=== PATIENT | female | born 1965 | race American Indian/Alaskan Native ===

== ENCOUNTER 2017-04-15 02:05 | Emergency (ER) | payer MEDICAID ==
[2017-04-15 02:20] VITALS: BMI 24.3
--- NOTE | 2017-04-15 02:48 | ED PDOC ---
Arrival/HPI - General Chief Complaint: Abdominal Pain Time Seen by Provider: 04/15/17 02:21 Historian: Patient - History of Present Illness Narrative History of Present Illness (Text): 04/15/17 02:48 Marleni Marroquin is a 52 year old female, whose past medical history includes emphysema, diabetes, chronic lower back pain, substance abuse, bipolar disorder , depression, and schizophrenia, who presents to the Emergency department complaining of diarrhea. Patient states she mixed her Seroquel medication with alcohol and cough syrup tonight and is now experiencing diarrhea. Patient denies any fever, chest pain, shortness of breath, vomiting, urinary symptoms, back pain, neck pain, headache, dizziness, or any other complaints. Time/Duration: Other (tonight) Symptom Onset: Gradual Symptom Course: Unchanged Activities at Onset: Rest, Light Past Medical History - Provider Review Nursing Documentation Reviewed: Yes - Infectious Disease Hx of Infectious Diseases: None - Tetanus Immunization Tetanus Immunization: Unknown - Reproductive Menopause: Yes - Cardiac Hx Cardiac Disorders: No (denies) Hx Hypertension: No - Pulmonary Hx Tuberculosis: No - Neurological HX Cerebrovascular Accident: No Hx Seizures: No - HEENT Hx HEENT Disorder: No (denies) - Renal Hx Renal Disorder: No (denies) - Endocrine/Metabolic Hx Endocrine Disorders: No (denies) Hx Diabetes Mellitus Type 2: Yes (on oral hypoglycemic) - Hematological/Oncological Hx Cancer: No - Integumentary Hx Dermatological Disorder: Yes Other/Comment: fungus to bilat feet - Musculoskeletal/Rheumatological Hx Musculoskeletal Disorders: No (denies) - Gastrointestinal Hx Gastrointestinal Disorders: No (denies) - Genitourinary/Gynecological Hx Sexually Transmitted Diseases: No - Psychiatric Hx Anxiety: Yes Hx Substance Use: Yes (crack) - Past Surgical History Past Surgical History: No Previous - Anesthesia Hx Anesthesia: No Hx Anesthesia Reactions: No Hx Malignant Hyperthermia: No - Suicidal Assessment Feels Threatened In Home Enviroment: No Family/Social History - Physician Review Nursing Documentation Reviewed: Yes Family/Social History: No Known Family HX Smoking Status: Current Some Days Smoker Hx Alcohol Use: Yes (2-3 cans a day) Hx Substance Use: Yes (crack) Hx Substance Use Treatment: Yes Allergies/Home Meds Allergies/Adverse Reactions: Allergies No Known Allergies Allergy (Verified 07/24/15 02:36) Review of Systems - Physician Review All systems were reviewed & negative as marked: Yes - Review of Systems Constitutional: Normal. absent: Fevers Eyes: Normal ENT: Normal Respiratory: Normal. absent: SOB, Cough Cardiovascular: Normal. absent: Chest Pain Gastrointestinal: Diarrhea. absent: Vomiting Genitourinary Female: Normal. absent: Dysuria, Frequency, Hematuria, Urine Output Changes Musculoskeletal: Normal. absent: Back Pain, Neck Pain Skin: Normal. absent: Rash Neurological: Normal. absent: Headache, Dizziness Endocrine: Normal Hemo/Lymphatic: Normal Psychiatric: Normal Physical Exam Vital Signs Reviewed: Yes Vital Signs Temp Pulse Resp BP Pulse Ox 04/15/17 04:22 97.9 F 52 L 16 151/81 H 98 Temperature: Afebrile Blood Pressure: Normal Pulse: Regular Respiratory Rate: Normal Appearance: Positive for: Well-Appearing, Non-Toxic, Comfortable Pain Distress: None Mental Status: Positive for: Alert and Oriented X 3 - Systems Exam Head: Present: Atraumatic, Normocephalic Pupils: Present: PERRL Extroacular Muscles: Present: EOMI Conjunctiva: Present: Normal Mouth: Present: Moist Mucous Membranes Neck: Present: Normal Range of Motion Respiratory/Chest: Present: Clear to Auscultation, Good Air Exchange. No: Respiratory Distress, Accessory Muscle Use Cardiovascular: Present: Regular Rate and Rhythm, Normal S1, S2. No: Murmurs Abdomen: Present: Normal Bowel Sounds. No: Tenderness, Distention, Peritoneal Signs Back: Present: Normal Inspection Upper Extremity: Present: Normal Inspection. No: Cyanosis, Edema Lower Extremity: Present: Normal Inspection. No: Edema Neurological: Present: GCS=15, CN II-XII Intact, Speech Normal Skin: Present: Warm, Dry, Normal Color. No: Rashes Psychiatric: Present: Alert, Oriented x 3, Normal Insight, Normal Concentration Medical Decision Making ED Course and Treatment: 04/15/17 02:48 Impression: 52 year old female complaining of diarrhea. Plan: -- EKG -- Chest X-ray -- Labs, alcohol level, lipase -- Urine drug screen -- Reassess and disposition Progress Notes: 04/15/17 04:36 reviewed EKG, sinus bradycardia at 53 bpm[address] Non-specific ST changes. 04/15/17 05:41 Reviewed radiology, Chest X-ray shows no acute processes. - Lab Interpretations Lab Results: 04/15/17 05:10 04/15/17 05:10 Lab Results 04/15/17 05:10: WBC 4.9 D, RBC 4.54, Hgb 12.9, Hct 38.4, MCV 84.6, MCH 28.4, MCHC 33.6, RDW 15.3 H, Plt Count 167, MPV 10.7 04/15/17 05:10: Alcohol, Quantitative < 10 04/15/17 05:10: Sodium 143, Potassium 3.8, Chloride 104, Carbon Dioxide 31, Anion Gap 12, BUN 15, Creatinine 0.7, Est GFR ( Amer) > 60, Est GFR (Non- Af Amer) > 60, Random Glucose 71, Calcium 9.2, Total Bilirubin 0.7, AST 31, ALT 38, Alkaline Phosphatase 56, Total Protein 7.0, Albumin 3.8, Globulin 3.2, Albumin/Globulin Ratio 1.2, Lipase 53 04/15/17 05:10: PT 11.4, INR 1.06, APTT 23.1 L I have reviewed the lab results: Yes - RAD Interpretation Radiology Orders: 04/15/17 02:50 CHEST PORTABLE [RAD] Stat - Transfer of Care Patient signed out to Dr:: Emelia Pending Labs:: PES evaluation/reassess/final disposition - Scribe Statement The provider has reviewed the documentation as recorded by the Scribe Annel Munoz All medical record entries made by the Scribe were at my direction and personally dictated by me. I have reviewed the chart and agree that the record accurately reflects my personal performance of the history, physical exam, medical decision making, and the department course for this patient. I have also personally directed, reviewed, and agree with the discharge instructions and disposition. Disposition/Present on Arrival - Present on Arrival Any Indicators Present on Arrival: No History of DVT/PE: No History of Uncontrolled Diabetes: No Urinary Catheter: No History of Decub. Ulcer: No History Surgical Site Infection Following: None - Disposition Have Diagnosis and Disposition been Completed?: No Diagnosis: Schizoaffective disorder, Diarrhea Disposition Time: 07:00 Condition: STABLE
[2017-04-15 04:23] VITALS: RESP 16; TEMP 97.9
[2017-04-15 05:42] LABS: HEMATOCRIT 38.4 % (36.0-48.0); MEAN CELL VOLUME 84.6 fL (80.0-105.0); MEAN CORPUSCULAR HEMOGLOBIN 28.4 pg (25.0-35.0); MEAN CORPUSCULAR HGB CONC 33.6 g/dl (31.0-37.0); MEAN PLATELET VOLUME 10.7 fl (7.0-11.0); RED CELL DISTRIBUTION WIDTH 15.3 % (11.5-14.5); WHITE BLOOD COUNT 4.9 10^3/ul (4.5-11.0)
[2017-04-15 05:46] LABS: ALB/GLOB RATIO 1.2 (1.1-1.8); ALKALINE PHOSPHATASE 56 U/L (38-133); ALT/SGPT 38 U/L (7-56); AST/SGOT 31 U/L (15-39); BILIRUBIN,TOTAL 0.7 mg/dL (0.2-1.3); BLOOD UREA NITROGEN 15 mg/dL (7-21); CALCIUM 9.2 mg/dL (8.4-10.5); CARBON DIOXIDE 31 mmol/L (21-33); CHLORIDE 104 mmol/L (98-107); GFR AFRICAN-AMERICAN > 60; GLUCOSE,RANDOM 71 mg/dL (70-110); LIPASE 53 U/L (23-300); POTASSIUM 3.8 mmol/L (3.6-5.0); SODIUM 143 mmol/L (132-148)
[2017-04-15 05:47] LABS: INR 1.06 (0.93-1.08); PARTIAL THROMBOPLASTIN TIME 23.1 Seconds (23.7-30.8)
[2017-04-15 07:03] VITALS: O2SAT 96
--- NOTE | 2017-04-15 07:05 | ED PDOC ---
Physical Exam Vital Signs Reviewed: Yes Vital Signs Temp Pulse Resp BP Pulse Ox 04/15/17 09:27 66 16 136/76 96 04/15/17 07:02 63 16 96 04/15/17 04:22 97.9 F 52 L 16 151/81 H 98 Temperature: Afebrile Blood Pressure: Normal Pulse: Regular Respiratory Rate: Normal Appearance: Positive for: Well-Appearing, Non-Toxic, Comfortable Pain Distress: None Mental Status: Positive for: Alert and Oriented X 3 Medical Decision Making ED Course and Treatment: 04/15/17 07:00 Case endorsed to me by , pending PES evaluation. Patient is a 52 year old female who presents to the ed complaining of diarrhea after taking Seroquel and cough syrup after drinking alcohol. On evaluation, patient is alert and oriented X3 and resting comfortably in bed. 04/15/17 07:55 Patient was evaluated by PES worker and was psychiatrically cleared. Patient now complains of swelling and pain to lower extremities. States she has a history of DVTs in the past. Will order LE US to rule out DVT. 04/15/17 09:22 Per preliminary US mobile sales technician report, negative bilateral DVT study. 04/15/17 09:28 seen and cleared by PES pt denies SI/HI states she feels comfortable being dc'd home with outpatient f/u Incidental nodule on CXR as per radiologist, Dr. Miranda. Pt informed and instructed to f/u with outpatient clinic or PMD for further w/u. Verbalized understanding and agreement. Pt has been closely monitored throughout the stay in the ED. Currently pt is ANOx3 to person, place, and time. Has good insight and judgment. Denies suicidal or homicidal ideations. Pt has steady gait, ambulates without difficulty, not slurring speech. Pt able to tolerate PO without any difficulty. Patient denies any complaints at this time. Patient is not tremulous, not tachycardic, no signs or symptoms of alcohol withdrawal. Pt states she understands to return to the ER right away for new or worsening symptoms or for inability to f/u with PMD or specialist as instructed. Patient states that she fully agrees with and understands discharge instructions. States that she agrees with the plan and disposition. Verbalized and repeated discharge instructions and plan. I have given the patient opportunity to ask any additional questions. - Lab Interpretations Lab Results: 04/15/17 05:10 04/15/17 05:10 Lab Results 04/15/17 07:57: Urine Opiates Screen Negative, Urine Methadone Screen Negative, Ur Barbiturates Screen Negative, Ur Phencyclidine Scrn Negative, Ur Amphetamines Screen Negative, U Benzodiazepines Scrn Negative, U Oth Cocaine Metabols Positive H, U Cannabinoids Screen Negative 04/15/17 05:10: WBC 4.9 D, RBC 4.54, Hgb 12.9, Hct 38.4, MCV 84.6, MCH 28.4, MCHC 33.6, RDW 15.3 H, Plt Count 167, MPV 10.7 04/15/17 05:10: Alcohol, Quantitative < 10 04/15/17 05:10: Sodium 143, Potassium 3.8, Chloride 104, Carbon Dioxide 31, Anion Gap 12, BUN 15, Creatinine 0.7, Est GFR ( Amer) > 60, Est GFR (Non- Af Amer) > 60, Random Glucose 71, Calcium 9.2, Total Bilirubin 0.7, AST 31, ALT 38, Alkaline Phosphatase 56, Total Protein 7.0, Albumin 3.8, Globulin 3.2, Albumin/Globulin Ratio 1.2, Lipase 53 04/15/17 05:10: PT 11.4, INR 1.06, APTT 23.1 L - RAD Interpretation Radiology Orders: 04/15/17 02:50 CHEST PORTABLE [RAD] Stat 04/15/17 07:47 DUPLEX LOWER EXTRM VEIN BILAT [US] Stat - Scribe Statement The provider has reviewed the documentation as recorded by the Donya Angeles Provider Attestation: All medical record entries made by the Donya were at my direction and personally dictated by me. I have reviewed the chart and agree that the record accurately reflects my personal performance of the history, physical exam, medical decision making, and the department course for this patient. I have also personally directed, reviewed, and agree with the discharge instructions and disposition. Disposition/Present on Arrival - Present on Arrival Any Indicators Present on Arrival: No History of DVT/PE: No History of Uncontrolled Diabetes: No Urinary Catheter: No History of Decub. Ulcer: No History Surgical Site Infection Following: None - Disposition Have Diagnosis and Disposition been Completed?: Yes Diagnosis: Schizoaffective disorder, Substance abuse Disposition: HOME/ ROUTINE Disposition Time: 09:30 Patient Plan: Discharge Patient Problems: Current Active Problems Problem Status Onset Schizoaffective disorder Acute Substance abuse Acute Condition: GOOD Discharge Instructions (ExitCare): Polysubstance Abuse (ED) Additional Instructions: PLEASE RETURN TO THE EMERGENCY DEPARTMENT FOR NEW OR WORSENING SYMPTOMS. RETURN RIGHT AWAY IF YOU CANNOT FOLLOW UP WITH YOUR PRIMARY CARE DOCTOR, CLINIC, OR SPECIALIST IN 1-2 DAYS. Referrals: Allan Albarran MD [Staff Provider] - Follow up with primary Isabel Jacobs MD [Staff Provider] - Follow up with primary
--- NOTE | 2017-04-15 09:22 | RAD ---
HISTORY: medical clearance COMPARISON: Chest x-ray performed 07/08/16 TECHNIQUE: Chest, one view. FINDINGS: LUNGS: Azygos lobe, anatomic variant. Hyperinflation may be seen in setting of COPD. No focal consolidation. 13 mm left upper lobe rounded density appears related to the 1st rib costochondral cartilage. Please note that chest x-ray has limited sensitivity for the detection of pulmonary masses. PLEURA: No significant pleural effusion identified. No definite pneumothorax . CARDIOVASCULAR: Heart size appears top normal. OSSEOUS STRUCTURES: Degenerative changes. VISUALIZED UPPER ABDOMEN: Unremarkable. OTHER FINDINGS: None. IMPRESSION: Hyperinflation may be seen in setting of COPD. Left upper lobe rounded density likely related to the 1st rib costochondral cartilage. Please note that chest x-ray has limited sensitivity for the detection of pulmonary masses. If appropriate, outpatient screening CT of the chest may be considered. Findings discussed with Dr. Kapoor on 04/15/17 at 9:19 a.m..
[2017-04-15 09:27] VITALS: BP 136/76; PULSE 66
--- NOTE | 2017-04-15 21:56 | CARD ---
APPROVED REPORT EKG Measurement Heart [id number] <Conclusion> Sinus bradycardia with sinus arrhythmia Otherwise normal ECG
--- NOTE | 2017-04-16 20:05 | US ---
HISTORY: Leg pain and swelling. Evaluate for DVT PHYSICIAN(S): Aron Valdivia MD. TECHNIQUE: Duplex sonography and color-flow Doppler with graded compression were used to evaluate the deep venous systems of both lower extremities. The exam is somewhat limited by edema. FINDINGS: The visualized deep venous systems of both lower extremities are sonographically normal and compressible. Normal wave forms and augmentation are seen. There is no sonographic evidence for deep venous thrombosis in the visualized segments of both lower extremities. IMPRESSION: No sonographic evidence for deep venous thrombosis in the visualized segments of both lower extremities.
== END 2017-04-15 10:04 | disposition home or self-care (01) ==
LOC: ED 02:05
DX: F25.9 Schizoaffective disorder, unspecified (principal); R19.7 Diarrhea, unspecified

== ENCOUNTER 2017-06-13 17:58 | Emergency (ER) | payer MEDICAID ==
[2017-06-13 17:59] VITALS: BMI 24.3
--- NOTE | 2017-06-13 18:31 | ED PDOC ---
Arrival/HPI - General Chief Complaint: Psychiatric Evaluation Time Seen by Provider: 06/13/17 18:25 Historian: Patient - History of Present Illness Narrative History of Present Illness (Text): 06/13/17 18:26 This 52 yo female with pmh schizophrenia, bipolar disorder, presents to this ED c/o feeling paranoia, and auditory hallucination x 1 week. Patient admits being homeless for at least 8 months. She has not taken her psychs medication for over 6 months. Patient admits drinking alcohol very often. She also stated taking cocaine x 2 weeks ago. Denies SI, HI, sob, cp, abdominal pain, urinary symptoms, or abnormal gait. Time/Duration: 1 week Symptom Course: Worsening Context: Home Past Medical History - Provider Review Nursing Documentation Reviewed: Yes - Infectious Disease Hx of Infectious Diseases: None - Tetanus Immunization Tetanus Immunization: Unknown - Cardiac Hx Cardiac Disorders: No (denies) Hx Hypertension: No - Pulmonary Hx Respiratory Disorders: No Hx Tuberculosis: No - Neurological HX Cerebrovascular Accident: No Hx Seizures: No - HEENT Hx HEENT Disorder: No (denies) - Renal Hx Renal Disorder: No (denies) - Endocrine/Metabolic Hx Endocrine Disorders: Yes Hx Diabetes Mellitus Type 2: Yes - Hematological/Oncological Hx Blood Disorders: No Hx Cancer: No - Integumentary Hx Dermatological Disorder: Yes Other/Comment: fungus to bilat feet per pt - Musculoskeletal/Rheumatological Hx Musculoskeletal Disorders: No (denies) - Gastrointestinal Hx Gastrointestinal Disorders: No (denies) - Genitourinary/Gynecological Hx Genitourinary Disorders: No Hx Sexually Transmitted Diseases: No - Psychiatric Hx Psychophysiologic Disorder: Yes Hx Substance Use: Yes (crack cocaine) - Past Surgical History Past Surgical History: No Previous - Anesthesia Hx Anesthesia: No Hx Anesthesia Reactions: No Hx Malignant Hyperthermia: No - Suicidal Assessment Feels Threatened In Home Enviroment: No Family/Social History - Physician Review Nursing Documentation Reviewed: Yes Family/Social History: No Known Family HX Smoking Status: Heavy Smoker > 10 Cigarettes Daily Hx Alcohol Use: Yes Frequency of alcohol use: Few days per week Hx Substance Use: Yes (crack cocaine) Hx Substance Use Treatment: Yes Allergies/Home Meds Allergies/Adverse Reactions: Allergies No Known Allergies Allergy (Verified 06/13/17 18:10) Home Medications: Home Meds Medication Instructions Recorded Confirmed No Known Home Med 06/13/17 06/13/17 Review of Systems - Review of Systems Constitutional: Normal. absent: Fatigue, Weight Change, Fevers, Night Sweats Eyes: Normal ENT: Normal Respiratory: Normal. absent: SOB, Cough Cardiovascular: Normal. absent: Chest Pain, Palpitations Gastrointestinal: Normal. absent: Abdominal Pain, Diarrhea, Nausea, Vomiting Genitourinary Female: Normal, Other (LMP: now). absent: Dysuria, Frequency, Hematuria, Vaginal Bleeding, Vaginal Discharge Musculoskeletal: Normal Skin: Normal Neurological: Normal. absent: Headache, Dizziness, Focal Weakness Endocrine: Normal Hemo/Lymphatic: Normal Psychiatric: Depression, Other (see HPI) Physical Exam Vital Signs Temp Pulse Resp BP Pulse Ox 06/13/17 19:10 99 F 76 18 128/75 95 06/13/17 18:11 98 F 80 15 136/77 97 Temperature: Afebrile Blood Pressure: Normal Pulse: Regular Respiratory Rate: Normal Appearance: Positive for: Well-Appearing, Non-Toxic, Comfortable Pain Distress: None Mental Status: Positive for: Alert and Oriented X 3 - Systems Exam Head: Present: Atraumatic, Normocephalic Pupils: Present: PERRL Extroacular Muscles: Present: EOMI Conjunctiva: Present: Normal Mouth: Present: Moist Mucous Membranes Neck: Present: Normal Range of Motion Respiratory/Chest: Present: Clear to Auscultation, Good Air Exchange. No: Respiratory Distress, Accessory Muscle Use, Wheezes, Retracting, Rhonchi Cardiovascular: Present: Regular Rate and Rhythm, Normal S1, S2. No: Murmurs Abdomen: Present: Normal Bowel Sounds. No: Tenderness, Distention, Peritoneal Signs Back: Present: Normal Inspection Upper Extremity: Present: Normal Inspection, Normal ROM, NORMAL PULSES, Neurovascularly Intact, Capillary Refill < 2s. No: Cyanosis, Edema Lower Extremity: Present: Normal Inspection, NORMAL PULSES, Normal ROM, Neurovascularly Intact, Capillary Refill < 2 s. No: Edema Neurological: Present: GCS=15, CN II-XII Intact, Speech Normal, Motor Func Grossly Intact, Normal Sensory Function, Normal Cerebellar Funct, Gait Normal Skin: Present: Warm, Dry, Normal Color. No: Rashes Psychiatric: Present: Alert, Oriented x 3, Normal Insight, Normal Concentration Medical Decision Making ED Course and Treatment: 06/13/17 21:47 PES screener has seen patient. PES screener stated that after speaking with psychiatrist, the plan is to d/c patient home, with Dx. Bipolar disorder. Patient denies SI, or HI. PES screener patient refused to sign PES forms. Re-evaluation Time: 21:49 Reassessment Condition: Re-examined, Improved - Lab Interpretations Lab Results: 06/13/17 19:00 06/13/17 19:00 Lab Results 06/13/17 19:00: Alcohol, Quantitative 30 H 06/13/17 19:00: Salicylates < 1 L, Acetaminophen < 10.0 L 06/13/17 19:00: Sodium 143, Potassium 3.9, Chloride 105, Carbon Dioxide 28, Anion Gap 14, BUN 16, Creatinine 0.7, Est GFR ( Amer) > 60, Est GFR (Non- Af Amer) > 60, Random Glucose 63 L, Calcium 9.3, Total Bilirubin 0.4, AST 27, ALT 27, Alkaline Phosphatase 54, Total Protein 6.6, Albumin 4.0, Globulin 2.6, Albumin/Globulin Ratio 1.5 06/13/17 19:00: WBC 4.5, RBC 4.36, Hgb 12.3, Hct 37.2, MCV 85.3, MCH 28.2, MCHC 33.1, RDW 14.9 H, Plt Count 144, MPV 11.7 H, Gran % 43.2 L, Lymph % (Auto) 44.7 H, [place] % (Auto) 7.7 H, Eos % (Auto) 4.0, Baso % (Auto) 0.4, Gran # 1.96, Lymph # 2.0, [place] # 0.4, Eos # 0.2, Baso # 0.02 06/13/17 18:45: Urine Opiates Screen Negative, Urine Methadone Screen Negative, Ur Barbiturates Screen Negative, Ur Phencyclidine Scrn Negative, Ur Amphetamines Screen Negative, U Benzodiazepines Scrn Negative, U Oth Cocaine Metabols Negative, U Cannabinoids Screen Negative 06/13/17 18:45: Urine Color Yellow, Urine Appearance Clear, Urine pH 6.0, Ur Specific [place] 1.010, Urine Protein Negative, Urine Glucose (UA) Negative, Urine Ketones Negative, Urine Blood Negative, Urine Nitrate Negative, Urine Bilirubin Negative, Urine Urobilinogen 0.2, Ur Leukocyte Esterase Negative, Urine HCG, Qual Negative - RAD Interpretation Radiology Orders: 06/13/17 18:25 CHEST PORTABLE [RAD] Stat Disposition/Present on Arrival - Present on Arrival Any Indicators Present on Arrival: No History of DVT/PE: No History of Uncontrolled Diabetes: No Urinary Catheter: No History of Decub. Ulcer: No History Surgical Site Infection Following: None - Disposition Have Diagnosis and Disposition been Completed?: Yes Diagnosis: Bipolar disorder Disposition: HOME/ ROUTINE Disposition Time: 21:50 Patient Plan: Discharge Patient Problems: Current Active Problems Problem Status Onset Bipolar disorder Acute Condition: GOOD Discharge Instructions (ExitCare): Bipolar Disorder (ED) Additional Instructions: Call private doctor for follow up visit or the clinic in 1-2 days. Return to emergency if symptoms worsen. Referrals: Keyur Valladares MD [Primary Care Provider] - Follow up with primary [facility] [Outside] - Follow up with primary [facility] [[facility]] - Follow up with primary Forms: [employer] (Al[place]ian)
[2017-06-13 19:11] VITALS: TEMP 99; O2SAT 95
[2017-06-13 19:19] LABS: BARBITURATES, UR NEGATIVE (NEGATIVE); BENZODIAZEPINES, UR NEGATIVE (NEGATIVE); OPIATES, UR NEGATIVE (NEGATIVE); PHENCYCLIDINE, UR NEGATIVE (NEGATIVE)
[2017-06-13 19:39] LABS: BASO # 0.02 K/mm3 (0.0-2.0); BASO % 0.4 % (0.0-3.0); EOS # 0.2 (0.0-0.7); GRAN # 1.96 (1.4-6.5); GRAN % 43.2 % (50.0-68.0); HEMOGLOBIN 12.3 g/dL (12.0-16.0); LYMPH % 44.7 % (22.0-35.0); MEAN CELL VOLUME 85.3 fl (80.0-105.0); MEAN CORPUSCULAR HEMOGLOBIN 28.2 pg (25.0-35.0); MEAN CORPUSCULAR HGB CONC 33.1 g/dl (31.0-37.0); MEAN PLATELET VOLUME 11.7 fl (7.0-11.0); MONO # 0.4 (0.1-0.6); MONO % 7.7 % (1.0-6.0); PLATELET COUNT 144 10^3/uL (120.0-450.0); RBC 4.36 10^6/uL (3.5-6.1); RED CELL DISTRIBUTION WIDTH 14.9 % (11.5-14.5); WHITE BLOOD COUNT 4.5 10^3/ul (4.5-11.0)
[2017-06-13 19:39] LABS: URINE BILIRUBIN NEGATIVE (NEGATIVE); URINE BLOOD NEGATIVE (NEGATIVE); URINE GLUCOSE (UA) NEGATIVE (NEGATIVE); URINE LEUKOCYTE ESTERASE NEGATIVE Leu/uL (NEGATIVE); URINE NITRATE NEGATIVE (NEGATIVE); URINE PROTEIN NEGATIVE mg/dL (<30 mg/dL); URINE UROBILINOGEN 0.2 E.U./dL (<1 E.U./dL)
[2017-06-13 19:41] LABS: URINE APPEARANCE CLEAR (CLEAR); URINE COLOR YELLOW (YELLOW)
[2017-06-13 19:42] LABS: HCG,QUALITATIVE URINE NEGATIVE (NEGATIVE)
[2017-06-13 19:44] LABS: SALICYLATE < 1 mg/dL (2.0-20.0)
[2017-06-13 19:45] LABS: ACETAMINOPHEN < 10.0 ug/ml (10.0-20.0)
[2017-06-13 19:46] LABS: ALB/GLOB RATIO 1.5 (1.1-1.8); ALT/SGPT 27 U/L (7-56); AST/SGOT 27 U/L (15-39); BLOOD UREA NITROGEN 16 mg/dL (7-21); CALCIUM 9.3 mg/dL (8.4-10.5); GFR AFRICAN-AMERICAN > 60; GFR NON-AFRICAN AMERICAN > 60
[2017-06-13 22:12] VITALS: BP 109/91; PULSE 63; RESP 16
--- NOTE | 2017-06-14 07:41 | RAD ---
HISTORY: PES eval COMPARISON: 04/15/2017 FINDINGS: LUNGS: No acute infiltrate. Incidentally noted azygos fissure, normal developmental variant. PLEURA: No significant pleural effusion identified, no pneumothorax apparent. CARDIOVASCULAR: Normal. OSSEOUS STRUCTURES: No significant abnormalities. VISUALIZED UPPER ABDOMEN: Normal. OTHER FINDINGS: None. IMPRESSION: No acute infiltrate.
--- NOTE | 2017-06-14 11:54 | CARD ---
APPROVED REPORT EKG Measurement Heart [id number] <Conclusion> Normal sinus rhythm Possible Left atrial enlargement
== END 2017-06-13 22:14 | disposition home or self-care (01) ==
LOC: ED 17:58
DX: F31.9 Bipolar disorder, unspecified (principal); Z59.0 Homelessness

== ENCOUNTER 2017-09-26 21:53 | Emergency (ER) | payer MEDICAID ==
[2017-09-26 21:53] VITALS: BMI 26.4
--- NOTE | 2017-09-26 22:27 | ED PDOC ---
Arrival/HPI <RobertoJon nix - Last Filed: 09/27/17 06:54> - General Historian: Patient - History of Present Illness Time/Duration: < week Symptom Onset: Gradual Symptom Course: Unchanged Activities at Onset: Rest, Light Context: Home <Thad Medina - Last Filed: 09/27/17 07:06> - General Chief Complaint: Psychiatric Evaluation - History of Present Illness Narrative History of Present Illness (Text): 09/26/17 22:27 Marleni Marroquin is a 52 year old AAF who has a past medical history significant for emphysema, diabetes, chronic lower back pain, substance abuse, bipolar disorder, depression, and schizophrenia who presents to the [facility] ED with a chief complaint of depression with associated suicidal and homicidal ideations. Patient reports that she had been depressed for months but that her depression has gotten worse recently with no inciting event. She states that she is depressed over situations in her family. She denies any visual or auditory hallucinations, fever, chills, headache, neck pain/stiffness, chest pain, palpitations, SOB, cough, abdominal pain, N/V/D/C, burning/pain with urination, rashes or any numbness/tingling/weakness of any extremity. (Thad Medina) Past Medical History - Provider Review Nursing Documentation Reviewed: Yes - Travel History Have you recently traveled outside [place] w/in the past 3 mons?: No - Past History Past History: No Previous - Infectious Disease Hx of Infectious Diseases: None - Tetanus Immunization Tetanus Immunization: Unknown - Reproductive Menopause: No - Cardiac Hx Hypertension: No - Pulmonary Hx Asthma: Yes - Neurological Hx Seizures: No - HEENT Hx HEENT Disorder: No - Renal Hx Renal Disorder: No - Endocrine/Metabolic Hx Endocrine Disorders: Yes Hx Diabetes Mellitus Type 2: Yes - Hematological/Oncological Hx Anemia: Yes - Integumentary Hx Dermatological Disorder: Yes Other/Comment: fungus to bilat feet per pt - Musculoskeletal/Rheumatological Hx Falls: No - Gastrointestinal Hx Gastrointestinal Disorders: No - Genitourinary/Gynecological Hx Sexually Transmitted Diseases: Yes - Psychiatric Hx Anxiety: Yes Hx Bipolar Disorder: Yes Hx Depression: Yes Hx Schizophrenia: Yes Hx Substance Use: Yes - Past Surgical History Past Surgical History: No Previous - Anesthesia Hx Anesthesia: No Hx Anesthesia Reactions: No Hx Malignant Hyperthermia: No - Suicidal Assessment Feels Threatened In Home Enviroment: No <Thad Medina - Last Filed: 09/27/17 07:06> Family/Social History - Physician Review Nursing Documentation Reviewed: Yes Family/Social History: Unknown Family HX Smoking Status: Heavy Smoker > 10 Cigarettes Daily Hx Alcohol Use: Yes Hx Substance Use: Yes Substance used: crack Hx Substance Use Treatment: Yes <Thad Medina - Last Filed: 09/27/17 07:06> Allergies/Home Meds <Jon Mejia - Last Filed: 09/27/17 06:54> <Thad Medina - Last Filed: 09/27/17 07:06> Allergies/Adverse Reactions: Allergies No Known Allergies Allergy (Verified 09/27/17 00:43) Home Medications: Home Meds Medication Instructions Recorded Confirmed Unobtainable 09/27/17 09/27/17 Review of Systems - Physician Review All systems were reviewed & negative as marked: Yes - Review of Systems Constitutional: Normal. absent: Fevers, Night Sweats Eyes: Normal. absent: Vision Changes ENT: Normal Respiratory: Normal. absent: SOB, Cough Cardiovascular: Normal. absent: Chest Pain, Palpitations Gastrointestinal: Normal. absent: Abdominal Pain, Constipation, Diarrhea, Nausea, Vomiting Genitourinary Female: Normal. absent: Dysuria Musculoskeletal: Normal. absent: Neck Pain Skin: Normal. absent: Rash Neurological: Normal. absent: Headache, Dizziness Endocrine: Normal Hemo/Lymphatic: Normal Psychiatric: Depression, Suicidal Ideation, Other (Homicidal ideation). absent : Normal, Anxiety <Thad Medina - Last Filed: 09/27/17 07:06> Physical Exam Vital Signs Reviewed: Yes Temperature: Afebrile Blood Pressure: Normal Pulse: Regular Respiratory Rate: Normal Appearance: Positive for: Well-Appearing, Non-Toxic, Comfortable Pain Distress: None Mental Status: Positive for: Alert and Oriented X 3 - Systems Exam Head: Present: Atraumatic, Normocephalic Pupils: Present: PERRL Extroacular Muscles: Present: EOMI Conjunctiva: Present: Normal Mouth: Present: Moist Mucous Membranes Neck: Present: Normal Range of Motion Respiratory/Chest: Present: Clear to Auscultation, Good Air Exchange. No: Respiratory Distress, Accessory Muscle Use Cardiovascular: Present: Regular Rate and Rhythm, Normal S1, S2. No: Murmurs Abdomen: Present: Normal Bowel Sounds. No: Tenderness, Distention, Peritoneal Signs Back: Present: Normal Inspection Upper Extremity: Present: Normal Inspection. No: Cyanosis, Edema Lower Extremity: Present: Normal Inspection. No: Edema Neurological: Present: GCS=15, CN II-XII Intact, Speech Normal Skin: Present: Warm, Dry, Normal Color. No: Rashes Lymphatic: No: Cervical Adenopathy Psychiatric: Present: Alert, Oriented x 3, Suicidal Ideation, Homicidal Ideation. No: Normal Insight, Normal Concentration, Anxious, Agitated, Depressed Mood, Delusional, Hallucinations <Thad Medina - Last Filed: 09/27/17 07:06> Vital Signs Temp Pulse Resp BP Pulse Ox 09/27/17 06:45 66 18 120/67 99 09/27/17 03:02 66 18 128/69 99 09/27/17 01:00 69 18 129/71 99 09/26/17 22:15 99.0 F 84 20 137/72 98 Medical Decision Making - Transfer of Care Patient signed out to Dr:: Topher Other: PES evaluation/reassess/final disposition <Jon Mejia - Last Filed: 09/27/17 06:54> - Lab Interpretations I have reviewed the lab results: Yes - RAD Interpretation Trade Recruiter: ED Physician, Radiologist - EKG Interpretation Interpreted by ED Physician: Yes Type: 12 lead EKG <Thad Medina - Last Filed: 09/27/17 07:06> ED Course and Treatment: Impression: Pt seen and evaluated with medical assistant float. Pt, whose past medical history includes emphysema, diabetes, chronic back pain, substance abuse, bipolar disorder, depression, and schizophrenia, presented for depression, suicidal ideation, and homicidal ideation. Aware and agree with HPI, clinical findings, plan, and management. Plan: -- EKG -- Chest X-ray -- Labs, alcohol level -- Urinalysis, urine drug screen -- Reassess and disposition (Jon Mejia) 09/26/17 22:43 Impression: 52 year old AAF who has a past medical history significant for emphysema, diabetes, chronic lower back pain, substance abuse, bipolar disorder , depression, and schizophrenia who presents to the [facility] ED with a chief complaint of depression with associated suicidal and homicidal ideations Plan: -CBC, CMP, UA, UDS and serum alcohol level -EKG -Chest X-Ray -PES Evaluation -Reassess and disposition Prior Visits: Patient was seen and evaluated for substance abuse and depression on multiple occasions in the past year 09/27/17 06:55 Patient noticed to still have defiant behavior by PES research analyst who recommended patient be evaluated by psychiatrist this AM (Thad Medina) - Lab Interpretations Lab Results: 09/26/17 22:30 09/26/17 22:30 Lab Results 09/26/17 22:30: Alcohol, Quantitative 15 H 09/26/17 22:30: Sodium 142, Potassium 4.3, Chloride 105, Carbon Dioxide 28, Anion Gap 13, BUN 21, Creatinine 0.8, Est GFR ( Amer) > 60, Est GFR (Non- Af Amer) > 60, Random Glucose 95, Calcium 9.3, Total Bilirubin 0.5, AST 35, ALT 32, Alkaline Phosphatase 50, Total Protein 7.0, Albumin 4.1, Globulin 2.9, Albumin/Globulin Ratio 1.4 09/26/17 22:30: WBC 6.1 D, RBC 4.18, Hgb 12.5, Hct 37.0, MCV 88.5 D, MCH 29.9 , MCHC 33.8, RDW 15.6 H, Plt Count 173, MPV 10.4, Gran % 54.9, Lymph % (Auto) 34.0, Pettis % (Auto) 6.9 H, Eos % (Auto) 3.9, Baso % (Auto) 0.3, Gran # 3.34, Lymph # 2.1, Pettis # 0.4, Eos # 0.2, Baso # 0.02 - Medication Orders Current Medication Orders: Discontinued Medications Haloperidol Lactate (Haldol) 5 mg IM STAT STA PRN Reason: Protocol Stop: 09/26/17 23:06 Last Admin: 09/26/17 23:22 Dose: 5 mg IM Administration Charges Document 09/26/17 23:22 SS (Rec: 09/26/17 23:22 SS [id number]) Injection Site MAR Injection Site Right Deltoid Charges for Administration # of IM Administrations 1 Lorazepam (Ativan) 2 mg IM ONCE ONE Stop: 09/26/17 23:06 Last Admin: 09/26/17 23:22 Dose: 2 mg IM Administration Charges Document 09/26/17 23:22 SS (Rec: 09/26/17 23:22 SS [id number]) Injection Site MAR Injection Site Left Deltoid Charges for Administration # of IM Administrations 1 - PA / MUCK OPERATOR / Resident Statement / has reviewed & agrees with the documentation as recorded. / has examined the patient and agrees with the treatment plan. <Jon Mejia - Last Filed: 09/27/17 06:54> Disposition/Present on Arrival - Present on Arrival Any Indicators Present on Arrival: No - Disposition Have Diagnosis and Disposition been Completed?: No Disposition Time: 07:00 <Jon Mejia - Last Filed: 09/27/17 06:54> - Present on Arrival History of DVT/PE: Yes History of Uncontrolled Diabetes: No Urinary Catheter: No History of Decub. Ulcer: No History Surgical Site Infection Following: None <Thad Medina - Last Filed: 09/27/17 07:06> - Disposition Diagnosis: Manic bipolar I disorder, Suicidal ideation Patient Problems: Current Active Problems Problem Status Onset Manic bipolar I disorder Acute Suicidal ideation Acute Condition: STABLE Referrals: PCP,NO [Primary Care Provider] - Follow up with primary Forms: [employer] (Luxembourgish)
[2017-09-26 22:43] LABS: BASO # 0.02 K/mm3 (0.0-2.0); BASO % 0.3 % (0.0-3.0); EOS # 0.2 (0.0-0.7); EOS % 3.9 % (1.5-5.0); GRAN # 3.34 (1.4-6.5); GRAN % 54.9 % (50.0-68.0); LYMPH # 2.1 (1.2-3.4); MEAN CELL VOLUME 88.5 fl (80.0-105.0); MEAN CORPUSCULAR HEMOGLOBIN 29.9 pg (25.0-35.0); MEAN CORPUSCULAR HGB CONC 33.8 g/dl (31.0-37.0); MEAN PLATELET VOLUME 10.4 fl (7.0-11.0); MONO # 0.4 (0.1-0.6); MONO % 6.9 % (1.0-6.0); RED CELL DISTRIBUTION WIDTH 15.6 % (11.5-14.5); WHITE BLOOD COUNT 6.1 10^3/ul (4.5-11.0)
[2017-09-26 22:54] LABS: SODIUM 142 mmol/L (132-148)
[2017-09-26 23:10] LABS: ALB/GLOB RATIO 1.4 (1.1-1.8); ALKALINE PHOSPHATASE 50 U/L (38-126); ALT/SGPT 32 U/L (7-56); AST/SGOT 35 U/L (14-36); BILIRUBIN,TOTAL 0.5 mg/dL (0.2-1.3); BLOOD UREA NITROGEN 21 mg/dL (7-21); CALCIUM 9.3 mg/dL (8.4-10.5); CARBON DIOXIDE 28 mmol/L (21-33); CHLORIDE 105 mmol/L (98-107); GFR AFRICAN-AMERICAN > 60; GLUCOSE,RANDOM 95 mg/dL (70-110); POTASSIUM 4.3 mmol/L (3.6-5.0)
[2017-09-27 07:04] VITALS: O2SAT 99
[2017-09-27 07:57] LABS: URINE APPEARANCE CLEAR (CLEAR); URINE BILIRUBIN NEGATIVE (NEGATIVE); URINE BLOOD TRACE-INTACT (NEGATIVE); URINE COLOR YELLOW (YELLOW); URINE GLUCOSE (UA) NEGATIVE (NEGATIVE); URINE KETONE NEGATIVE (NEGATIVE); URINE LEUKOCYTE ESTERASE NEGATIVE Leu/uL (NEGATIVE); URINE PROTEIN NEGATIVE mg/dL (<30 mg/dL); URINE UROBILINOGEN 0.2 E.U./dL (<1 E.U./dL)
[2017-09-27 08:03] LABS: URINE BACTERIA FEW (NEG); URINE EPITHELIAL CELLS 0 - 2 /hpf (0-5); URINE WBC NEGATIVE /hpf (0-6)
--- NOTE | 2017-09-27 08:29 | ED PDOC ---
Physical Exam Vital Signs Temp Pulse Resp BP Pulse Ox 09/27/17 06:45 66 18 120/67 99 09/27/17 03:02 66 18 128/69 99 09/27/17 01:00 69 18 129/71 99 09/26/17 22:15 99.0 F 84 20 137/72 98 Medical Decision Making ED Course and Treatment: 09/27/17 7:[address] Mejia to f/u Psych evaluation. 09/27/17 08:29 NSR at [address] elevations, nl intervals, TWI V1,V2 09/27/17 10:[address] Isabel Jacobs. She offered patient admission to the psychiatric unit but patient refused. Patient wants to go home. She is AAOx3 and capable of making decisions so Dr. Isabel Jacobs and I agreed to discharge her home AMA. Patient signed AMA with RN Witness signature. 09/27/17 11:05 Leaving Against Medical Advice (AMA): The patient is choosing to leave against medical advice. I have personally explained to the patient that choosing to do so may result in permanent bodily harm or . I have discussed at great length that without further evaluation and monitoring there may be unforeseen circumstances and/or deterioration causing permanent bodily harm or as a result of their choice. The patient is alert, oriented, and shows the mental capacity to make clear decisions regarding the patients health care at this time. The patient continues to wish to leave against medical advice. In light of the patients decision to leave against medical advice, follow-up has been arranged and the patient is aware of the importance to following up as instructed. The patient has been advised that they should return to the emergency room immediately if they change their mind at any time, or if their condition begins to change or worsen in any way. - Lab Interpretations Lab Results: 09/26/17 22:30 09/26/17 22:30 Lab Results 09/27/17 07:50: Urine Color Yellow, Urine Appearance Clear, Urine pH 7.0, Ur Specific Cameron 1.015, Urine Protein Negative, Urine Glucose (UA) Negative, Urine Ketones Negative, Urine Blood Trace-intact H, Urine Nitrate Negative, Urine Bilirubin Negative, Urine Urobilinogen 0.2, Ur Leukocyte Esterase Negative , Urine RBC 1 - 3, Urine WBC Negative, Ur Epithelial Cells 0 - 2, Urine Bacteria Few 09/27/17 07:47: Urine Opiates Screen Negative, Urine Methadone Screen Negative, Ur Barbiturates Screen Negative, Ur Phencyclidine Scrn Negative, Ur Amphetamines Screen Negative, U Benzodiazepines Scrn Negative, U Oth Cocaine Metabols Negative, U Cannabinoids Screen Negative 09/26/17 22:30: Alcohol, Quantitative 15 H 09/26/17 22:30: Sodium 142, Potassium 4.3, Chloride 105, Carbon Dioxide 28, Anion Gap 13, BUN 21, Creatinine 0.8, Est GFR ( Amer) > 60, Est GFR (Non- Af Amer) > 60, Random Glucose 95, Calcium 9.3, Total Bilirubin 0.5, AST 35, ALT 32, Alkaline Phosphatase 50, Total Protein 7.0, Albumin 4.1, Globulin 2.9, Albumin/Globulin Ratio 1.4 09/26/17 22:30: WBC 6.1 D, RBC 4.18, Hgb 12.5, Hct 37.0, MCV 88.5 D, MCH 29.9 , MCHC 33.8, RDW 15.6 H, Plt Count 173, MPV 10.4, Gran % 54.9, Lymph % (Auto) 34.0, Angelina % (Auto) 6.9 H, Eos % (Auto) 3.9, Baso % (Auto) 0.3, Gran # 3.34, Lymph # 2.1, Angelina # 0.4, Eos # 0.2, Baso # 0.02 - Medication Orders Current Medication Orders: Discontinued Medications Haloperidol Lactate (Haldol) 5 mg IM STAT STA PRN Reason: Protocol Stop: 09/26/17 23:06 Last Admin: 09/26/17 23:22 Dose: 5 mg IM Administration Charges Document 09/26/17 23:22 SS (Rec: 09/26/17 23:22 [place] [id number] Injection Site MAR Injection Site Right Deltoid Charges for Administration # of IM Administrations 1 Lorazepam (Ativan) 2 mg IM ONCE ONE Stop: 09/26/17 23:06 Last Admin: 09/26/17 23:22 Dose: 2 mg IM Administration Charges Document 09/26/17 23:22 SS (Rec: 09/26/17 23:22 SS [id number]) Injection Site MAR Injection Site Left Deltoid Charges for Administration # of IM Administrations 1 - Scribe Statement The provider has reviewed the documentation as recorded by the Donya Brooks Provider Scribe Attestation: All medical record entries made by the Scribe were at my direction and personally dictated by me. I have reviewed the chart and agree that the record accurately reflects my personal performance of the history, physical exam, medical decision making, and the department course for this patient. I have also personally directed, reviewed, and agree with the discharge instructions and disposition. Disposition/Present on Arrival - Present on Arrival Any Indicators Present on Arrival: No History of DVT/PE: Yes History of Uncontrolled Diabetes: No Urinary Catheter: No History of Decub. Ulcer: No History Surgical Site Infection Following: None - Disposition Have Diagnosis and Disposition been Completed?: Yes Diagnosis: Manic bipolar I disorder, Suicidal ideation Disposition: AGAINST MEDICAL ADVICE Disposition Time: 11:36 Patient Plan: Discharge Condition: STABLE Discharge Instructions (ExitCare): Depression (ED) Additional Instructions: Ms Marroquin, thank you for letting us take care of you today. Your provider was Dr. Obando. You were treated for Suicidal Ideation, Depression. The emergency medical care you received today was directed at your acute symptoms. If you were prescribed any medication, please fill it and take as directed. It may take several days for your symptoms to resolve. Return to the Emergency Department if your symptoms worsen, do not improve, or if you have any other problems. Please contact your doctor or call one of the physicians/clinics you have been referred to that are listed on the Patient Visit Information form that is included in your discharge packet. Bring any paperwork you were given at discharge with you along with any medications you are taking to your follow up visit. Our treatment cannot replace ongoing medical care by a primary care provider (PCP) outside of the emergency department. Thank you for allowing the [facility] team to be part of your care today. If you had an X-Ray or CT scan: A Radiologist will review the ED reading if any change in treatment is needed we will contact you. If you had a blood, urine, or wound culture: It will take several days for the results, if any change in treatment is needed we will contact you. If you had an STI test: It will take 48 hours for the results. Please call after 1 week if you have not heard back. Referrals: PCP,NO [Primary Care Provider] - Follow up with primary [facility] [Outside] - Follow up with primary Forms: [employer] (Belarusian)
--- NOTE | 2017-09-27 10:44 | CARD ---
APPROVED REPORT EKG Measurement Heart [id number] <Conclusion> Normal sinus rhythm Possible Left atrial enlargement Left ventricular hypertrophy Abnormal ECG
[2017-09-27 11:47] VITALS: BP 118/78; PULSE 68; RESP 16; TEMP 97.8
--- NOTE | 2017-09-27 20:19 | CON ---
DATE: HISTORY OF PRESENT ILLNESS: The patient is a 52-year-old female with longer and debilitating history of schizoaffective disorder. Patient also has history of polysubstance abuse and dependence. Patient brought herself to the hospital looking for evaluation. Initially, patient was agitated. She was verbalizing thoughts of killing herself and others. Was medicated in the emergency room with the Haldol, Ativan. This procedure writer is seeing the patient in order to make disposition plan. This procedure writer is very familiar with the patient from the previous hospitalization into this facility's psychiatric inpatient unit in 2014. Patient is a poor and unreliable historian. Thought process is disorganized, but patient adamantly denied thoughts of harming himself or others. This procedure writer offered patient admission to the psychiatric inpatient unit, but patient declined that offer. Patient said that she has information about [facility] outpatient program as well as [facility]. Patient reported hearing no voices, but obviously patient is disorganized. VITAL SIGNS: Checked, temperature is 97, pulse is 68, blood pressure 118/78, respirations 16, oxygen saturation is 99. MEDICATIONS: Reviewed. The patient had Haldol and Ativan. LABORATORY DATA: Labs also reviewed. Toxicology|: Alcohol was 15. MENTAL STATUS EXAMINATION: Patient presented to be alert, knows that she is in the hospital. Has ecchymosis under her left eye. Patient has intermittent eye contact. Speech was loud, overproductive, but not pressured. Mood described, "I feel better, I want to go home." Affect was labile. Thought process circumstantial. Thought content, patient denied psychotic symptoms, but obviously disorganized and paranoid. Patient denied thoughts of harming herself or others, denied intent or plan. Insight and judgment are limited. Impulses are better controlled now. IMPRESSION: As per history, patient has schizoaffective disorder, history of polysubstance abuse and dependence. PLAN: Patient was offered admission, but patient declined that offer. Patient has information about [facility] outpatient program as well as [facility] outpatient program. Patient also was provided with information about shelters. Patient was educated that she needs to take medication as it was prescribed. Patient might benefit from staying in the hospital into the psychiatric inpatient unit, but patient declined that offer. Patient does not meet the criteria for [facility] screening. At the present moment, this procedure writer has no other choice than discharge patient against medical advice from the emergency room. Discussed with Dr. Obando as well as nurse practitioner as well as nursing staff. Should you have any questions, give me a call back. Thank you very much for letting me participate in the care of your patient. Isabel Jacobs MD
== END 2017-09-27 11:49 | disposition left against medical advice (07) ==
LOC: ED 21:53
DX: R45.851 Suicidal ideations (principal); F31.10 Bipolar disorder, current episode manic without psychotic features, unspecified; E11.9 Type 2 diabetes mellitus without complications; F17.210 Nicotine dependence, cigarettes, uncomplicated
CPT/HCPCS: 80053; 80320; 80324; 80345; 80346; 80349; 80353; 80358; 80361; 81001; 83992; 85025; 90791; 93005; 96372; 99285; J1630; J2060

== ENCOUNTER 2018-07-07 14:02 | Inpatient (IN) | payer MEDICAID ==
--- NOTE | 2018-07-07 14:25 | ED PDOC ---
Arrival/HPI - General Chief Complaint: Female Genitourinary Time Seen by Provider: 07/07/18 14:04 - History of Present Illness Narrative History of Present Illness (Text): 53 y/o F w/ h/o schizophrenia and bipolar disorder presenting to the ED for UTI. Patient was admitted to the psychiatric floor when labs on 07/04/18 were noted to be positive for nitrites, esterase & bacteria consistent with UTI. However upon chart review, patient was noted to have a history of ESBL requiring IV antibiotics. She is noted to be belligerent towards staff and unwilling to allow health personnel to examine her. A more complete HPI is unable to be obtained due to the patient's condition Time/Duration: Prior to Arrival Symptom Onset: Sudden Severity Level: Mild Activities at Onset: Emotional Upset Past Medical History - Provider Review Nursing Documentation Reviewed: Yes - Travel History Have you recently traveled outside [place] w/in the past 3 mons?: No - Past History Past History: No Previous - Infectious Disease Hx of Infectious Diseases: None - Tetanus Immunization Tetanus Immunization: Unknown - Cardiac Hx Cardiac Disorders: No - Pulmonary Hx Respiratory Disorders: Yes Hx Asthma: Yes Hx Bronchitis: Yes Hx Emphysema: Yes Hx Pneumonia: Yes - Neurological Hx Neurological Disorder: No - HEENT Hx HEENT Disorder: No - Renal Hx Renal Disorder: No - Endocrine/Metabolic Hx Endocrine Disorders: Yes Hx Diabetes Mellitus Type 2: Yes - Hematological/Oncological Hx Blood Disorders: Yes Hx Anemia: Yes Hx Sickle Cell Disease: Yes - Integumentary Hx Dermatological Disorder: Yes Other/Comment: fungus to bilat feet per pt - Musculoskeletal/Rheumatological Hx Musculoskeletal Disorders: No - Gastrointestinal Hx Gastrointestinal Disorders: No - Genitourinary/Gynecological Hx Genitourinary Disorders: Yes Hx Sexually Transmitted Diseases: Yes - Psychiatric Hx Psychophysiologic Disorder: Yes Hx Bipolar Disorder: Yes Hx Schizophrenia: Yes Hx Substance Use: Yes - Past Surgical History Past Surgical History: No Previous - Anesthesia Hx Anesthesia: No Hx Anesthesia Reactions: No Hx Malignant Hyperthermia: No - Suicidal Assessment Feels Threatened In Home Enviroment: No Family/Social History - Physician Review Nursing Documentation Reviewed: Yes Family/Social History: Unknown Family HX Smoking Status: Heavy Smoker > 10 Cigarettes Daily Hx Alcohol Use: Yes Hx Substance Use: Yes Substance used: crack Hx Substance Use Treatment: Yes Allergies/Home Meds Allergies/Adverse Reactions: Allergies turkey Allergy (Verified 07/07/18 14:12) RASH Review of Systems - Review of Systems Systems not reviewed;Unavailable: Uncooperative Physical Exam - Physical Exam Physical Exam Limitations: Uncooperative Vital Signs Reviewed: Yes Vital Signs Temp Pulse Resp BP Pulse Ox 07/07/18 16:23 98 F 75 19 119/53 L 98 07/07/18 14:04 98.2 F 83 18 108/75 99 07/07/18 14:02 98 F 74 19 116/53 L 99 Temperature: Afebrile Blood Pressure: Normal Pulse: Regular Respiratory Rate: Normal Appearance: Positive for: Non-Toxic Mental Status: Positive for: Agitated - Systems Exam Head: Present: Atraumatic, Normocephalic Pupils: Present: PERRL Neurological: Present: GCS=15, CN II-XII Intact Skin: Present: Warm, Dry, Normal Color Psychiatric: Present: Alert, Oriented x 3, Anxious, Agitated Medical Decision Making ED Course and Treatment: Impression 53 y/o F w/ h/o UTI sent down from psychiatric unit for positive UA Differential Diagnoses Include But are Not Limited To: UTI Pyelonephritis Plan --Labs --UA --Urine Culture --IV Cipro Progress Notes 07/07/18 15:47 Patient pulled IV line twice. Requests Xanax for anxiolytic. Xanax ordered. Will attempt to place another IV. 07/07/18 16:09 Patient refusing IV placement. Will administer Bactrim PO. 07/07/18 16:38 Dr. Solis(hospitalist) states patient must have IV antibiotics(meropenem) prior to admission to inpatient floor. If she remains non-compliant with IV placement , he requests psychiatry to reevaluate patient to determine mental capacity to refuse treatment. 07/07/18 17:21 Patient reevaluated for IV placement. IV intact with Merrem running. She is stable for transfer to the floor. - Lab Interpretations Lab Results: Lab Results 07/07/18 16:08: Urine Color Light yellow, Urine Appearance Sl cloudy, Urine pH 6.5, Ur Specific [place] 1.015, Urine Protein 100 H, Urine Glucose (UA) Negative , Urine Ketones Negative, Urine Blood Small H, Urine Nitrate Positive H, Urine Bilirubin Negative, Urine Urobilinogen 0.2, Ur Leukocyte Esterase Large H, Urine RBC Pending, Urine WBC Pending - Medication Orders Current Medication Orders: Meropenem 500 mg/ Sodium (Chloride) 50 mls @ 100 mls/hr IVPB Q24H TOVA PRN Reason: Protocol Stop: 07/07/18 17:29 Last Admin: 07/07/18 16:56 Dose: 100 mls/hr eMAR Start Stop Document 07/07/18 16:56 GMI (Rec: 07/07/18 16:57 GMI [id number]) Intravenous Solution Start Date 07/07/18 Start Time 16:57 End Date 07/07/18 End time 17:30 Total Infusion Time 33 Discontinued Medications Alprazolam (Xanax) 0.5 mg PO STAT STA PRN Reason: Protocol Stop: 07/07/18 15:41 Last Admin: 07/07/18 15:48 Dose: 0.5 mg Ciprofloxacin (Cipro 400mg/200ml Dsw) 400 mg in 200 mls @ 133.3 mls/hr IVPB STAT STA PRN Reason: Protocol Stop: 07/07/18 16:30 Last Admin: 07/07/18 15:17 Dose: 133.3 mls/hr eMAR Start Stop Document 07/07/18 15:17 GMI (Rec: 07/07/18 15:17 GMI [id number]) Intravenous Solution Start Date 07/07/18 Start Time 15:17 Trimethoprim/Sulfamethoxazole (Bactrim Ds Tab) 1 tab PO STAT STA PRN Reason: Protocol Stop: 07/07/18 16:09 Last Admin: 07/07/18 16:17 Dose: 1 tab Disposition/Present on Arrival - Present on Arrival Any Indicators Present on Arrival: No History of DVT/PE: Yes History of Uncontrolled Diabetes: No Urinary Catheter: No History of Decub. Ulcer: No History Surgical Site Infection Following: None - Disposition Have Diagnosis and Disposition been Completed?: Yes Diagnosis: UTI (urinary tract infection) Disposition: HOSPITALIZED Disposition Time: 16:37 Isolation: Contact Patient Plan: Observation Patient Problems: Current Active Problems Problem Status Onset UTI (urinary tract infection) Acute Condition: [facility]
[2018-07-07] MEDS ORDERED: Ciprofloxacin 400mg/200ml D5W 400 MG/200 ML BAG IVPB STA (15:00)
[2018-07-07] MEDS ORDERED: Tmp-Smz 800 mg-160 mg DS Tab PO STA (16:08)
[2018-07-07 16:29] LABS: PH,URINE 6.5 (4.7-8.0); URINE BILIRUBIN NEGATIVE (NEGATIVE); URINE BLOOD SMALL (NEGATIVE); URINE GLUCOSE (UA) NEGATIVE (NEGATIVE); URINE LEUKOCYTE ESTERASE LARGE Leu/uL (NEGATIVE); URINE PROTEIN 100 mg/dL (<30 mg/dL); URINE UROBILINOGEN 0.2 E.U./dL (<1 E.U./dL)
[2018-07-07 16:37] LABS: URINE APPEARANCE SL CLOUDY (CLEAR); URINE COLOR LIGHT YELLOW (YELLOW)
[2018-07-07] MEDS ORDERED: Meropenem 500 MG in Sodium Chloride 0.9% 50 ML IVPB SCH (17:00)
[2018-07-07 17:05] LABS: BASO # 0.01 K/mm3 (0.0-2.0); BASO % 0.2 % (0.0-3.0); EOS # 0.1 (0.0-0.7); EOS % 3.3 % (1.5-5.0); GRAN # 1.91 (1.4-6.5); GRAN % 45.5 % (50.0-68.0); HEMOGLOBIN 12.3 g/dL (12.0-16.0); LYMPH # 1.7 (1.2-3.4); LYMPH % 41.3 % (22.0-35.0); MEAN CELL VOLUME 85.4 fl (80.0-105.0); MEAN CORPUSCULAR HEMOGLOBIN 28.5 pg (25.0-35.0); MEAN CORPUSCULAR HGB CONC 33.3 g/dl (31.0-37.0); MONO # 0.4 (0.1-0.6); MONO % 9.7 % (1.0-6.0); RBC 4.32 10^6/uL (3.5-6.1); RED CELL DISTRIBUTION WIDTH 16.4 % (11.5-14.5); WHITE BLOOD COUNT 4.2 10^3/ul (4.5-11.0)
[2018-07-07 17:12] LABS: INR 1.09; PROTHROMBIN TIME 12.4 SECONDS (9.4-12.5)
[2018-07-07 17:28] LABS: ALB/GLOB RATIO 1.2 (1.1-1.8); ALBUMIN 4.1 g/dL (3.0-4.8); ALT/SGPT 21 U/L (7-56); AST/SGOT 35 U/L (14-36); BLOOD UREA NITROGEN 19 mg/dL (7-21); CALCIUM 9.7 mg/dL (8.4-10.5); GFR NON-AFRICAN AMERICAN > 60
[2018-07-07 17:39] LABS: URINE BACTERIA MOD (NEG); URINE WBC TNTC /hpf (0-6)
[2018-07-07 18:22] VITALS: BMI 26.6
--- NOTE | 2018-07-07 19:01 | CP.PCM.HP ---
<Real Minor - Last Filed: 07/07/18 21:05> History of Present Illness - History of Present Illness History of Present Illness: Mitchell Minor D.O. PGY 2 - H&P for Hospitalist Service CC: Dysuria HPI: 53 year old female with past medical history of schizophrenia paranoid type , Depression, right lower extremity DVT with history of anticoagulation, Sickle Cell trait, DM2, polysubstance abuse and chronic medication non compliance who originally was admitted to psychiatry inpatient care at [facility] on 07/05/18 for treatment for polysubstance abuse and shizoaffective disorder. At time of admission patient had been complaining of urinary symptoms including pain with urination, foul smelling urine and frequent urination. Patient was evaluated with urinarlyis and found ot have urinary tract infection. Patient urine culture were collected and grew ESBL. Patient was discharged from psych and will be admitted to general medical floor. At time of interview patient complains of pain and burning with urination. Denies fever, chills, abdominal pain, vomiting, weakness. PMH: DM, Sickle cell trait, depression, anxiety, schizophrenia/ paranoid PSH: IVC filter placement FH: Mother at 89, father from pancreatic cancer SH: Tobacco history - heavy use, 2 beers/ day, smokes crack cocaine Allergies: NKDA Present on Admission - Present on Admission Any Indicators Present on Admission: Yes History of DVT/PE: Yes Review of Systems - Review of Systems All systems: reviewed and no additional remarkable complaints except (as mentioned in HPI) Past Patient History - Infectious Disease Hx of Infectious Diseases: None - Tetanus Immunizations Tetanus Immunization: Unknown - Past Medical History & Family History Past Medical History?: Yes - Past Social History Smoking Status: Current Some Days Smoker Alcohol: Occasional Drugs: Cocaine, Opiates - CARDIAC Hx Cardiac Disorders: No - PULMONARY Hx Respiratory Disorders: Yes Hx Asthma: Yes Hx Bronchitis: Yes Hx Emphysema: Yes Hx Pneumonia: Yes - NEUROLOGICAL Hx Neurological Disorder: No - HEENT Hx HEENT Problems: No - RENAL Hx Chronic Kidney Disease: No - ENDOCRINE/METABOLIC Hx Endocrine Disorders: Yes Hx Diabetes Mellitus Type 2: Yes - HEMATOLOGICAL/ONCOLOGICAL Hx Blood Disorders: Yes Hx Anemia: Yes Hx Sickle Cell Disease: Yes - INTEGUMENTARY Hx Dermatological Problems: Yes Other/Comment: fungus to bilat feet per pt - MUSCULOSKELETAL/RHEUMATOLOGICAL Hx Falls: No - GASTROINTESTINAL Hx Gastrointestinal Disorders: No - GENITOURINARY/GYNECOLOGICAL Hx Genitourinary Disorders: Yes Hx Sexually Transmitted Disorders: Yes - PSYCHIATRIC Hx Psychophysiologic Disorder: Yes Hx Bipolar Disorder: Yes Hx Schizophrenia: Yes - SURGICAL HISTORY Hx Surgeries: No - ANESTHESIA Hx Anesthesia: No Hx Anesthesia Reactions: No Hx Malignant Hyperthermia: No Meds Allergies/Adverse Reactions: Allergies Allergy/AdvReac Type Severity Reaction Status Date / Time turkey Allergy RASH Verified 07/07/18 14:12 Physical Exam - Constitutional Appears: Non-toxic - Head Exam Head Exam: ATRAUMATIC, NORMAL INSPECTION, NORMOCEPHALIC - Eye Exam Eye Exam: EOMI, PERRL - ENT Exam ENT Exam: Mucous Membranes Moist - Respiratory Exam Respiratory Exam: Clear to Auscultation Bilateral, NORMAL BREATHING PATTERN - Cardiovascular Exam Cardiovascular Exam: REGULAR RHYTHM, +S1, +S2 - GI/Abdominal Exam GI & Abdominal Exam: Normal Bowel Sounds, Soft. absent: Tenderness - Extremities Exam Extremities exam: Negative for: calf tenderness Additional comments: bilateral feet showing possible fungus of toes - Neurological Exam Neurological exam: Alert, Normal Gait, Oriented x3 Additional comments: motor and sensory grossly intact - Psychiatric Exam Psychiatric exam: Normal Affect, Normal Mood - Skin Skin Exam: Dry, Warm Results - Vital Signs Recent Vital Signs: Last Vital Signs Temp 98 F 07/07/18 18:16 Pulse 82 07/07/18 18:16 Resp 18 07/07/18 18:16 BP 123/53 L 07/07/18 18:16 Pulse Ox 99 07/07/18 17:53 - Labs Result Diagrams: 07/07/18 16:56 07/07/18 16:56 Labs: Laboratory Results - last 24 hr 07/07/18 07/07/18 07/07/18 16:56 16:56 16:56 WBC 4.2 L RBC 4.32 Hgb 12.3 Hct 36.9 MCV 85.4 MCH 28.5 MCHC 33.3 RDW 16.4 H Plt Count 234 MPV 10.0 Gran % 45.5 L Lymph % (Auto) 41.3 H [place] % (Auto) 9.7 H Eos % (Auto) 3.3 Baso % (Auto) 0.2 Gran # 1.91 Lymph # (Auto) 1.7 [place] # (Auto) 0.4 Eos # (Auto) 0.1 Baso # (Auto) 0.01 PT 12.4 INR 1.09 Sodium 142 Potassium 4.3 Chloride 102 Carbon Dioxide 32 Anion Gap 13 BUN 19 Creatinine 0.9 Est GFR ( Amer) > 60 Est GFR (Non-Af Amer) > 60 Random Glucose 104 Calcium 9.7 Total Bilirubin 0.3 AST 35 ALT 21 Alkaline Phosphatase 53 Total Protein 7.6 Albumin 4.1 Globulin 3.5 Albumin/Globulin Ratio 1.2 Assessment & Plan - Assessment and Plan (Free Text) Assessment: 53 year old female with past medical history of schizophrenia paranoid type, Depression, right lower extremity DVT with history of anticoagulation, Sickle Cell trait, DM2, polysubstance abuse and chronic medication non compliance who is being admitted to the general medical floor for IV antibiotics for a urinalysis showing UTI and urinary culture showing ESBL. ID and psychiatry have been consulted and following. Plan: ESBL - UA showing positive leuk est, nitrate - Urinary culture with ESBL sensitive to meropenem - IV meropenem 1grm Q8H - ID consulted and following, appreciate recs DM2 - ACHS - Insulin Sliding Scale - low - Continue to monitor Hx of COPD - Duobeb Q6H PRN Hx of Psychiatric disorders - Schizophrenia, Depression - Psych consulted and following - Continue medications from previous inpatient admission GI/DVT ppx - Patient tolerating PO intake - Heparin 5000 unit SC Patient seen, case and plan discussed with attending, Dr. Will Minor PGY2 - Date & Time Date: 07/07/18 Time: 15:30 <Alana Solis - Last Filed: 07/15/18 16:41> Results - Vital Signs Recent Vital Signs: Last Vital Signs Temp 98.9 F 07/15/18 14:31 Pulse 111 H 07/15/18 14:31 Resp 20 07/15/18 14:31 BP 116/85 07/15/18 14:31 Pulse Ox 99 07/15/18 14:31 - Labs Result Diagrams: 07/07/18 16:56 07/07/18 16:56 Labs: Laboratory Results - last 24 hr 07/15/18 10:20 Urine Color Yellow Urine Appearance Clear Urine pH 6.5 Ur Specific [place] 1.010 Urine Protein Negative Urine Glucose (UA) Negative Urine Ketones Negative Urine Blood Negative Urine Nitrate Negative Urine Bilirubin Negative Urine Urobilinogen 0.2 Ur Leukocyte Esterase Negative Attending/Attestation - Attestation I have personally seen and examined this patient.: Yes I have fully participated in the care of the patient.: Yes I have reviewed all pertinent clinical information: Yes Notes (Text): 07/15/18 16:37 Medical record note made by the resident after discussion with my direction and input after the patient was personally seen and examined by me. I have reviewed the chart and agree that the record accurately reflects by personal performance of the history, physical exam, data review, and medical decision-making, in the course for the patient. I have also personally directed the plan of care. 53 yrs old female with a PMH of RLE DVT, SP IVC Filter, off anticoagulation , Sickle Cell Trait, DM, Depression, was admitted to Psychiatry for Schizophrenia , was found to have UTI.Urine cultures grew with ESBL. Agreed with IV Meropenem,We will get ID and Psychiatry consult.
[2018-07-07] MEDS ORDERED: Albuterol-Ipratrop 3 mg / 0.5 (3 ml) UD IH PRN (21:12)
[2018-07-07] MEDS: Meropenem IV 1 gm in NS 50 ML IVPB SCH (23:16)
[2018-07-08] MEDS: Meropenem IV 1 gm in NS 50 ML IVPB SCH (06:04)
--- NOTE | 2018-07-08 07:47 | CP.PCM.CON ---
<Jaylyn Damian - Last Filed: 07/08/18 12:38> History of Present Illness - History of Present Illness History of Present Illness: Pgy3 ID Consult note for Dr. Lim Please note history as per chart as although patient ao x 3 she was a poor historian 53yo female PMHx schizophrenia, depression, RLE DVT, sickle cell trait, DM2, polysubstance abuse, and medication noncompliance was originally admitted to psych inpatient at [facility] [place] 07/05/18 for polysubstance abuse and schizoaffective disorder. Patient was having urinary complaints and was found to have ESBL+ on urine culture 07/05. ID consulted for management. This AM patient was ao x 3 however she had tangential speech and was incoherent at times. She was fixated on her meals and demanding more food. Patient did complain of dysuria and lower abdominal pain and burning on urination. She was aware of her UTI. Patient also compained of right arm pain as her IV line had infiltrated. She denied other acute complaints of fever, chills, chest pain, SOB, and b/l LE pain. Complete ROS unobtainable as patient was becoming agitated. PMHx: chizophrenia, depression, RLE DVT, sickle cell trait, DM2, polysubstance abuse, and medication noncompliance PSurgHx: IVC filter placement FamHx: Mother at 89, father from pancreatic cancer SocHx: Tobacco history - heavy use, 2 beers/ day, smokes crack cocaine Meds: pls see chart ALL: NKDA Review of Systems - Review of Systems All systems: reviewed and no additional remarkable complaints except Review of Systems: as per HPI Past Patient History - Infectious Disease Hx of Infectious Diseases: None - Tetanus Immunizations Tetanus Immunization: Unknown - Past Medical History & Family History Past Medical History?: Yes - Past Social History Smoking Status: Current Some Days Smoker Alcohol: Occasional Drugs: Cocaine, Opiates - CARDIAC Hx Cardiac Disorders: No - PULMONARY Hx Respiratory Disorders: Yes Hx Asthma: Yes Hx Bronchitis: Yes Hx Emphysema: Yes Hx Pneumonia: Yes - NEUROLOGICAL Hx Neurological Disorder: No - HEENT Hx HEENT Problems: No - RENAL Hx Chronic Kidney Disease: No - ENDOCRINE/METABOLIC Hx Endocrine Disorders: Yes Hx Diabetes Mellitus Type 2: Yes - HEMATOLOGICAL/ONCOLOGICAL Hx Blood Disorders: Yes Hx Anemia: Yes Hx Sickle Cell Disease: Yes - INTEGUMENTARY Hx Dermatological Problems: Yes Other/Comment: fungus to bilat feet per pt - MUSCULOSKELETAL/RHEUMATOLOGICAL Hx Falls: No - GASTROINTESTINAL Hx Gastrointestinal Disorders: No - GENITOURINARY/GYNECOLOGICAL Hx Genitourinary Disorders: Yes Hx Sexually Transmitted Disorders: Yes - PSYCHIATRIC Hx Psychophysiologic Disorder: Yes Hx Bipolar Disorder: Yes Hx Schizophrenia: Yes - SURGICAL HISTORY Hx Surgeries: No - ANESTHESIA Hx Anesthesia: No Hx Anesthesia Reactions: No Hx Malignant Hyperthermia: No Meds Allergies/Adverse Reactions: Allergies Allergy/AdvReac Type Severity Reaction Status Date / Time turkey Allergy RASH Verified 07/07/18 14:12 - Medications Medications: Current Medications Albuterol/Ipratropium (Duoneb 3 Mg/0.5 Mg (3 Ml) Ud) 3 ml IH [id number] PRN PRN Reason: Shortness of Breath Benztropine Mesylate (Cogentin) 1 mg PO HS TOVA Last Admin: 07/07/18 21:18 Dose: 1 mg Diphenhydramine HCl (Benadryl) 50 mg PO Q8 PRN PRN Reason: Agitation Last Admin: 07/07/18 21:18 Dose: 50 mg Gabapentin (Neurontin) 300 mg PO TID TOVA PRN Reason: Protocol Haloperidol Lactate (Haldol) 5 mg IM Q6H PRN; Protocol PRN Reason: Agitation Lorazepam (Ativan) 2 mg IVP Q6H PRN; Protocol PRN Reason: Agitation Last Admin: 07/08/18 07:16 Dose: 2 mg Multivitamins (Thera Tab) 1 tab PO 0800 TOVA Quetiapine Fumarate (Seroquel) 150 mg PO HS TOVA PRN Reason: Protocol Last Admin: 07/07/18 21:18 Dose: 150 mg Quetiapine Fumarate (Seroquel) 25 mg PO BID TOVA PRN Reason: Protocol Thiamine HCl (Vitamin B1 Tab) 100 mg PO DAILY TOVA Physical Exam - Constitutional Appears: No Acute Distress, Unkempt - Head Exam Head Exam: ATRAUMATIC, NORMAL INSPECTION, NORMOCEPHALIC - Eye Exam Eye Exam: EOMI, Normal appearance, PERRL. absent: Conjunctival injection, Scleral icterus Pupil Exam: NORMAL ACCOMODATION - ENT Exam ENT Exam: Mucous Membranes Moist - Neck Exam Neck exam: Positive for: Full Rom, Normal Inspection - Respiratory Exam Respiratory Exam: Clear to Auscultation Bilateral, NORMAL BREATHING PATTERN. absent: Accessory Muscle Use, Decreased Breath Sounds, Rales, Rhonchi, Wheezes, Respiratory Distress - Cardiovascular Exam Cardiovascular Exam: REGULAR RHYTHM, +S1, +S2 - GI/Abdominal Exam GI & Abdominal Exam: Normal Bowel Sounds, Soft. absent: Firm, Guarding, Tenderness - Rectal Exam Rectal Exam: Deferred - Extremities Exam Extremities exam: Negative for: pedal edema Additional comments: bilateral toes possible fungus - Neurological Exam Neurological exam: Alert, Oriented x3 - Psychiatric Exam Psychiatric exam: Agitated, Anxious - Skin Skin Exam: Dry, Warm Results - Vital Signs Recent Vital Signs: Last Vital Signs Temp 97.9 F 07/07/18 21:50 Pulse 99 H 07/07/18 21:50 Resp 16 07/07/18 21:50 BP 123/97 H 07/07/18 21:50 Pulse Ox 100 07/07/18 21:50 - Labs Result Diagrams: 07/07/18 16:56 07/07/18 16:56 Labs: Laboratory Results - last 24 hr 07/07/18 07/07/18 07/07/18 16:56 16:56 16:56 WBC 4.2 L RBC 4.32 Hgb 12.3 Hct 36.9 MCV 85.4 MCH 28.5 MCHC 33.3 RDW 16.4 H Plt Count 234 MPV 10.0 Gran % 45.5 L Lymph % (Auto) 41.3 H [place] % (Auto) 9.7 H Eos % (Auto) 3.3 Baso % (Auto) 0.2 Gran # 1.91 Lymph # (Auto) 1.7 [place] # (Auto) 0.4 Eos # (Auto) 0.1 Baso # (Auto) 0.01 PT 12.4 INR 1.09 Sodium 142 Potassium 4.3 Chloride 102 Carbon Dioxide 32 Anion Gap 13 BUN 19 Creatinine 0.9 Est GFR ( Amer) > 60 Est GFR (Non-Af Amer) > 60 POC Glucose (mg/dL) Random Glucose 104 Calcium 9.7 Phosphorus Magnesium Total Bilirubin 0.3 AST 35 ALT 21 Alkaline Phosphatase 53 Total Protein 7.6 Albumin 4.1 Globulin 3.5 Albumin/Globulin Ratio 1.2 07/07/18 07/07/18 07/08/18 16:56 21:30 06:52 WBC RBC Hgb Hct MCV MCH MCHC RDW Plt Count MPV Gran % Lymph % (Auto) [place] % (Auto) Eos % (Auto) Baso % (Auto) Gran # Lymph # (Auto) [place] # (Auto) Eos # (Auto) Baso # (Auto) PT INR Sodium Potassium Chloride Carbon Dioxide Anion Gap BUN Creatinine Est GFR ( Amer) Est GFR (Non-Af Amer) POC Glucose (mg/dL) 212 H 125 H Random Glucose Calcium Phosphorus 5.2 H Magnesium 2.4 H Total Bilirubin AST ALT Alkaline Phosphatase Total Protein Albumin Globulin Albumin/Globulin Ratio Assessment & Plan - Assessment and Plan (Free Text) Assessment: 53yo female PMHx schizophrenia, depression, RLE DVT, sickle cell trait, DM2, polysubstance abuse, and medication noncompliance was originally admitted to psych inpatient at [facility] [place] 07/05/18 for polysubstance abuse and schizoaffective disorder. Patient was having urinary complaints and was found to have ESBL+ on urine culture 07/05. ID consulted for management. Plan: -urine cx 07/05 ESBL+ -f/u urine cx 07/07 -continue Merrem 500mg q8 -continue management as per primary ID will continue to follow Discussed with Dr. Carina Damian PGY3 <Sunny Lim - Last Filed: 07/08/18 18:52> Meds - Medications Medications: Current Medications Albuterol/Ipratropium (Duoneb 3 Mg/0.5 Mg (3 Ml) Ud) 3 ml IH [id number] PRN PRN Reason: Shortness of Breath Benztropine Mesylate (Cogentin) 1 mg PO HS [facility] Last Admin: 07/07/18 21:18 Dose: 1 mg Diphenhydramine HCl (Benadryl) 50 mg PO Q8 PRN PRN Reason: Agitation Last Admin: 07/07/18 21:18 Dose: 50 mg Divalproex Sodium (Depmoncho Dr(*Bid*)) 500 mg PO TID [facility] Last Admin: 07/08/18 17:31 Dose: 500 mg Gabapentin (Neurontin) 300 mg PO TID TOVA PRN Reason: Protocol Last Admin: 07/08/18 17:31 Dose: 300 mg Haloperidol Lactate (Haldol) 5 mg IM Q6H PRN; Protocol PRN Reason: Agitation Meropenem 500 mg/ Sodium (Chloride) 50 mls @ 100 mls/hr IVPB Q8 TOVA PRN Reason: Protocol Stop: 07/15/18 08:46 Last Admin: 07/08/18 14:14 Dose: 100 mls/hr Lorazepam (Ativan) 2 mg IVP Q6H PRN; Protocol PRN Reason: Agitation Last Admin: 07/08/18 14:18 Dose: 2 mg Multivitamins (Thera Tab) 1 tab PO 0800 TOVA Last Admin: 07/08/18 09:13 Dose: 1 tab Quetiapine Fumarate (Seroquel) 200 mg PO DAILY TOVA PRN Reason: Protocol Quetiapine Fumarate (Seroquel) 200 mg PO HS TOVA PRN Reason: Protocol Thiamine HCl (Vitamin B1 Tab) 100 mg PO DAILY TOVA Last Admin: 07/08/18 10:45 Dose: 100 mg Results - Vital Signs Recent Vital Signs: Last Vital Signs Temp 97.5 F L 07/08/18 06:00 Pulse 58 L 07/08/18 06:00 Resp 20 07/08/18 06:00 BP 111/77 07/08/18 06:00 Pulse Ox 93 L 07/08/18 06:00 - Labs Result Diagrams: 07/07/18 16:56 07/07/18 16:56 Labs: Laboratory Results - last 24 hr 07/08/18 15:09 POC Glucose (mg/dL) 136 H Assessment & Plan - Assessment and Plan (Free Text) Plan: Infectious Diseases Attending Physician Addendum Patient seen and examined, discussed with medical language specialist. I have reviewed the pertinent clinical information for the patient, including history of present illness, medical, personal and social histories, lab results and imaging findings. I agree with the above findings, assessment and plan. In addition, we have started Merrem for this patient with UTI with ESBL E. coli and will monitor clinically.
[2018-07-08] MEDS: Multivitamin Therapeutic Tab PO SCH (09:13)
[2018-07-08] MEDS: Meropenem 500 MG in Sodium Chloride 0.9% 50 ML IVPB SCH ×3 (11:04→21:33)
--- NOTE | 2018-07-08 12:34 | CP.PCM.PN ---
<Mehdi Fitzgerald - Last Filed: 07/08/18 15:56> Subjective - Date & Time of Evaluation Date of Evaluation: 07/08/18 Time of Evaluation: 07:02 - Subjective Subjective: Mehdi Fitzgerald DO PGY-1, Internal Medicine Resident. Hospitalist Progress Note Patient seen and examined at bedside. Patient is anxious and guarded answering few questions. She reported bilateral foot pain and chronic toenail infection. She still have urinary symptoms of dysuria, urgency, frequency and suprapubic tenderness. She is tolerating diet and ambulate at her room. Patient denied chest pain, SOB, palpitations, headache, dizziness, bowel movement changes. Objective - Vital Signs/Intake and Output Vital Signs (last 24 hours): Temp Pulse Resp BP Pulse Ox 97.5 F L 58 L 20 111/77 93 L 07/08/18 06:00 07/08/18 06:00 07/08/18 06:00 07/08/18 06:00 07/08/18 06:00 - Medications Medications: Current Medications Albuterol/Ipratropium (Duoneb 3 Mg/0.5 Mg (3 Ml) Ud) 3 ml IH [id number] PRN PRN Reason: Shortness of Breath Benztropine Mesylate (Cogentin) 1 mg PO HS [facility]OVA Last Admin: 07/07/18 21:18 Dose: 1 mg Diphenhydramine HCl (Benadryl) 50 mg PO Q8 PRN PRN Reason: Agitation Last Admin: 07/07/18 21:18 Dose: 50 mg Divalproex Sodium (Depakote Dr(*Bid*)) 500 mg PO TID [facility] Gabapentin (Neurontin) 300 mg PO TID [facility] PRN Reason: Protocol Last Admin: 07/08/18 10:45 Dose: 300 mg Haloperidol Lactate (Haldol) 5 mg IM Q6H PRN; Protocol PRN Reason: Agitation Meropenem 500 mg/ Sodium (Chloride) 50 mls @ 100 mls/hr IVPB Q8 TOVA PRN Reason: Protocol Stop: 07/15/18 08:46 Last Admin: 07/08/18 11:04 Dose: Not Given Lorazepam (Ativan) 2 mg IVP Q6H PRN; Protocol PRN Reason: Agitation Last Admin: 07/08/18 07:16 Dose: 2 mg Multivitamins (Thera Tab) 1 tab PO 0800 [facility] Last Admin: 07/08/18 09:13 Dose: 1 tab Quetiapine Fumarate (Seroquel) 150 mg PO HS TOVA PRN Reason: Protocol Last Admin: 07/07/18 21:18 Dose: 150 mg Quetiapine Fumarate (Seroquel) 50 mg PO BID [facility] PRN Reason: Protocol Thiamine HCl (Vitamin B1 Tab) 100 mg PO DAILY [facility] Last Admin: 07/08/18 10:45 Dose: 100 mg - Labs Labs: PT 12.4 SECONDS (9.4-12.5) 07/07/18 16:56 INR 1.09 07/07/18 16:56 - Constitutional Appears: Agitated, Other (anxious) - Head Exam Head Exam: ATRAUMATIC, NORMOCEPHALIC - Eye Exam Eye Exam: EOMI, Normal appearance, PERRL - ENT Exam ENT Exam: Mucous Membranes Moist - Neck Exam Neck Exam: Normal Inspection. absent: Lymphadenopathy - Respiratory Exam Respiratory Exam: Clear to Ausculation Bilateral. absent: Wheezes - Cardiovascular Exam Cardiovascular Exam: +S1, +S2 - GI/Abdominal Exam GI & Abdominal Exam: Soft, Normal Bowel Sounds Additional comments: suprapubic tenderness to palpate - Extremities Exam Extremities Exam: Normal Capillary Refill. absent: Joint Swelling, Tenderness - Back Exam Back Exam: absent: rash noted, vertebral tenderness - Psychiatric Exam Psychiatric exam: Agitated, Anxious, Flat Affect Additional comments: on 1:1 - Skin Skin Exam: Dry, Intact, Normal Color Additional comments: bilateral toenail color discoloration Assessment and Plan - Assessment and Plan (Free Text) Assessment: 53 y/o female with PMH of schizophrenia paranoid type, Depression, right lower extremity DVT with history of anticoagulation, Sickle Cell trait, DM2, medication non compliance, polysubstance abuse admitted to medical floor for UTI treatment. Urinary culture shows ESBL that requires IV antibiotics Plan: Urinary tract infection- ESBL - Patient still symptomatic - UA positive for leuk est, nitrate - Urinary culture with ESBL sensitive to meropenem - continue IV meropenem 1grm Q8H - ID on board Chronic bilateral toenail infection -ID consulted DM2 - Accucheck - Insulin Sliding Scale - low - Euglycemic control Hx of COPD -Patient asymptomatic - Duobeb Q6H PRN Hx of Psychiatric disorders - Schizophrenia, Depression - Psych on board - Continue seroquel, haloperidol, depakote, cogentin, ativan Prophylaxis - Protonix - Heparin 5000 unit SC. h/o DVT -Regular diet -continue 1:1 Case reviewed and discussed with attending, Dr. Fernández <Gail Fernández - Last Filed: 07/08/18 17:27> Objective - Vital Signs/Intake and Output Vital Signs (last 24 hours): Temp Pulse Resp BP Pulse Ox 97.5 F L 58 L 20 111/77 93 L 07/08/18 06:00 07/08/18 06:00 07/08/18 06:00 07/08/18 06:00 07/08/18 06:00 - Medications Medications: Current Medications Albuterol/Ipratropium (Duoneb 3 Mg/0.5 Mg (3 Ml) Ud) 3 ml IH [id number] PRN PRN Reason: Shortness of Breath Benztropine Mesylate (Cogentin) 1 mg PO HS [facility] Last Admin: 07/07/18 21:18 Dose: 1 mg Diphenhydramine HCl (Benadryl) 50 mg PO Q8 PRN PRN Reason: Agitation Last Admin: 07/07/18 21:18 Dose: 50 mg Divalproex Sodium (Depakote Dr(*Bid*)) 500 mg PO TID [facility] Last Admin: 07/08/18 13:44 Dose: 500 mg Gabapentin (Neurontin) 300 mg PO TID [facility] PRN Reason: Protocol Last Admin: 07/08/18 13:44 Dose: 300 mg Haloperidol Lactate (Haldol) 5 mg IM Q6H PRN; Protocol PRN Reason: Agitation Meropenem 500 mg/ Sodium (Chloride) 50 mls @ 100 mls/hr IVPB Q8 [facility] PRN Reason: Protocol Stop: 07/15/18 08:46 Last Admin: 07/08/18 14:14 Dose: 100 mls/hr Lorazepam (Ativan) 2 mg IVP Q6H PRN; Protocol PRN Reason: Agitation Last Admin: 07/08/18 14:18 Dose: 2 mg Multivitamins (Thera Tab) 1 tab PO 0800 [facility] Last Admin: 07/08/18 09:13 Dose: 1 tab Quetiapine Fumarate (Seroquel) 150 mg PO HS [facility] PRN Reason: Protocol Last Admin: 07/07/18 21:18 Dose: 150 mg Quetiapine Fumarate (Seroquel) 50 mg PO BID [facility] PRN Reason: Protocol Thiamine HCl (Vitamin B1 Tab) 100 mg PO DAILY [facility] Last Admin: 07/08/18 10:45 Dose: 100 mg - Labs Labs: PT 12.4 SECONDS (9.4-12.5) 07/07/18 16:56 INR 1.09 07/07/18 16:56 Attending/Attestation - Attestation I have personally seen and examined this patient.: Yes I have fully participated in the care of the patient.: Yes I have reviewed all pertinent clinical information, including history, physical exam and plan: Yes Notes (Text): 07/08/18 17:24 53 year old female with past medical history of schizophrenia, depression and polysubstance abuse who presented who was transferred from psychiatric floor to medical floor for treatment of ESBL UTI. Continue with meropenem. Continue with isolation precautions. ID is following the patient. Psychiatry follow up as requested as well. Patient was counselled on risks of continued substance abuse. Gail Fernándze MD Hospitalist.
[2018-07-08] MEDS: Divalproex 500 mg DR(BID formulation) PO SCH ×2 (13:44→17:31)
--- NOTE | 2018-07-09 00:05 | PN ---
DATE: 07/08/2018 SUBJECTIVE: Initially, the patient was admitted to the Psychiatric Inpatient Unit on 07/05 for evaluation of disorganized thoughts and behavior and possible suicidal and homicidal ideation over the weekend. The patient was diagnosed with urinary tract infection and also with ESBL. Also, the patient was diagnosed with E. coli urinary tract infection, requires IV antibiotics and contact isolation. This freelance copywriter followed up on this patient today. The patient presented to be irritable and angry. The patient is obviously psychotic, disorganized and paranoid over the morning time. Vanessa roxane was called for her because the patient was slamming the door and throwing things towards staff. The patient was started on one-to-one observation. The patient presented to be completely disorganized. There is no option to have meaningful conversation. The patient is abusive and aggressive towards staff. PHYSICAL EXAMINATION: VITAL SIGNS: Reviewed. Temperature 97.5, pulse is 58, blood pressure 111/77, respiration 20, oxygen saturation is 93. MEDICATIONS: The patient is on the following medications; DuoNeb, Cogentin, Benadryl, Depakote 500 mg three times a day, Neurontin 300 mg three times a day, Haldol 5 mg IM every 6 hours p.r.n. for agitation, Ativan 2 mg IV push every 6 hours p.r.n., last dose was today at 2:18. The patient is on meropenem, multivitamins, Seroquel 150 mg at the nighttime. We will increase the dose of Seroquel to 200 mg at the nighttime and 200 mg at the morning time. The patient is on thiamine. LABORATORY DATA: Labs reviewed. Coagulation reviewed. Chemistry reviewed. Urinalysis, leukocyte esterase positive and large. MENTAL STATUS EXAMINATION: As this freelance copywriter described above, the patient presented to be disorganized, mumbling something, intense eye contact. Mood described as "I do not feel good." Affect was irritable and annoyed. Thought process circumstantial, tangential. Thought content, the patient presented to be grandiose, disorganized, paranoid, responding to internal stimuli. Insight and judgment seems to be impaired. Impulses are not predictable. IMPRESSION: As per history, schizophrenia versus schizoaffective, bipolar type. The patient has history of multi-substance abuse. The patient currently on medical site for urinary tract infection extended-spectrum beta-lactamases. PLAN: Medications are reviewed. Seroquel increased. This freelance copywriter will follow up and advise accordingly. Most likely, the patient needs to have further evaluation and stabilization to the Psychiatric Inpatient Unit or a screening process. We will follow up and advise accordingly. Should you have any questions, give me a call back. The patient requires further one-to-one observation as of now. Isabel Jacobs MD MTDFelicita
[2018-07-09] MEDS: Meropenem 500 MG in Sodium Chloride 0.9% 50 ML IVPB SCH ×3 (05:00→22:16)
[2018-07-09] MEDS: Multivitamin Therapeutic Tab PO SCH (08:19)
[2018-07-09] MEDS: Divalproex 500 mg DR(BID formulation) PO SCH ×3 (10:27→17:40)
--- NOTE | 2018-07-09 19:56 | CP.PCM.PN ---
<Mehdi Fitzgerald - Last Filed: 07/09/18 19:53> Subjective - Date & Time of Evaluation Date of Evaluation: 07/09/18 Time of Evaluation: 09:00 - Subjective Subjective: Patient seen and examined at bedside. Patient is anxious and guarded answering few questions. Her urinary symptoms of dysuria, urgency, frequency and suprapubic tenderness are improving. She is tolerating diet and ambulate at her room. Patient got agitated and given ativan at night. Patient denied chest pain , SOB, palpitations, headache, dizziness, bowel movement changes. Objective - Vital Signs/Intake and Output Vital Signs (last 24 hours): Temp Pulse Resp BP Pulse Ox 98.8 F 116 H 20 129/71 95 07/09/18 14:00 07/09/18 14:00 07/09/18 14:00 07/09/18 14:00 07/09/18 14:00 Intake and Output: 07/09/18 07/10/18 18:59 06:59 Intake Total 880 600 Balance 880 600 - Medications Medications: Current Medications Albuterol/Ipratropium (Duoneb 3 Mg/0.5 Mg (3 Ml) Ud) 3 ml IH [id number] PRN PRN Reason: Shortness of Breath Benztropine Mesylate (Cogentin) 1 mg PO HS [facility] Last Admin: 07/08/18 21:33 Dose: 1 mg Diphenhydramine HCl (Benadryl) 50 mg PO Q8 PRN PRN Reason: Agitation Last Admin: 07/07/18 21:18 Dose: 50 mg Divalproex Sodium (Depakote Dr(*Bid*)) 500 mg PO TID [facility] Last Admin: 07/09/18 17:40 Dose: 500 mg Gabapentin (Neurontin) 300 mg PO TID [facility] PRN Reason: Protocol Last Admin: 07/09/18 17:40 Dose: 300 mg Haloperidol Lactate (Haldol) 5 mg IM Q6H PRN; Protocol PRN Reason: Agitation Meropenem 500 mg/ Sodium (Chloride) 50 mls @ 100 mls/hr IVPB Q8 [facility] PRN Reason: Protocol Stop: 07/15/18 08:46 Last Admin: 07/09/18 15:16 Dose: 100 mls/hr Lorazepam (Ativan) 2 mg IVP Q6H PRN; Protocol PRN Reason: Agitation Last Admin: 07/09/18 05:01 Dose: 2 mg Multivitamins (Thera Tab) 1 tab PO 0800 [facility] Last Admin: 07/09/18 08:19 Dose: 1 tab Quetiapine Fumarate (Seroquel) 200 mg PO DAILY [facility] PRN Reason: Protocol Last Admin: 07/09/18 10:27 Dose: 200 mg Quetiapine Fumarate (Seroquel) 200 mg PO HS [facility] PRN Reason: Protocol Last Admin: 07/08/18 21:32 Dose: 200 mg Thiamine HCl (Vitamin B1 Tab) 100 mg PO DAILY [facility] Last Admin: 07/09/18 10:27 Dose: 100 mg - Labs Labs: PT 12.4 SECONDS (9.4-12.5) 07/07/18 16:56 INR 1.09 07/07/18 16:56 - Additional Findings Additional findings: - Constitutional Appears: Agitated, Other (anxious) - Head Exam Head Exam: ATRAUMATIC, NORMOCEPHALIC - Eye Exam Eye Exam: EOMI, Normal appearance, PERRL - ENT Exam ENT Exam: Mucous Membranes Moist - Neck Exam Neck Exam: Normal Inspection. absent: Lymphadenopathy - Respiratory Exam Respiratory Exam: Clear to Ausculation Bilateral. absent: Wheezes - Cardiovascular Exam Cardiovascular Exam: +S1, +S2 - GI/Abdominal Exam GI & Abdominal Exam: Soft, Normal Bowel Sounds Additional comments: suprapubic tenderness to palpate - Extremities Exam Extremities Exam: Normal Capillary Refill. absent: Joint Swelling, Tenderness - Back Exam Back Exam: absent: rash noted, vertebral tenderness - Psychiatric Exam Psychiatric exam: Agitated, Anxious, Flat Affect Additional comments: on 1:1 - Skin Skin Exam: Dry, Intact, Normal Color Additional comments: bilateral toenail color discoloration Assessment and Plan - Assessment and Plan (Free Text) Assessment: 53 y/o female with PMH of schizophrenia paranoid type, Depression, right lower extremity DVT with history of anticoagulation, Sickle Cell trait, DM2, medication non compliance, polysubstance abuse admitted to medical floor for UTI treatment. Urinary culture shows ESBL. Still on IV antibiotic therapy Plan: Urinary tract infection- ESBL - symptoms improving - UA positive for LE, Nitrate - Urinary culture with ESBL sensitive to meropenem - continue IV meropenem 1grm Q8H Chronic bilateral toenail infection -Podiatry consulted. recs appreciated DM2 - Accucheck - Insulin Sliding Scale - low - Euglycemic control Hx of COPD -Patient asymptomatic - Duobeb Q6H PRN Hx of Psychiatric disorders - Schizophrenia, Depression - Psych on board - Continue ativan 2mg q6h prn - Continue seroquel, haloperidol, depakote, cogentin, neurontin - Continue 1:1 Prophylaxis - Protonix - Heparin 5000 unit SC. h/o DVT -Regular diet Case reviewed and discussed with attending, Dr. Fernández <Gail Fernández - Last Filed: 07/10/18 07:48> Objective - Vital Signs/Intake and Output Vital Signs (last 24 hours): Temp Pulse Resp BP Pulse Ox 98.8 F 116 H 20 129/71 95 07/09/18 14:00 07/09/18 14:00 07/09/18 14:00 07/09/18 14:00 07/09/18 14:00 Intake and Output: 07/10/18 07/10/18 06:59 18:59 Intake Total 1260 Balance 1260 - Medications Medications: Current Medications Albuterol/Ipratropium (Duoneb 3 Mg/0.5 Mg (3 Ml) Ud) 3 ml IH [id number] PRN PRN Reason: Shortness of Breath Benztropine Mesylate (Cogentin) 1 mg PO HS [facility] Last Admin: 07/09/18 22:09 Dose: 1 mg Diphenhydramine HCl (Benadryl) 50 mg PO Q8 PRN PRN Reason: Agitation Last Admin: 07/07/18 21:18 Dose: 50 mg Divalproex Sodium (Depakote Dr(*Bid*)) 500 mg PO TID [facility] Last Admin: 07/09/18 17:40 Dose: 500 mg Gabapentin (Neurontin) 300 mg PO TID [facility] PRN Reason: Protocol Last Admin: 07/09/18 17:40 Dose: 300 mg Haloperidol Lactate (Haldol) 5 mg IM Q6H PRN; Protocol PRN Reason: Agitation Meropenem 500 mg/ Sodium (Chloride) 50 mls @ 100 mls/hr IVPB Q8 [facility] PRN Reason: Protocol Stop: 07/15/18 08:46 Last Admin: 07/10/18 06:47 Dose: Not Given Lorazepam (Ativan) 2 mg IVP Q6H PRN; Protocol PRN Reason: Agitation Last Admin: 07/09/18 05:01 Dose: 2 mg Multivitamins (Thera Tab) 1 tab PO 0800 [facility] Last Admin: 07/09/18 08:19 Dose: 1 tab Quetiapine Fumarate (Seroquel) 200 mg PO DAILY [facility] PRN Reason: Protocol Last Admin: 07/09/18 10:27 Dose: 200 mg Quetiapine Fumarate (Seroquel) 200 mg PO HS [facility] PRN Reason: Protocol Last Admin: 07/09/18 22:09 Dose: 200 mg Thiamine HCl (Vitamin B1 Tab) 100 mg PO DAILY [facility] Last Admin: 07/09/18 10:27 Dose: 100 mg - Labs Labs: PT 12.4 SECONDS (9.4-12.5) 07/07/18 16:56 INR 1.09 07/07/18 16:56 Attending/Attestation - Attestation I have personally seen and examined this patient.: Yes I have fully participated in the care of the patient.: Yes I have reviewed all pertinent clinical information, including history, physical exam and plan: Yes Notes (Text): 07/09/18 53 year old female with past medical history of schizophrenia, depression and polysubstance abuse who presented who was transferred from psychiatric floor to medical floor for treatment of ESBL UTI. Continue with meropenem, day #2. Repeat UCx also growing ESBL. Continue with isolation precautions. ID is following the patient; will follow up with recommendations. Psychiatry follow up was appreciated. Patient is still agitated/disruptive at times and may benefit for re-admission to inpatient psychiatric unit after completion of antibiotics. Patient was counselled on risks of continued substance abuse. Gail Fernández MD Hospitalist.
--- NOTE | 2018-07-09 22:06 | PN ---
DATE: 07/09/2018 SUBJECTIVE: Patient is in bed in no acute distress, nontoxic. PHYSICAL EXAMINATION: VITAL SIGNS: Temperature is 98, blood pressure is 120/70, respiratory rate of 20. HEENT: Unremarkable. NECK: Supple. LUNGS: Have decreased breath sounds. HEART: Normal S1, S2. ABDOMEN: Soft, nontender. LABORATORY EXAMINATION: Reveals a white count of 4.2 and chemistries are noted. Urinalysis is noted and microbiology reveals E. coli in the urine from 07/07/2018. It is ESBL and E. coli and sensitive to meropenem and review of orders reveals the patient to be on meropenem day #2. ASSESSMENT AND PLAN: A 53-year-old female seen earlier in 569, bed 2 with extended-spectrum beta-lactamase urinary tract infection, on meropenem day #2. The patient with schizophrenia, depression, deep venous thrombosis, sickle cell, diabetes, polysubstance abuse. Justin Bowers MD
--- NOTE | 2018-07-09 22:08 | PN ---
DATE: 07/09/2018 SUBJECTIVE: The patient still presented to be disorganized, psychotic. As per staff, the patient was agitated, the patient got mad at housekeeping for not saying good morning to her. The patient is still on one-to-one observation. This principal technical writer attempted to speak to the patient. The patient presented to be disorganized, very confused, the patient mumbling something incoherently, but at the same time, the patient appeared to be in manic stage, dancing movement, pulsating. The patient seems to be enjoying [place] music. The patient was more interested in dancing and music than to talk to this principal technical writer. PHYSICAL EXAMINATION: VITAL SIGNS: Seems to be stable. Temperature 97.5, pulse is 58, blood pressure 111/77, respirations 20, and oxygen saturation is 93%. MEDICATIONS: Reviewed. The patient is on Seroquel 200 mg twice a day, multivitamins, Ativan as needed, Haldol as needed, Neurontin 300 mg three times day, Depakote 500 mg three times a day. LABORATORY DATA: Reviewed. The patient is on meropenem for urinary tract infection. MENTAL STATUS EXAMINATION: The patient is appears to be disorganized, happy, dancing in the front of this principal technical writer. Intermittent eye contact. Speech was incoherent. The patient mumbling something incoherently. Mood described as "I feel fine." Affect was labile. Thought process seems to be circumstantial, tangential and disorganized. Thought content, the patient denied visual, auditory, tactile hallucinations, but obviously disorganized. Insight and judgment seems to be very limited to impaired. Impulses are not predictable. IMPRESSION: As per history, schizophrenia, history of polysubstance abuse and dependence versus schizoaffective. PLAN: The patient needs to continue on current psychotropic medications. The patient was off one-to-one. Right now, Q15 check. Whenever the patient is done with antibiotics, we will consider to transfer the patient back if the patient meets the criteria. Thank you very much for letting me participate in care of your patient. Isabel Jacobs MD
[2018-07-10] MEDS: Meropenem 500 MG in Sodium Chloride 0.9% 50 ML IVPB SCH ×3 (06:47→21:12)
--- NOTE | 2018-07-10 07:55 | CP.PCM.PN ---
<Mehdi Fitzgerald - Last Filed: 07/10/18 19:31> Subjective - Date & Time of Evaluation Date of Evaluation: 07/10/18 Time of Evaluation: 07:45 - Subjective Subjective: Mehdi Fitzgerald DO PGY-1, Internal Medicine Resident. Hospitalist Progress Note Patient seen and examined at bedside. Patient is anxious and guarded answering few questions. Her urinary symptoms of dysuria, urgency, frequency and suprapubic tenderness are improving. She is tolerating diet and ambulate at her room. Patient got agitated and given ativan at night. Patient occasionally walk in the hallway mumbling and looks detached. Patient denied chest pain, SOB, palpitations, headache, dizziness, bowel movement changes. Objective - Vital Signs/Intake and Output Vital Signs (last 24 hours): Temp Pulse Resp BP Pulse Ox 98.8 F 116 H 20 129/71 95 07/09/18 14:00 07/09/18 14:00 07/09/18 14:00 07/09/18 14:00 07/09/18 14:00 Intake and Output: 07/10/18 07/10/18 06:59 18:59 Intake Total 1260 Balance 1260 - Medications Medications: Current Medications Albuterol/Ipratropium (Duoneb 3 Mg/0.5 Mg (3 Ml) Ud) 3 ml IH [id number] PRN PRN Reason: Shortness of Breath Benztropine Mesylate (Cogentin) 1 mg PO HS [facility] Last Admin: 07/09/18 22:09 Dose: 1 mg Diphenhydramine HCl (Benadryl) 50 mg PO Q8 PRN PRN Reason: Agitation Last Admin: 07/07/18 21:18 Dose: 50 mg Divalproex Sodium (Depakote Dr(*Bid*)) 500 mg PO TID TOVA Last Admin: 07/09/18 17:40 Dose: 500 mg Gabapentin (Neurontin) 300 mg PO TID TOVA PRN Reason: Protocol Last Admin: 07/09/18 17:40 Dose: 300 mg Haloperidol Lactate (Haldol) 5 mg IM Q6H PRN; Protocol PRN Reason: Agitation Meropenem 500 mg/ Sodium (Chloride) 50 mls @ 100 mls/hr IVPB Q8 TOVA PRN Reason: Protocol Stop: 07/15/18 08:46 Last Admin: 07/10/18 06:47 Dose: Not Given Lorazepam (Ativan) 2 mg IVP Q6H PRN; Protocol PRN Reason: Agitation Last Admin: 07/09/18 05:01 Dose: 2 mg Multivitamins (Thera Tab) 1 tab PO 0800 [facility] Last Admin: 07/09/18 08:19 Dose: 1 tab Quetiapine Fumarate (Seroquel) 200 mg PO DAILY [facility] PRN Reason: Protocol Last Admin: 07/09/18 10:27 Dose: 200 mg Quetiapine Fumarate (Seroquel) 200 mg PO HS [facility] PRN Reason: Protocol Last Admin: 07/09/18 22:09 Dose: 200 mg Thiamine HCl (Vitamin B1 Tab) 100 mg PO DAILY [facility] Last Admin: 07/09/18 10:27 Dose: 100 mg - Labs Labs: PT 12.4 SECONDS (9.4-12.5) 07/07/18 16:56 INR 1.09 07/07/18 16:56 - Additional Findings Additional findings: - Constitutional Appears: Agitated, Other (anxious) - Head Exam Head Exam: ATRAUMATIC, NORMOCEPHALIC - Eye Exam Eye Exam: EOMI, Normal appearance, PERRL - ENT Exam ENT Exam: Mucous Membranes Moist - Neck Exam Neck Exam: Normal Inspection. absent: Lymphadenopathy - Respiratory Exam Respiratory Exam: Clear to Ausculation Bilateral. absent: Wheezes - Cardiovascular Exam Cardiovascular Exam: +S1, +S2 - GI/Abdominal Exam GI & Abdominal Exam: Soft, Normal Bowel Sounds Additional comments: suprapubic tenderness to palpate - Extremities Exam Extremities Exam: Normal Capillary Refill. absent: Joint Swelling, Tenderness - Back Exam Back Exam: absent: rash noted, vertebral tenderness - Psychiatric Exam Psychiatric exam: Agitated, Anxious, Flat Affect Additional comments: on 1:1 - Skin Skin Exam: Dry, Intact, Normal Color Additional comments: bilateral toenail color discoloration Assessment and Plan - Assessment and Plan (Free Text) Assessment: 53 y/o female with PMH of schizophrenia paranoid type, Depression, right lower extremity DVT with history of anticoagulation, Sickle Cell trait, DM2, medication non compliance, polysubstance abuse admitted to medical floor for UTI treatment. Urinary culture shows ESBL. Still on IV antibiotic therapy Plan: Urinary tract infection- ESBL - patient afebrile - urinary symptoms improving - UA positive for LE, Nitrate - Urinary culture with ESBL sensitive to meropenem - continue Merrem day 3 to complete 5-7 days as per ID Chronic bilateral toenail infection -Podiatry consulted. recs appreciated DM2 - Accucheck - Insulin Sliding Scale - low - Euglycemic control Hx of COPD -Patient asymptomatic - Duobeb Q6H PRN Hx of Psychiatric disorders - Schizophrenia, Depression - Psych on board - Continue ativan 2mg q6h prn - Continue seroquel, haloperidol, depakote, cogentin, neurontin - Continue 1:1 Prophylaxis - Protonix - Heparin 5000 unit SC. h/o DVT -Regular diet Case reviewed and discussed with attending, Dr. Fernández <Gail Fernández - Last Filed: 07/11/18 08:02> Objective - Vital Signs/Intake and Output Vital Signs (last 24 hours): Temp Pulse Resp BP Pulse Ox 98.2 F 94 H 20 108/67 98 07/10/18 06:00 07/10/18 06:00 07/10/18 06:00 07/10/18 06:00 07/10/18 06:00 Intake and Output: 07/11/18 07/11/18 06:59 18:59 Intake Total 1140 Balance 1140 - Medications Medications: Current Medications Albuterol/Ipratropium (Duoneb 3 Mg/0.5 Mg (3 Ml) Ud) 3 ml IH [id number] PRN PRN Reason: Shortness of Breath Benztropine Mesylate (Cogentin) 1 mg PO HS [facility] Last Admin: 07/10/18 21:11 Dose: 1 mg Diphenhydramine HCl (Benadryl) 50 mg PO Q8 PRN PRN Reason: Agitation Last Admin: 07/07/18 21:18 Dose: 50 mg Divalproex Sodium (Depakote Dr(*Bid*)) 500 mg PO TID [facility] Last Admin: 07/10/18 17:15 Dose: 500 mg Gabapentin (Neurontin) 300 mg PO TID [facility]OVA PRN Reason: Protocol Last Admin: 07/10/18 17:14 Dose: 300 mg Haloperidol Lactate (Haldol) 5 mg IM Q6H PRN; Protocol PRN Reason: Agitation Meropenem 500 mg/ Sodium (Chloride) 50 mls @ 100 mls/hr IVPB Q8 [facility] PRN Reason: Protocol Stop: 07/15/18 08:46 Last Admin: 07/11/18 06:48 Dose: 100 mls/hr Lorazepam (Ativan) 2 mg IVP Q6H PRN; Protocol PRN Reason: Agitation Last Admin: 07/10/18 17:15 Dose: 2 mg Multivitamins (Thera Tab) 1 tab PO 0800 [facility] Last Admin: 07/10/18 09:21 Dose: 1 tab Nicotine (Nicoderm Cq) 1 patch TD DAILY [facility] Last Admin: 07/10/18 20:54 Dose: 1 patch Quetiapine Fumarate (Seroquel) 200 mg PO DAILY [facility] PRN Reason: Protocol Last Admin: 07/10/18 09:21 Dose: 200 mg Quetiapine Fumarate (Seroquel) 300 mg PO HS [facility] PRN Reason: Protocol Last Admin: 07/10/18 21:11 Dose: 300 mg Thiamine HCl (Vitamin B1 Tab) 100 mg PO DAILY [facility] Last Admin: 07/10/18 09:27 Dose: 100 mg - Labs Labs: PT 12.4 SECONDS (9.4-12.5) 07/07/18 16:56 INR 1.09 07/07/18 16:56 Attending/Attestation - Attestation I have personally seen and examined this patient.: Yes I have fully participated in the care of the patient.: Yes I have reviewed all pertinent clinical information, including history, physical exam and plan: Yes Notes (Text): 07/10/18 53 year old female with past medical history of schizophrenia, depression and polysubstance abuse who presented who was transferred from psychiatric floor to medical floor for treatment of ESBL UTI. Continue with meropenem, day #3. To complete 5-7 days as per ID. Continue with isolation precautions. Patient is still agitated/disruptive at times and may benefit for re-admission to inpatient psychiatric unit after completion of antibiotics. Patient was counselled on risks of continued substance abuse. Gail Fernández MD Hospitalist.
[2018-07-10] MEDS: Multivitamin Therapeutic Tab PO SCH (09:21)
[2018-07-10] MEDS: Divalproex 500 mg DR(BID formulation) PO SCH ×3 (09:21→17:15)
--- NOTE | 2018-07-10 19:26 | CP.PCM.PN ---
Subjective - Date & Time of Evaluation Date of Evaluation: 07/10/18 Time of Evaluation: 12:15 - Subjective Subjective: No fevers, not in distress, no more dysuria. Objective - Vital Signs/Intake and Output Vital Signs (last 24 hours): Temp Pulse Resp BP Pulse Ox 98.2 F 94 H 20 108/67 98 07/10/18 06:00 07/10/18 06:00 07/10/18 06:00 07/10/18 06:00 07/10/18 06:00 - Medications Medications: Current Medications Albuterol/Ipratropium (Duoneb 3 Mg/0.5 Mg (3 Ml) Ud) 3 ml IH [id number] PRN PRN Reason: Shortness of Breath Benztropine Mesylate (Cogentin) 1 mg PO HS [facility] Last Admin: 07/09/18 22:09 Dose: 1 mg Diphenhydramine HCl (Benadryl) 50 mg PO Q8 PRN PRN Reason: Agitation Last Admin: 07/07/18 21:18 Dose: 50 mg Divalproex Sodium (Depakote Dr(*Bid*)) 500 mg PO TID [facility] Last Admin: 07/10/18 17:15 Dose: 500 mg Gabapentin (Neurontin) 300 mg PO TID [facility] PRN Reason: Protocol Last Admin: 07/10/18 17:14 Dose: 300 mg Haloperidol Lactate (Haldol) 5 mg IM Q6H PRN; Protocol PRN Reason: Agitation Meropenem 500 mg/ Sodium (Chloride) 50 mls @ 100 mls/hr IVPB Q8 [facility] PRN Reason: Protocol Stop: 07/15/18 08:46 Last Admin: 07/10/18 13:09 Dose: 100 mls/hr Lorazepam (Ativan) 2 mg IVP Q6H PRN; Protocol PRN Reason: Agitation Last Admin: 07/10/18 17:15 Dose: 2 mg Multivitamins (Thera Tab) 1 tab PO 0800 [facility] Last Admin: 07/10/18 09:21 Dose: 1 tab Nicotine (Nicoderm Cq) 1 patch TD DAILY [facility] Quetiapine Fumarate (Seroquel) 200 mg PO DAILY [facility] PRN Reason: Protocol Last Admin: 07/10/18 09:21 Dose: 200 mg Quetiapine Fumarate (Seroquel) 300 mg PO HS [facility] PRN Reason: Protocol Thiamine HCl (Vitamin B1 Tab) 100 mg PO DAILY [facility] Last Admin: 07/10/18 09:27 Dose: 100 mg - Labs Labs: PT 12.4 SECONDS (9.4-12.5) 07/07/18 16:56 INR 1.09 07/07/18 16:56 - Constitutional Appears: No Acute Distress, Chronically Ill - Head Exam Head Exam: NORMAL INSPECTION - Neck Exam Neck Exam: absent: Meningismus - Respiratory Exam Respiratory Exam: Decreased Breath Sounds - Cardiovascular Exam Cardiovascular Exam: +S1, +S2 - GI/Abdominal Exam GI & Abdominal Exam: Soft. absent: Tenderness Assessment and Plan - Assessment and Plan (Free Text) Plan: Assessment UTI with ESBL E. coli schizophrenia right lower extermity DVT sickle cell trait DM polysubstance abuse Plan continue Merrem day 3 to complete 5-7 days continue to monitor clinically
--- NOTE | 2018-07-10 21:10 | PN ---
DATE: 07/10/2018 SUBJECTIVE: The patient is a 53-year-old -[place] female with reported history of schizophrenia versus schizoaffective disorder, polysubstance abuse and dependence. The patient came to the hospital and was admitted to the psychiatric inpatient unit for evaluation of disorganized thoughts and behavior, suicidal ideation, and homicidal ideation. The patient was found to have like urinary tract infection, required to be transferred to the medical floor for intravenous antibiotics. This marketing copywriter is following up on this patient for as a field technical support consultant. The patient still has disorganized thoughts and behavior abruptive in the unit, sometimes the patient is agitated, but overall patient is improving. The patient was seen today. The patient presented to be depressed, irritable and annoyed. The patient said that now she does not want to stay in the hospital. She wants to complete course of antibiotics and deemed discharge. The patient is very hard to understand, disorganized thoughts and behavior as well as speech. OBJECTIVE: VITAL SIGNS: Stable. Temperature 98.2, pulse is 94, blood pressure 108/67, respirations 26, and saturation is 98. MEDICATIONS: Reviewed. The patient is on DuoNeb, Cogentin, Benadryl, Depakote, Neurontin, Haldol, Ativan, meropenem, Seroquel 200 mg and 300 mg at the nighttime, and thiamine. MENTAL STATUS EXAMINATION: This marketing copywriter described above. The patient is disorganized, abruptive and loud. Intense eye contact. Speech was disorganized. Mood described and fine. Affect was irritable and annoyed. Thought process disorganized. Thought content, the patient obviously is psychotic. Insight and judgment seems to be limited. Impulses are unpredictable. Labs reviewed. Medications reviewed. IMPRESSION: Schizophrenia, polysubstance abuse and dependence. PLAN: Continue current management. Continue current medications. Seroquel will be increased to 300 mg at the nighttime, p.r.n. medications are in place. The patient most likely would be required to be transferred to the psychiatric inpatient unit after medical stabilization. Dr. Forbes will follow up on this patient tomorrow. Should you have any questions, give me a call back. Isabel Jacobs MD [facility] # [id number] RENÉ
[2018-07-11] MEDS: Meropenem 500 MG in Sodium Chloride 0.9% 50 ML IVPB SCH ×3 (06:48→21:19)
--- NOTE | 2018-07-11 08:12 | CP.PCM.PN ---
<Mehdi Fitzgerald - Last Filed: 07/11/18 21:35> Subjective - Date & Time of Evaluation Date of Evaluation: 07/11/18 Time of Evaluation: 06:52 - Subjective Subjective: Mehdi Fitzgerald DO PGY-1, Internal Medicine Resident. Hospitalist Progress Note Patient seen and examined at bedside. Patient is anxious and guarded answering few questions. Her urinary symptoms of dysuria, urgency, frequency and suprapubic tenderness are improving. She is tolerating diet and ambulate at her room. Patient got agitated and given ativan at night. Patient occasionally walk in the hallway mumbling and looks detached. Patient denied chest pain, SOB, palpitations, headache, dizziness, bowel movement changes. Objective - Vital Signs/Intake and Output Vital Signs (last 24 hours): Temp Pulse Resp BP Pulse Ox 98.2 F 94 H 20 108/67 98 07/10/18 06:00 07/10/18 06:00 07/10/18 06:00 07/10/18 06:00 07/10/18 06:00 Intake and Output: 07/11/18 07/11/18 06:59 18:59 Intake Total 1140 Balance 1140 - Medications Medications: Current Medications Albuterol/Ipratropium (Duoneb 3 Mg/0.5 Mg (3 Ml) Ud) 3 ml IH [id number] PRN PRN Reason: Shortness of Breath Benztropine Mesylate (Cogentin) 1 mg PO HS [facility] Last Admin: 07/10/18 21:11 Dose: 1 mg Diphenhydramine HCl (Benadryl) 50 mg PO Q8 PRN PRN Reason: Agitation Last Admin: 07/07/18 21:18 Dose: 50 mg Divalproex Sodium (Depakote Dr(*Bid*)) 500 mg PO TID [facility] Last Admin: 07/10/18 17:15 Dose: 500 mg Gabapentin (Neurontin) 300 mg PO TID [facility] PRN Reason: Protocol Last Admin: 07/10/18 17:14 Dose: 300 mg Haloperidol Lactate (Haldol) 5 mg IM Q6H PRN; Protocol PRN Reason: Agitation Meropenem 500 mg/ Sodium (Chloride) 50 mls @ 100 mls/hr IVPB Q8 [facility] PRN Reason: Protocol Stop: 07/15/18 08:46 Last Admin: 07/11/18 06:48 Dose: 100 mls/hr Lorazepam (Ativan) 2 mg IVP Q6H PRN; Protocol PRN Reason: Agitation Last Admin: 07/10/18 17:15 Dose: 2 mg Multivitamins (Thera Tab) 1 tab PO 0800 [facility] Last Admin: 07/10/18 09:21 Dose: 1 tab Nicotine (Nicoderm Cq) 1 patch TD DAILY [facility] Last Admin: 07/10/18 20:54 Dose: 1 patch Quetiapine Fumarate (Seroquel) 200 mg PO DAILY [facility] PRN Reason: Protocol Last Admin: 07/10/18 09:21 Dose: 200 mg Quetiapine Fumarate (Seroquel) 300 mg PO HS [facility] PRN Reason: Protocol Last Admin: 07/10/18 21:11 Dose: 300 mg Thiamine HCl (Vitamin B1 Tab) 100 mg PO DAILY [facility] Last Admin: 07/10/18 09:27 Dose: 100 mg - Labs Labs: PT 12.4 SECONDS (9.4-12.5) 07/07/18 16:56 INR 1.09 07/07/18 16:56 - Additional Findings Additional findings: - Constitutional Appears: Agitated, Other (anxious) - Head Exam Head Exam: ATRAUMATIC, NORMOCEPHALIC - Eye Exam Eye Exam: EOMI, Normal appearance, PERRL - ENT Exam ENT Exam: Mucous Membranes Moist - Neck Exam Neck Exam: Normal Inspection. absent: Lymphadenopathy - Respiratory Exam Respiratory Exam: Clear to Ausculation Bilateral. absent: Wheezes - Cardiovascular Exam Cardiovascular Exam: +S1, +S2 - GI/Abdominal Exam GI & Abdominal Exam: Soft, Normal Bowel Sounds Additional comments: suprapubic tenderness to palpate - Extremities Exam Extremities Exam: Normal Capillary Refill. absent: Joint Swelling, Tenderness - Back Exam Back Exam: absent: rash noted, vertebral tenderness - Psychiatric Exam Psychiatric exam: Agitated, Anxious, Flat Affect Additional comments: on 1:1 - Skin Skin Exam: Dry, Intact, Normal Color Additional comments: bilateral toenail color discoloration Assessment and Plan - Assessment and Plan (Free Text) Assessment: 53 y/o female with PMH of schizophrenia paranoid type, Depression, right lower extremity DVT with history of anticoagulation, Sickle Cell trait, DM2, medication non compliance, polysubstance abuse admitted to medical floor for UTI treatment. Urinary culture shows ESBL. Still on IV antibiotic therapy Plan: Urinary tract infection- ESBL - patient afebrile - urinary symptoms improved - Urinary culture with ESBL sensitive to meropenem - continue Merrem day#4 to complete 5-7 days as per ID Chronic bilateral toenail infection -Podiatry consulted. recs appreciated DM2 - Accucheck - ISS- low - Euglycemic control Hx of COPD -Patient asymptomatic - Duobeb Q6H PRN Hx of Psychiatric disorders - Schizophrenia, Depression - Psych on board - Continue ativan 2mg q6h prn - Continue seroquel, haloperidol, depakote, cogentin, neurontin - Continue 1:1 - Patient got agitated this afternoon, wanted to leave AMA. explained that she needs psychiatry clearance. Code pelaez activated. Haldol 5 IM given. Prophylaxis - Protonix - Heparin 5000 unit SC. h/o DVT -Regular diet Case reviewed and discussed with attending, Dr. Fernández <Gail Fernández - Last Filed: 07/12/18 08:12> Objective - Vital Signs/Intake and Output Vital Signs (last 24 hours): Temp Pulse Resp BP Pulse Ox 99.2 F 109 H 19 139/89 96 07/11/18 22:38 07/11/18 22:38 07/11/18 22:38 07/11/18 22:38 07/11/18 22:38 Intake and Output: 07/12/18 07/12/18 06:59 18:59 Intake Total 1360 Balance 1360 - Medications Medications: Current Medications Albuterol/Ipratropium (Duoneb 3 Mg/0.5 Mg (3 Ml) Ud) 3 ml IH [id number] PRN PRN Reason: Shortness of Breath Benztropine Mesylate (Cogentin) 1 mg PO HS [facility] Last Admin: 07/11/18 21:19 Dose: 1 mg Diphenhydramine HCl (Benadryl) 50 mg PO Q8 PRN PRN Reason: Agitation Last Admin: 07/07/18 21:18 Dose: 50 mg Divalproex Sodium (Depakote Dr(*Bid*)) 500 mg PO TID [facility] Last Admin: 07/11/18 18:03 Dose: 500 mg Gabapentin (Neurontin) 300 mg PO TID [facility] PRN Reason: Protocol Last Admin: 07/11/18 18:03 Dose: 300 mg Haloperidol Lactate (Haldol) 5 mg IM Q6H PRN; Protocol PRN Reason: Agitation Last Admin: 07/11/18 17:11 Dose: 5 mg Meropenem 500 mg/ Sodium (Chloride) 50 mls @ 100 mls/hr IVPB Q8 [facility] PRN Reason: Protocol Stop: 07/15/18 08:46 Last Admin: 07/12/18 05:24 Dose: 100 mls/hr Lorazepam (Ativan) 2 mg IVP Q6H PRN; Protocol PRN Reason: Agitation Last Admin: 07/11/18 21:23 Dose: 2 mg Multivitamins (Thera Tab) 1 tab PO 0800 [facility] Last Admin: 07/11/18 09:39 Dose: Not Given Nicotine (Nicoderm Cq) 1 patch TD DAILY [facility] Last Admin: 07/11/18 09:39 Dose: 1 patch Quetiapine Fumarate (Seroquel) 200 mg PO DAILY [facility] PRN Reason: Protocol Last Admin: 07/11/18 09:38 Dose: 200 mg Quetiapine Fumarate (Seroquel) 300 mg PO HS [facility] PRN Reason: Protocol Last Admin: 07/11/18 21:19 Dose: 300 mg Thiamine HCl (Vitamin B1 Tab) 100 mg PO DAILY [facility] Last Admin: 07/11/18 09:39 Dose: 100 mg - Labs Labs: PT 12.4 SECONDS (9.4-12.5) 07/07/18 16:56 INR 1.09 07/07/18 16:56 Attending/Attestation - Attestation I have personally seen and examined this patient.: Yes I have fully participated in the care of the patient.: Yes I have reviewed all pertinent clinical information, including history, physical exam and plan: Yes Notes (Text): 07/11/18 53 year old female with past medical history of schizophrenia, depression and polysubstance abuse who presented who was transferred from psychiatric floor to medical floor for treatment of ESBL UTI. Continue with meropenem, day #4. To complete 5-7 days as per ID. Patient is still agitated/disruptive at times and may benefit for re-admission to inpatient psychiatric unit after completion of antibiotics. Case was discussed with psychiatrist this afternoon. Patient was counselled on risks of continued substance abuse. Gail Fernández MD Hospitalist.
[2018-07-11] MEDS: Divalproex 500 mg DR(BID formulation) PO SCH ×3 (09:38→18:03)
[2018-07-11] MEDS: Multivitamin Therapeutic Tab PO SCH (09:39)
--- NOTE | 2018-07-11 22:59 | PN ---
DATE: 07/11/2018 SUBJECTIVE: The patient is in bed, seen early this morning in room 569, bed 2. No fevers. No chills. No nausea. No vomiting. PHYSICAL EXAMINATION: VITAL SIGNS: Temperature is 98. HEENT: Examination of HEENT is unremarkable. NECK: Supple. LUNGS: Have decreased breath sounds. HEART: Normal S1 and S2. ABDOMEN: Soft. LABORATORY DATA: Laboratory examination reveals a white count of 4.2. Hemoglobin is noted. Chemistries are noted. Microbiology is reviewed. The E. coli in the urine culture and E. coli's sensitivity is noted. ESBL positive. Review of orders reveals the meropenem requires renewal, which we will do so. ASSESSMENT AND PLAN: A 53-year-old female, seen early this morning in 59, bed 2 with extended-spectrum beta-lactamase Escherichia coli urinary tract infection and trace of a schizophrenia and history of right lower extremity deep venous thrombosis, sickle cell trait, diabetes and currently on day #4 of meropenem. Would complete 5-7 days. Justin Bowers MD
[2018-07-12] MEDS: Meropenem 500 MG in Sodium Chloride 0.9% 50 ML IVPB SCH ×3 (05:24→22:02)
[2018-07-12] MEDS: Divalproex 500 mg DR(BID formulation) PO SCH ×3 (09:35→18:02)
[2018-07-12] MEDS: Multivitamin Therapeutic Tab PO SCH (09:45)
--- NOTE | 2018-07-12 12:52 | PN ---
DATE: 07/12/2018 SUBJECTIVE: In short, the patient is 53-year-old female with reported history of schizophrenia versus schizoaffective disorder, bipolar type. The patient has significant history of polysubstance abuse and dependence. The patient has multiple hospitalizations into the Psychiatric Inpatient Unit. This time. Initially, the patient was admitted to the Psychiatric Inpatient Unit on 07/05/2018. The patient was found to have urinary tract infection, ESBL E-coli. The patient required to be transferred to the medical site for IV course of antibiotics and further management. This film writer is following the patient on medical floor as a oracle distribution consultant. Yesterday, the patient was agitated, wants to leave against medical advice. The patient still has disorganized thoughts and behavior disruptive in the unit. The patient sometimes wanders, still labile and impulses are unpredictable. Moreover, the patient did not complete course of antibiotics. The patient was not able to process the information what is the outcome of not treated urinary tract infection. The patient after discussion with medical team over the phone because this film writer was off, Dr. Fernández was advised that the patient lacks capacity to sign against medical advice because the patient did not know the main diagnosis and risk of leaving against medical advice, still has episodes of confusion and the patient might be in delirium stage plus acute exacerbation of chronic psychosis. The patient was followed up today at the morning time. The patient presented to be sleepy, easily arousable. The patient presented to be labile. Her mood has expanded from episodes of tearful and feeling hopeless and depressed to agitated and cursing this film writer out. In the middle of the conversation, the patient all of a sudden jump off the bed and make a threatening pose which gives this film writer impression that the patient is still labile and not ready to leave as of yet. The patient also was saying that she gave her debit card to her drug dealer. Right now, she is facing a lot of financial problems. At the same time, the patient reported that she is hearing voices and also she has some "raw meat inside of me and something is eating me from inside". The patient's thought process is completely disorganized, pressured speech reflecting disorganized and racing thought process. Vital signs seems to be more stable. Temperature 98.4, pulse is 83, blood pressure 100/50, respiration 26 and oxygen saturation is 97. Medications reviewed. DuoNeb, Cogentin, Benadryl, Depakote 500 mg 3 times a day, Neurontin, haloperidol, last dose was yesterday at 05:11. Ativan 2 mg IV push every 6 hours as needed for agitation, last dose was yesterday at the nighttime. The patient is on meropenem. The patient requires 5-7 days of antibiotics, today is day 4. The patient is on multivitamins, Nicoderm, Seroquel is 300 mg at the nighttime schedule and 200 mg daily, we will go up on Seroquel dose at the morning time to maximize the dose of Seroquel which is 800 mg a day. MENTAL STATUS EXAMINATION: As this film writer described above, the patient was seen today at the morning time. The patient has episodes of confusion. Intense eye contact. Mood was described as bad as depressed. Affect was absolutely labile. The patient was going from episodes of tearful and depressed mood to be angry and threatening and cursing this film writer. Speech was overproductive, pressured. Thought process circumstantial, tangential. Obviously, the patient has racing thoughts. Thought content, the patient reported to feel depressed and hopeless. Denied thoughts of killing herself, disorganized, psychotic and the patient had delusions that something is eating her from inside. Insight and judgment seems to be very limited. Impulses are unpredictable. IMPRESSION: Combination of the factors, history of schizophrenia versus schizoaffective disorder bipolar type. The patient has polysubstance abuse and dependence. This film writer also cannot exclude that the patient is in delirium stage due to urinary tract infection, extended-spectrum beta-lactamase Escherichia coli, but most likely, combination of the factors gave the patient this presentation. PLAN: This film writer increased the dose of Seroquel. The patient is on Depakote. We will check Depakote level tomorrow at the morning time. P.r.n. medications are in the computer. Dr. Albarran will see the patient over the weekend. In regards of capacity to leave against medical advise, the patient was not requesting to be discharged today. The patient still has labile mood. The patient is sexually preoccupied, provocative and unpredictable. We will observe closely. Thank you very much for letting me participate in the care of your patient. Should you have any questions, give me a call back. Isabel Jacobs MD [facility] # [phone]
--- NOTE | 2018-07-12 13:03 | PN ---
DATE: 07/12/2018 SUBJECTIVE: The patient was evaluated on 07/11/2018, but due to technical difficulties could not be dictated until 07/12/2018. The patient's case was reviewed with the patient's psychiatric medical staff who had previously interacted with this patient. The patient was off the floor at that time. The patient had been seen by Psychiatry on 07/10/2018. She is a 53-year-old -Welsh female with a thought disorder along with a history of substance abuse who was initially admitted to the psychiatric unit in a disorganized state with suicidal and homicidal ideation. She then was transferred to the medical floor because of the UTI. The patient remains disorganized and intermittently agitated reported improvement. Her insight and judgment remains limited. She is being maintained psychotropically on Ativan p.r.n., Benadryl p.r.n., Cogentin 1 mg at bedtime, Depakote 500 mg t.i.d., Haldol p.r.n., Neurontin 300 mg t.i.d., Seroquel 300 mg in the morning and at bedtime. The patient will be continually monitored. Devonte Forbes MD/ PhD
--- NOTE | 2018-07-12 13:58 | CP.PCM.PN ---
<Mehdi Fitzgerald - Last Filed: 07/12/18 20:05> Subjective - Date & Time of Evaluation Date of Evaluation: 07/12/18 Time of Evaluation: 08:50 - Subjective Subjective: Mehdi Fitzgerald DO PGY-1, Internal Medicine Resident. Hospitalist Progress Note Patient seen and examined at bedside. Patient is anxious and guarded answering few questions. Her urinary symptoms improved. She is tolerating diet and ambulate at her room. Patient got agitated and wanted toleave AMA last night, code betts activated and and given Haldol 5 IM. Patient still paranoid and looks detached. Denied active thought of homicide and suicide. Patient denied chest pain, SOB, palpitations, headache, dizziness, bowel movement changes. Objective - Vital Signs/Intake and Output Vital Signs (last 24 hours): Temp Pulse Resp BP Pulse Ox 98.4 F 83 20 100/50 L 97 07/12/18 06:00 07/12/18 06:00 07/12/18 06:00 07/12/18 06:00 07/12/18 06:00 Intake and Output: 07/12/18 07/12/18 06:59 18:59 Intake Total 1360 Balance 1360 - Medications Medications: Current Medications Albuterol/Ipratropium (Duoneb 3 Mg/0.5 Mg (3 Ml) Ud) 3 ml IH [id number] PRN PRN Reason: Shortness of Breath Benztropine Mesylate (Cogentin) 1 mg PO HS [facility] Last Admin: 07/11/18 21:19 Dose: 1 mg Diphenhydramine HCl (Benadryl) 50 mg PO Q8 PRN PRN Reason: Agitation Last Admin: 07/07/18 21:18 Dose: 50 mg Divalproex Sodium (Depakote Dr(*Bid*)) 500 mg PO TID [facility] Last Admin: 07/12/18 09:35 Dose: 500 mg Gabapentin (Neurontin) 300 mg PO TID [facility] PRN Reason: Protocol Last Admin: 07/12/18 09:34 Dose: 300 mg Haloperidol Lactate (Haldol) 5 mg IM Q6H PRN; Protocol PRN Reason: Agitation Last Admin: 07/11/18 17:11 Dose: 5 mg Meropenem 500 mg/ Sodium (Chloride) 50 mls @ 100 mls/hr IVPB Q8 [facility] PRN Reason: Protocol Stop: 07/15/18 08:46 Last Admin: 07/12/18 05:24 Dose: 100 mls/hr Lorazepam (Ativan) 2 mg IVP Q6H PRN; Protocol PRN Reason: Agitation Last Admin: 07/11/18 21:23 Dose: 2 mg Multivitamins (Thera Tab) 1 tab PO 0800 [facility] Last Admin: 07/12/18 09:45 Dose: Not Given Nicotine (Nicoderm Cq) 1 patch TD DAILY [facility] Last Admin: 07/12/18 09:37 Dose: 1 patch Quetiapine Fumarate (Seroquel) 300 mg PO HS [facility] PRN Reason: Protocol Last Admin: 07/11/18 21:19 Dose: 300 mg Quetiapine Fumarate (Seroquel) 300 mg PO DAILY [facility] PRN Reason: Protocol Thiamine HCl (Vitamin B1 Tab) 100 mg PO DAILY [facility] Last Admin: 07/12/18 09:34 Dose: 100 mg - Labs Labs: PT 12.4 SECONDS (9.4-12.5) 07/07/18 16:56 INR 1.09 07/07/18 16:56 - Additional Findings Additional findings: - Constitutional Appears: Agitated, Other (anxious) - Head Exam Head Exam: ATRAUMATIC, NORMOCEPHALIC - Eye Exam Eye Exam: EOMI, Normal appearance, PERRL - ENT Exam ENT Exam: Mucous Membranes Moist - Neck Exam Neck Exam: Normal Inspection. absent: Lymphadenopathy - Respiratory Exam Respiratory Exam: Clear to Ausculation Bilateral. absent: Wheezes - Cardiovascular Exam Cardiovascular Exam: +S1, +S2 - GI/Abdominal Exam GI & Abdominal Exam: Soft, Normal Bowel Sounds Additional comments: suprapubic tenderness to palpate - Extremities Exam Extremities Exam: Normal Capillary Refill. absent: Joint Swelling, Tenderness - Back Exam Back Exam: absent: rash noted, vertebral tenderness - Psychiatric Exam Psychiatric exam: Agitated, Anxious, Flat Affect Additional comments: on 1:1 - Skin Skin Exam: Dry, Intact, Normal Color Additional comments: bilateral toenail color discoloration Assessment and Plan - Assessment and Plan (Free Text) Assessment: 53 y/o female with PMH of schizophrenia paranoid type, Depression, right lower extremity DVT with history of anticoagulation, Sickle Cell trait, DM2, medication non compliance, polysubstance abuse admitted to medical floor for UTI treatment. Urinary culture shows ESBL. Still on IV antibiotic therapy, treatment day #5 Plan: Urinary tract infection- ESBL - patient afebrile - urinary symptoms improved - Urinary culture with ESBL sensitive to meropenem - continue Merrem day#5 to complete 5-7 days as per ID Chronic bilateral toenail infection -Podiatry consulted DM2 - Accucheck - ISS- low - Euglycemic control Hx of COPD -Patient asymptomatic - Duobeb Q6H PRN Hx of Psychiatric disorders - Schizophrenia, Depression - Psych on board - Continue ativan 2mg q6h prn - Continue seroquel, haloperidol, depakote, cogentin, neurontin - Continue 1:1 - Patient got agitated wanted to leave AMA on 07/11, explained that she needs psychiatry clearance. Code pelaez activated. Haldol 5 IM given. -As per psych noted today; patient still has labile mood, upredictable and needs more observation. She will be seen by Dr Albarran over the weekend. Prophylaxis - Protonix - Heparin 5000 unit SC. h/o DVT -Regular diet Case reviewed and discussed with attending, Dr. Fernández <Gail Fernández - Last Filed: 07/13/18 07:26> Objective - Vital Signs/Intake and Output Vital Signs (last 24 hours): Temp Pulse Resp BP Pulse Ox 98.4 F 83 20 100/50 L 97 07/12/18 06:00 07/12/18 06:00 07/12/18 06:00 07/12/18 06:00 07/12/18 06:00 Intake and Output: 07/13/18 07/13/18 06:59 18:59 Intake Total 540 Balance 540 - Medications Medications: Current Medications Albuterol/Ipratropium (Duoneb 3 Mg/0.5 Mg (3 Ml) Ud) 3 ml IH [id number] PRN PRN Reason: Shortness of Breath Benztropine Mesylate (Cogentin) 1 mg PO HS [facility] Last Admin: 07/12/18 22:04 Dose: 1 mg Diphenhydramine HCl (Benadryl) 50 mg PO Q8 PRN PRN Reason: Agitation Last Admin: 07/07/18 21:18 Dose: 50 mg Divalproex Sodium (Jon Bruce(*Bid*)) 500 mg PO TID [facility] Last Admin: 07/12/18 18:02 Dose: 500 mg Gabapentin (Neurontin) 300 mg PO TID [facility] PRN Reason: Protocol Last Admin: 07/12/18 18:02 Dose: 300 mg Haloperidol Lactate (Haldol) 5 mg IM Q6H PRN; Protocol PRN Reason: Agitation Last Admin: 07/11/18 17:11 Dose: 5 mg Meropenem 500 mg/ Sodium (Chloride) 50 mls @ 100 mls/hr IVPB Q8 [facility] PRN Reason: Protocol Stop: 07/15/18 08:46 Last Admin: 07/12/18 22:02 Dose: 100 mls/hr Lorazepam (Ativan) 2 mg IVP Q6H PRN; Protocol PRN Reason: Agitation Last Admin: 07/12/18 16:42 Dose: 2 mg Multivitamins (Thera Tab) 1 tab PO 0800 [facility] Last Admin: 07/12/18 09:45 Dose: Not Given Nicotine (Nicoderm Cq) 1 patch TD DAILY [facility] Last Admin: 07/12/18 09:37 Dose: 1 patch Quetiapine Fumarate (Seroquel) 300 mg PO HS [facility] PRN Reason: Protocol Last Admin: 07/12/18 22:03 Dose: 300 mg Quetiapine Fumarate (Seroquel) 300 mg PO DAILY [facility] PRN Reason: Protocol Thiamine HCl (Vitamin B1 Tab) 100 mg PO DAILY [facility] Last Admin: 07/12/18 09:34 Dose: 100 mg - Labs Labs: PT 12.4 SECONDS (9.4-12.5) 07/07/18 16:56 INR 1.09 07/07/18 16:56 Attending/Attestation - Attestation I have personally seen and examined this patient.: Yes I have fully participated in the care of the patient.: Yes I have reviewed all pertinent clinical information, including history, physical exam and plan: Yes Notes (Text): 07/12/18 53 year old female with past medical history of schizophrenia, depression and polysubstance abuse who presented who was transferred from psychiatric floor to medical floor for treatment of ESBL UTI. Continue with meropenem, day #5. To complete 5-7 days as per ID. Patient is still agitated/disruptive at times. Psychiatry is following. Patient was counselled on risks of continued substance abuse. Gail Fernández MD Hospitalist.
--- NOTE | 2018-07-12 17:01 | CP.PCM.PN ---
Subjective - Date & Time of Evaluation Date of Evaluation: 07/12/18 Time of Evaluation: 14:10 - Subjective Subjective: Resting comfortably in bed, no fevers. Objective - Vital Signs/Intake and Output Vital Signs (last 24 hours): Temp Pulse Resp BP Pulse Ox 98.4 F 83 20 100/50 L 97 07/12/18 06:00 07/12/18 06:00 07/12/18 06:00 07/12/18 06:00 07/12/18 06:00 Intake and Output: 07/12/18 07/12/18 06:59 18:59 Intake Total 1360 Balance 1360 - Medications Medications: Current Medications Albuterol/Ipratropium (Duoneb 3 Mg/0.5 Mg (3 Ml) Ud) 3 ml IH [id number] PRN PRN Reason: Shortness of Breath Benztropine Mesylate (Cogentin) 1 mg PO HS [facility] Last Admin: 07/11/18 21:19 Dose: 1 mg Diphenhydramine HCl (Benadryl) 50 mg PO Q8 PRN PRN Reason: Agitation Last Admin: 07/07/18 21:18 Dose: 50 mg Divalproex Sodium (Depakote Dr(*Bid*)) 500 mg PO TID [facility] Last Admin: 07/12/18 09:35 Dose: 500 mg Gabapentin (Neurontin) 300 mg PO TID [facility] PRN Reason: Protocol Last Admin: 07/12/18 09:34 Dose: 300 mg Haloperidol Lactate (Haldol) 5 mg IM Q6H PRN; Protocol PRN Reason: Agitation Last Admin: 07/11/18 17:11 Dose: 5 mg Meropenem 500 mg/ Sodium (Chloride) 50 mls @ 100 mls/hr IVPB Q8 [facility] PRN Reason: Protocol Stop: 07/15/18 08:46 Last Admin: 07/12/18 05:24 Dose: 100 mls/hr Lorazepam (Ativan) 2 mg IVP Q6H PRN; Protocol PRN Reason: Agitation Last Admin: 07/11/18 21:23 Dose: 2 mg Multivitamins (Thera Tab) 1 tab PO 0800 [facility] Last Admin: 07/12/18 09:45 Dose: Not Given Nicotine (Nicoderm Cq) 1 patch TD DAILY [facility] Last Admin: 07/12/18 09:37 Dose: 1 patch Quetiapine Fumarate (Seroquel) 300 mg PO HS [facility] PRN Reason: Protocol Last Admin: 07/11/18 21:19 Dose: 300 mg Quetiapine Fumarate (Seroquel) 300 mg PO DAILY [facility] PRN Reason: Protocol Thiamine HCl (Vitamin B1 Tab) 100 mg PO DAILY [facility] Last Admin: 07/12/18 09:34 Dose: 100 mg - Labs Labs: PT 12.4 SECONDS (9.4-12.5) 07/07/18 16:56 INR 1.09 07/07/18 16:56 - Constitutional Appears: Chronically Ill - Head Exam Head Exam: NORMAL INSPECTION - Respiratory Exam Respiratory Exam: Decreased Breath Sounds - Cardiovascular Exam Cardiovascular Exam: +S1, +S2 - GI/Abdominal Exam GI & Abdominal Exam: Soft. absent: Tenderness Assessment and Plan - Assessment and Plan (Free Text) Plan: Assessment UTI with ESBL E. coli schizophrenia right lower extermity DVT sickle cell trait DM polysubstance abuse Plan continue Merrem day 5 to complete 5-7 days continue to monitor clinically
[2018-07-13] MEDS: Meropenem 500 MG in Sodium Chloride 0.9% 50 ML IVPB SCH (09:24)
[2018-07-13] MEDS: Divalproex 500 mg DR(BID formulation) PO SCH ×3 (09:51→18:31)
[2018-07-13] MEDS: Multivitamin Therapeutic Tab PO SCH (09:51)
--- NOTE | 2018-07-13 17:42 | PN ---
DATE: 07/13/2018 SUBJECTIVE: The patient is in bed, in no acute distress, nontoxic. PHYSICAL EXAMINATION: VITAL SIGNS: Temperature is 98, blood pressure is 100/60, respiratory rate 20, heart rate of 83. HEENT: Unremarkable. NECK: Supple. LUNGS: Have decreased breath sounds. HEART: Normal S1, S2. ABDOMEN: Soft. LABORATORY EXAMINATION: Reveals a white count of 4, hemoglobin of 12, and platelets of 234. Chemistries are noted and urinalysis is noted. Microbiology reveals the patient has E. coli in the urine, ESBL. ASSESSMENT AND PLAN: A 53-year-old female with Escherichia coli, Extended-spectrum beta-lactamases urinary tract infection and currently on day #6 of meropenem to complete 7 days. Justin Bowers MD
--- NOTE | 2018-07-13 18:10 | CP.PCM.PN ---
<Mehdi Fitzgerald - Last Filed: 07/13/18 20:31> Subjective - Date & Time of Evaluation Date of Evaluation: 07/13/18 Time of Evaluation: 06:20 - Subjective Subjective: Mehdi Fitzgerald DO PGY-1, Internal Medicine Resident. Hospitalist Progress Note Patient seen and examined at bedside. Patient is anxious and agitated. Her urinary symptoms improved. She is tolerating diet and ambulate at her room. Patient still paranoid and looks detached. Denied active thought of homicide and suicide. Patient denied chest pain, SOB, palpitations, headache, dizziness, bowel movement changes. Objective - Vital Signs/Intake and Output Vital Signs (last 24 hours): Temp Pulse Resp BP Pulse Ox 98.1 F 121 H 18 168/94 H 96 07/13/18 14:00 07/13/18 14:00 07/13/18 14:00 07/13/18 14:00 07/13/18 14:00 Intake and Output: 07/13/18 07/13/18 06:59 18:59 Intake Total 540 Balance 540 - Medications Medications: Current Medications Albuterol/Ipratropium (Duoneb 3 Mg/0.5 Mg (3 Ml) Ud) 3 ml IH [id number] PRN PRN Reason: Shortness of Breath Benztropine Mesylate (Cogentin) 1 mg PO HS [facility] Last Admin: 07/12/18 22:04 Dose: 1 mg Diphenhydramine HCl (Benadryl) 50 mg PO Q8 PRN PRN Reason: Agitation Last Admin: 07/13/18 14:10 Dose: 50 mg Divalproex Sodium (Depakote Dr(*Bid*)) 500 mg PO TID [facility] Last Admin: 07/13/18 14:10 Dose: 500 mg Gabapentin (Neurontin) 300 mg PO TID [facility] PRN Reason: Protocol Last Admin: 07/13/18 14:10 Dose: 300 mg Haloperidol Lactate (Haldol) 5 mg IM Q6H PRN; Protocol PRN Reason: Agitation Last Admin: 07/11/18 17:11 Dose: 5 mg Lorazepam (Ativan) 2 mg IVP Q6H PRN; Protocol PRN Reason: Agitation Last Admin: 07/12/18 16:42 Dose: 2 mg Multivitamins (Thera Tab) 1 tab PO 0800 [facility] Last Admin: 07/13/18 09:51 Dose: 1 tab Nicotine (Nicoderm Cq) 1 patch TD DAILY [facility] Last Admin: 07/13/18 09:51 Dose: 1 patch Quetiapine Fumarate (Seroquel) 300 mg PO HS [facility] PRN Reason: Protocol Last Admin: 07/12/18 22:03 Dose: 300 mg Quetiapine Fumarate (Seroquel) 300 mg PO DAILY [facility] PRN Reason: Protocol Last Admin: 07/13/18 09:50 Dose: 300 mg Thiamine HCl (Vitamin B1 Tab) 100 mg PO DAILY [facility] Last Admin: 07/13/18 09:50 Dose: 100 mg - Labs Labs: PT 12.4 SECONDS (9.4-12.5) 07/07/18 16:56 INR 1.09 07/07/18 16:56 - Additional Findings Additional findings: - Constitutional Appears: Agitated, Other (anxious) - Head Exam Head Exam: ATRAUMATIC, NORMOCEPHALIC - Eye Exam Eye Exam: EOMI, Normal appearance, PERRL - ENT Exam ENT Exam: Mucous Membranes Moist - Neck Exam Neck Exam: Normal Inspection. absent: Lymphadenopathy - Respiratory Exam Respiratory Exam: Clear to Ausculation Bilateral. absent: Wheezes - Cardiovascular Exam Cardiovascular Exam: +S1, +S2 - GI/Abdominal Exam GI & Abdominal Exam: Soft, Normal Bowel Sounds Additional comments: suprapubic tenderness to palpate - Extremities Exam Extremities Exam: Normal Capillary Refill. absent: Joint Swelling, Tenderness - Back Exam Back Exam: absent: rash noted, vertebral tenderness - Psychiatric Exam Psychiatric exam: Agitated, Anxious, Flat Affect Additional comments: Assessment and Plan - Assessment and Plan (Free Text) Assessment: 53 y/o female with PMH of schizophrenia paranoid type, Depression, right lower extremity DVT with history of anticoagulation, Sickle Cell trait, DM2, medication non compliance, polysubstance abuse admitted to medical floor for UTI treatment. Urinary culture shows ESBL. Still on IV antibiotic therapy, treatment day #5 Plan: Urinary tract infection- ESBL - patient afebrile - urinary symptoms improved - Urinary culture with ESBL sensitive to meropenem - discontinue Merrem as per Dr Arriaza -Patient is medically clear to be discharged from medical floor Chronic bilateral toenail infection -Podiatry consulted DM2 - Accucheck - ISS- low - Euglycemic control Hx of COPD -Patient asymptomatic - Duobeb Q6H PRN Hx of Psychiatric disorders - Schizophrenia, Depression - Psych on board - Continue ativan 2mg q6h prn - Continue seroquel, haloperidol, depakote, cogentin, neurontin - Patient got agitated wanted to leave AMA on 07/11, explained that she needs psychiatry clearance. Code pelaez activated. Haldol 5 IM given. -As per psych note, patient still has labile mood, upredictable and needs more observation. She will be seen by Dr Albarran over the weekend. Prophylaxis - Protonix - Heparin 5000 unit SC. h/o DVT -Regular diet Case reviewed and plan discussed with Dr Fernández <Gail Fernández - Last Filed: 07/14/18 07:08> Objective - Vital Signs/Intake and Output Vital Signs (last 24 hours): Temp Pulse Resp BP Pulse Ox 97.4 F L 108 H 16 115/75 97 07/13/18 22:00 07/13/18 22:00 07/13/18 22:00 07/13/18 22:00 07/13/18 22:00 Intake and Output: 07/14/18 07/14/18 06:59 18:59 Intake Total 1200 Balance 1200 - Medications Medications: Current Medications Albuterol/Ipratropium (Duoneb 3 Mg/0.5 Mg (3 Ml) Ud) 3 ml IH [id number] PRN PRN Reason: Shortness of Breath Benztropine Mesylate (Cogentin) 1 mg PO HS [facility] Last Admin: 07/13/18 21:13 Dose: 1 mg Diphenhydramine HCl (Benadryl) 50 mg PO Q8 PRN PRN Reason: Agitation Last Admin: 07/13/18 22:49 Dose: 50 mg Divalproex Sodium (Depakote Dr(*Bid*)) 500 mg PO TID [facility] Last Admin: 07/13/18 18:31 Dose: 500 mg Gabapentin (Neurontin) 300 mg PO TID [facility] PRN Reason: Protocol Last Admin: 07/13/18 18:31 Dose: 300 mg Haloperidol Lactate (Haldol) 5 mg IM Q6H PRN; Protocol PRN Reason: Agitation Last Admin: 07/11/18 17:11 Dose: 5 mg Lorazepam (Ativan) 2 mg PO Q6H PRN; Protocol PRN Reason: Agitation Last Admin: 07/14/18 00:41 Dose: 2 mg Multivitamins (Thera Tab) 1 tab PO 0800 [facility] Last Admin: 07/13/18 09:51 Dose: 1 tab Nicotine (Nicoderm Cq) 1 patch TD DAILY [facility] Last Admin: 07/13/18 09:51 Dose: 1 patch Quetiapine Fumarate (Seroquel) 300 mg PO HS [facility] PRN Reason: Protocol Last Admin: 07/13/18 21:13 Dose: 300 mg Quetiapine Fumarate (Seroquel) 300 mg PO DAILY [facility] PRN Reason: Protocol Last Admin: 07/13/18 09:50 Dose: 300 mg Thiamine HCl (Vitamin B1 Tab) 100 mg PO DAILY [facility] Last Admin: 07/13/18 09:50 Dose: 100 mg - Labs Labs: PT 12.4 SECONDS (9.4-12.5) 07/07/18 16:56 INR 1.09 07/07/18 16:56 Attending/Attestation - Attestation I have personally seen and examined this patient.: Yes I have fully participated in the care of the patient.: Yes I have reviewed all pertinent clinical information, including history, physical exam and plan: Yes Notes (Text): 07/13/18 53 year old female with past medical history of schizophrenia, depression and polysubstance abuse who presented who was transferred from psychiatric floor to medical floor for treatment of ESBL UTI. She was treated with 5 days of iv meropenem. Case was discussed with ID; antibiotics can be discontinued. Patient still is agitated at times with disorganized thoughts. Psychiatry follow up requested for possible transfer back to inpatient psychiatric unit. Patient was counselled on risks of continued substance abuse. Gail Fernández MD Hospitalist.
--- NOTE | 2018-07-13 20:37 | CON ---
DATE: 07/13/2018 HISTORY OF PRESENT ILLNESS: The patient is a 53-year-old -Malt[place] female with long history of schizoaffective disorder and significant history of polysubstance abuse and dependence as well as multiple hospitalizations into the Psychiatric Inpatient Unit who was transferred from the Psychiatric Inpatient Unit on 07/05/2018 for IV treatment of UTI. The patient was also notably delirious while she was on the psychiatric floor and Psychiatry has been following up with the patient on the medical floor. The patient has demonstrated minimal improvement in her confusion and agitation and comprehension of current circumstances and I agree with Dr. Jacobs that she does not appear to have capacity to sign out against medical advice. She is illogical and at times incoherent during my interview with her at bedside today; although, she is aware that it is current June and she is at [facility]. She is irritable and paranoid about my questioning and has been refusing care by medical providers including insertion of the IV this morning. The patient has been labile and unpredictable and abusive towards the staff members as well and remains unpredictable and currently is not psychiatrically cleared as she does not have capacity. VITAL SIGNS: Reviewed. LABORATORY DATA: Reviewed. RELEVANT PSYCHIATRIC MEDICATIONS: Include Haldol 5 mg IM every 6 hours p.r.n. as well as Benadryl 50 mg every 8 p.r.n., Seroquel 300 mg at bedtime and 300 mg daily, this was recently increased yesterday. IMPRESSION: Schizoaffective disorder with delirium. The patient is currently unstable medically and psychiatrically. RECOMMENDATIONS: We will continue with current treatment and plan. The patient's Seroquel dose was recently increased yesterday and it surely determine the effect of that increase. I will follow up the patient in the morning and monitor her during the day or by reviewing nurse staff notes and continue to adjust medications accordingly. Next followup will be Sunday in the morning on 07/14/[address] Albarran. Allan Albarran MD
--- NOTE | 2018-07-14 06:42 | CP.PCM.PN ---
<Mehdi Fitzgerald - Last Filed: 07/14/18 15:17> Subjective - Date & Time of Evaluation Date of Evaluation: 07/14/18 Time of Evaluation: 06:42 - Subjective Subjective: Mehdi Fitzgerald DO PGY-1, Internal Medicine Resident. Hospitalist Progress Note Patient seen and examined at bedside. Patient was more calm today. Her urinary symptoms improved. She is tolerating diet and ambulate at her room. Patient still paranoid with labile mood, poor insight. Denied active thought of homicide and suicide. Patient denied chest pain, SOB, palpitations, headache, dizziness, bowel movement changes. Objective - Vital Signs/Intake and Output Vital Signs (last 24 hours): Temp Pulse Resp BP Pulse Ox 97.4 F L 108 H 16 115/75 97 07/13/18 22:00 07/13/18 22:00 07/13/18 22:00 07/13/18 22:00 07/13/18 22:00 Intake and Output: 07/13/18 07/14/18 18:59 06:59 Intake Total 1200 Balance 1200 - Medications Medications: Current Medications Albuterol/Ipratropium (Duoneb 3 Mg/0.5 Mg (3 Ml) Ud) 3 ml IH [id number] PRN PRN Reason: Shortness of Breath Benztropine Mesylate (Cogentin) 1 mg PO HS [facility] Last Admin: 07/13/18 21:13 Dose: 1 mg Diphenhydramine HCl (Benadryl) 50 mg PO Q8 PRN PRN Reason: Agitation Last Admin: 07/13/18 22:49 Dose: 50 mg Divalproex Sodium (Depakote Dr(*Bid*)) 500 mg PO TID [facility] Last Admin: 07/13/18 18:31 Dose: 500 mg Gabapentin (Neurontin) 300 mg PO TID [facility] PRN Reason: Protocol Last Admin: 07/13/18 18:31 Dose: 300 mg Haloperidol Lactate (Haldol) 5 mg IM Q6H PRN; Protocol PRN Reason: Agitation Last Admin: 07/11/18 17:11 Dose: 5 mg Lorazepam (Ativan) 2 mg PO Q6H PRN; Protocol PRN Reason: Agitation Last Admin: 07/14/18 00:41 Dose: 2 mg Multivitamins (Thera Tab) 1 tab PO 0800 [facility] Last Admin: 07/13/18 09:51 Dose: 1 tab Nicotine (Nicoderm Cq) 1 patch TD DAILY [facility] Last Admin: 07/13/18 09:51 Dose: 1 patch Quetiapine Fumarate (Seroquel) 300 mg PO HS [facility] PRN Reason: Protocol Last Admin: 07/13/18 21:13 Dose: 300 mg Quetiapine Fumarate (Seroquel) 300 mg PO DAILY [facility] PRN Reason: Protocol Last Admin: 07/13/18 09:50 Dose: 300 mg Thiamine HCl (Vitamin B1 Tab) 100 mg PO DAILY [facility] Last Admin: 07/13/18 09:50 Dose: 100 mg - Labs Labs: PT 12.4 SECONDS (9.4-12.5) 07/07/18 16:56 INR 1.09 07/07/18 16:56 - Additional Findings Additional findings: - Constitutional Appears: Agitated, Other (anxious) - Head Exam Head Exam: ATRAUMATIC, NORMOCEPHALIC - Eye Exam Eye Exam: EOMI, Normal appearance, PERRL - ENT Exam ENT Exam: Mucous Membranes Moist - Neck Exam Neck Exam: Normal Inspection. absent: Lymphadenopathy - Respiratory Exam Respiratory Exam: Clear to Ausculation Bilateral. absent: Wheezes - Cardiovascular Exam Cardiovascular Exam: +S1, +S2 - GI/Abdominal Exam GI & Abdominal Exam: Soft, Normal Bowel Sounds Additional comments: suprapubic tenderness to palpate - Extremities Exam Extremities Exam: Normal Capillary Refill. absent: Joint Swelling, Tenderness - Back Exam Back Exam: absent: rash noted, vertebral tenderness - Psychiatric Exam Psychiatric exam: Agitated, Anxious, Flat Affect Assessment and Plan - Assessment and Plan (Free Text) Assessment: 53 y/o female with PMH of schizophrenia paranoid type, Depression, right lower extremity DVT with history of anticoagulation, Sickle Cell trait, DM2, medication non compliance, polysubstance abuse admitted to medical floor for UTI treatment. Urinary culture shows ESBL. Completed IV antibiotic therapy, medically stable Plan: Urinary tract infection- ESBL - patient afebrile - urinary symptoms improved - Urinary culture with ESBL sensitive to meropenem - Patient completed her IV antibiotic course - Patient is medically clear to be discharged from medical floor Chronic bilateral toenail infection -As per Podiatry consult: Podiatry will see patient again on Sunday07/15/18 for debridement of elongated toe-nails/callus DM2 - Accucheck - ISS- low - Euglycemic control Hx of COPD -Patient asymptomatic - Duobeb Q6H PRN Hx of Psychiatric disorders - Schizophrenia, Depression - Psych on board - Continue ativan 2mg q6h prn - Continue seroquel, haloperidol, depakote, cogentin, neurontin - Patient got agitated wanted to leave AMA on 07/11, explained that she needs psychiatry clearance. Code pelaez activated. Haldol 5 IM given. - As per psych note, patient still has labile mood, upredictable and needs more observation. - Patient is waiting for screening. medical clearance order submitted Prophylaxis - Protonix - Heparin 5000 unit SC. h/o DVT -Regular diet Case reviewed and plan discussed with Dr Fernández <Gail Fernández - Last Filed: 07/14/18 18:35> Objective - Vital Signs/Intake and Output Vital Signs (last 24 hours): Temp Pulse Resp BP Pulse Ox 97.9 F 97 H 20 119/81 97 07/14/18 14:00 07/14/18 14:00 07/14/18 14:00 07/14/18 14:00 07/14/18 14:00 Intake and Output: 07/14/18 07/14/18 06:59 18:59 Intake Total 1200 Balance 1200 - Medications Medications: Current Medications Albuterol/Ipratropium (Duoneb 3 Mg/0.5 Mg (3 Ml) Ud) 3 ml IH [id number] PRN PRN Reason: Shortness of Breath Benztropine Mesylate (Cogentin) 1 mg PO HS [facility] Last Admin: 07/13/18 21:13 Dose: 1 mg Diphenhydramine HCl (Benadryl) 50 mg PO Q8 PRN PRN Reason: Agitation Last Admin: 07/13/18 22:49 Dose: 50 mg Divalproex Sodium (Jon Bruce(*Bid*)) 500 mg PO TID [facility] Last Admin: 07/14/18 12:46 Dose: 500 mg Gabapentin (Neurontin) 300 mg PO TID [facility] PRN Reason: Protocol Last Admin: 07/14/18 12:46 Dose: 300 mg Haloperidol Lactate (Haldol) 5 mg IM Q6H PRN; Protocol PRN Reason: Agitation Last Admin: 07/11/18 17:11 Dose: 5 mg Lorazepam (Ativan) 2 mg PO Q6H PRN; Protocol PRN Reason: Agitation Last Admin: 07/14/18 09:09 Dose: 2 mg Multivitamins (Thera Tab) 1 tab PO 0800 [facility] Last Admin: 07/14/18 09:12 Dose: 1 tab Nicotine (Nicoderm Cq) 1 patch TD DAILY [facility] Last Admin: 07/14/18 09:10 Dose: 1 patch Quetiapine Fumarate (Seroquel) 300 mg PO HS [facility] PRN Reason: Protocol Last Admin: 07/14/18 09:11 Dose: 300 mg Quetiapine Fumarate (Seroquel) 300 mg PO DAILY [facility] PRN Reason: Protocol Last Admin: 07/14/18 09:18 Dose: 300 mg Thiamine HCl (Vitamin B1 Tab) 100 mg PO DAILY [facility] Last Admin: 07/14/18 09:17 Dose: 100 mg - Labs Labs: PT 12.4 SECONDS (9.4-12.5) 07/07/18 16:56 INR 1.07/07/18 16:56 Attending/Attestation - Attestation I have personally seen and examined this patient.: Yes I have fully participated in the care of the patient.: Yes I have reviewed all pertinent clinical information, including history, physical exam and plan: Yes Notes (Text): 07/14/18 18:33 53 year old female with past medical history of schizophrenia, depression and polysubstance abuse who presented who was transferred from psychiatric floor to medical floor for treatment of ESBL UTI. She was treated with 5 days of iv meropenem. Case was discussed with ID and antibiotics were discontinued yesterday. Podiatry evaluation was appreciated. Psychiatry is following for labile mood, agitation and paranoia. Patient is refusing inpatient voluntary re -admission to psychiatric unit. [facility] screeners called for involuntary admission evaluation. Patient is otherwise medically cleared. Patient was counselled on risks of continued substance abuse. Gail Fernández MD Hospitalist.
[2018-07-14 07:26] VITALS: RESP 20
[2018-07-14] MEDS: Divalproex 500 mg DR(BID formulation) PO SCH ×4 (09:07→18:38)
[2018-07-14] MEDS: Multivitamin Therapeutic Tab PO SCH (09:12)
--- NOTE | 2018-07-14 11:18 | CP.PCM.CON ---
History of Present Illness - History of Present Illness History of Present Illness: Podiatry consult note for Dr. Hernandez, 53 y/o female with PMHx of DM, Sickle cell trait, depression, anxiety, schizophrenia/ paranoid and bipolar disorder was seen and evaluated on the floor due to complaints of elongated, fungal toenails and callus submet 2 right foot. Patient was admitted to the hospital for an UTI. Patient sleeping when seen, and patient responding to questions. Patient states she has fungal toenails and pain to the ball of her feet. Patient denies any trauma. Patient denies seeing a [place] [facility] in the last 5 years. Patient denies any other pedal complaints. Unable to obtain a complete history from patient as patient dosing off during evaluation and becoming agitated. PMH: DM, Sickle cell trait, depression, anxiety, schizophrenia/ paranoid PSH: IVC filter placement SH: Tobacco history - heavy use, 2 beers/ day, smokes cocaine Allergies: NKDA Review of Systems - Review of Systems All systems: reviewed and no additional remarkable complaints except Review of Systems: As per HPI Past Patient History - Infectious Disease Hx of Infectious Diseases: None - Tetanus Immunizations Tetanus Immunization: Unknown - Past Medical History & Family History Past Medical History?: Yes - Past Social History Smoking Status: Current Some Days Smoker Alcohol: Occasional Drugs: Cocaine, Opiates - CARDIAC Hx Cardiac Disorders: No - PULMONARY Hx Respiratory Disorders: Yes Hx Asthma: Yes Hx Bronchitis: Yes Hx Emphysema: Yes Hx Pneumonia: Yes - NEUROLOGICAL Hx Neurological Disorder: No - HEENT Hx HEENT Problems: No - RENAL Hx Chronic Kidney Disease: No - ENDOCRINE/METABOLIC Hx Endocrine Disorders: Yes Hx Diabetes Mellitus Type 2: Yes - HEMATOLOGICAL/ONCOLOGICAL Hx Blood Disorders: Yes Hx Anemia: Yes Hx Sickle Cell Disease: Yes - INTEGUMENTARY Hx Dermatological Problems: Yes Other/Comment: fungus to bilat feet per pt - MUSCULOSKELETAL/RHEUMATOLOGICAL Hx Falls: No - GASTROINTESTINAL Hx Gastrointestinal Disorders: No - GENITOURINARY/GYNECOLOGICAL Hx Genitourinary Disorders: Yes Hx Sexually Transmitted Disorders: Yes - PSYCHIATRIC Hx Psychophysiologic Disorder: Yes Hx Bipolar Disorder: Yes Hx Schizophrenia: Yes - SURGICAL HISTORY Hx Surgeries: No - ANESTHESIA Hx Anesthesia: No Hx Anesthesia Reactions: No Hx Malignant Hyperthermia: No Meds Allergies/Adverse Reactions: Allergies Allergy/AdvReac Type Severity Reaction Status Date / Time turkey Allergy RASH Verified 07/07/18 14:12 - Medications Medications: Current Medications Albuterol/Ipratropium (Duoneb 3 Mg/0.5 Mg (3 Ml) Ud) 3 ml IH [id number] PRN PRN Reason: Shortness of Breath Benztropine Mesylate (Cogentin) 1 mg PO HS [facility] Last Admin: 07/13/18 21:13 Dose: 1 mg Diphenhydramine HCl (Benadryl) 50 mg PO Q8 PRN PRN Reason: Agitation Last Admin: 07/13/18 22:49 Dose: 50 mg Divalproex Sodium (Depakote Dr(*Bid*)) 500 mg PO TID [facility] Last Admin: 07/14/18 09:07 Dose: 500 mg Gabapentin (Neurontin) 300 mg PO TID [facility] PRN Reason: Protocol Last Admin: 07/14/18 09:17 Dose: 300 mg Haloperidol Lactate (Haldol) 5 mg IM Q6H PRN; Protocol PRN Reason: Agitation Last Admin: 07/11/18 17:11 Dose: 5 mg Lorazepam (Ativan) 2 mg PO Q6H PRN; Protocol PRN Reason: Agitation Last Admin: 07/14/18 09:09 Dose: 2 mg Multivitamins (Thera Tab) 1 tab PO 0800 [facility] Last Admin: 07/14/18 09:12 Dose: 1 tab Nicotine (Nicoderm Cq) 1 patch TD DAILY [facility] Last Admin: 07/14/18 09:10 Dose: 1 patch Quetiapine Fumarate (Seroquel) 300 mg PO HS [facility] PRN Reason: Protocol Last Admin: 07/14/18 09:11 Dose: 300 mg Quetiapine Fumarate (Seroquel) 300 mg PO DAILY [facility] PRN Reason: Protocol Last Admin: 07/14/18 09:18 Dose: 300 mg Thiamine HCl (Vitamin B1 Tab) 100 mg PO DAILY [facility] Last Admin: 07/14/18 09:17 Dose: 100 mg Physical Exam - Constitutional Appears: Well, Non-toxic, No Acute Distress - Head Exam Head Exam: ATRAUMATIC, NORMOCEPHALIC - Extremities Exam Additional comments: Lower Extremity Focused Exam VASC: DP and PT 2/4 bilaterally, CFT less than 3 seconds X 10, TG warm to cool within normal limits, +2 pitting edema to the left anterior leg NEURO: protective sensation intact DERM: elongated, thickened, discolored toenails bilaterally, hyperkeratotic lesions submet 2 of the right foot, no interdigital macertion, no open lesions, no erythema, no clinical signs of infection ORTHO: pain on palpation to submet 2 on the right, no pain with ankle joint, STJ or MTJ range of motion, unable to obtain MSK exam - Psychiatric Exam Psychiatric exam: Agitated - Skin Skin Exam: Intact, Normal Color Results - Vital Signs Recent Vital Signs: Last Vital Signs Temp 98.4 F 07/14/18 06:00 Pulse 90 07/14/18 06:00 Resp 20 07/14/18 06:00 BP 101/67 07/14/18 06:00 Pulse Ox 98 07/14/18 06:00 - Labs Result Diagrams: 07/07/18 16:56 07/07/18 16:56 Assessment & Plan - Assessment and Plan (Free Text) Assessment: 53 y/o female with PMHx of DM, Sickle cell trait, depression, anxiety, schizophrenia/ paranoid and bipolar disorder was seen and evaluated on the floor due to complaints of elongated, fungal toenails and callus submet 2 right foot. Plan: Patient seen and evaluated at bedside Plan discussed with attending Dr. Hernandez Chart, labs and vitals reviewed- WBC 4.2 L, afebrile Podiatry will see patient again on Sunday07/15/18 for debridement of elongated toe-nails/callus No plan for surgical intervention at this time Podiatry will follow patient while in house - Date & Time Date: 07/14/18 Time: 12:18
--- NOTE | 2018-07-14 15:24 | PN ---
DATE: 07/14/2018 SUBJECTIVE: The patient is in bed, in no acute distress, nontoxic. PHYSICAL EXAMINATION: VITAL SIGNS: On exam, temperature is 98, blood pressure is 101/60, respiratory rate of 20, heart rate of 90. HEENT: Examination of HEENT is unremarkable. NECK: Supple. LUNGS: Have decreased breath sounds. HEART: Normal S1, S2. ABDOMEN: Soft, nontender. LABORATORY DATA: Laboratory examination reveals a white count of 4.2, hemoglobin of 12, platelets of 234. BUN of 19, creatinine of 0.9. Urinalysis is noted. Microbiology reveals there is E. coli in the urine. It is ESBL E. coli. Review of orders reveals the patient now is off of antibiotics. ASSESSMENT AND PLAN: A 53-year-old female with Escherichia coli, which is extended-spectrum beta-lactamase Escherichia coli urinary tract infection, had completed 7 days of meropenem. Currently, now off of antibiotics, afebrile. The patient is refusing IV access. Justin Bowers MD
--- NOTE | 2018-07-15 06:22 | CP.PCM.PN ---
<Mehdi Fitzgeradl - Last Filed: 07/15/18 17:06> Subjective - Date & Time of Evaluation Date of Evaluation: 07/15/18 Time of Evaluation: 05:58 - Subjective Subjective: Mehdi Fitzgerald DO PGY-1, Internal Medicine Resident. Hospitalist Progress Note Patient seen and examined at bedside. Patient was more calm today. Her urinary symptoms improved. She is tolerating diet and ambulate at her room. Patient still paranoid with labile mood, poor insight. Denied active thought of homicide and suicide. Patient denied chest pain, SOB, palpitations, headache, dizziness, bowel movement changes. Objective - Vital Signs/Intake and Output Vital Signs (last 24 hours): Temp Pulse Resp BP Pulse Ox 97.9 F 97 H 20 119/81 97 07/14/18 14:00 07/14/18 14:00 07/14/18 14:00 07/14/18 14:00 07/14/18 14:00 Intake and Output: 07/14/18 07/15/18 18:59 06:59 Intake Total 1400 Balance 1400 - Medications Medications: Current Medications Albuterol/Ipratropium (Duoneb 3 Mg/0.5 Mg (3 Ml) Ud) 3 ml IH [id number] PRN PRN Reason: Shortness of Breath Benztropine Mesylate (Cogentin) 1 mg PO HS [facility] Last Admin: 07/14/18 21:01 Dose: 1 mg Diphenhydramine HCl (Benadryl) 50 mg PO Q8 PRN PRN Reason: Agitation Last Admin: 07/14/18 21:48 Dose: 50 mg Divalproex Sodium (Depakote Dr(*Bid*)) 500 mg PO TID [facility] Last Admin: 07/14/18 18:38 Dose: 500 mg Gabapentin (Neurontin) 300 mg PO TID [facility] PRN Reason: Protocol Last Admin: 07/14/18 18:38 Dose: 300 mg Haloperidol Lactate (Haldol) 5 mg IM Q6H PRN; Protocol PRN Reason: Agitation Last Admin: 07/11/18 17:11 Dose: 5 mg Lorazepam (Ativan) 2 mg PO Q6H PRN; Protocol PRN Reason: Agitation Last Admin: 07/14/18 23:09 Dose: 2 mg Multivitamins (Thera Tab) 1 tab PO 0800 [facility] Last Admin: 07/14/18 09:12 Dose: 1 tab Nicotine (Nicoderm Cq) 1 patch TD DAILY [facility] Last Admin: 07/14/18 09:10 Dose: 1 patch Quetiapine Fumarate (Seroquel) 300 mg PO HS [facility] PRN Reason: Protocol Last Admin: 07/14/18 21:01 Dose: 300 mg Quetiapine Fumarate (Seroquel) 300 mg PO DAILY [facility] PRN Reason: Protocol Last Admin: 07/14/18 09:18 Dose: 300 mg Thiamine HCl (Vitamin B1 Tab) 100 mg PO DAILY [facility] Last Admin: 07/14/18 09:17 Dose: 100 mg - Labs Labs: PT 12.4 SECONDS (9.4-12.5) 07/07/18 16:56 INR 1.07/07/18 16:56 - Additional Findings Additional findings: - Constitutional Appears: Agitated, Other (anxious) - Head Exam Head Exam: ATRAUMATIC, NORMOCEPHALIC - Eye Exam Eye Exam: EOMI, Normal appearance, PERRL - ENT Exam ENT Exam: Mucous Membranes Moist - Neck Exam Neck Exam: Normal Inspection. absent: Lymphadenopathy - Respiratory Exam Respiratory Exam: Clear to Ausculation Bilateral. absent: Wheezes - Cardiovascular Exam Cardiovascular Exam: +S1, +S2 - GI/Abdominal Exam GI & Abdominal Exam: Soft, Normal Bowel Sounds Additional comments: suprapubic tenderness to palpate - Extremities Exam Extremities Exam: Normal Capillary Refill. absent: Joint Swelling, Tenderness - Back Exam Back Exam: absent: rash noted, vertebral tenderness - Psychiatric Exam Psychiatric exam: Agitated, Anxious, Flat Affect Assessment and Plan - Assessment and Plan (Free Text) Assessment: 53 y/o female with PMH of schizophrenia paranoid type, Depression, right lower extremity DVT with history of anticoagulation, Sickle Cell trait, DM2, medication non compliance, polysubstance abuse admitted to medical floor for UTI treatment. Urinary culture shows ESBL. Completed IV antibiotic therapy, medically stable. Waiting for screening from [facility] Plan: Urinary tract infection- ESBL - patient afebrile - urinary symptoms improved - Urinary culture with ESBL sensitive to meropenem - Patient completed her IV antibiotic course - Patient is medically clear to be discharged from medical floor Chronic bilateral toenail infection -Podiatry did debridement of elongated toe-nails/callus DM2 - Accucheck - ISS- low - Euglycemic control Hx of COPD -Patient asymptomatic - Duobeb Q6H PRN Hx of Psychiatric disorders - Schizophrenia, Depression - Psych on board - Continue ativan 2mg q6h prn - Continue seroquel, haloperidol, depakote, cogentin, neurontin - Patient got agitated wanted to leave AMA on 07/11, explained that she needs psychiatry clearance. Code pelaez activated. Haldol 5 IM given. - As per psych note, patient still has labile mood, upredictable and needs more observation. - Patient is waiting for screening. medical clearance order submitted Prophylaxis - Protonix - Heparin 5000 unit SC. h/o DVT -Regular diet Waiting for screening from [facility] Case reviewed and plan discussed with Dr Solis <Alana Solis - Last Filed: 07/16/18 14:29> Objective - Vital Signs/Intake and Output Vital Signs (last 24 hours): Temp Pulse Resp BP Pulse Ox 99.4 F 112 H 20 111/61 96 07/15/18 22:24 07/15/18 22:24 07/15/18 22:24 07/15/18 22:24 07/15/18 22:24 Intake and Output: 07/16/18 07/16/18 06:59 18:59 Intake Total 620 Balance 620 - Labs Labs: PT 12.4 SECONDS (9.4-12.5) 07/07/18 16:56 INR 1.09 07/07/18 16:56 Attending/Attestation - Attestation I have personally seen and examined this patient.: Yes I have fully participated in the care of the patient.: Yes I have reviewed all pertinent clinical information, including history, physical exam and plan: Yes Notes (Text): 07/16/18 14:28 Medical record note made by the resident after discussion with my direction and input after the patient was personally seen and examined by me. I have reviewed the chart and agree that the record accurately reflects by personal performance of the history, physical exam, data review, and medical decision-making, in the course for the patient. I have also personally directed the plan of care. 53 year old female with past medical history of schizophrenia, depression and polysubstance abuse who presented who was transferred from psychiatric floor to medical floor for treatment of ESBL UTI. She was treated with 5 days of iv meropenem. She is currently off antibiotic Psychiatry is following for labile mood, agitation and paranoia. Patient is refusing inpatient voluntary re-admission to psychiatric unit. [facility] screeners called for involuntary admission evaluation. Patient is otherwise medically cleared. Patient was counselled on risks of continued substance abuse.
--- NOTE | 2018-07-15 08:26 | CON ---
DATE: 07/14/2018 HISTORY OF PRESENT ILLNESS: Patient is an 53-year-old -[place] female with long history of schizoaffective disorder and sickness, history of polysubstance abuse and dependence as well as multiple psychiatric hospitalizations who was transferred from the Psychiatric Inpatient Unit on 07/05/2018 for IV treatment of GI as well as delirium. Psychiatry has been following up with the patient on the medical floor and she has demonstrated some improvement in her confusion; however, continues to be agitated and unpredictable showing poor insight and judgement about the necessity of psychiatric stabilization. Dr. Jacobs did believed that she had capacity to sight out against medical advice and I agree with Dr. Jacobs based on my assessment with the patient at bedside on 07/13/2018. She is illogical and at times incoherent during my interview with her at bedside yesterday and she continues to be incoherent at times during my bedside interview today. She rambles and she is tangential and inconsistent with her responses. Patient also indicates that she would like to be discharged provide a reasonable rational explanation for this except for the fact that she had a court hearing on Sunday and she does not wanted to be arrested. The patient was informed that social worker delinquency prevention can contact to provide a letter indicating that the patient needs medical attention during this time change her mind. In addition, the patient has been combative and agitated and required paramedications last evening. She has been refusing treatment as well. Her insight and judgement as noticed is poor. RELEVANT PSYCHIATRIC MEDICATIONS: Include mg at bedtime, Depakote 500 mg b.i.d., Neurontin 300 t.i.d., Haldol and Ativan 5 mg IM p.r.n. and 2 mg p.o. every 6 p.r.n., Seroquel 300 daily and 300 at bedtime Labs and vitals were reviewed. IMPRESSION: Schizoaffective disorder with resolving delirium and patient does show some as well as calm behavior though still requires p.r.n. for agitation, confusion, and disorientation. She appears to be unstable both medically and psychiatrically . PLAN: At this time, I will continue with current medications and consider further increase in Depakote for patient's mood lability; however, I have noticed that Depakote level has not been requested while the patient has been on the medical floor. It does appear that her dose was on 07/07/2018. However, it is unclear what the patient's dose at that time had been. I will order Depakote level and titrate Depakote dose according to current level. She is on Xanax, Seroquel and Haldol and Ativan p.r.n. which should be used for agitation. Patient is not psychiatrically cleared. Patient should be medically cleared. She does refuse admission back to Psychiatric unit, then the patient was screened for involuntary commitment by [facility]. Allan Albarran MD
[2018-07-15] MEDS: Divalproex 500 mg DR(BID formulation) PO SCH ×3 (09:07→18:43)
[2018-07-15] MEDS: Multivitamin Therapeutic Tab PO SCH (09:08)
--- NOTE | 2018-07-15 10:41 | CP.PCM.CON ---
History of Present Illness - History of Present Illness History of Present Illness: Podiatry consult note for attending Dr. Hernandez; 53 years old female patient with PMH of DM, Sickle cell trait, depression, anxiety, schizophrenia/ paranoid, DVT seen and evaluated at the bedside for elongated, dystrophic and discolored toe nails and also for hyperkeratotic lesions in her feet b/l. Patient states that his toe nails bothers her and it's painful. She states that her calluses are also painful specially when she walks. Patient denies any recent F/N/V/C or SOB. Patient denies any itching sensation in her feet. Patient denies any other pedal complaint at this time. PMH: DM, Sickle cell trait, depression, anxiety, schizophrenia/ paranoid, DVT PSH: IVC filter placement. Cardiac stints. Allergies: NKDA SH: Smoker heavy use (2 packs/day), Use ETOH 2 beers/ day, She states that she smokes crack cocaine Review of Systems - Review of Systems Review of Systems: As Per HPI Past Patient History - Infectious Disease Hx of Infectious Diseases: None - Tetanus Immunizations Tetanus Immunization: Unknown - Past Medical History & Family History Past Medical History?: Yes - Past Social History Smoking Status: Current Some Days Smoker Alcohol: Occasional Drugs: Cocaine, Opiates - CARDIAC Hx Cardiac Disorders: No - PULMONARY Hx Respiratory Disorders: Yes Hx Asthma: Yes Hx Bronchitis: Yes Hx Emphysema: Yes Hx Pneumonia: Yes - NEUROLOGICAL Hx Neurological Disorder: No - HEENT Hx HEENT Problems: No - RENAL Hx Chronic Kidney Disease: No - ENDOCRINE/METABOLIC Hx Endocrine Disorders: Yes Hx Diabetes Mellitus Type 2: Yes - HEMATOLOGICAL/ONCOLOGICAL Hx Blood Disorders: Yes Hx Anemia: Yes Hx Sickle Cell Disease: Yes - INTEGUMENTARY Hx Dermatological Problems: Yes Other/Comment: fungus to bilat feet per pt - MUSCULOSKELETAL/RHEUMATOLOGICAL Hx Falls: No - GASTROINTESTINAL Hx Gastrointestinal Disorders: No - GENITOURINARY/GYNECOLOGICAL Hx Genitourinary Disorders: Yes Hx Sexually Transmitted Disorders: Yes - PSYCHIATRIC Hx Psychophysiologic Disorder: Yes Hx Bipolar Disorder: Yes Hx Schizophrenia: Yes - SURGICAL HISTORY Hx Surgeries: No - ANESTHESIA Hx Anesthesia: No Hx Anesthesia Reactions: No Hx Malignant Hyperthermia: No Meds Allergies/Adverse Reactions: Allergies Allergy/AdvReac Type Severity Reaction Status Date / Time turkey Allergy RASH Verified 07/07/18 14:12 - Medications Medications: Current Medications Albuterol/Ipratropium (Duoneb 3 Mg/0.5 Mg (3 Ml) Ud) 3 ml IH [id number] PRN PRN Reason: Shortness of Breath Benztropine Mesylate (Cogentin) 1 mg PO HS [facility] Last Admin: 07/14/18 21:01 Dose: 1 mg Diphenhydramine HCl (Benadryl) 50 mg PO Q8 PRN PRN Reason: Agitation Last Admin: 07/14/18 21:48 Dose: 50 mg Divalproex Sodium (Depakote Dr(*Bid*)) 500 mg PO TID [facility] Last Admin: 07/15/18 09:07 Dose: 500 mg Gabapentin (Neurontin) 300 mg PO TID [facility] PRN Reason: Protocol Last Admin: 07/15/18 09:08 Dose: 300 mg Haloperidol Lactate (Haldol) 5 mg IM Q6H PRN; Protocol PRN Reason: Agitation Last Admin: 07/11/18 17:11 Dose: 5 mg Lorazepam (Ativan) 2 mg PO Q6H PRN; Protocol PRN Reason: Agitation Last Admin: 07/14/18 23:09 Dose: 2 mg Multivitamins (Thera Tab) 1 tab PO 0800 [facility] Last Admin: 07/15/18 09:08 Dose: 1 tab Nicotine (Nicoderm Cq) 1 patch TD DAILY [facility] Last Admin: 07/15/18 09:08 Dose: 1 patch Quetiapine Fumarate (Seroquel) 300 mg PO HS [facility] PRN Reason: Protocol Last Admin: 07/14/18 21:01 Dose: 300 mg Quetiapine Fumarate (Seroquel) 300 mg PO DAILY [facility] PRN Reason: Protocol Last Admin: 07/15/18 09:08 Dose: 300 mg Thiamine HCl (Vitamin B1 Tab) 100 mg PO DAILY [facility] Last Admin: 07/15/18 09:08 Dose: 100 mg Physical Exam - Constitutional Appears: Well, Non-toxic, No Acute Distress - Head Exam Head Exam: ATRAUMATIC, NORMOCEPHALIC - Extremities Exam Additional comments: B/l LE focused exam: Vasc: DP/PT 2/4 B/l. Cap refill < 3 sec in all digits. Temp gradient warm to cool b/l from proximal to distal. No edema noted b/l. Neuro: Gross sensation intact. Protective sensation diminished b/l. Derm: No open lesion. No cinical signs of infections. Hyper keratotic lesion noted at the styloid process of the 5th met bone b/l. Right pinch callus. B/L submet 2 hyperkeratotic lesions. Toe nails elongated, dystrophic, discolored and thickened X 10. MSK: Muscle power intact 5/5 in all groups. Major foot and ankle joints ROM are WNL. - Neurological Exam Neurological exam: Alert, Oriented x3 - Psychiatric Exam Psychiatric exam: Normal Affect Results - Vital Signs Recent Vital Signs: Last Vital Signs Temp 98.2 F 07/15/18 08:07 Pulse 88 07/15/18 08:07 Resp 20 07/15/18 08:07 BP 109/73 07/15/18 08:07 Pulse Ox 97 07/15/18 08:07 - Labs Result Diagrams: 07/07/18 16:56 07/07/18 16:56 Labs: Laboratory Results - last 24 hr 07/14/18 15:05 POC Glucose (mg/dL) 111 H Assessment & Plan - Assessment and Plan (Free Text) Assessment: 53 Y/O F patient seen and evaluated at the bed side for Mycotic, painful toe nails X 10 and for callouses in her feet bilaterally Plan: Patient seen and evaluated at the bedside Plan discussed with attending Dr. Hernandez Chart, labs and vitals reviewed; Patient is afebrile , No Leukocytosis Toe nails debrided using sterile nail nipper. B/L callouses (Submet 3 b/l, lateral foot at the level of styloid process b/l, right pinch callus) debrided using sterile 15 blade. Patient tolerated the nail and calluses debridement well with no complications Thank you for consulting podiatry service. - Date & Time Date: 07/15/18 Time: 10:48
[2018-07-15 10:51] LABS: PH,URINE 6.5 (4.7-8.0); URINE BILIRUBIN NEGATIVE (NEGATIVE); URINE BLOOD NEGATIVE (NEGATIVE); URINE GLUCOSE (UA) NEGATIVE (NEGATIVE); URINE LEUKOCYTE ESTERASE NEGATIVE Leu/uL (NEGATIVE); URINE PROTEIN NEGATIVE mg/dL (<30 mg/dL); URINE UROBILINOGEN 0.2 E.U./dL (<1 E.U./dL)
[2018-07-15 10:52] LABS: URINE APPEARANCE CLEAR (CLEAR); URINE COLOR YELLOW (YELLOW)
--- NOTE | 2018-07-15 11:07 | PN ---
DATE: 07/15/2018 SUBJECTIVE: Shortly, the patient is a 53-year-old female with reported history of schizoaffective disorder. The patient also has history of polysubstance abuse and dependence, alcohol use disorder. The patient was admitted on the Psychiatric Inpatient Unit initially for evaluation of depressive symptoms, disorganized thoughts and behavior, suicidal and homicidal ideation. The patient was found to have urinary tract infection, ESBL. The patient was transferred to the medical site for intravenous antibiotics. The patient completed course of antibiotics. Right now, the patient is on the medical site. The patient does not want to go to the Psychiatric Inpatient Unit. Dr. Albarran recommended [facility] screening process and this technical report writer agree with that plan. The patient was seen by this technical report writer today at the morning time. The patient presented to be disorganized. The patient had poor personal hygiene, clumsy food all over her bed as well as floor. The patient presented superficially cooperative, but still has labile affect. One minute, the patient is smiling to this technical report writer and other minute, she could jump and threaten this technical report writer. Over the weekend, the patient did not have any aggressive or agitated behavior, but impulses are still unpredictable. Vital signs are stable. Temperature 98.2, pulse is 88, blood pressure 109/73, respiration 26 and saturation is 97. Medications reviewed. The patient is on Cogentin, Benadryl, Depakote 500 mg three times a day. Dr. Albarran ordered Depakote level for today. The patient is on Neurontin; haloperidol as needed for agitation, last time was on 07/11; Ativan 2 mg p.o. every 6 hours p.r.n. for agitation, last dose was yesterday. The patient is on multivitamins, Nicoderm, Seroquel 300 mg at the nighttime and 300 mg at the morning time and thiamine. Labs reviewed. Most recent was from 07/07. MENTAL STATUS EXAMINATION: The patient presented to be alert, superficially cooperative. Speech was overproductive, at times incoherent. Mood described, "I am in love with every one, I love whole world". Affect was labile. Thought process seems to be disorganized. Thought content, the patient denied visual, auditory or tactile hallucinations, but at the same time, the patient had delusion for grandeur and disorganized thought process. Insight and judgment seems to be limited, but mildly improving to compare with the time of admission. Impulses are still unpredictable. IMPRESSION: Most likely the patient had acute exacerbation of chronic psychosis, schizoaffective disorder, polysubstance abuse and dependence. This technical report writer also cannot exclude that the patient had delirium stage from the medical issues which seems to be improving. PLAN: Agree with Dr. Albarran. We will initiate [facility] screening process because the patient does not want to stay in the hospital any longer. The patient is on Depakote, Seroquel and Ativan. We will continue those medications. Haldol only as needed for agitation. The patient might benefit from involuntary commitment. Screening process was initiated over the weekend. Thank you very much for letting me participate in care of your patient. Should you have any questions, give me a call back. Isabel Jacobs MD
--- NOTE | 2018-07-15 14:30 | CP.PCM.PN ---
Subjective - Date & Time of Evaluation Date of Evaluation: 07/15/18 Time of Evaluation: 13:55 - Subjective Subjective: No fevers, not in distress. Objective - Vital Signs/Intake and Output Vital Signs (last 24 hours): Temp Pulse Resp BP Pulse Ox 98.2 F 88 20 109/73 97 07/15/18 08:07 07/15/18 08:07 07/15/18 08:07 07/15/18 08:07 07/15/18 08:07 Intake and Output: 07/15/18 07/15/18 06:59 18:59 Intake Total 1400 Balance 1400 - Medications Medications: Current Medications Albuterol/Ipratropium (Duoneb 3 Mg/0.5 Mg (3 Ml) Ud) 3 ml IH [id number] PRN PRN Reason: Shortness of Breath Benztropine Mesylate (Cogentin) 1 mg PO HS [facility] Last Admin: 07/14/18 21:01 Dose: 1 mg Diphenhydramine HCl (Benadryl) 50 mg PO Q8 PRN PRN Reason: Agitation Last Admin: 07/14/18 21:48 Dose: 50 mg Divalproex Sodium (Depakote Dr(*Bid*)) 500 mg PO TID [facility] Last Admin: 07/15/18 09:07 Dose: 500 mg Gabapentin (Neurontin) 300 mg PO TID [facility] PRN Reason: Protocol Last Admin: 07/15/18 09:08 Dose: 300 mg Haloperidol Lactate (Haldol) 5 mg IM Q6H PRN; Protocol PRN Reason: Agitation Last Admin: 07/11/18 17:11 Dose: 5 mg Lorazepam (Ativan) 2 mg PO Q6H PRN; Protocol PRN Reason: Agitation Last Admin: 07/14/18 23:09 Dose: 2 mg Multivitamins (Thera Tab) 1 tab PO 0800 [facility] Last Admin: 07/15/18 09:08 Dose: 1 tab Nicotine (Nicoderm Cq) 1 patch TD DAILY [facility] Last Admin: 07/15/18 09:08 Dose: 1 patch Quetiapine Fumarate (Seroquel) 300 mg PO HS [facility] PRN Reason: Protocol Last Admin: 07/14/18 21:01 Dose: 300 mg Quetiapine Fumarate (Seroquel) 300 mg PO DAILY [facility] PRN Reason: Protocol Last Admin: 07/15/18 09:08 Dose: 300 mg Thiamine HCl (Vitamin B1 Tab) 100 mg PO DAILY [facility] Last Admin: 07/15/18 09:08 Dose: 100 mg - Labs Labs: PT 12.4 SECONDS (9.4-12.5) 07/07/18 16:56 INR 1.09 07/07/18 16:56 - Constitutional Appears: Chronically Ill - Head Exam Head Exam: NORMAL INSPECTION - Neck Exam Neck Exam: absent: Meningismus - Respiratory Exam Respiratory Exam: Decreased Breath Sounds - Cardiovascular Exam Cardiovascular Exam: +S1, +S2 - GI/Abdominal Exam GI & Abdominal Exam: Soft. absent: Tenderness Assessment and Plan - Assessment and Plan (Free Text) Plan: Assessment S/P UTI with ESBL E. coli schizophrenia right lower extermity DVT sickle cell trait DM polysubstance abuse Plan completed course of Merrem and patient refusing IV line again - will continue to monitor clinically off antibiotics
[2018-07-15 22:28] VITALS: BP 111/61; PULSE 112; TEMP 99.4; O2SAT 96
[2018-07-16] MEDS: Divalproex 500 mg DR(BID formulation) PO SCH (09:46)
[2018-07-16] MEDS: Multivitamin Therapeutic Tab PO SCH (09:47)
--- NOTE | 2018-07-16 14:34 | CP.PCM.DIS ---
<Mehdi Fitzgerald - Last Filed: 07/16/18 16:08> Provider - Provider Date of Admission: 07/08/18 08:38 Attending physician: Alana Solis MD Primary care physician: NO PRIMARY CARE PROVIDER Consults: psych podiatry ID Time Spent in preparation of Discharge (in minutes): 50 Hospital Course - Lab Results Lab Results: Most Recent Lab Values WBC 4.2 10^3/ul (4.5-11.0) L 07/07/18 16:56 RBC 4.32 10^6/uL (3.5-6.1) 07/07/18 16:56 Hgb 12.3 g/dL (12.0-16.0) 07/07/18 16:56 Hct 36.9 % (36.0-48.0) 07/07/18 16:56 MCV 85.4 fl (80.0-105.0) 07/07/18 16:56 MCH 28.5 pg (25.0-35.0) 07/07/18 16:56 MCHC 33.3 g/dl (31.0-37.0) 07/07/18 16:56 RDW 16.4 % (11.5-14.5) H 07/07/18 16:56 Plt Count 234 10^3/uL (120.0-450.0) 07/07/18 16:56 MPV 10.0 fl (7.0-11.0) 07/07/18 16:56 Gran % 45.5 % (50.0-68.0) L 07/07/18 16:56 Lymph % (Auto) 41.3 % (22.0-35.0) H 07/07/18 16:56 Wilkinson % (Auto) 9.7 % (1.0-6.0) H 07/07/18 16:56 Eos % (Auto) 3.3 % (1.5-5.0) 07/07/18 16:56 Baso % (Auto) 0.2 % (0.0-3.0) 07/07/18 16:56 Gran # 1.91 (1.4-6.5) 07/07/18 16:56 Lymph # (Auto) 1.7 (1.2-3.4) 07/07/18 16:56 Wilkinson # (Auto) 0.4 (0.1-0.6) 07/07/18 16:56 Eos # (Auto) 0.1 (0.0-0.7) 07/07/18 16:56 Baso # (Auto) 0.01 K/mm3 (0.0-2.0) 07/07/18 16:56 PT 12.4 SECONDS (9.4-12.5) 07/07/18 16:56 INR 1.09 07/07/18 16:56 Sodium 142 mmol/L (132-148) 07/07/18 16:56 Potassium 4.3 mmol/L (3.6-5.0) 07/07/18 16:56 Chloride 102 mmol/L (98-107) 07/07/18 16:56 Carbon Dioxide 32 mmol/L (21-33) 07/07/18 16:56 Anion Gap 13 (10-20) 07/07/18 16:56 BUN 19 mg/dL (7-21) 07/07/18 16:56 Creatinine 0.9 mg/dl (0.7-1.2) 07/07/18 16:56 Est GFR ( Amer) > 60 07/07/18 16:56 Est GFR (Non-Af Amer) > 60 07/07/18 16:56 POC Glucose (mg/dL) 111 mg/dL (65-110) H 07/14/18 15:05 Random Glucose 104 mg/dL (70-110) 07/07/18 16:56 Calcium 9.7 mg/dL (8.4-10.5) 07/07/18 16:56 Phosphorus 5.2 mg/dL (2.5-4.5) H 07/07/18 16:56 Magnesium 2.4 mg/dL (1.7-2.2) H 07/07/18 16:56 Total Bilirubin 0.3 mg/dL (0.2-1.3) 07/07/18 16:56 AST 35 U/L (14-36) 07/07/18 16:56 ALT 21 U/L (7-56) 07/07/18 16:56 Alkaline Phosphatase 53 U/L (38-126) 07/07/18 16:56 Total Protein 7.6 g/dL (5.8-8.3) 07/07/18 16:56 Albumin 4.1 g/dL (3.0-4.8) 07/07/18 16:56 Globulin 3.5 gm/dL 07/07/18 16:56 Albumin/Globulin Ratio 1.2 (1.1-1.8) 07/07/18 16:56 Urine Color Yellow (YELLOW) 07/15/18 10:20 Urine Appearance Clear (CLEAR) 07/15/18 10:20 Urine pH 6.5 (4.7-8.0) 07/15/18 10:20 Ur Specific [place] 1.010 (1.005-1.035) 07/15/18 10:20 Urine Protein Negative mg/dL (<30 mg/dL) 07/15/18 10:20 Urine Glucose (UA) Negative mg/dL (NEGATIVE) 07/15/18 10:20 Urine Ketones Negative mg/dL (NEGATIVE) 07/15/18 10:20 Urine Blood Negative (NEGATIVE) 07/15/18 10:20 Urine Nitrate Negative (NEGATIVE) 07/15/18 10:20 Urine Bilirubin Negative (NEGATIVE) 07/15/18 10:20 Urine Urobilinogen 0.2 E.U./dL (<1 E.U./dL) 07/15/18 10:20 Ur Leukocyte Esterase Negative Flori/uL (NEGATIVE) 07/15/18 10:20 Urine RBC 2 - 5 /hpf (0-2) 07/07/18 16:08 Urine WBC Tntc /hpf (0-6) 07/07/18 16:08 Ur Epithelial Cells 6 - 8 /hpf (0-5) 07/07/18 16:08 Urine Bacteria Mod (NEG) 07/07/18 16:08 - Hospital Course Hospital Course: 53 year old female with past medical history of schizophrenia, depression and polysubstance abuse who presented who was transferred from psychiatric floor to medical floor for treatment of ESBL UTI. She was seen by ID Dr Arriaza who treated her with 6 days of IV meropenem. . Patient was seen by podiatry for infection toe nails infection, debridement was done. Patient was followed by psychiatry while on med/surg floor for labile mood, agitation and paranoia. Patient refused inpatient voluntary re-admission to psychiatric unit. [facility] [place] for involuntary admission evaluation and they refused the patient. Patient was otherwise medically optimized. As per Dr Jacobs, psychartist, patient is to be discharged home. Patient was counselled on risks of continued substance abuse and to follow up with her psychiatrist at [place]. Patient to continue taking her psych medications as prescribed by Dr Jacobs. On discharge: Follow up with primary care provider with one week of discharge Follow up with psychiatrist within one week of discharge Take medications as directed by your psychiatrist Return to Local ER if symptoms worsen Discharge Exam - Head Exam Head Exam: NORMAL INSPECTION - Eye Exam Eye Exam: EOMI, Normal appearance, PERRL Pupil Exam: NORMAL ACCOMODATION, PERRL - ENT Exam ENT Exam: Mucous Membranes Moist, Normal Oropharynx - Neck Exam Neck exam: Full Rom, Normal Inspection - Respiratory Exam Respiratory Exam: Clear to PA & Lateral, NORMAL BREATHING PATTERN - Cardiovascular Exam Cardiovascular Exam: REGULAR RHYTHM, +S1, +S2 - GI/Abdominal Exam GI & Abdominal Exam: Normal Bowel Sounds, Soft - Extremities Exam Extremities exam: normal capillary refill, pedal pulses present - Back Exam Back exam: NORMAL INSPECTION - Neurological Exam Neurological exam: Alert, CN II-XII Intact, Normal Gait, Oriented x3 - Psychiatric Exam Additional comments: LABILE MOOD, DISORGANIZED THOUGHT PROCESS. POOR INSIGHT AND JUDGMENT - Skin Skin Exam: Dry, Intact, Normal Color, Warm Discharge Plan - Discharge Medications Prescriptions: Benztropine [Cogentin] 0.5 mg PO TID 30 Days #90 tab Divalproex Sodium [Divalproex Sodium ER] 500 mg PO BID #60 ter QUEtiapine [SEROquel] 300 mg PO HS 30 Days #30 tab - Follow Up Plan Condition: FAIR Disposition: HOME/ ROUTINE Instructions: Urinary Tract Infection, Adult (DC), Schizophrenia (DC), Polysubstance Abuse Additional Instructions: Follow up with primary care provider with one week of discharge Follow up with psychiatrist within one week of discharge Take medications as directed by your psychiatrist Return to Local ER if symptoms worsen Referrals: PCP,NO [Primary Care Provider] - <Alana Solis - Last Filed: 07/16/18 16:37> Provider - Provider Date of Admission: 07/08/18 08:38 Attending physician: Alana Solis MD Primary care physician: NO PRIMARY CARE PROVIDER Hospital Course - Lab Results Lab Results: Most Recent Lab Values WBC 4.2 10^3/ul (4.5-11.0) L 07/07/18 16:56 RBC 4.32 10^6/uL (3.5-6.1) 07/07/18 16:56 Hgb 12.3 g/dL (12.0-16.0) 07/07/18 16:56 Hct 36.9 % (36.0-48.0) 07/07/18 16:56 MCV 85.4 fl (80.0-105.0) 07/07/18 16:56 MCH 28.5 pg (25.0-35.0) 07/07/18 16:56 MCHC 33.3 g/dl (31.0-37.0) 07/07/18 16:56 RDW 16.4 % (11.5-14.5) H 07/07/18 16:56 Plt Count 234 10^3/uL (120.0-450.0) 07/07/18 16:56 MPV 10.0 fl (7.0-11.0) 07/07/18 16:56 Gran % 45.5 % (50.0-68.0) L 07/07/18 16:56 Lymph % (Auto) 41.3 % (22.0-35.0) H 07/07/18 16:56 Wilkinson % (Auto) 9.7 % (1.0-6.0) H 07/07/18 16:56 Eos % (Auto) 3.3 % (1.5-5.0) 07/07/18 16:56 Baso % (Auto) 0.2 % (0.0-3.0) 07/07/18 16:56 Gran # 1.91 (1.4-6.5) 07/07/18 16:56 Lymph # (Auto) 1.7 (1.2-3.4) 07/07/18 16:56 Wilkinson # (Auto) 0.4 (0.1-0.6) 07/07/18 16:56 Eos # (Auto) 0.1 (0.0-0.7) 07/07/18 16:56 Baso # (Auto) 0.01 K/mm3 (0.0-2.0) 07/07/18 16:56 PT 12.4 SECONDS (9.4-12.5) 07/07/18 16:56 INR 1.09 07/07/18 16:56 Sodium 142 mmol/L (132-148) 07/07/18 16:56 Potassium 4.3 mmol/L (3.6-5.0) 07/07/18 16:56 Chloride 102 mmol/L (98-107) 07/07/18 16:56 Carbon Dioxide 32 mmol/L (21-33) 07/07/18 16:56 Anion Gap 13 (10-20) 07/07/18 16:56 BUN 19 mg/dL (7-21) 07/07/18 16:56 Creatinine 0.9 mg/dl (0.7-1.2) 07/07/18 16:56 Est GFR ( Amer) > 60 07/07/18 16:56 Est GFR (Non-Af Amer) > 60 07/07/18 16:56 POC Glucose (mg/dL) 111 mg/dL (65-110) H 07/14/18 15:05 Random Glucose 104 mg/dL (70-110) 07/07/18 16:56 Calcium 9.7 mg/dL (8.4-10.5) 07/07/18 16:56 Phosphorus 5.2 mg/dL (2.5-4.5) H 07/07/18 16:56 Magnesium 2.4 mg/dL (1.7-2.2) H 07/07/18 16:56 Total Bilirubin 0.3 mg/dL (0.2-1.3) 07/07/18 16:56 AST 35 U/L (14-36) 07/07/18 16:56 ALT 21 U/L (7-56) 07/07/18 16:56 Alkaline Phosphatase 53 U/L (38-126) 07/07/18 16:56 Total Protein 7.6 g/dL (5.8-8.3) 07/07/18 16:56 Albumin 4.1 g/dL (3.0-4.8) 07/07/18 16:56 Globulin 3.5 gm/dL 07/07/18 16:56 Albumin/Globulin Ratio 1.2 (1.1-1.8) 07/07/18 16:56 Urine Color Yellow (YELLOW) 07/15/18 10:20 Urine Appearance Clear (CLEAR) 07/15/18 10:20 Urine pH 6.5 (4.7-8.0) 07/15/18 10:20 Ur Specific [place] 1.010 (1.005-1.035) 07/15/18 10:20 Urine Protein Negative mg/dL (<30 mg/dL) 07/15/18 10:20 Urine Glucose (UA) Negative mg/dL (NEGATIVE) 07/15/18 10:20 Urine Ketones Negative mg/dL (NEGATIVE) 07/15/18 10:20 Urine Blood Negative (NEGATIVE) 07/15/18 10:20 Urine Nitrate Negative (NEGATIVE) 07/15/18 10:20 Urine Bilirubin Negative (NEGATIVE) 07/15/18 10:20 Urine Urobilinogen 0.2 E.U./dL (<1 E.U./dL) 07/15/18 10:20 Ur Leukocyte Esterase Negative Flori/uL (NEGATIVE) 07/15/18 10:20 Urine RBC 2 - 5 /hpf (0-2) 07/07/18 16:08 Urine WBC Tntc /hpf (0-6) 07/07/18 16:08 Ur Epithelial Cells 6 - 8 /hpf (0-5) 07/07/18 16:08 Urine Bacteria Mod (NEG) 07/07/18 16:08 Attending/Attestation - Attestation I have personally seen and examined this patient.: Yes I have fully participated in the care of the patient.: Yes I have reviewed all pertinent clinical information, including history, physical exam and plan: Yes Notes (Text): 07/16/18 16:35 Medical record note made by the resident after discussion with my direction and input after the patient was personally seen and examined by me. I have reviewed the chart and agree that the record accurately reflects by personal performance of the history, physical exam, data review, and medical decision-making, in the course for the patient. I have also personally directed the plan of care. 53 year old female with past medical history of schizophrenia, depression and polysubstance abuse who presented who was transferred from psychiatric floor to medical floor for treatment of ESBL UTI. She was treated with 5 days of iv meropenem. She is currently off antibiotic Psychiatry was following for labile mood, agitation and paranoia. Patient refused inpatient voluntary re-admission to psychiatric unit. [facility] screen[place] was done and patient did not meet the criteria for for involuntary admission evaluation. Patient is otherwise medically cleared.She will be discharged home and will follow up with Psychiatry and PCP. Patient was counselled on risks of continued substance abuse. Prognosis is guarded.
--- NOTE | 2018-07-16 16:04 | PN ---
DATE: 07/16/2018 FOLLOWUP NOTE SUBJECTIVE: Over the weekend, the patient was recommended to be screened by Dr. Albarran. Yesterday, [facility] evaluated the patient. The patient was found to be not committable. The patient was seen by this procedure writer today at the morning time. The patient presented very well. The patient is happier to be discharged. The patient reported that she has future plans, the patient reported that she does not feel depressed. The patient denied any thoughts of harming herself or others. The patient's thought process is mildly disorganized, but the patient seems to be at her baseline. The patient said that she will be compliant with the medications and following up appointment. The patient knows all outpatient clinics in [place]. The patient was followed up by psychiatrist at [facility]. The patient reported that she tolerates medications well. Denied any side effects. Behavior valle, the patient is more pleasant. No code betts is called. Vital signs are stable. Medications reviewed. Medical team was advised to provide prescriptions for psychotropic medications, Depakote, Seroquel, Neurontin and Cogentin, 2-week supply, one refill. MENTAL STATUS EXAMINATION: The patient appears to be alert, oriented, fair eye contact. Speech was overproductive. Mood described, I feel great. Affect was expanded. Thought process seems to be circumstantial. Thought content, the patient denied visual, auditory or tactile hallucinations. Overall, the patient improved. The patient is still psychotic, but those psychotic symptoms are chronic. Insight and judgment seems to be improving. Impulses are well controlled. IMPRESSION: As per history, schizoaffective disorder, bipolar type; alcohol use disorder; polysubstance abuse. PLAN: Medications were provided to the patient. The patient has information about outpatient clinic. The patient adamantly denied thoughts of harming herself or others. The patient pose no imminent danger to self or others. The patient will be followed up as outpatient. The patient tolerates medications well. This procedure writer will sign off. Should you have any questions, give me a call back. Thank you very much. Isabel Jacobs MD [facility] # [id number]
--- NOTE | 2018-07-16 16:12 | PN ---
DATE: 07/16/2018 SUBJECTIVE: The patient is in bed. PHYSICAL EXAMINATION: GENERAL: On exam, the patient is seen early this morning in 569, bed 2. VITAL SIGNS: Temperature of 99, blood pressure is 111/60, respiratory rate of 20. HEENT: Examination of HEENT is unremarkable. NECK: Supple. LUNGS: Have decreased breath sounds. HEART: Normal S1, S2. ABDOMEN: Soft. LABORATORY DATA: Laboratory examination reveals the patient's white count of 4.2. Chemistries are noted. Microbiology is reviewed. ASSESSMENT AND PLAN: A 53-year-old female seen early this morning in 569, bed 2. She is ready for discharge. Status post urinary tract infection with extended-spectrum beta-lactamase Escherichia coli, schizophrenia. Currently, off of antibiotics, afebrile. Overall, the patient is doing very well. Justin Bowers MD
== END 2018-07-16 12:39 | disposition home or self-care (01) | DRG 315 ==
LOC: ED 14:02 → ERH 16:23 → 5RNO 18:05 → OBSVTOIN 07-08 08:38
PROVIDERS: ADMIT Internal Medicine; ATTEND Internal Medicine
PROC: 0HBNXZZ Excision of Left Foot Skin, External Approach (ICD-10-PCS; principal; 2018-07-15)
PROC: 0HBMXZZ Excision of Right Foot Skin, External Approach (ICD-10-PCS; 2018-07-15)
PROC: 0HBRXZZ Excision of Toe Nail, External Approach (ICD-10-PCS; 2018-07-15)
PROC: 0HBRXZZ Excision of Toe Nail, External Approach (ICD-10-PCS; 2018-07-15)
PROC: 0HBRXZZ Excision of Toe Nail, External Approach (ICD-10-PCS; 2018-07-15)
PROC: 0HBRXZZ Excision of Toe Nail, External Approach (ICD-10-PCS; 2018-07-15)
PROC: 0HBRXZZ Excision of Toe Nail, External Approach (ICD-10-PCS; 2018-07-15)
PROC: 0HBRXZZ Excision of Toe Nail, External Approach (ICD-10-PCS; 2018-07-15)
PROC: 0HBRXZZ Excision of Toe Nail, External Approach (ICD-10-PCS; 2018-07-15)
PROC: 0HBRXZZ Excision of Toe Nail, External Approach (ICD-10-PCS; 2018-07-15)
PROC: 0HBRXZZ Excision of Toe Nail, External Approach (ICD-10-PCS; 2018-07-15)
PROC: 0HBRXZZ Excision of Toe Nail, External Approach (ICD-10-PCS; 2018-07-15)
DX: N39.0 Urinary tract infection, site not specified (principal); Z16.12 Extended spectrum beta lactamase (ESBL) resistance; B96.20 Unspecified Escherichia coli [E. coli] as the cause of diseases classified elsewhere; F25.0 Schizoaffective disorder, bipolar type; D57.1 Sickle-cell disease without crisis; F14.90 Cocaine use, unspecified, uncomplicated; E11.9 Type 2 diabetes mellitus without complications; B35.1 Tinea unguium; L84 Corns and callosities; R45.850 Homicidal ideations; R45.851 Suicidal ideations; F17.210 Nicotine dependence, cigarettes, uncomplicated; Z86.718 Personal history of other venous thrombosis and embolism; Z91.14 Patient's other noncompliance with medication regimen

== ENCOUNTER 2018-07-21 03:45 | Inpatient (IN) | payer MEDICAID ==
[2018-07-21 03:45] VITALS: BMI 26.6
--- NOTE | 2018-07-21 04:33 | ED PDOC ---
Arrival/HPI - General Chief Complaint: Psychiatric Evaluation Time Seen by Provider: 07/21/18 03:48 Historian: Patient - History of Present Illness Narrative History of Present Illness (Text): 07/21/18 04:30 53 year old female, whose past medical history includes depression, anxiety, schizophrenia paranoid type, right lower extremity DVT with history of anticoagulation, Sickle Cell trait, diabetes, polysubstance abuse and chronic medication non-compliance presents to the emergency department complaining of seeing spirits and hearing voices. She states she needs to speak to someone from psychiatry. Patient states that she's been having this problem for awhile now. Patient denies any somatic complaints. Patient denies any fever, chills, chest pain, shortness of breath, nausea, vomiting, diarrhea, urinary symptoms, back pain, neck pain, headache, dizziness, suicidal/homicidal ideation or any other complaints. Symptom Onset: Gradual Symptom Course: Unchanged Activities at Onset: Light Context: Home Past Medical History - Provider Review Nursing Documentation Reviewed: Yes - Past History Past History: No Previous - Infectious Disease Hx of Infectious Diseases: None - Tetanus Immunization Tetanus Immunization: Unknown - Reproductive Menopause: Yes - Cardiac Hx Cardiac Disorders: No - Pulmonary Hx Respiratory Disorders: Yes Hx Asthma: Yes Hx Bronchitis: Yes Hx Emphysema: Yes Hx Pneumonia: Yes - Neurological Hx Neurological Disorder: No - HEENT Hx HEENT Disorder: No - Renal Hx Renal Disorder: No - Endocrine/Metabolic Hx Endocrine Disorders: Yes Hx Diabetes Mellitus Type 2: Yes - Hematological/Oncological Hx Blood Disorders: Yes Hx Anemia: Yes Hx Sickle Cell Disease: Yes - Integumentary Hx Dermatological Disorder: Yes Other/Comment: fungus to bilat feet per pt - Musculoskeletal/Rheumatological Hx Falls: No - Gastrointestinal Hx Gastrointestinal Disorders: No - Genitourinary/Gynecological Hx Genitourinary Disorders: Yes Hx Sexually Transmitted Diseases: Yes - Psychiatric Hx Psychophysiologic Disorder: Yes Hx Bipolar Disorder: Yes Hx Schizophrenia: Yes Hx Substance Use: Yes - Past Surgical History Past Surgical History: No Previous - Anesthesia Hx Anesthesia: No Hx Anesthesia Reactions: No Hx Malignant Hyperthermia: No - Suicidal Assessment Feels Threatened In Home Enviroment: No Family/Social History - Physician Review Nursing Documentation Reviewed: Yes Family/Social History: No Known Family HX Smoking Status: Current Some Days Smoker Hx Alcohol Use: Yes Hx Substance Use: Yes Substance used: crack Hx Substance Use Treatment: Yes Allergies/Home Meds Allergies/Adverse Reactions: Allergies turkey Allergy (Verified 07/21/18 04:05) RASH Review of Systems - Physician Review All systems were reviewed & negative as marked: Yes - Review of Systems Constitutional: absent: Fevers, Other (Chills) Respiratory: absent: SOB Cardiovascular: absent: Chest Pain Gastrointestinal: absent: Diarrhea, Nausea, Vomiting Genitourinary Female: absent: Dysuria, Frequency, Hematuria Musculoskeletal: absent: Back Pain, Neck Pain Neurological: absent: Headache, Dizziness Psychiatric: Other (visual and auditory hallucination). absent: Suicidal Ideation (homicidal ideation) Physical Exam Vital Signs Reviewed: Yes Vital Signs Temp Pulse Resp BP Pulse Ox 07/21/18 03:52 98.6 F 89 18 133/78 98 Temperature: Afebrile Blood Pressure: Normal Pulse: Regular Respiratory Rate: Normal Appearance: Positive for: Well-Appearing, Non-Toxic, Comfortable Pain Distress: None Mental Status: Positive for: Alert and Oriented X 3, other (disorganized thoughts) - Systems Exam Head: Present: Atraumatic, Normocephalic Pupils: Present: PERRL Extroacular Muscles: Present: EOMI Conjunctiva: Present: Normal Mouth: Present: Moist Mucous Membranes Neck: Present: Normal Range of Motion Respiratory/Chest: Present: Clear to Auscultation, Good Air Exchange. No: Respiratory Distress, Accessory Muscle Use Cardiovascular: Present: Regular Rate and Rhythm, Normal S1, S2. No: Murmurs Abdomen: No: Tenderness, Distention, Peritoneal Signs Back: Present: Normal Inspection Upper Extremity: Present: Normal Inspection. No: Cyanosis, Edema Lower Extremity: Present: Normal Inspection. No: Edema Neurological: Present: GCS=15, CN II-XII Intact, Speech Normal Skin: Present: Warm, Dry, Normal Color. No: Rashes Psychiatric: Present: Alert, Oriented x 3, Normal Insight, Normal Concentration Medical Decision Making ED Course and Treatment: 07/21/18 04:31 Impression: 53 year old female presents complaining of visual and auditory hallucinations. Plan: -- EKG -- Labs -- Chest X-ray -- Urine Culture -- Urinalysis -- Reassess and disposition Prior Visits: Notes and results from previous visits were reviewed. Progress Notes: 07/21/18 04:44 EKG shows NSR at 66 BPM. Normal EKG. Interpreted by me. 07/21/18 06:19 CXR Impression: As read by me, no acute process Patient is medically cleared. 07/21/18 07:00 Case endorsed to pending PES evaluation/final disposition - Lab Interpretations Lab Results: 07/21/18 05:00 07/21/18 05:00 Lab Results 07/21/18 05:01: POC Glucose (mg/dL) 83 07/21/18 05:00: Alcohol, Quantitative < 10 07/21/18 05:00: WBC 5.2 D, RBC 4.39, Hgb 12.4, Hct 37.6, MCV 85.6, MCH 28.2, MCHC 33.0, RDW 17.4 H, Plt Count 212, MPV 9.9 07/21/18 05:00: Sodium 142, Potassium 4.1, Chloride 105, Carbon Dioxide 27, Anion Gap 15, BUN 17, Creatinine 0.9, Est GFR ( Amer) > 60, Est GFR (Non- Af Amer) > 60, Random Glucose 84, Calcium 9.7, Total Bilirubin 0.5, AST 29, ALT 29, Alkaline Phosphatase 62, Total Protein 8.4 H, Albumin 4.6, Globulin 3.8, Albumin/Globulin Ratio 1.2 I have reviewed the lab results: Yes - RAD Interpretation Radiology Orders: 07/21/18 04:25 CHEST PORTABLE [RAD] Stat - EKG Interpretation Interpreted by ED Physician: Yes Type: 12 lead EKG - Scribe Statement The provider has reviewed the documentation as recorded by the Catarinoibreema Curran Provider Scribe Attestation: All medical record entries made by the Catarinoibreema were at my direction and personally dictated by me. I have reviewed the chart and agree that the record accurately reflects my personal performance of the history, physical exam, medical decision making, and the department course for this patient. I have also personally directed, reviewed, and agree with the discharge instructions and disposition. Disposition/Present on Arrival - Present on Arrival Any Indicators Present on Arrival: No History of DVT/PE: Yes History of Uncontrolled Diabetes: No Urinary Catheter: No History of Decub. Ulcer: No History Surgical Site Infection Following: None - Disposition Have Diagnosis and Disposition been Completed?: No Diagnosis: Schizophrenia Disposition Time: 07:00 Patient Problems: Current Active Problems Problem Status Onset Schizophrenia Acute Condition: STABLE Forms: [employer] (Welsh)
[2018-07-21 05:19] LABS: HEMOGLOBIN 12.4 g/dL (12.0-16.0); MEAN CELL VOLUME 85.6 fl (80.0-105.0); MEAN CORPUSCULAR HEMOGLOBIN 28.2 pg (25.0-35.0); MEAN PLATELET VOLUME 9.9 fl (7.0-11.0); RBC 4.39 10^6/uL (3.5-6.1); RED CELL DISTRIBUTION WIDTH 17.4 % (11.5-14.5); WHITE BLOOD COUNT 5.2 10^3/ul (4.5-11.0)
[2018-07-21 05:42] LABS: ALB/GLOB RATIO 1.2 (1.1-1.8); ALBUMIN 4.6 g/dL (3.0-4.8); ALT/SGPT 29 U/L (7-56); AST/SGOT 29 U/L (14-36); BLOOD UREA NITROGEN 17 mg/dL (7-21); CALCIUM 9.7 mg/dL (8.4-10.5); GFR NON-AFRICAN AMERICAN > 60
--- NOTE | 2018-07-21 07:11 | ED PDOC ---
Physical Exam Vital Signs Temp Pulse Resp BP Pulse Ox 07/21/18 10:23 99.2 F 82 18 142/80 98 07/21/18 07:45 99 F 82 16 132/79 97 07/21/18 03:52 98.6 F 89 18 133/78 98 Medical Decision Making ED Course and Treatment: 07/21/18 07:10 Patient endorsed to me by Dr. Mejia. Currently pending PES evaluation and final disposition. 07/21/18 10:58 Patient has been evaluated by PES, who states patient will be admitted under Dr. Jacobs. Patient diagnosed with schizophrenia. - Lab Interpretations Lab Results: 07/21/18 05:00 07/21/18 05:00 Lab Results 07/21/18 09:56: Urine Color Yellow, Urine Appearance Clear, Urine pH 6.0, Ur Specific Davis 1.020, Urine Protein Negative, Urine Glucose (UA) Negative, Urine Ketones Negative, Urine Blood Negative, Urine Nitrate Negative, Urine Bilirubin Negative, Urine Urobilinogen 0.2, Ur Leukocyte Esterase Small H, Urine RBC 0 - 2, Urine WBC 5 - 10, Ur Epithelial Cells 6 - 8, Urine Bacteria Many, Urine Other Uyeast 07/21/18 09:56: Urine Opiates Screen Negative, Urine Methadone Screen Negative, Ur Barbiturates Screen Negative, Ur Phencyclidine Scrn Negative, Ur Amphetamines Screen Negative, U Benzodiazepines Scrn Negative, U Oth Cocaine Metabols Positive H, U Cannabinoids Screen Negative 07/21/18 05:01: POC Glucose (mg/dL) 83 07/21/18 05:00: Alcohol, Quantitative < 10 07/21/18 05:00: WBC 5.2 D, RBC 4.39, Hgb 12.4, Hct 37.6, MCV 85.6, MCH 28.2, MCHC 33.0, RDW 17.4 H, Plt Count 212, MPV 9.9 07/21/18 05:00: Sodium 142, Potassium 4.1, Chloride 105, Carbon Dioxide 27, Anion Gap 15, BUN 17, Creatinine 0.9, Est GFR ( Amer) > 60, Est GFR (Non- Af Amer) > 60, Random Glucose 84, Calcium 9.7, Total Bilirubin 0.5, AST 29, ALT 29, Alkaline Phosphatase 62, Total Protein 8.4 H, Albumin 4.6, Globulin 3.8, Albumin/Globulin Ratio 1.2 - RAD Interpretation Radiology Orders: 07/21/18 04:25 CHEST PORTABLE [RAD] Stat - Scribe Statement The provider has reviewed the documentation as recorded by the Donya Slaughter Provider Scribe Attestation: All medical record entries made by the Scribe were at my direction and personally dictated by me. I have reviewed the chart and agree that the record accurately reflects my personal performance of the history, physical exam, medical decision making, and the department course for this patient. I have also personally directed, reviewed, and agree with the discharge instructions and disposition. Disposition/Present on Arrival - Present on Arrival Any Indicators Present on Arrival: No History of DVT/PE: Yes History of Uncontrolled Diabetes: No Urinary Catheter: No History of Decub. Ulcer: No History Surgical Site Infection Following: None - Disposition Have Diagnosis and Disposition been Completed?: Yes Diagnosis: Schizophrenia Disposition: HOSPITALIZED Disposition Time: 17:05 Patient Plan: Admission Patient Problems: Current Active Problems Problem Status Onset Schizophrenia Acute Condition: STABLE
[2018-07-21 10:10] LABS: URINE BILIRUBIN NEGATIVE (NEGATIVE); URINE BLOOD NEGATIVE (NEGATIVE); URINE GLUCOSE (UA) NEGATIVE (NEGATIVE); URINE LEUKOCYTE ESTERASE SMALL Leu/uL (NEGATIVE); URINE PROTEIN NEGATIVE mg/dL (<30 mg/dL); URINE UROBILINOGEN 0.2 E.U./dL (<1 E.U./dL)
[2018-07-21 10:11] LABS: URINE APPEARANCE CLEAR (CLEAR); URINE COLOR YELLOW (YELLOW)
[2018-07-21 10:21] LABS: PHENCYCLIDINE, UR NEGATIVE (NEGATIVE)
[2018-07-21 10:22] LABS: URINE BACTERIA MANY (NEG); URINE RBC 0 - 2 /hpf (0-2)
[2018-07-21 10:31] LABS: BARBITURATES, UR NEGATIVE (NEGATIVE); BENZODIAZEPINES, UR NEGATIVE (NEGATIVE); OPIATES, UR NEGATIVE (NEGATIVE)
[2018-07-21 11:54] VITALS: O2SAT 97
--- NOTE | 2018-07-21 12:35 | RAD ---
Date of service: 07/21/2018 HISTORY: medical clearance COMPARISON: 06/13/2017 FINDINGS: LUNGS: No infiltrate. Probable calcified granuloma in both lung apices. PLEURA: No significant pleural effusion identified, no pneumothorax apparent. CARDIOVASCULAR: Normal. OSSEOUS STRUCTURES: No significant abnormalities. VISUALIZED UPPER ABDOMEN: Normal. OTHER FINDINGS: None. IMPRESSION: No active disease.
[2018-07-21] MEDS ORDERED: Alum-Mag Hydrox-Simethicone Susp (30 mL) PO PRN (12:43)
[2018-07-21] MEDS ORDERED: Magnesium Hydroxide Susp 30 ml UD PO PRN (12:44)
[2018-07-21] MEDS ORDERED: DiphenhydrAMINE 50 mg/ml Inj IM PRN (13:04)
--- NOTE | 2018-07-21 14:01 | CARD ---
APPROVED REPORT Date of service: 07/21/2018 EKG Measurement Heart [id number] <Conclusion> Normal sinus rhythm Normal ECG
--- NOTE | 2018-07-21 17:07 | PCM.BM ---
Treatment Plan Problems - Problems identified on initial assessmt Anxiety Date Initiated: 07/21/18 Time Initiated: 17:04 Assessment reference: NA Status: Active Priority: 1 Problem 2 Date Initiated: 07/21/18 Time Initiated: 17:06 Assessment reference: NA Status: Active Problem 3 Date Initiated: 07/21/18 Time Initiated: 17:07 Assessment reference: NA Status: Active Priority: 3 Visual hallucination Date Initiated: 07/21/18 Time Initiated: 17:07 Assessment reference: NA Status: Active Priority: 4 high risk for violence Date Initiated: 07/21/18 Time Initiated: 17:09 Assessment reference: NA Priority: 5 Treatment assets and liabiliti Patient Assests: motivated, self-reliant, ADL independent, physically healthy, negotiates basic needs Patient Liabilities: live alone, financial problems, poor support system, substance abuse, medical problems - Milieu Protocol Maintain good personal hygiene: daily Encourage regular showers, daily Remind patient to perform daily oral care, daily Assist patient to perform ADL's Maintain personal safety: every shift Educate patient to report safety concerns to staff, every shift Monitor environment for contraband/sharps Medication safety: Monitor for expected outcome, potential side effects: every shift, Assess barriers to learning: every shift, Assess readiness for medication education: every shift Discharge/Continuing Care - Education Needs Education Needs: Patient Medication, Patient Diagnosis/Disease Process, Patient Coping Skills, Patient Anger Management skills, Patient Placement options, Patient Community resources, Patient Activities of Daily Living, Patient Nutrition, Patient Health Practices/Safety, Patient Personal Hygiene/Grooming, Patient Aftercare Safety Plan - Discharge Discharge Criteria: Tolerates medication w/o severe side effects, Free of agitation, Normal sleep pattern, Reduction of target symptoms Discharge to:: Skilled Nursing
[2018-07-21] MEDS: Divalproex 250 mg DR (BID formulation) PO SCH (17:53)
[2018-07-22 08:28] LABS: GLUCOSE,FASTING 131 mg/dL (65-110); HDL CHOLESTEROL 18 mg/dL (29-60)
[2018-07-22 08:38] LABS: LDL CHOLESTEROL 46 mg/dL (0-129)
[2018-07-22 08:41] LABS: FREE T4 0.93 ng/dL (0.78-2.19)
[2018-07-22] MEDS: Divalproex 250 mg DR (BID formulation) PO SCH ×2 (08:53→17:40)
[2018-07-22] MEDS: Multivitamin Therapeutic Tab PO SCH (08:54)
--- NOTE | 2018-07-22 09:41 | CP.PCM.CON ---
<Elijah Toureil - Last Filed: 07/22/18 14:48> History of Present Illness - History of Present Illness History of Present Illness: Joel Toure- Internal Medicine Resident- Internal Medicine Consult Note on Behalf of Hospitalist Team Subjective: CC: Abnormal Urinalysis HPI: Patient is a 53 year old female with a past medical history DM, Sickle cell trait, depression, anxiety, and schizophrenia/ paranoid who was admitted to the psychiatry unit for management of her schizophrenia. Internal medicine team was consulted for abnormal urinalysis. Patient seen and examined at bedside. Admits to baseline bilateral knee pain and non-radiating low back pain. Denies fever, chills, chest pain, shortness of breath, abdominal pain, nausea, vomiting, diarrhea, and urinary burning, frequency, and urgency. 12 Point ROS Negative Except as Indicated in HPI Past Medical History: DM, Sickle cell trait, depression, anxiety, schizophrenia / paranoid Past Surgical History: IVC filter placement Family History: Mother at 89, father from pancreatic cancer Social History: Tobacco history - heavy use, 2 beers/ day, smokes crack cocaine Allergies: NKDA Physical Examination: - Constitutional Appears: Non-toxic - Head Exam Head Exam: ATRAUMATIC, NORMAL INSPECTION, NORMOCEPHALIC - Eye Exam Eye Exam: EOMI - ENT Exam ENT Exam: Mucous Membranes Moist - Respiratory Exam Respiratory Exam: Clear to Auscultation Bilateral, NORMAL BREATHING PATTERN - Cardiovascular Exam Cardiovascular Exam: REGULAR RHYTHM, +S1, +S2 - GI/Abdominal Exam GI & Abdominal Exam: Normal Bowel Sounds, Soft. absent: Tenderness - Extremities Exam Extremities exam: no edema, no clubbing,no cyanosis - Neurological Exam Neurological exam: Alert, Awake - Psychiatric Exam Psychiatric exam: Normal Affect, Normal Mood - Skin Skin Exam: Dry, Warm Assessment and Plan: Patient is a 53 year old female with past medical history of schizophrenia paranoid type, Depression, right lower extremity DVT with history of anticoagulation, sickle cell trait, DM2, polysubstance abuse and chronic medication non compliance who was admitted to psychiatry unit for further management. Internal medicine team was consulted for abnormal urinalysis. Abnormal Urinalysis - UA showing positive leuk est - previous visit showed urinary culture with ESBL sensitive to meropenem, patient is s/p antibiotic course - repeat UA and urine culture HX of DM2 - non compliant with home medications - previous A1c is 6.3 from 06/2018 - no need for ACHS checks and Insulin Sliding Scale at this time Hx of COPD - Ventolin prn q6h prn SOB Hx of Psychiatric disorders - Schizophrenia, Depression - management as per psychiatry Prophylaxis - no indication for GI prophylaxis - no indication for DVT prophyalxis- ambulating without overt difficultly Patient seen, case reviewed with, and plan approved by attending physician, Dr. Fernández. Past Patient History - Infectious Disease Hx of Infectious Diseases: None - Tetanus Immunizations Tetanus Immunization: Unknown - Past Medical History & Family History Past Medical History?: Yes - Past Social History Smoking Status: Current Some Days Smoker - CARDIAC Hx Cardiac Disorders: No Hx Hypertension: No - PULMONARY Hx Tuberculosis: No - NEUROLOGICAL HX Cerebrovascular Accident: No Hx Seizures: No - HEENT Hx HEENT Problems: No - RENAL Hx Chronic Kidney Disease: No - ENDOCRINE/METABOLIC Hx Endocrine Disorders: Yes Hx Diabetes Mellitus Type 2: Yes - HEMATOLOGICAL/ONCOLOGICAL Hx Cancer: No Hx Human Immunodeficiency Virus (HIV): No - INTEGUMENTARY Hx Dermatological Problems: Yes Other/Comment: fungus to bilat feet per pt - MUSCULOSKELETAL/RHEUMATOLOGICAL Hx Falls: No - GASTROINTESTINAL Hx Gastrointestinal Disorders: No - GENITOURINARY/GYNECOLOGICAL Hx Sexually Transmitted Disorders: Yes - PSYCHIATRIC Hx Bipolar Disorder: Yes Hx Schizophrenia: Yes Hx Substance Use: Yes - SURGICAL HISTORY Hx Surgeries: No - ANESTHESIA Hx Anesthesia: No Hx Anesthesia Reactions: No Hx Malignant Hyperthermia: No Meds Allergies/Adverse Reactions: Allergies Allergy/AdvReac Type Severity Reaction Status Date / Time turkey Allergy RASH Verified 07/21/18 12:32 - Medications Medications: Current Medications Acetaminophen (Tylenol 325mg Tab) 650 mg PO Q6H PRN PRN Reason: Pain, moderate (4-7) Al Hydrox/Mg Hydrox/Simethicone (Maalox Plus 30 Ml) 30 ml PO DAILY PRN PRN Reason: Indigestion / Heartburn Diphenhydramine HCl (Benadryl) 50 mg PO Q6H PRN PRN Reason: Anxiety Last Admin: 07/21/18 13:56 Dose: 50 mg Diphenhydramine HCl (Benadryl) 50 mg IM Q6H PRN PRN Reason: Agitation Divalproex Sodium (Jon Bruce (*Bid*)) 500 mg PO BID TOVA PRN Reason: Protocol Last Admin: 07/22/18 08:53 Dose: 500 mg Folic Acid (Folic Acid) 1 mg PO DAILY [facility] Last Admin: 07/22/18 08:53 Dose: 1 mg Gabapentin (Neurontin) 300 mg PO TID TOVA PRN Reason: Protocol Last Admin: 07/22/18 08:54 Dose: 300 mg Haloperidol (Haldol) 5 mg PO Q6H PRN; Protocol PRN Reason: Anxiety Last Admin: 07/22/18 06:59 Dose: 5 mg Haloperidol Lactate (Haldol) 5 mg IM Q6H PRN; Protocol PRN Reason: Agitation Lorazepam (Ativan) 2 mg PO Q6H PRN; Protocol PRN Reason: Anxiety Last Admin: 07/22/18 06:59 Dose: 2 mg Lorazepam (Ativan) 2 mg IM Q6H PRN; Protocol PRN Reason: Agitation Magnesium Hydroxide (Milk Of Magnesia) 30 ml PO DAILY PRN PRN Reason: Constipation Multivitamins (Thera Tab) 1 tab PO 0800 [facility] Last Admin: 07/22/18 08:54 Dose: 1 tab Nicotine (Nicoderm Cq) 1 patch TD DAILY [facility] Last Admin: 07/22/18 08:53 Dose: 1 patch Quetiapine Fumarate (Seroquel) 100 mg PO AMHS [facility] PRN Reason: Protocol Last Admin: 07/22/18 08:53 Dose: 100 mg Thiamine HCl (Vitamin B1 Tab) 100 mg PO DAILY [facility] Last Admin: 07/22/18 08:53 Dose: 100 mg Results - Vital Signs Recent Vital Signs: Last Vital Signs Temp 97.4 F L 07/22/18 07:15 Pulse 79 07/22/18 07:15 Resp 20 07/22/18 07:15 BP 114/72 07/22/18 07:15 Pulse Ox 97 07/21/18 12:01 - Labs Result Diagrams: 07/21/18 05:00 07/21/18 05:00 Labs: Laboratory Results - last 24 hr 07/21/18 07/22/18 07/22/18 11:45 08:00 08:00 POC Glucose (mg/dL) 93 Fasting Glucose 131 H Triglycerides 55 Cholesterol 82 L LDL Cholesterol Direct 46 HDL Cholesterol 18 L Free T4 0.93 TSH 3rd Generation 1.38 Valproic Acid 07/22/18 08:00 POC Glucose (mg/dL) Fasting Glucose Triglycerides Cholesterol LDL Cholesterol Direct HDL Cholesterol Free T4 TSH 3rd Generation Valproic Acid < 10 L <Gail Fernández Madiha - Last Filed: 07/22/18 16:51> Meds - Medications Medications: Current Medications Acetaminophen (Tylenol 325mg Tab) 650 mg PO Q6H PRN PRN Reason: Pain, moderate (4-7) Al Hydrox/Mg Hydrox/Simethicone (Maalox Plus 30 Ml) 30 ml PO DAILY PRN PRN Reason: Indigestion / Heartburn Albuterol (Ventolin Hfa 90 Mcg/Actuation (8 G)) 2 puff IH [id number] PRN PRN Reason: Shortness of Breath Diphenhydramine HCl (Benadryl) 50 mg PO Q6H PRN PRN Reason: Anxiety Last Admin: 07/21/18 13:56 Dose: 50 mg Diphenhydramine HCl (Benadryl) 50 mg IM Q6H PRN PRN Reason: Agitation Divalproex Sodium (Depakote Dr (*Bid*)) 500 mg PO BID TOVA PRN Reason: Protocol Last Admin: 07/22/18 08:53 Dose: 500 mg Folic Acid (Folic Acid) 1 mg PO DAILY [facility] Last Admin: 07/22/18 08:53 Dose: 1 mg Gabapentin (Neurontin) 300 mg PO TID TOVA PRN Reason: Protocol Last Admin: 07/22/18 12:59 Dose: 300 mg Haloperidol (Haldol) 5 mg PO Q6H PRN; Protocol PRN Reason: Anxiety Last Admin: 07/22/18 06:59 Dose: 5 mg Haloperidol Lactate (Haldol) 5 mg IM Q6H PRN; Protocol PRN Reason: Agitation Lorazepam (Ativan) 2 mg PO Q6H PRN; Protocol PRN Reason: Anxiety Last Admin: 07/22/18 12:58 Dose: 2 mg Lorazepam (Ativan) 2 mg IM Q6H PRN; Protocol PRN Reason: Agitation Magnesium Hydroxide (Milk Of Magnesia) 30 ml PO DAILY PRN PRN Reason: Constipation Multivitamins (Thera Tab) 1 tab PO 0800 [facility] Last Admin: 07/22/18 08:54 Dose: 1 tab Nicotine (Nicoderm Cq) 1 patch TD DAILY [facility] Last Admin: 07/22/18 08:53 Dose: 1 patch Quetiapine Fumarate (Seroquel) 100 mg PO AMHS [facility] PRN Reason: Protocol Last Admin: 07/22/18 12:59 Dose: Not Given Thiamine HCl (Vitamin B1 Tab) 100 mg PO DAILY [facility] Last Admin: 07/22/18 08:53 Dose: 100 mg Results - Vital Signs Recent Vital Signs: Last Vital Signs Temp 97.4 F L 07/22/18 07:15 Pulse 79 07/22/18 07:15 Resp 20 07/22/18 07:15 BP 114/72 07/22/18 07:15 Pulse Ox 97 07/21/18 12:01 - Labs Result Diagrams: 07/21/18 05:00 07/21/18 05:00 Labs: Laboratory Results - last 24 hr 07/22/18 07/22/18 07/22/18 08:00 08:00 08:00 Fasting Glucose 131 H Triglycerides 55 Cholesterol 82 L LDL Cholesterol Direct 46 HDL Cholesterol 18 L Free T4 0.93 TSH 3rd Generation 1.38 Valproic Acid < 10 L Attending/Attestation - Attestation I have personally seen and examined this patient.: Yes I have fully participated in the care of the patient.: Yes I have reviewed all pertinent clinical information: Yes Notes (Text): 07/22/18 16:45 53 year old female with past medical history of schizophrenia, substance abuse and recently treated ESBL UTI who is currently admitted in the psychiatric unit for . Medical consultation was requested for medical management as patient had recent ESBL UTI infection. This was treated for 5 days. Patient is now asymptomatic. No further treatment needed at this time. Continue with ventolin prn for history of COPD. Patient was counselled on smoking cessation. She was counselled on risks of continued substance abuse. Further management as per psychiatrist. Thank you Dr. Jacobs for allowing us to participate in the care of this patient. Please re-consult as needed. Gail Fernández MD Hospitalist.
[2018-07-22] MEDS ORDERED: Albuterol-Ipratrop 3 mg / 0.5 (3 ml) UD IH PRN (09:45)
[2018-07-22] MEDS ORDERED: Insulin Lispro (humaLOG) MEDIUM Coverage SC SCH (11:30)
[2018-07-22] MEDS ORDERED: Albuterol HFA 90 mcg/actuation (8 g) IH PRN (14:45)
--- NOTE | 2018-07-22 15:02 | PCM.PSYCH ---
Initial Psychiatric Evaluation - Initial Psychiatric Evaluation Type of Admission: Voluntary Legal Status: Capacity (he shouldn't has capacity to sign consent for treatment) Chief Complaint (in patient's own words): "I need someone to adopt me, how old am I?, it does not matter, I need someone to take car of me..." Patient's Reaction to Hospitalization: pt was admitted to the psych unit for evaluation of bizarre behavior, disorganized thoughts, pt was noncompliant with meds. pt was willing to get treatment and pt requested to be "adopted". History of Present Illness and Precipitating Events: shortly patient is 53 year old -Swazi female with reported history of schizophrenia paranoid type versus schizoaffective disorder, patient has multiple psychiatric admissions in the past most recent was here in [place] two weeks ago, pt needed to be transferred to the medical site for IV abx for UTI, pt then refused to be transferred back to psych unit, was d/c with meds and f/u appt, pt came back to the hospital being disorganized, was noncompliance with meds, in ED pt presented to be disorganized, admitted using drugs alcohol, marijuana and crack cocaine, had difficulties focusing, poor hygiene, pt might benefit from further evaluation and stabilization, meds resumption and titration. pt was seen at the treatment team meeting, chart reviewed, discussed with RNs and tx team. acceptable hygiene, fair ADLs. as per report pt wanted to be "adopted" wrote a letter with her "IDEAS" for this hospitalization: "staff have donate clothing from their families closet including winter coats, snow boots, -bingo for prizes money -dog therapy -music charts -coffee at night -art therapy -nail/dilcia groups -buy a kit with nail cuban" pt obviously in manic stage, pressured speech, irrational statements, pt asked to be "adopted", when was asked how old the pt is, pt said "so what, I need someone who will take care of me and helping me with decisions". pt also presented to be psychotic, said she saw a "monkey with the shorts, I talk to it at the morning". pt is hard to interview because of disorganized thoughts and behavior. as per staff pt also sexually preoccupied, needs redirections. pt said that her meds were stolen and she was not taking any meds. pt reported to use "marijuana that is all", but when was asked why she brought self to the hospital pt said "I came here to detox from cocaine". last admission two weeks ago pt was threatening, was agitated, code latanya called. patient has fair ADLs, good hygiene. pt smokes a bout a pack a day, nicotine patch was offered, counseling provided. Past medical history: RLE DVT, DM, Sickle cell trait, patient had h/o urinary tract infection, medical team was called, consult appreciated. past psychiatric history patient was discharged from this facility at the beginning of this month, patient also was recently discharged from [facility] less than a month ago. as per pharmacy report patient was on the following medications: Seroquel will be resumed with the smaller doses Depakote was resumed When necessary medications patient denied history of being abused 07/21/18 05:00 07/21/18 05:00 Lab Results 07/22/18 08:00: Valproic Acid < 10 L 07/22/18 08:00: Free T4 0.93, TSH 3rd Generation 1.38 07/22/18 08:00: Fasting Glucose 131 H, Triglycerides 55, Cholesterol 82 L, LDL Cholesterol Direct 46, HDL Cholesterol 18 L 07/21/18 11:45: POC Glucose (mg/dL) 93 07/21/18 09:56: Urine Color Yellow, Urine Appearance Clear, Urine pH 6.0, Ur Specific [place] 1.020, Urine Protein Negative, Urine Glucose (UA) Negative, Urine Ketones Negative, Urine Blood Negative, Urine Nitrate Negative, Urine Bilirubin Negative, Urine Urobilinogen 0.2, Ur Leukocyte Esterase Small H, Urine RBC 0 - 2, Urine WBC 5 - 10, Ur Epithelial Cells 6 - 8, Urine Bacteria Many, Urine Other Uyeast 07/21/18 09:56: Urine Opiates Screen Negative, Urine Methadone Screen Negative, Ur Barbiturates Screen Negative, Ur Phencyclidine Scrn Negative, Ur Amphetamines Screen Negative, U Benzodiazepines Scrn Negative, U Oth Cocaine Metabols Positive H, U Cannabinoids Screen Negative 07/21/18 05:01: POC Glucose (mg/dL) 83 07/21/18 05:00: Alcohol, Quantitative < 10 07/21/18 05:00: WBC 5.2 D, RBC 4.39, Hgb 12.4, Hct 37.6, MCV 85.6, MCH 28.2, MCHC 33.0, RDW 17.4 H, Plt Count 212, MPV 9.9 07/21/18 05:00: Sodium 142, Potassium 4.1, Chloride 105, Carbon Dioxide 27, Anion Gap 15, BUN 17, Creatinine 0.9, Est GFR ( Amer) > 60, Est GFR (Non- Af Amer) > 60, Random Glucose 84, Calcium 9.7, Total Bilirubin 0.5, AST 29, ALT 29, Alkaline Phosphatase 62, Total Protein 8.4 H, Albumin 4.6, Globulin 3.8, Albumin/Globulin Ratio 1.2 Vital Signs Temp Pulse Resp BP Pulse Ox 07/22/18 07:15 97.4 F L 79 20 114/72 07/21/18 12:01 99.2 F 82 18 129/79 97 07/21/18 11:52 99.2 F 82 18 126/79 97 07/21/18 10:23 99.2 F 82 18 142/80 98 07/21/18 07:45 99 F 82 16 132/79 97 07/21/18 03:52 98.6 F 89 18 133/78 98 Family history of mental illness is unknown pt was offered Haldol Dec in the future, pt was willing. Current Medications: Active Medications Generic Name Dose Route Start Last Admin Trade Name Freq PRN Reason Stop Dose Admin Acetaminophen 650 mg 07/21/18 12:43 Tylenol 325mg Tab PO Q6H PRN Pain, moderate (4-7) Al Hydrox/Mg Hydrox/Simethicone 30 ml 07/21/18 12:43 Maalox Plus 30 Ml PO DAILY PRN Indigestion / Heartburn Albuterol/Ipratropium 3 ml 07/22/18 09:45 Duoneb 3 Mg/0.5 Mg (3 Ml) Ud IH [id number] PRN Shortness of Breath Diphenhydramine HCl 50 mg 07/21/18 12:56 07/21/18 13:56 Benadryl PO 50 mg Q6H PRN Administration Anxiety Diphenhydramine HCl 50 mg 07/21/18 13:04 Benadryl IM Q6H PRN Agitation Divalproex Sodium 500 mg 07/21/18 16:00 07/22/18 08:53 Jon Bruce (*Bid*) PO 500 mg BID TOVA Administration Protocol Folic Acid 1 mg 07/22/18 08:00 07/22/18 08:53 Folic Acid PO 1 mg DAILY TOVA Administration Gabapentin 300 mg 07/21/18 13:00 07/22/18 12:59 Neurontin PO 300 mg TID TOVA Administration Protocol Haloperidol 5 mg 07/21/18 12:53 07/22/18 06:59 Haldol PO 5 mg Q6H PRN Administration Anxiety Protocol Haloperidol Lactate 5 mg 07/21/18 12:59 Haldol IM Q6H PRN Agitation Protocol Insulin Human Lispro 0 units 07/22/18 11:30 Humalog Med SC ACHS TOVA Protocol Lorazepam 2 mg 07/21/18 12:54 07/22/18 12:58 Ativan PO 2 mg Q6H PRN Administration Anxiety Protocol Lorazepam 2 mg 07/21/18 13:02 Ativan IM Q6H PRN Agitation Protocol Magnesium Hydroxide 30 ml 07/21/18 12:44 Milk Of Magnesia PO DAILY PRN Constipation Multivitamins 1 tab 07/22/18 08:00 07/22/18 08:54 Thera Tab PO 1 tab 0800 TOVA Administration Nicotine 1 patch 07/21/18 14:15 07/22/18 08:53 Nicoderm Cq TD 1 patch DAILY TOVA Administration Quetiapine Fumarate 100 mg 07/21/18 22:00 07/22/18 12:59 Seroquel PO Not Given [facility] Protocol Thiamine HCl 100 mg 07/22/18 08:00 07/22/18 08:53 Vitamin B1 Tab PO 100 mg DAILY TOVA Administration Past Psychiatric History - Past Psychiatric History Prior Professional Help: see HPI Prior Psychiatric Treatment: see HPI At [facility]: see HPI Duration: see HPI Nature of Treatment: see HPI Explanation of prior treatment: see HPI History of Abuse: see HPI History of ETOH/Drug Use: see HPI History of Family Illness: see HPI Pertinent Medical Hx (Current Medical&Sleep Prob, Allergies): Allergies Allergy/AdvReac Type Severity Reaction Status Date / Time turkey Allergy RASH Verified 07/21/18 12:32 Divalproex [Jon BRUCE(*BID*)] 500 mg PO TID 30 Days #90 tcp 05/24/18 Benztropine [Cogentin] 0.5 mg PO TID 30 Days #90 tab 07/16/18 Divalproex Sodium [Divalproex Sodium ER] 500 mg PO BID #60 ter 07/16/18 QUEtiapine [SEROquel] 300 mg PO HS 30 Days #30 tab 07/16/18 Review of Systems - Review of Systems Systems not reviewed;Unavailable: Acuity of Condition - EENT Eyes: As Per HPI Ears: As Per HPI Nose/Mouth/Throat: As Per HPI - Breasts Breasts: As Per HPI - Cardiovascular Cardiovascular: As Per HPI - Respiratory Respiratory: As Per HPI - Gastrointestinal Gastrointestinal: As Per HPI - Genitourinary Genitourinary: As Per HPI - Reproductive: Female Reproductive:Female: As Per HPI - Menstruation Menstruation: As Per HPI - Musculoskeletal Musculoskeletal: As Par HPI - Integumentary Integumentary: As Per HPI - Neurological Neurological: As Per HPI - Psychiatric Psychiatric: As Per HPI - Endocrine Endocrine: As Per HPI - Hematologic/Lymphatic Hematologic: As Per HPI Mental Status Examination - Personal Presentation Personal Presentation: Looks older than stated age - Affect Affect: Other (expanded) - Motor Activity Motor Activity: Calm - Reliability in Providing Information Reliability in Providing Information: Poor, due to alteration in thoughts, Poor , due to altered mood - Speech Speech: Disorganized, Tangential - Mood Mood: Depressed, Anxious - Formal Thought Process Formal Thought Process: Hallucinations, Delusions, Paranoia, Loosening of associations, Circumstantial - Hallucinations/Delusions Delusions: Granduer - Obsessions/Compulsions Obsessions: None Compulsions: None - Cognitive Functions Orientation: Person, Place, Situation Sensorium: Alert Attention/Concentration: Easily distracted Abstract Thinking: [place] Estimate of Intelligence: Average Judgement: Intact, as evidence by: Insight regarding need for hospitalization - Risk Risk: Diminished functioning - Strength & Assets Inventory Strength & Assets Inventory: Cooperative (relatively good physical health, pt comes to the hospital each time when does not feel well) - Limitations Limitations: Other (polysubstance abuse, noncompliance with meds, severeness of the symtpoms) DSM 5 DX - DSM 5 DSM 5 Diagnosis: schizoaffective disorder, bipolar type r/o bipolar with psychosis polysubstance abuse and dependence - Recommended/Plan of Treatment Treatment Recommendations and Plan of Treatment: milieu/structure/supportive therapy Divalproex [Depakote DR(*BID*)] 500 mg PO bid for mood stabilization QUEtiapine [SEROquel] 100mg bid for psychosis possible injectable form of meds will give PRN meds Medical consult appreciated, see medical team note for more detailed info SW consultation for discharge plan and social issues Family involvement Follow up on labs Will monitor closely Pt was educated about risk/benefits and alternatives of medications, coping strategies (safety plan, suicide prevention), relapse prevention, importance of follow up with psychiatrist and therapist, stay away from drugs/alcohol/smoking Projected ELOS: 7days Prognosis: guarded Discharge Plan and Discharge Criteria: Pt will be not depressed or manic, will be more hopeful, will be not psychotic or anxious, will be not having thoughts of harming self or others, will be tolerating medications well, will not have major side effects, will be able to function, will not pose threat to self or others. - Smoking Cessation Smoking Cessation Initiated: Yes
[2018-07-23] MEDS: Divalproex 250 mg DR (BID formulation) PO SCH ×2 (09:15→17:18)
[2018-07-23] MEDS: Multivitamin Therapeutic Tab PO SCH (09:16)
--- NOTE | 2018-07-23 16:07 | PCM.PYCHPN ---
Psychiatric Progress Note - Psychiatric Progress Note Patient seen today, length of contact: 30min Patient Chief Complaint: "I felt like outcast..." Problems Identified/Issues Discussed: Suicide/ homicide prevention, past psychiatric h/o, current psychiatric symptoms, medical problems, risk/benefits and alternatives of medications, medications compliance, coping strategies, substance abuse h/o, relapse prevention, importance of follow up with psychiatrist and therapist, discharge plan. Medical Problems: see HPI Diagnostic Results: 07/21/18 05:00 07/21/18 05:00 Lab Results 07/22/18 08:00: RPR Nonreactive 07/22/18 08:00: Valproic Acid < 10 L 07/22/18 08:00: Free T4 0.93, TSH 3rd Generation 1.38 07/22/18 08:00: Fasting Glucose 131 H, Triglycerides 55, Cholesterol 82 L, LDL Cholesterol Direct 46, HDL Cholesterol 18 L 07/21/18 11:45: POC Glucose (mg/dL) 93 07/21/18 09:56: Urine Color Yellow, Urine Appearance Clear, Urine pH 6.0, Ur Specific [place] 1.020, Urine Protein Negative, Urine Glucose (UA) Negative, Urine Ketones Negative, Urine Blood Negative, Urine Nitrate Negative, Urine Bilirubin Negative, Urine Urobilinogen 0.2, Ur Leukocyte Esterase Small H, Urine RBC 0 - 2, Urine WBC 5 - 10, Ur Epithelial Cells 6 - 8, Urine Bacteria Many, Urine Other Uyeast 07/21/18 09:56: Urine Opiates Screen Negative, Urine Methadone Screen Negative, Ur Barbiturates Screen Negative, Ur Phencyclidine Scrn Negative, Ur Amphetamines Screen Negative, U Benzodiazepines Scrn Negative, U Oth Cocaine Metabols Positive H, U Cannabinoids Screen Negative 07/21/18 05:01: POC Glucose (mg/dL) 83 07/21/18 05:00: Alcohol, Quantitative < 10 07/21/18 05:00: WBC 5.2 D, RBC 4.39, Hgb 12.4, Hct 37.6, MCV 85.6, MCH 28.2, MCHC 33.0, RDW 17.4 H, Plt Count 212, MPV 9.9 07/21/18 05:00: Sodium 142, Potassium 4.1, Chloride 105, Carbon Dioxide 27, Anion Gap 15, BUN 17, Creatinine 0.9, Est GFR ( Amer) > 60, Est GFR (Non- Af Amer) > 60, Random Glucose 84, Calcium 9.7, Total Bilirubin 0.5, AST 29, ALT 29, Alkaline Phosphatase 62, Total Protein 8.4 H, Albumin 4.6, Globulin 3.8, Albumin/Globulin Ratio 1.2 Vital Signs Temp Pulse Resp BP Pulse Ox 07/23/18 07:00 97.7 F 85 19 153/68 H 07/22/18 16:00 85 128/79 07/22/18 07:15 97.4 F L 79 20 114/72 07/21/18 12:01 99.2 F 82 18 129/79 97 07/21/18 11:52 99.2 F 82 18 126/79 97 07/21/18 10:23 99.2 F 82 18 142/80 98 07/21/18 07:45 99 F 82 16 132/79 97 07/21/18 03:52 98.6 F 89 18 133/78 98 DSM 5 Symptoms Update: shortly patient is 53 year old -German female with reported history of schizophrenia paranoid type versus schizoaffective disorder, patient has multiple psychiatric admissions in the past most recent was here in [place] two weeks ago, pt needed to be transferred to the medical site for IV abx for UTI, pt then refused to be transferred back to psych unit, was d/c with meds and f/u appt, pt came back to the hospital being disorganized, was noncompliance with meds, in ED pt presented to be disorganized, admitted using drugs alcohol, marijuana and crack cocaine, had difficulties focusing, poor hygiene, pt might benefit from further evaluation and stabilization, meds resumption and titration. pt was seen next to the nursing station today. presented to be disorganized, but calmer. pt was upset and was feeling like "outcast", at the same time did not explain why, pt was just rambling about groups. pt was seen by medical team at times pt is disrespectful, intrusive,but redirectable. patient tolerates medications well, no side effects observed or reported, aims 0, no EPS. Patient was refusing to take Depakote yesterday but was compliant with that medication today. as per staff patient was presenting disorganized and bizarre, appeared to be paranoid. Patient was medicated with Haldol 5 mg po, Ativan 2 mg po and Benadryl 50 mg po 07/22/18 Impression: Schizoaffective disorder Polysubstance abuse Medication Change: Yes Medical Record Reviewed: Yes Mental Status Examination - Cognitive Function Orientation: Person, Place, Situation Memory: Impaired Attention: Poor Concentration: Poor Association: Loose Fund of Knowledge: Poor - Mood Mood: Depressed, Anxious - Affect Affect: Constricted - Formal Thought Process Formal Thought Process: Hallucinations, Delusions, Paranoia, Loosening of associations, Circumstantial - Suicidal Ideation Suicidal Ideation: No - Homicidal Ideation Homicidal Ideation: No Goal/Treatment Plan - Goal/Treatment Plan Need for Continued Stay: Remain at risks for inpatient hospitalization, Severe depression anxiety, Discharge may exacerbated symptoms, Severe functional impairment Progress Toward Problem(s) and Goals/Treatment Plan: milieu/structure/supportive therapy Divalproex [Depakote DR(*BID*)] 500 mg PO bid for mood stabilization QUEtiapine [SEROquel] 100mg bid for psychosis possible injectable form of meds will give PRN meds Medical consult appreciated, see medical team note for more detailed info SW consultation for discharge plan and social issues Family involvement Follow up on labs Will monitor closely Pt was educated about risk/benefits and alternatives of medications, coping strategies (safety plan, suicide prevention), relapse prevention, importance of follow up with psychiatrist and therapist, stay away from drugs/alcohol/smoking Estimated Date of D/C: 08/02/18
[2018-07-24] MEDS: Multivitamin Therapeutic Tab PO SCH (07:56)
[2018-07-24] MEDS: Divalproex 250 mg DR (BID formulation) PO SCH ×2 (07:56→16:31)
--- NOTE | 2018-07-24 17:02 | PCM.PYCHPN ---
Psychiatric Progress Note - Psychiatric Progress Note Patient seen today, length of contact: 30min Patient Chief Complaint: "nobody wants me, adopt me, me..." Problems Identified/Issues Discussed: Suicide/ homicide prevention, past psychiatric h/o, current psychiatric symptoms, medical problems, risk/benefits and alternatives of medications, medications compliance, coping strategies, substance abuse h/o, relapse prevention, importance of follow up with psychiatrist and therapist, discharge plan. Medical Problems: see HPI Diagnostic Results: 07/21/18 05:00 07/21/18 05:00 Lab Results 07/22/18 08:00: RPR Nonreactive 07/22/18 08:00: Valproic Acid < 10 L 07/22/18 08:00: Free T4 0.93, TSH 3rd Generation 1.38 07/22/18 08:00: Fasting Glucose 131 H, Triglycerides 55, Cholesterol 82 L, LDL Cholesterol Direct 46, HDL Cholesterol 18 L 07/21/18 11:45: POC Glucose (mg/dL) 93 07/21/18 09:56: Urine Color Yellow, Urine Appearance Clear, Urine pH 6.0, Ur Specific [employer] 1.020, Urine Protein Negative, Urine Glucose (UA) Negative, Urine Ketones Negative, Urine Blood Negative, Urine Nitrate Negative, Urine Bilirubin Negative, Urine Urobilinogen 0.2, Ur Leukocyte Esterase Small H, Urine RBC 0 - 2, Urine WBC 5 - 10, Ur Epithelial Cells 6 - 8, Urine Bacteria Many, Urine Other Uyeast 07/21/18 09:56: Urine Opiates Screen Negative, Urine Methadone Screen Negative, Ur Barbiturates Screen Negative, Ur Phencyclidine Scrn Negative, Ur Amphetamines Screen Negative, U Benzodiazepines Scrn Negative, U Oth Cocaine Metabols Posit sohan H, U Cannabinoids Screen Negative 07/21/18 05:01: POC Glucose (mg/dL) 83 07/21/18 05:00: Alcohol, Quantitative < 10 07/21/18 05:00: WBC 5.2 D, RBC 4.39, Hgb 12.4, Hct 37.6, MCV 85.6, MCH 28.2, MCHC 33.0, RDW 17.4 H, Plt Count 212, MPV 9.9 07/21/18 05:00: Sodium 142, Potassium 4.1, Chloride 105, Carbon Dioxide 27, Anion Gap 15, BUN 17, Creatinine 0.9, Est GFR ( Amer) > 60, Est GFR (Non- Af Amer) > 60, Random Glucose 84, Calcium 9.7, Total Bilirubin 0.5, AST 29, ALT 29, Alkaline Phosphatase 62, Total Protein 8.4 H, Albumin 4.6, Globulin 3.8, Albumin/Globulin Ratio 1.2 Vital Signs Temp Pulse Resp BP Pulse Ox 07/23/18 07:00 97.7 F 85 19 153/68 H 07/22/18 16:00 85 128/79 07/22/18 07:15 97.4 F L 79 20 114/72 07/21/18 12:01 99.2 F 82 18 129/79 97 07/21/18 11:52 99.2 F 82 18 126/79 97 07/21/18 10:23 99.2 F 82 18 142/80 98 07/21/18 07:45 99 F 82 16 132/79 97 07/21/18 03:52 98.6 F 89 18 133/78 98 DSM 5 Symptoms Update: shortly patient is 53 year old -[place] Citizen female with reported history of schizophrenia paranoid type versus schizoaffective disorder, patient has multiple psychiatric admissions in the past most recent was here in [place] two weeks ago, pt needed to be transferred to the medical site for IV abx for UTI, pt then refused to be transferred back to psych unit, was d/c with meds and f/u appt, pt came back to the hospital being disorganized, was noncompliance with meds, in ED pt presented to be disorganized, admitted using drugs alcohol, marijuana and crack cocaine, had difficulties focusing, poor hygiene, pt might benefit from further evaluation and stabilization, meds resumption and titration. pt was seen rroom today, patient presented emotionally labile, patient was insisting that this bond writer needs to adopt her, patient also is sexually preoccupied, was asking unit administrative assistant front desk to her, patient was not provocative but childlike demeanor. presented to be disorganized, but calmer. pt was upset and was feeling like "outcast". pt was seen by medical team at times pt is disrespectful, intrusive,but redirectable. patient tolerates medications well, no side effects observed or reported, aims 0, no EPS. Patient was refusing to take Depakote yesterday but was compliant with that medication today. as per staff patient is needy, disorganized, at the same time compliant with the medications, no agitation or aggression. Impression: Schizoaffective disorder Polysubstance abuse Medication Change: Yes (seroquel increased) Medical Record Reviewed: Yes Consults ordered or reviewed: Yesenia consult appreciated. Mental Status Examination - Cognitive Function Orientation: Person, Place, Situation Memory: Impaired Attention: Poor Concentration: Poor Association: Loose Fund of Knowledge: Poor - Mood Mood: Depressed, Anxious - Affect Affect: Constricted - Formal Thought Process Formal Thought Process: Hallucinations, Delusions, Paranoia, Loosening of as sociations, Circumstantial - Suicidal Ideation Suicidal Ideation: No - Homicidal Ideation Homicidal Ideation: No Goal/Treatment Plan - Goal/Treatment Plan Need for Continued Stay: Remain at risks for inpatient hospitalization, Severe depression anxiety, Discharge may exacerbated symptoms, Severe functional impairment Progress Toward Problem(s) and Goals/Treatment Plan: milieu/structure/supportive therapy Divalproex [Depakote DR(*BID*)] 500 mg PO bid for mood stabilization QUEtiapine [SEROquel] 100mg at the morning time in 200 mg at the nighttime for psychosis possible injectable form of meds will give PRN meds Medical consult appreciated, see medical team note for more detailed info SW consultation for discharge plan and social issues Family involvement Follow up on labs Will monitor closely Pt was educated about risk/benefits and alternatives of medications, coping strategies (safety plan, suicide prevention), relapse prevention, importance of follow up with psychiatrist and therapist, stay away from drugs/alcohol/smoking Estimated Date of D/C: 08/02/18
[2018-07-25] MEDS: Divalproex 250 mg DR (BID formulation) PO SCH ×2 (09:56→17:58)
[2018-07-25] MEDS: Multivitamin Therapeutic Tab PO SCH (09:57)
--- NOTE | 2018-07-25 16:32 | PCM.PYCHPN ---
Psychiatric Progress Note - Psychiatric Progress Note Patient seen today, length of contact: 30min Patient Chief Complaint: "I am alright...." Problems Identified/Issues Discussed: Suicide/ homicide prevention, past psychiatric h/o, current psychiatric symptoms, medical problems, risk/benefits and alternatives of medications, medications compliance, coping strategies, substance abuse h/o, relapse prevention, importance of follow up with psychiatrist and therapist, discharge plan. Medical Problems: see HPI Diagnostic Results: 07/21/18 05:00 07/21/18 05:00 Lab Results 07/22/18 08:00: RPR Nonreactive 07/22/18 08:00: Valproic Acid < 10 L 07/22/18 08:00: Free T4 0.93, TSH 3rd Generation 1.38 07/22/18 08:00: Fasting Glucose 131 H, Triglycerides 55, Cholesterol 82 L, LDL Cholesterol Direct 46, HDL Cholesterol 18 L 07/21/18 11:45: POC Glucose (mg/dL) 93 07/21/18 09:56: Urine Color Yellow, Urine Appearance Clear, Urine pH 6.0, Ur Specific [place] 1.020, Urine Protein Negative, Urine Glucose (UA) Negative, Urine Ketones Negative, Urine Blood Negative, Urine Nitrate Negative, Urine B ilirubin Negative, Urine Urobilinogen 0.2, Ur Leukocyte Esterase Small H, Urine RBC 0 - 2, Urine WBC 5 - 10, Ur Epithelial Cells 6 - 8, Urine Bacteria Many, Urine Other Uyeast 07/21/18 09:56: Urine Opiates Screen Negative, Urine Methadone Screen Negative, Ur Barbiturates Screen Negative, Ur Phencyclidine Scrn Negative, Ur Amphetamines Screen Negative, U Benzodiazepines Scrn Negative, U Oth Cocaine Metabols Positive H, U Cannabinoids Screen Negative 07/21/18 05:01: POC Glucose (mg/dL) 83 07/21/18 05:00: Alcohol, Quantitative < 10 07/21/18 05:00: WBC 5.2 D, RBC 4.39, Hgb 12.4, Hct 37.6, MCV 85.6, MCH 28.2, MCHC 33.0, RDW 17.4 H, Plt Count 212, MPV 9.9 07/21/18 05:00: Sodium 142, Potassium 4.1, Chloride 105, Carbon Dioxide 27, Anion Gap 15, BUN 17, Creatinine 0.9, Est GFR ( Amer) > 60, Est GFR (Non- Af Amer) > 60, Random Glucose 84, Calcium 9.7, Total Bilirubin 0.5, AST 29, ALT 29, Alkaline Phosphatase 62, Total Protein 8.4 H, Albumin 4.6, Globulin 3.8, Alb umin/Globulin Ratio 1.2 Vital Signs Temp Pulse Resp BP Pulse Ox 07/23/18 07:00 97.7 F 85 19 153/68 H 07/22/18 16:00 85 128/79 07/22/18 07:15 97.4 F L 79 20 114/72 07/21/18 12:01 99.2 F 82 18 129/79 97 07/21/18 11:52 99.2 F 82 18 126/79 97 07/21/18 10:23 99.2 F 82 18 142/80 98 07/21/18 07:45 99 F 82 16 132/79 97 07/21/18 03:52 98.6 F 89 18 133/78 98 DSM 5 Symptoms Update: shortly patient is 53 year old -Malagasy female with reported history of schizophrenia paranoid type versus schizoaffective disorder, patient has multiple psychiatric admissions in the past most recent was here in [place] two weeks ago, pt needed to be transferred to the medical site for IV abx for UTI, pt then refused to be transferred back to psych unit, was d/c with meds and f/u appt, pt came back to the hospital being disorganized, was noncompliance with meds, in ED pt presented to be disorganized, admitted using drugs alcohol, marijuana and crack cocaine, had difficulties focusing, poor hygiene, pt might benefit from further evaluation and stabilization, meds resumption and titra tion. pt was seen in her room today, pt had verbal altercation with another pt H,S, pt was provocative. pt had no remorse, pt is still disorganized, intrusive. patient presented emotionally labile, patient was insisting that this senior writer needs to adopt her. pt was seen by medical team at times pt is disrespectful, intrusive, but redirectable. patient tolerates medications well, no side effects observed or reported, aims 0, no EPS. as per staff patient is needy, disorganized, at the same time compliant with the medications, no agitation or aggression. Impression: Schizoaffective disorder Polysubstance abuse Medication Change: Yes (seroquel increased) Medical Record Reviewed: Yes Mental Status Examination - Cognitive Function Orientation: Person, Place, Situation Memory: Impaired Attention: Poor Concentration: Poor Association: Loose Fund of Knowledge: Poor - Mood Mood: Depressed, Anxious - Affect Affect: Constricted - Formal Thought Process Formal Thought Process: Hallucinations, Delusions, Paranoia, Loosening of asso ciations, Circumstantial - Suicidal Ideation Suicidal Ideation: No - Homicidal Ideation Homicidal Ideation: No Goal/Treatment Plan - Goal/Treatment Plan Need for Continued Stay: Remain at risks for inpatient hospitalization, Severe depression anxiety, Discharge may exacerbated symptoms, Severe functional impairment Progress Toward Problem(s) and Goals/Treatment Plan: milieu/structure/supportive therapy Divalproex [Depakote DR(*BID*)] 500 mg PO bid for mood stabilization depakote level tomorrow QUEtiapine [SEROquel] 100mg at the morning time in 200 mg at the nighttime for psychosis possible injectable form of meds will give PRN meds Medical consult appreciated, see medical team note for more detailed info SW consultation for discharge plan and social issues Family involvement Follow up on labs Will monitor closely Pt was educated about risk/benefits and alternatives of medications, coping strategies (safety plan, suicide prevention), relapse prevention, importance of follow up with psychiatrist and therapist, stay away from drugs/alcohol/smoking Estimated Date of D/C: 08/02/18
[2018-07-26] MEDS: Divalproex 250 mg DR (BID formulation) PO SCH ×2 (09:56→17:58)
[2018-07-26] MEDS: Multivitamin Therapeutic Tab PO SCH (09:57)
--- NOTE | 2018-07-26 17:24 | PCM.PYCHPN ---
Psychiatric Progress Note - Psychiatric Progress Note Patient seen today, length of contact: 30min Patient Chief Complaint: "I am alright...." Problems Identified/Issues Discussed: Suicide/ homicide prevention, past psychiatric h/o, current psychiatric symptoms, medical problems, risk/benefits and alternatives of medications, medications compliance, coping strategies, substance abuse h/o, relapse prevention, importance of follow up with psychiatrist and therapist, discharge plan. Medical Problems: see HPI Diagnostic Results: 07/21/18 05:00 07/21/18 05:00 Lab Results 07/22/18 08:00: RPR Nonreactive 07/22/18 08:00: Valproic Acid < 10 L 07/22/18 08:00: Free T4 0.93, TSH 3rd Generation 1.38 07/22/18 08:00: Fasting Glucose 131 H, Triglycerides 55, Cholesterol 82 L, LDL Cholesterol Direct 46, HDL Cholesterol 18 L 07/21/18 11:45: POC Glucose (mg/dL) 93 07/21/18 09:56: Urine Color Yellow, Urine Appearance Clear, Urine pH 6.0, Ur Specific [place] 1.020, Urine Protein Negative, Urine Glucose (UA) Negative, Urine Ketones Negative, Urine Blood Negative, Urine Nitrate Negative, Urine B ilirubin Negative, Urine Urobilinogen 0.2, Ur Leukocyte Esterase Small H, Urine RBC 0 - 2, Urine WBC 5 - 10, Ur Epithelial Cells 6 - 8, Urine Bacteria Many, Urine Other Uyeast 07/21/18 09:56: Urine Opiates Screen Negative, Urine Methadone Screen Negative, Ur Barbiturates Screen Negative, Ur Phencyclidine Scrn Negative, Ur Amphetamines Screen Negative, U Benzodiazepines Scrn Negative, U Oth Cocaine Metabols Positive H, U Cannabinoids Screen Negative 07/21/18 05:01: POC Glucose (mg/dL) 83 07/21/18 05:00: Alcohol, Quantitative < 10 07/21/18 05:00: WBC 5.2 D, RBC 4.39, Hgb 12.4, Hct 37.6, MCV 85.6, MCH 28.2, MCHC 33.0, RDW 17.4 H, Plt Count 212, MPV 9.9 07/21/18 05:00: Sodium 142, Potassium 4.1, Chloride 105, Carbon Dioxide 27, Anion Gap 15, BUN 17, Creatinine 0.9, Est GFR ( Amer) > 60, Est GFR (Non- Af Amer) > 60, Random Glucose 84, Calcium 9.7, Total Bilirubin 0.5, AST 29, ALT 29, Alkaline Phosphatase 62, Total Protein 8.4 H, Albumin 4.6, Globulin 3.8, Alb umin/Globulin Ratio 1.2 Vital Signs Temp Pulse Resp BP Pulse Ox 07/23/18 07:00 97.7 F 85 19 153/68 H 07/22/18 16:00 85 128/79 07/22/18 07:15 97.4 F L 79 20 114/72 07/21/18 12:01 99.2 F 82 18 129/79 97 07/21/18 11:52 99.2 F 82 18 126/79 97 07/21/18 10:23 99.2 F 82 18 142/80 98 07/21/18 07:45 99 F 82 16 132/79 97 07/21/18 03:52 98.6 F 89 18 133/78 98 DSM 5 Symptoms Update: shortly patient is 53 year old -[place] female with reported history of schizophrenia paranoid type versus schizoaffective disorder, patient has multiple psychiatric admissions in the past most recent was here in [place] two weeks ago, pt needed to be transferred to the medical site for IV abx for UTI, pt then refused to be transferred back to psych unit, was d/c with meds and f/u appt, pt came back to the hospital being disorganized, was noncompliance with meds, in ED pt presented to be disorganized, admitted using drugs alcohol, marijuana and crack cocaine, had difficulties focusing, poor hygiene, pt might benefit from further evaluation and stabilization, meds resumption and titra tion. pt was seen in her room today, pt had verbal altercation with another pt H,S, which was transferred to [facility]. pt thought that she is her roommate and urinated on her bed. pt was redirected, pt has poor insight. pt had no remorse, pt is still disorganized, intrusive. patient presented emotionally labile, patient was insisting that this speech writer needs to adopt her. pt was seen by medical team at times pt is disrespectful, intrusive, but redirectable. patient tolerates medications well, no side effects observed or reported, aims 0, no EPS. as per staff patient is needy, disorganized, at the same time compliant with the medications, no agitation or aggression. Impression: Schizoaffective disorder Polysubstance abuse Medication Change: No ( ) Medical Record Reviewed: Yes Mental Status Examination - Cognitive Function Orientation: Person, Place, Situation Memory: Impaired Attention: Poor Concentration: Poor Association: Loose Fund of Knowledge: Poor - Mood Mood: Depressed, Anxious - Affect Affect: Constricted - Formal Thought Process Formal Thought Process: Hallucinations, Delusions, Paranoia, Loosening of associations, Circumstantial - Suicidal Ideation Suicidal Ideation: No - Homicidal Ideation Homicidal Ideation: No Goal/Treatment Plan - Goal/Treatment Plan Need for Continued Stay: Remain at risks for inpatient hospitalization, Severe depression anxiety, Discharge may exacerbated symptoms, Severe functional impairment Progress Toward Problem(s) and Goals/Treatment Plan: milieu/structure/supportive therapy Divalproex [Depakote DR(*BID*)] 500 mg PO bid for mood stabilization depakote level tomorrow QUEtiapine [SEROquel] 200mg at the morning time in 200 mg at the nighttime for psychosis possible injectable form of meds will give PRN meds Medical consult appreciated, see medical team note for more detailed info SW consultation for discharge plan and social issues Family involvement Follow up on labs Will monitor closely Pt was educated about risk/benefits and alternatives of medications, coping strategies (safety plan, suicide prevention), relapse prevention, importance of follow up with psychiatrist and therapist, stay away from drugs/alcohol/smoking Estimated Date of D/C: 08/02/18
--- NOTE | 2018-07-27 08:51 | PCM.PYCHPN ---
Psychiatric Progress Note - Psychiatric Progress Note Patient seen today, length of contact: 30min Problems Identified/Issues Discussed: I reviewed assessment and recent notes. Patient has been disorganized, paranoid, intrusive and impulsive. I meet with her at bedside and she can tolerate some questioning. Patient can provided our correct location, month and year. She is superficially oriented to circumstances but overall her insight and judgement at this time is poor. She has been labile and cannot sustain an informative interview. As usual, she mumbles unintelligibly and this provider must request that she repeat herself to ensure accuracy. She denies hallucinations or mood symptoms however this is improbable. Staff have noted patient to be needy and labile with poor frustration tolerance. Nonetheless she is compliant with medications and denies any new discomfort, pain or side effects this morning. Her behavior remains unpredictable. Diagnostic Results: Schizoaffective disorder Polysubstance abuse Medication Change: No ( ) Medical Record Reviewed: Yes Mental Status Examination - Cognitive Function Orientation: Person, Place, Situation Memory: Impaired Attention: Poor Concentration: Poor Association: Loose Fund of Knowledge: Poor - Mood Mood: Depressed, Anxious - Affect Affect: Constricted (labile) - Formal Thought Process Formal Thought Process: Hallucinations, Delusions, Paranoia, Loosening of associations, Circumstantial - Suicidal Ideation Suicidal Ideation: No - Homicidal Ideation Homicidal Ideation: No Goal/Treatment Plan - Goal/Treatment Plan Need for Continued Stay: Remain at risks for inpatient hospitalization, Severe depression anxiety, Discharge may exacerbated symptoms, Severe functional impairment Progress Toward Problem(s) and Goals/Treatment Plan: -c/w current tx and plan -No new lab results thus far -Vitals reviewed and noted below: Selected Entries 07/25/18 07/25/18 07/26/18 06:52 15:33 15:56 Temperature 97.3 F L Pulse Rate 81 109 H 116 H Respiratory 18 Rate Blood Pressure 128/86 137/82 112/73 Estimated Date of D/C: 08/02/18
[2018-07-27] MEDS: Divalproex 250 mg DR (BID formulation) PO SCH ×2 (08:59→17:32)
[2018-07-27] MEDS: Multivitamin Therapeutic Tab PO SCH (09:00)
[2018-07-27 16:51] LABS: URINE BILIRUBIN NEGATIVE (NEGATIVE); URINE BLOOD NEGATIVE (NEGATIVE); URINE GLUCOSE (UA) NEGATIVE (NEGATIVE); URINE LEUKOCYTE ESTERASE NEGATIVE Leu/uL (NEGATIVE); URINE PROTEIN NEGATIVE mg/dL (<30 mg/dL); URINE UROBILINOGEN 0.2 E.U./dL (<1 E.U./dL)
[2018-07-27 16:53] LABS: URINE APPEARANCE CLEAR (CLEAR); URINE COLOR YELLOW (YELLOW)
[2018-07-28 07:33] VITALS: RESP 20
[2018-07-28] MEDS: Multivitamin Therapeutic Tab PO SCH (09:23)
[2018-07-28] MEDS: Divalproex 250 mg DR (BID formulation) PO SCH ×2 (09:24→16:09)
--- NOTE | 2018-07-28 10:23 | PCM.PYCHPN ---
Psychiatric Progress Note - Psychiatric Progress Note Patient seen today, length of contact: 30min Problems Identified/Issues Discussed: I reviewed recent notes and patient was interviewed at bedside again this morning. Patient has been disorganized, paranoid, intrusive and impulsive since admission. Patient required prns on Sunday because she was agitated and aggressive towards staff. I meet with her at bedside and she can tolerate some questioning. Appearance is still unkempt. Patient can provided our correct location, month and year. She is superficially oriented to circumstances and seems calmer as well as more focused today though remains labile. Overall her insight and judgement at this time is poor. She still cannot have a sustained reliable and informative interview. Staff have noted patient to be needy and labile with poor frustration tolerance. Nonetheless she is compliant with medications and denies any new discomfort, pain or side effects this morning. Her behavior remains unpredictable. Diagnostic Results: Schizoaffective disorder Polysubstance abuse Medication Change: No ( ) Medical Record Reviewed: Yes Mental Status Examination - Cognitive Function Orientation: Person, Place, Situation Memory: Impaired Attention: Poor Concentration: Poor Association: Loose Fund of Knowledge: Poor - Mood Mood: Depressed, Anxious - Affect Affect: Constricted (labile) - Formal Thought Process Formal Thought Process: Hallucinations, Delusions, Paranoia, Loosening of a ssociations, Circumstantial - Suicidal Ideation Suicidal Ideation: No - Homicidal Ideation Homicidal Ideation: No Goal/Treatment Plan - Goal/Treatment Plan Need for Continued Stay: Remain at risks for inpatient hospitalization, Severe depression anxiety, Discharge may exacerbated symptoms, Severe functional impairment Progress Toward Problem(s) and Goals/Treatment Plan: -c/w current tx and plan -Vitals reviewed and noted below: Selected Entries 07/25/18 07/25/18 07/26/18 06:52 15:33 15:56 Temperature 97.3 F L Pulse Rate 81 109 H 116 H Respiratory 18 Rate Blood Pressure 128/86 137/82 112/73 -New weekend lab results noted below, have requested VPA level to be drawn tomorrow: Laboratory Results - last 24 hr 07/27/18 15:45 Urine Color Yellow Urine Appearance Clear Urine pH 6.0 Ur Specific [place] 1.010 Urine Protein Negative Urine Glucose (UA) Negative Urine Ketones Negative Urine Blood Negative Urine Nitrate Negative Urine Bilirubin Negative Urine Urobilinogen 0.2 Ur Leukocyte Esterase Negative Estimated Date of D/C: 08/02/18
[2018-07-29] MEDS: Divalproex 250 mg DR (BID formulation) PO SCH ×2 (08:59→17:33)
[2018-07-29] MEDS: Multivitamin Therapeutic Tab PO SCH (09:00)
--- NOTE | 2018-07-29 09:20 | PCM.PYCHPN ---
Psychiatric Progress Note - Psychiatric Progress Note Patient seen today, length of contact: 30min Patient Chief Complaint: "I am alright...." Problems Identified/Issues Discussed: Suicide/ homicide prevention, past psychiatric h/o, current psychiatric symptoms, medical problems, risk/benefits and alternatives of medications, medications compliance, coping strategies, substance abuse h/o, relapse prevention, importance of follow up with psychiatrist and therapist, discharge plan. Medical Problems: see HPI Diagnostic Results: 07/21/18 05:00 07/21/18 05:00 Lab Results 07/22/18 08:00: RPR Nonreactive 07/22/18 08:00: Valproic Acid < 10 L 07/22/18 08:00: Free T4 0.93, TSH 3rd Generation 1.38 07/22/18 08:00: Fasting Glucose 131 H, Triglycerides 55, Cholesterol 82 L, LDL Cholesterol Direct 46, HDL Cholesterol 18 L 07/21/18 11:45: POC Glucose (mg/dL) 93 07/21/18 09:56: Urine Color Yellow, Urine Appearance Clear, Urine pH 6.0, Ur Specific [place] 1.020, Urine Protein Negative, Urine Glucose (UA) Negative, Urine Ketones Negative, Urine Blood Negative, Urine Nitrate Negative, Urine B ilirubin Negative, Urine Urobilinogen 0.2, Ur Leukocyte Esterase Small H, Urine RBC 0 - 2, Urine WBC 5 - 10, Ur Epithelial Cells 6 - 8, Urine Bacteria Many, Urine Other Uyeast 07/21/18 09:56: Urine Opiates Screen Negative, Urine Methadone Screen Negative, Ur Barbiturates Screen Negative, Ur Phencyclidine Scrn Negative, Ur Amphetamines Screen Negative, U Benzodiazepines Scrn Negative, U Oth Cocaine Metabols Positive H, U Cannabinoids Screen Negative 07/21/18 05:01: POC Glucose (mg/dL) 83 07/21/18 05:00: Alcohol, Quantitative < 10 07/21/18 05:00: WBC 5.2 D, RBC 4.39, Hgb 12.4, Hct 37.6, MCV 85.6, MCH 28.2, MCHC 33.0, RDW 17.4 H, Plt Count 212, MPV 9.9 07/21/18 05:00: Sodium 142, Potassium 4.1, Chloride 105, Carbon Dioxide 27, Anion Gap 15, BUN 17, Creatinine 0.9, Est GFR ( Amer) > 60, Est GFR (Non- Af Amer) > 60, Random Glucose 84, Calcium 9.7, Total Bilirubin 0.5, AST 29, ALT 29, Alkaline Phosphatase 62, Total Protein 8.4 H, Albumin 4.6, Globulin 3.8, Alb umin/Globulin Ratio 1.2 Vital Signs Temp Pulse Resp BP Pulse Ox 07/23/18 07:00 97.7 F 85 19 153/68 H 07/22/18 16:00 85 128/79 07/22/18 07:15 97.4 F L 79 20 114/72 07/21/18 12:01 99.2 F 82 18 129/79 97 07/21/18 11:52 99.2 F 82 18 126/79 97 07/21/18 10:23 99.2 F 82 18 142/80 98 07/21/18 07:45 99 F 82 16 132/79 97 07/21/18 03:52 98.6 F 89 18 133/78 98 Abnormal Lab Results 07/28/18 12:15 Valproic Acid 33 L DSM 5 Symptoms Update: shortly patient is 53 year old -[place] female with reported history of schizophrenia paranoid type versus schizoaffective disorder, patient has multiple psychiatric admissions in the past most recent was here in [place] two weeks ago, pt needed to be transferred to the medical site for IV abx for UTI, pt then refused to be transferred back to psych unit, was d/c with meds and f/u appt, pt came back to the hospital being disorganized, was noncompliance with meds, in ED pt presented to be disorganized, admitted using drugs alcohol, marijuana and crack cocaine, had difficulties focusing, poor hygiene, pt might benefit from further evaluation and stabilization, meds resumption and titration. pt was seen at the treatment team meeting. hygiene is better. pt is mildly irritable, pt agreed to increase depakote and seroquel. overall pt said "I feel better, I was upset only because I did not see my family, but I talked to my lover, I feel good". pt at the same time was fixated on the recreational therapist, "why you looked at me that way?", was feeling offended that recreational therapist looked at her, did not escalate, less intrusive. patient much calmer, no agitation or aggression, compliance with meds good. pt is more polite. patient tolerates medications well, no side effects observed or reported, aims 0, no EPS. as per staff patient is needy, child like demeanor. discussed potential discharge tomorrow. Impression: Schizoaffective disorder Polysubstance abuse Medication Change: Yes (depakote and seroquel increased) Medical Record Reviewed: Yes Consults ordered or reviewed: medical consult appreciated. Mental Status Examination - Cognitive Function Orientation: Person, Place, Situation Memory: Impaired Attention: Poor (some improvement) Concentration: Poor (some improvement) Association: Loose (baseline) Fund of Knowledge: Poor (baseline) - Mood Mood: Depressed ("I am alright"), Anxious ("I am not anxious") - Affect Affect: Constricted (but more reactive, mood congruent) - Formal Thought Process Formal Thought Process: Hallucinations (denied), Delusions (better), Paranoia (guarded), Loosening of associations (baseline), Circumstantial - Suicidal Ideation Suicidal Ideation: No - Homicidal Ideation Homicidal Ideation: No Goal/Treatment Plan - Goal/Treatment Plan Need for Continued Stay: Remain at risks for inpatient hospitalization, Severe depression anxiety, Discharge may exacerbated symptoms, Severe functional impa irment Progress Toward Problem(s) and Goals/Treatment Plan: milieu/structure/supportive therapy Divalproex [Depakote DR(*BID*)] 500 mg PO bid and 500mg hs for mood stabilizat ion depakote level was 33 QUEtiapine [SEROquel] 200mg at the morning time in 300 mg at the nighttime for psychosis possible injectable form of meds will give PRN meds Medical consult appreciated, see medical team note for more detailed info SW consultation for discharge plan and social issues Family involvement Follow up on labs Will monitor closely Pt was educated about risk/benefits and alternatives of medications, coping strategies (safety plan, suicide prevention), relapse prevention, importance of follow up with psychiatrist and therapist, stay away from drugs/alcohol/smoking Estimated Date of D/C: 07/30/18
--- NOTE | 2018-07-29 16:02 | PCM.BM ---
<Leticia Hanson Y - Last Filed: 07/29/18 16:02> Treatment Plan Problems - Problems identified on initial assessmt Problem 2 Date Initiated: 07/21/18 Time Initiated: 17:06 Assessment reference: NA Status: Active Problem 3 Date Initiated: 07/21/18 Time Initiated: 17:07 Assessment reference: NA Status: Active Priority: 3 Anxiety Date Initiated: 07/21/18 Time Initiated: 17:04 Assessment reference: NA Status: Active Priority: 1 Visual hallucination Date Initiated: 07/21/18 Time Initiated: 17:07 Assessment reference: NA Status: Active Priority: 4 high risk for violence Date Initiated: 07/21/18 Time Initiated: 17:09 Assessment reference: NA Priority: 5 Treatment assets and liabiliti Patient Assests: motivated, self-reliant, ADL independent, physically healthy, negotiates basic needs Patient Liabilities: live alone, financial problems, poor support system, substance abuse, medical problems - Milieu Protocol Maintain good personal hygiene: daily Encourage regular showers, daily Remind patient to perform daily oral care, daily Assist patient to perform ADL's Maintain personal safety: every shift Educate patient to report safety concerns to staff, every shift Monitor environment for contraband/sharps Medication safety: Monitor for expected outcome, potential side effects: every shift, Assess barriers to learning: every shift, Assess readiness for medication education: every shift Milieu Narrative: milieu/structure/supportive therapy Divalproex [Depakote DR(*BID*)] 500 mg PO bid and 500mg hs for mood stabilizatio n depakote level was 33 QUEtiapine [SEROquel] 200mg at the morning time in 300 mg at the nighttime for psychosis possible injectable form of meds will give PRN meds Medical consult appreciated, see medical team note for more detailed info SW consultation for discharge plan and social issues Family involvement Follow up on labs Will monitor closely Pt was educated about risk/benefits and alternatives of medications, coping strategies (safety plan, suicide prevention), relapse prevention, importance of follow up with psychiatrist and therapist, stay away from drugs/alcohol/smoking Family Contact Family involvement: Famliy/SO not involved - Goals for Treatment Patient goals for treatment: "I want to go to [facility]." Discharge/Continuing Care - Education Needs Education Needs: Patient Medication, Patient Diagnosis/Disease Process, Patient Coping Skills, Patient Anger Management skills, Patient Placement options, Patient Community resources, Patient Activities of Daily Living, Patient Nutrit ion, Patient Health Practices/Safety, Patient Personal Hygiene/Grooming, Patient Aftercare Safety Plan - Discharge Discharge Criteria: Tolerates medication w/o severe side effects, Free of agitation, Normal sleep pattern, Reduction of target symptoms Discharge to:: [facility] - Treatment Team Participation Patient/Family/SO Statement: milieu/structure/supportive therapy Divalproex [Depakote DR(*BID*)] 500 mg PO bid and 500mg hs for mood stabilization depakote level was 33 QUEtiapine [SEROquel] 200mg at the morning time in 300 mg at the nighttime for psychosis possible injectable form of meds will give PRN meds Medical consult appreciated, see medical team note for more detailed info SW consultation for discharge plan and social issues Family involvement Follow up on labs Will monitor closely Pt was educated about risk/benefits and alternatives of medications, coping strategies (safety plan, suicide prevention), relapse prevention, importance of follow up with psychiatrist and therapist, stay away from drugs/alcohol/smoking Treatment Plan Review - Problem Problem 2 Time Initiated: 17:06 Problem 3 Time Initiated: 17:07 Anxiety Time Initiated: 17:04 Visual hallucination Time Initiated: 17:07 high risk for violence Time Initiated: 17:09 <Isabel Jacobs - Last Filed: 07/29/18 16:44> - Diagnosis (1) Schizophrenia Status: Acute Interventions: 07/29/18 16:42 atient improved significantly Still guarded Meds adjusted today Patient denied thoughts of harming herself or others Patient is more visible in the unit Patient denied thoughts of harming herself or others (2) Cocaine abuse Status: Chronic Interventions: 07/29/18 16:43 patient denies any cravings [facility] Patient does not have any withdrawal symptoms Patient needs to go to AA meetings and NA meetings
--- NOTE | 2018-07-29 16:54 | PCM.BM ---
Treatment Plan Problems - Problems identified on initial assessmt Problem 2 Date Initiated: 07/21/18 Time Initiated: 17:06 Assessment reference: NA Status: Active Problem 3 Date Initiated: 07/21/18 Time Initiated: 17:07 Assessment reference: NA Status: Active Priority: 3 Anxiety Date Initiated: 07/21/18 (MOOD HAS MORE IMPROVED ,SOME IRRITABILITY AT TIMES) Time Initiated: 17:04 Assessment reference: NA Status: Active Priority: 1 Visual hallucination Date Initiated: 07/21/18 (DENIES A/V HALLUCINATION) Time Initiated: 17: Date resolved: 07/29/18 Assessment reference: NA Status: Active Priority: 4 high risk for violence Date Initiated: 07/21/18 Time Initiated: 17:09 Assessment reference: NA Priority: 5 Treatment assets and liabiliti Patient Assests: motivated, self-reliant, ADL independent, physically healthy, negotiates basic needs Patient Liabilities: live alone, financial problems, poor support system, substance abuse, medical problems - Milieu Protocol Maintain good personal hygiene: daily Encourage regular showers, daily Remind patient to perform daily oral care, daily Assist patient to perform ADL's Maintain personal safety: every shift Educate patient to report safety concerns to staff, every shift Monitor environment for contraband/sharps Medication safety: Monitor for expected outcome, potential side effects: every shift, Assess barriers to learning: every shift, Assess readiness for medication education: every shift Milieu Narrative: milieu/structure/supportive therapy Divalproex [Depakote DR(*BID*)] 500 mg PO bid and 500mg hs for mood stabilization depakote level was 33 QUEtiapine [SEROquel] 200mg at the morning time in 300 mg at the nighttime for psychosis possible injectable form of meds will give PRN meds Medical consult appreciated, see medical team note for more detailed info SW consultation for discharge plan and social issues Family involvement Follow up on labs Will monitor closely Pt was educated about risk/benefits and alternatives of medications, coping strategies (safety plan, suicide prevention), relapse prevention, importance of follow up with psychiatrist and therapist, stay away from drugs/alcohol/smoking Family Contact Family involvement: Famliy/SO not involved - Goals for Treatment Patient goals for treatment: "I want to go to [facility]." Discharge/Continuing Care - Education Needs Education Needs: Patient Medication, Patient Diagnosis/Disease Process, Patient Coping Skills, Patient Anger Management skills, Patient Placement options, Patient Community resources, Patient Activities of Daily Living, Patient Nutrition, Patient Health Practices/Safety, Patient Personal Hygiene/Grooming, Patient Aftercare Safety Plan - Discharge Discharge Criteria: Tolerates medication w/o severe side effects, Free of agitation, Normal sleep pattern, Reduction of target symptoms [facility] Team Participation Patient/Family/SO Statement: milieu/structure/supportive therapy Divalproex [Depakote DR(*BID*)] 500 mg PO bid and 500mg hs for mood s tabilization depakote level was 33 QUEtiapine [SEROquel] 200mg at the morning time in 300 mg at the nighttime for psychosis possible injectable form of meds will give PRN meds Medical consult appreciated, see medical team note for more detailed info SW consultation for discharge plan and social issues Family involvement Follow up on labs Will monitor closely Pt was educated about risk/benefits and alternatives of medications, coping strategies (safety plan, suicide prevention), relapse prevention, importance of follow up with psychiatrist and therapist, stay away from drugs/alcohol/smoking Treatment Plan Review - Problem Problem 2 Time Initiated: 17:06 Problem 3 Time Initiated: 17:07 Anxiety Time Initiated: 17:04 Visual hallucination Time Initiated: 17:07 high risk for violence Time Initiated: 17:09
[2018-07-29] MEDS ORDERED: Divalproex 500 mg ER (ONCE DAILY formulation) PO SCH (22:00)
[2018-07-30 07:31] VITALS: BP 109/62; PULSE 72; TEMP 98.1
[2018-07-30] MEDS: Multivitamin Therapeutic Tab PO SCH (10:06)
[2018-07-30] MEDS: Divalproex 250 mg DR (BID formulation) PO SCH (10:06)
--- NOTE | 2018-07-30 18:04 | PCM.PYCHDC ---
Mental Status Examination - Mental Status Examination Orientation: Person, Place, Situation, Time Memory: Intact Mood: Neutral Affect: Constricted (but reactive and mood congruent) Speech: Appropriate (at times overproductive) Attention: Poor (much improved) Concentration: Poor (much improved) Association: Loose (baseline) Fund of Knowledge: Poor (baseline) Formal Thought Process: Delusions (hronic), Paranoia (chronic), Other (overall improved significantly) Description of patient's judgement and insight: Pt has improved insight into mental and medical illness, pt was compliant with medications and unit rules and regulations, pt was going to groups, was calm, cooperative, socially appropriate, no behavioral incidents, no agitation, no aggression. Psychotic Thoughts and Behaviors: Pt denied v/a/t hallucinations, denied paranoid ideations, pt does not appear to be psychotic, and thought process is goal directed. Suicidal Ideation: No Current Homicidal Ideation?: No Plan: pt adamantly denied thoughts of harming self or others denied intent or plan. Discharge Summary - Discharge Note Reason for Hospitalization: pt was admitted to the psych unit for evaluation of bizarre behavior, disorganized thoughts, pt was noncompliant with meds. pt was willing to get treatment and pt requested to be "adopted". Psychiatric History (includes Medical, Family, Personal Hx): see HPI Laboratory Data: 07/21/18 05:00 07/21/18 05:00 Lab Results 07/28/18 12:15: Valproic Acid 33 L 07/27/18 15:45: Urine Color Yellow, Urine Appearance Clear, Urine pH 6.0, Ur Specific [place] 1.010, Urine Protein Negative, Urine Glucose (UA) Negative, Urine Ketones Negative, Urine Blood Negative, Urine Nitrate Negative, Urine Bilirubin Negative, Urine Urobilinogen 0.2, Ur Leukocyte Esterase Negative 07/22/18 08:00: RPR Nonreactive 07/22/18 08:00: Valproic Acid < 10 L 07/22/18 08:00: Free T4 0.93, TSH 3rd Generation 1.38 07/22/18 08:00: Fasting Glucose 131 H, Triglycerides 55, Cholesterol 82 L, LDL Cholesterol Direct 46, HDL Cholesterol 18 L 07/21/18 11:45: POC Glucose (mg/dL) 93 07/21/18 09:56: Urine Color Yellow, Urine Appearance Clear, Urine pH 6.0, Ur Specific [place] 1.020, Urine Protein Negative, Urine Glucose (UA) Negative, Urine Ketones Negative, Urine Blood Negative, Urine Nitrate Negative, Urine Bilirubin Negative, Urine Urobilinogen 0.2, Ur Leukocyte Esterase Small H, Urine RBC 0 - 2, Urine WBC 5 - 10, Ur Epithelial Cells 6 - 8, Urine Bacteria Many, Urine Other Uyeast 07/21/18 09:56: Urine Opiates Screen Negative, Urine Methadone Screen Negative, Ur Barbiturates Screen Negative, Ur Phencyclidine Scrn Negative, Ur Amphetamines Screen Negative, U Benzodiazepines Scrn Negative, U Oth Cocaine Metabols Positive H, U Cannabinoids Screen Negative 07/21/18 05:01: POC Glucose (mg/dL) 83 07/21/18 05:00: Alcohol, Quantitative < 10 07/21/18 05:00: WBC 5.2 D, RBC 4.39, Hgb 12.4, Hct 37.6, MCV 85.6, MCH 28.2, MCHC 33.0, RDW 17.4 H, Plt Count 212, MPV 9.9 07/21/18 05:00: Sodium 142, Potassium 4.1, Chloride 105, Carbon Dioxide 27, Anion Gap 15, BUN 17, Creatinine 0.9, Est GFR ( Amer) > 60, Est GFR (Non- Af Amer) > 60, Random Glucose 84, Calcium 9.7, Total Bilirubin 0.5, AST 29, ALT 29, Alkaline Phosphatase 62, Total Protein 8.4 H, Albumin 4.6, Globulin 3.8, Albumin/Globulin Ratio 1.2 Vital Signs Temp Pulse Resp BP Pulse Ox 07/30/18 07:29 98.1 F 72 20 109/62 07/29/18 06:52 97.8 F 64 20 120/70 07/28/18 15:00 121 H 120/75 07/28/18 07:32 98.4 F 76 20 125/58 L 07/26/18 15:56 116 H 112/73 07/25/18 15:33 109 H 137/82 07/25/18 06:52 97.3 F L 81 18 128/86 07/24/18 16:00 97 H 109/73 07/24/18 07:09 96.7 F L 75 20 116/63 09/25/18 16:00 102 H 120/76 07/23/18 07:00 97.7 F 85 19 153/68 H 07/22/18 16:00 85 128/79 07/22/18 07:15 97.4 F L 79 20 114/72 07/21/18 12:01 99.2 F 82 18 129/79 97 07/21/18 11:52 99.2 F 82 18 126/79 97 07/21/18 10:23 99.2 F 82 18 142/80 98 07/21/18 07:45 99 F 82 16 132/79 97 07/21/18 03:52 98.6 F 89 18 133/78 98 Consultations:: List each consultation separately and include: 1. Reason for request. 2. Findings. 3. Follow-up Consultations: medical consult appreciated. please see notes for more detailed information Summary of Hospital Course include:: 1. Description of specific treatment plan utilized for patients during their course of treatmen. 2. Summarize the time- course for resolution of acute symptoms and/or regressed behaviors. 3. Describe issues identified and worked on during hospitalization. 4. Describe medication utilized. 5. Describe medical problems identified and treated. 6. Reassessment of suicide risk Summary of Hospital Course: shortly patient is 53 year old -S[place]i female with reported history of schizophrenia paranoid type versus schizoaffective disorder, patient has mu iple psychiatric admissions in the past most recent was here in [place] two weeks ago, pt needed to be transferred to the medical site for IV abx for UTI, pt then refused to be transferred back to psych unit, was d/c with meds and f/u appt, pt came back to the hospital being disorganized, was noncompliance with meds, in ED pt presented to be disorganized, admitted using drugs alcohol, marijuana and crack cocaine, had difficulties focusing, poor hygiene, pt might benefit from further evaluation and stabilization, meds resumption and titration. pt was seen at the treatment team meeting, chart reviewed, discussed with RNs and tx team. acceptable hygiene, fair ADLs. as per report pt wanted to be "adopted" wrote a letter with her "IDEAS" for this hospitalization: "staff have donate clothing from their families closet including winter coats, snow boots, -bingo for prizes money -dog therapy -music charts -coffee at night -art therapy -nail/dilcia groups -buy a kit with nail gu[place]" pt obviously in manic stage, pressured speech, irrational statements, pt asked to be "adopted", when was asked how old the pt is, pt said "so what, I need someone who will take care of me and helping me with decisions". pt also presented to be psychotic, said she saw a "monkey with the shorts, I talk to it at the morning". pt is hard to interview because of disorganized thoughts and behavior. as per staff pt also sexually preoccupied, needs redirections. pt said that her meds were stolen and she was not taking any meds. pt reported to use "marijuana that is all", but when was asked why she brought self to the hospital pt said "I came here to detox from cocaine". last admission two weeks ago pt was threatening, was agitated, jodi pelaez called. patient has fair ADLs, good hygiene. pt smokes a bout a pack a day, nicotine patch was offered, counseling provided. Past medical history: RLE DVT, DM, Sickle cell trait, patient had h/o urinary tract infection, medical team was called, consult appreciated. past psychiatric history patient was discharged from this facility at the beginning of this month, patient also was [facility] from [facility] less than a month ago. as per pharmacy report patient was on the following medications: Seroquel will be resumed with the smaller doses Depakote was resumed When necessary medications patient denied history of being abused 07/21/18 05:00 07/21/18 05:00 Lab Results 07/22/18 08:00: Valproic Acid < 10 L 07/22/18 08:00: Free T4 0.93, TSH 3rd Generation 1.38 07/22/18 08:00: Fasting Glucose 131 H, Triglycerides 55, Cholesterol 82 L, LDL Cholesterol Direct 46, HDL Cholesterol 18 L 07/21/18 11:45: POC Glucose (mg/dL) 93 07/21/18 09:56: Urine Color Yellow, Urine Appearance Clear, Urine pH 6.0, Ur Specific [place] 1.020, Urine Protein Negative, Urine Glucose (UA) Negative, Urine Ketones Negative, Urine Blood Negative, Urine Nitrate Negative, Urine Bilirubin Negative, Urine Urobilinogen 0.2, Ur Leukocyte Esterase Small H, Urine RBC 0 - 2, Urine WBC 5 - 10, Ur Epithelial Cells 6 - 8, Urine Bacteria Many, Urine Other Uyeast 07/21/18 09:56: Urine Opiates Screen Negative, Urine Methadone Screen Negative, Ur Barbiturates Screen Negative, Ur Phencyclidine Scrn Negative, Ur Amphetamines Screen Negative, U Benzodiazepines Scrn Negative, U Oth Cocaine Metabols Positive H, U Cannabinoids Screen Negative 07/21/18 05:01: POC Glucose (mg/dL) 83 07/21/18 05:00: Alcohol, Quantitative < 10 07/21/18 05:00: WBC 5.2 D, RBC 4.39, Hgb 12.4, Hct 37.6, MCV 85.6, MCH 28.2, MCHC 33.0, RDW 17.4 H, Plt Count 212, MPV 9.9 07/21/18 05:00: Sodium 142, Potassium 4.1, Chloride 105, Carbon Dioxide 27, Anion Gap 15, BUN 17, Creatinine 0.9, Est GFR ( Amer) > 60, Est GFR (Non- Af Amer) > 60, Random Glucose 84, Calcium 9.7, Total Bilirubin 0.5, AST 29, ALT 29, Alkaline Phosphatase 62, Total Protein 8.4 H, Albumin 4.6, Globulin 3.8, Albumin/Globulin Ratio 1.2 Vital Signs Temp Pulse Resp BP Pulse Ox 07/22/18 07:15 97.4 F L 79 20 114/72 07/21/18 12:01 99.2 F 82 18 129/79 97 07/21/18 11:52 99.2 F 82 18 126/79 97 07/21/18 10:23 99.2 F 82 18 142/80 98 07/21/18 07:45 99 F 82 16 132/79 97 07/21/18 03:52 98.6 F 89 18 133/78 98 Family history of mental illness is unknown patient was stabilized on the following medications: Divalproex [Depakojanneth GREER(*BID*)] 500 mg PO bid and 500mg hs for mood stabilization depakote level was 33 QUEtiapine [SEROquel] 200mg at the morning time in 300 mg at the nighttime for psychosis patient tolerated medications well, no side effects observed or reported, aims 0, no EPS. Patient improved significantly,Psychosis is much better, but still patient has residual symptoms such as paranoia and disorganized thoughts. Over the course of this hospitalization pt was attending groups, pt also had medication management, had therapeutic milieu. Soon pt deemed to be ready for discharge. At the time of the discharge pt denied been depressed, denied thoughts of harming self or others, pt still has residual symptoms of paranoia and disorganized thoughts, but pt is much calmer, pleasant, denied been anxious, pt is not in imminent danger to self or others, pt will be f/u with outpatient program, information about follow up appointment, time and address provided to the pt, it is patient responsibility to follow up with outpatient clinic, PMD as well as specialists (see SW note for more detailed information). In case pt will need to obtain results of studies pending at discharge pt was provided with contact information of Psychiatric Inpatient unit [phone] as well as Medical Record Department [phone]. Naltrexone treatment not indicated at this time. Counseling about smoking and alcohol cessation provided AA meetings as well as smoking cessation treatment program information was provided by the pt was provided with prescriptions for all of medications (please see medication reconciliation form) Pt was educated about safety plan in case of worsening of symptoms or in case of suicidal or homicidal ideation call 911 or go to the nearest ER, also was educated to take meds as prescribed and stay away from drugs, pt verbalized understanding. - Diagnosis (1) Schizophrenia Status: Chronic Priority: High (2) Cocaine abuse Status: Chronic Priority: High - Final Diagnosis (DSM 5) Condition upon Discharge: IMPROVED Disposition: HOME/ ROUTINE Follow-up Treatment Plan: At the time of the discharge pt denied been depressed, denied thoughts of harming self or others, pt still has residual symptoms of paranoia and disorganized thoughts, but pt is much calmer, pleasant, denied been anxious, pt is not in imminent danger to self or others, pt will be f/u with outpatient program, information about follow up appointment, time and address provided to the pt, it is patient responsibility to follow up with outpatient clinic, PMD as well as specialists (see SW note for more detailed information). In case pt will need to obtain results of studies pending at discharge pt was provided with contact information of Psychiatric Inpatient unit [phone] as well as Medical Record Department [phone]. Naltrexone treatment not indicated at this time. Counseling about smoking and alcohol cessation provided AA meetings as well as smoking cessation treatment program information was provided by the ANGE pt was provided with prescriptions for all of medications (please see medication reconciliation form) Pt was educated about safety plan in case of worsening of symptoms or in case of suicidal or homicidal ideation call 911 or go to the nearest ER, also was educated to take meds as prescribed and stay away from drugs, pt verbalized understanding. Prescriptions/Medication Reconciliation: Albuterol HFA [Ventolin HFA 90 mcg/actuation (8 g)] 2 puff IH [id number] PRN #1 inhaler PRN Reason: Shortness Of Breath Divalproex [Depakote DR (*BID*)] 500 mg PO TID #45 tcp Folic Acid 1 mg PO DAILY #14 tab Gabapentin [Neurontin] 300 mg PO TID #45 cap Multivitamin Therapeutic Tab [Thera Tab] 1 tab PO 0800 #14 tab Nicotine 21 mg/24 hr [Nicoderm Cq] 1 patch TD DAILY #14 patch Quetiapine Fumarate [Seroquel] 200 mg PO DAILY #14 tablet Quetiapine Fumarate [Seroquel] 300 mg PO HS #14 tab Thiamine [Vitamin B1 Tab] 100 mg PO DAILY #14 tab - Smoking Cessation Smoking Cessation Medication prescribed: Yes - Antipsychotic Medications Pt discharged on 2 or more routine antipsychotic medications: No
== END 2018-07-30 11:14 | disposition home or self-care (01) | DRG 430 ==
LOC: ED 03:45 → ERH 11:19 → PSYC 12:14
PROVIDERS: ADMIT Psychiatry & Neurology Psychiatry; ATTEND Psychiatry & Neurology Psychiatry
DX: F20.0 Paranoid schizophrenia (principal); D57.1 Sickle-cell disease without crisis; F14.10 Cocaine abuse, uncomplicated; J44.9 Chronic obstructive pulmonary disease, unspecified; E11.9 Type 2 diabetes mellitus without complications; F17.210 Nicotine dependence, cigarettes, uncomplicated; Z86.718 Personal history of other venous thrombosis and embolism; Z91.14 Patient's other noncompliance with medication regimen; Z87.01 Personal history of pneumonia (recurrent); Z87.440 Personal history of urinary (tract) infections; Z80.0 Family history of malignant neoplasm of digestive organs

== ENCOUNTER 2018-08-01 18:25 | Emergency (ER) | payer MEDICAID ==
[2018-08-01 18:52] VITALS: BMI 30.2
--- NOTE | 2018-08-01 20:01 | ED PDOC ---
Arrival/HPI - General Chief Complaint: Psychiatric Evaluation Time Seen by Provider: 08/01/18 18:42 - History of Present Illness Narrative History of Present Illness (Text): 08/01/18 19:58 53 yo female, hx of schizoprhenia, presetns from from [facility]. pt was apparently walked into police stations, stating " i need help". long standing h/o of schizoprhenia, substance abuase. at bedside, pt is at times agiated with staff, later calm cooperative. denies medical complaints. reports etoh use. no drug use. 08/01/18 20:00 Past Medical History - Past History Past History: No Previous - Infectious Disease Hx of Infectious Diseases: None - Tetanus Immunization Tetanus Immunization: Unknown - Cardiac Hx Cardiac Disorders: No - Pulmonary Hx Respiratory Disorders: No - Neurological Hx Neurological Disorder: No - HEENT Hx HEENT Disorder: No - Renal Hx Renal Disorder: No - Endocrine/Metabolic Hx Endocrine Disorders: Yes Hx Diabetes Mellitus Type 2: Yes - Hematological/Oncological Hx Blood Disorders: No - Integumentary Hx Dermatological Disorder: Yes Other/Comment: fungus to bilat feet per pt - Musculoskeletal/Rheumatological Hx Musculoskeletal Disorders: No - Gastrointestinal Hx Gastrointestinal Disorders: No - Genitourinary/Gynecological Hx Genitourinary Disorders: Yes Hx Sexually Transmitted Diseases: Yes - Psychiatric Hx Psychophysiologic Disorder: Yes Hx Bipolar Disorder: Yes Hx Schizophrenia: Yes Hx Substance Use: Yes - Past Surgical History Past Surgical History: No Previous - Anesthesia Hx Anesthesia: No Hx Anesthesia Reactions: No Hx Malignant Hyperthermia: No - Suicidal Assessment Feels Threatened In Home Enviroment: No Family/Social History Family/Social History: Unknown Family HX Smoking Status: Current Some Days Smoker Hx Alcohol Use: Yes Hx Substance Use: Yes Substance used: crack Hx Substance Use Treatment: Yes Allergies/Home Meds Allergies/Adverse Reactions: Allergies No Known Allergies Allergy (Verified 07/25/18 01:23) Review of Systems - Review of Systems Systems not reviewed;Unavailable: Intoxicated Constitutional: Normal Eyes: Normal ENT: Normal Respiratory: Normal Cardiovascular: Normal Gastrointestinal: Normal Genitourinary Female: Normal Musculoskeletal: Normal Skin: Normal Neurological: Normal Endocrine: Normal Hemo/Lymphatic: Normal Psychiatric: Normal Physical Exam Vital Signs Temp Pulse Resp BP Pulse Ox 08/01/18 19:50 93 F L 93 H 19 131/84 99 Temperature: Afebrile Blood Pressure: Normal Pulse: Regular Respiratory Rate: Normal Appearance: Positive for: Well-Appearing, Non-Toxic, Comfortable Pain Distress: None Mental Status: Positive for: Alert and Oriented X 3 - Systems Exam Head: Present: Atraumatic, Normocephalic Pupils: Present: PERRL Extroacular Muscles: Present: EOMI Conjunctiva: Present: Normal Mouth: Present: Moist Mucous Membranes Neck: Present: Normal Range of Motion Respiratory/Chest: Present: Clear to Auscultation, Good Air Exchange. No: Respiratory Distress, Accessory Muscle Use Cardiovascular: Present: Regular Rate and Rhythm, Normal S1, S2. No: Murmurs Abdomen: No: Tenderness, Distention, Peritoneal Signs Back: Present: Normal Inspection Upper Extremity: Present: Normal Inspection. No: Cyanosis, Edema Lower Extremity: Present: Normal Inspection. No: Edema Neurological: Present: GCS=15, CN II-XII Intact, Speech Normal Skin: Present: Warm, Dry, Normal Color. No: Rashes Psychiatric: Present: Alert, Oriented x 3, Normal Insight, Normal Concentration, Anxious, Agitated (at time, deana calm), Intoxicated Disposition/Present on Arrival - Present on Arrival History of DVT/PE: Yes History of Uncontrolled Diabetes: No Urinary Catheter: No History of Decub. Ulcer: No History Surgical Site Infection Following: None - Disposition
--- NOTE | 2018-08-01 21:50 | ED PDOC ---
Physical Exam Vital Signs Reviewed: Yes Vital Signs Temp Pulse Resp BP Pulse Ox 08/01/18 19:50 93 F L 93 H 19 131/84 99 Temperature: Afebrile Blood Pressure: Normal Pulse: Regular Respiratory Rate: Normal Appearance: Positive for: Well-Appearing, Non-Toxic, Comfortable Pain Distress: None Mental Status: Positive for: Alert and Oriented X 3 Finger Stick Blood Glucose: 120 Medical Decision Making ED Course and Treatment: 08/01/18 20:49: Patient endorsed to me by Dr. Cisneros. Patient pending PES evaluation and medical clearance. 08/01/18 21:44: Patient was seen and evaluated by PES. Patient is psychiatrically cleared. Pt 08/01/18 22:00: Pt refusing lab work. I endorsed to patient importance of medical clearance prior to d/c. Patient aggressive and combative after hearing need for labs- pt notes that she wants to haldol or else she will "come for me." Patient approached provider in aggresive stance and was held back by security. Given agressive behavior will sedate with haldol and ativan and seek labs for medical clearance and re-seek PES evaluation. 08/02/18 0700 No meningeal signs on my exam. NO trauma. Difficulty attaining urine from pt: straight cath done ~2 hours prior. UDS +cocaine endorsed to pt to stop cocaine usage Medically clear. EKG: Ordered, reviewed, and independently interpreted the EKG. Rate : 77 BPM Rhythm : NSR Interpretation : No STEMI. 08/02/18 0700 Signed out to oncoming provider. Dr. Obando pending PES re-evaluation. - Lab Interpretations Lab Results: Lab Results 08/01/18 19:47: POC Glucose (mg/dL) 125 H - Scribe Statement The provider has reviewed the documentation as recorded by the Scribe Hemalatha Gamboa Provider Scribe Attestation: All medical record entries made by the Scribe were at my direction and personally dictated by me. I have reviewed the chart and agree that the record accurately reflects my personal performance of the history, physical exam, medical decision making, and the department course for this patient. I have also personally directed, reviewed, and agree with the discharge instructions and disposition. Disposition/Present on Arrival - Present on Arrival Any Indicators Present on Arrival: No History of DVT/PE: Yes History of Uncontrolled Diabetes: No Urinary Catheter: No History of Decub. Ulcer: No History Surgical Site Infection Following: None - Disposition Have Diagnosis and Disposition been Completed?: No Diagnosis: Schizophrenia, Psychiatric care [place] [facility] [place]: 07:00 Condition: GOOD Forms: [facility] (Scottish)
[2018-08-02 00:29] LABS: BASO # 0.03 K/mm3 (0.0-2.0); BASO % 0.4 % (0.0-3.0); EOS # 0.2 (0.0-0.7); EOS % 3.5 % (1.5-5.0); GRAN # 2.99 (1.4-6.5); HEMOGLOBIN 11.8 g/dL (12.0-16.0); LYMPH # 2.9 (1.2-3.4); LYMPH % 42.5 % (22.0-35.0); MEAN CELL VOLUME 85.5 fl (80.0-105.0); MEAN CORPUSCULAR HGB CONC 32.8 g/dl (31.0-37.0); MEAN PLATELET VOLUME 11.8 fl (7.0-11.0); MONO # 0.7 (0.1-0.6); MONO % 9.6 % (1.0-6.0); RBC 4.21 10^6/uL (3.5-6.1); RED CELL DISTRIBUTION WIDTH 16.9 % (11.5-14.5); WHITE BLOOD COUNT 6.8 10^3/ul (4.5-11.0)
[2018-08-02 01:04] LABS: ALB/GLOB RATIO 1.3 (1.1-1.8); ALBUMIN 4.6 g/dL (3.0-4.8); ALT/SGPT 32 U/L (7-56); AST/SGOT 37 U/L (14-36); BLOOD UREA NITROGEN 20 mg/dL (7-21); GFR NON-AFRICAN AMERICAN > 60
[2018-08-02 01:06] LABS: ACETAMINOPHEN < 10.0 ug/ml (10.0-20.0); SALICYLATE < 1 mg/dL (2.0-20.0)
[2018-08-02 05:01] LABS: URINE BILIRUBIN NEGATIVE (NEGATIVE); URINE BLOOD NEGATIVE (NEGATIVE); URINE GLUCOSE (UA) NEGATIVE (NEGATIVE); URINE LEUKOCYTE ESTERASE NEGATIVE Leu/uL (NEGATIVE); URINE PROTEIN TRACE mg/dL (<30 mg/dL)
[2018-08-02 05:03] LABS: URINE APPEARANCE CLEAR (CLEAR); URINE COLOR YELLOW (YELLOW)
[2018-08-02 05:04] LABS: HCG,QUALITATIVE URINE NEGATIVE (NEGATIVE)
[2018-08-02 05:13] LABS: URINE EPITHELIAL CELLS 0 - 2 /hpf (0-5); URINE RBC 0 - 2 /hpf (0-2); URINE WBC 0 - 2 /hpf (0-6)
[2018-08-02 05:45] LABS: BARBITURATES, UR NEGATIVE (NEGATIVE); BENZODIAZEPINES, UR NEGATIVE (NEGATIVE); OPIATES, UR NEGATIVE (NEGATIVE); PHENCYCLIDINE, UR NEGATIVE (NEGATIVE)
--- NOTE | 2018-08-02 07:13 | ED PDOC ---
Physical Exam Vital Signs Temp Pulse Resp BP Pulse Ox 08/01/18 23:00 85 18 135/75 100 08/01/18 19:50 93 F L 93 H 19 131/84 99 Finger Stick Blood Glucose: 120 Medical Decision Making ED Course and Treatment: 08/02/18 07:11 Patient endorsed to me by . Pending psych evaluation. 08/02/18 11:11 Patient is medically cleared for psych evaluation and possible admission. 08/02/18 14:33 Patient signed transfer form. She was transferred to [facility] to be [facility] to [facility] because there were no beds available at [place]. I discussed this case with Dr. Phillips from [facility] ED. - Lab Interpretations Lab Results: 08/01/18 23:58 08/01/18 23:58 Lab Results 08/02/18 04:30: Urine Color Yellow, Urine Appearance Clear, Urine pH 6.0, Ur Specific [place] 1.020, Urine Protein Trace H, Urine Glucose (UA) Negative, Urine Ketones Negative, Urine Blood Negative, Urine Nitrate Negative, Urine Bilirubin Negative, Urine Urobilinogen 1.0 H, Ur Leukocyte Esterase Negative, Urine RBC 0 - 2, Urine WBC 0 - 2, Ur Epithelial Cells 0 - 2, Urine HCG, Qual Negative 08/02/18 04:30: Urine Opiates Screen Negative, Urine Methadone Screen Negative, Ur Barbiturates Screen Negative, Ur Phencyclidine Scrn Negative, Ur Amphetamines Screen Negative, U Benzodiazepines Scrn Negative, U Oth Cocaine Metabols Positive H, U Cannabinoids Screen Negative 08/01/18 23:58: Alcohol, Quantitative < 10 08/01/18 23:58: Salicylates < 1 L, Acetaminophen < 10.0 L 08/01/18 23:58: Sodium 143, Potassium 3.9, Chloride 101, Carbon Dioxide 32, Anion Gap 13, BUN 20, Creatinine 0.7, Est GFR ( Amer) > 60, Est GFR (Non- Af Amer) > 60, Random Glucose 88, Calcium 10.0, Magnesium 2.4 H, Total Bilirubin 0.5, AST 37 H D, ALT 32, Alkaline Phosphatase 58, Total Protein 8.2, Albumin 4.6, Globulin 3.6, Albumin/Globulin Ratio 1.3 08/01/18 23:58: WBC 6.8 D, RBC 4.21, Hgb 11.8 L, Hct 36.0, MCV 85.5, MCH 28.0, MCHC 32.8, RDW 16.9 H, Plt Count 165, MPV 11.8 H, Gran % 44.0 L, Lymph % (Auto) 42.5 H, [place] % (Auto) 9.6 H, Eos % (Auto) 3.5, Baso % (Auto) 0.4, Gran # 2.99, Lymph # (Auto) 2.9, [place] # (Auto) 0.7 H, Eos # (Auto) 0.2, Baso # (Auto) 0.03 08/01/18 19:47: POC Glucose (mg/dL) 125 H - RAD Interpretation Radiology Orders: 08/02/18 06:41 CHEST PORTABLE [RAD] Stat - Medication Orders Current Medication Orders: Discontinued Medications Haloperidol Lactate (Haldol) 5 mg IM STAT STA; Protocol Stop: 08/01/18 22:38 Last Admin: 08/01/18 23:30 Dose: 5 mg IM Administration Charges Document 08/01/18 23:30 AD (Rec: 08/02/18 01:06 AD [id number]) Injection Site MAR Injection Site Left Deltoid Charges for Administration # of IM Administrations 1 Lorazepam (Ativan) 1 mg IVP ONCE ONE; Protocol Stop: 08/01/18 22:40 Last Admin: 08/01/18 23:32 Dose: 1 mg IVP Administration Document 08/01/18 23:32 AD (Rec: 08/02/18 01:07 AD [id number]) Charges for Administration # of IVP Administrations 1 - Scribe Statement The provider has reviewed the documentation as recorded by the Catarinoibreema Guzmán Provider Scribe Attestation: All medical record entries made by the Scribe were at my direction and personally dictated by me. I have reviewed the chart and agree that the record accurately reflects my personal performance of the history, physical exam, medical decision making, and the department course for this patient. I have also personally directed, reviewed, and agree with the discharge instructions and disposition. Disposition/Present on Arrival - Present on Arrival Any Indicators Present on Arrival: Yes History of DVT/PE: Yes History of Uncontrolled Diabetes: No Urinary Catheter: No History of Decub. Ulcer: No History Surgical Site Infection Following: None - Disposition Have Diagnosis and Disposition been Completed?: Yes Diagnosis: Psychiatric care Disposition: [facility] Disposition Time: 11:11 Condition: GOOD Forms: [facility] (Belizean)
--- NOTE | 2018-08-02 07:30 | RAD ---
HISTORY: chest pain COMPARISON: Chest x-ray performed 07/21/18 TECHNIQUE: Chest, one view. FINDINGS: Examination limited by habitus. LUNGS: Interstitial prominence may reflect infection or edema. Right hilar prominence. Please note that chest x-ray has limited sensitivity for the detection of pulmonary masses. PLEURA: No significant pleural effusion identified. No definite pneumothorax . CARDIOVASCULAR: Cardiomegaly. OSSEOUS STRUCTURES: Degenerative changes. VISUALIZED UPPER ABDOMEN: Unremarkable. OTHER FINDINGS: None. IMPRESSION: Interstitial prominence may reflect infection or edema. Right hilar prominence. Cardiomegaly. Study marked for PA review view
[2018-08-02 08:43] VITALS: TEMP 98.2
[2018-08-02 11:49] VITALS: BP 112/72; PULSE 86; RESP 18; O2SAT 99
--- NOTE | 2018-08-02 14:55 | CARD ---
APPROVED REPORT Date of service: 08/02/2018 EKG Measurement Heart [id number] <Conclusion> Normal sinus rhythm Prolonged QT Abnormal ECG
== END 2018-08-02 11:55 | disposition short-term general hospital (02) ==
LOC: ED 18:25
DX: F20.9 Schizophrenia, unspecified (principal); E11.9 Type 2 diabetes mellitus without complications; Z00.8 Encounter for other general examination
CPT/HCPCS: 71045; 80053; 80320; 80324; 80329; 80345; 80346; 80349; 80353; 80358; 80361; 81001; 82948; 83735; 83992; 84703; 85025; 93005; 96372; 96374; 99285; J1630; J2060

== ENCOUNTER 2018-08-23 10:40 | Inpatient (IN) | payer MEDICAID ==
[2018-08-23 10:40] VITALS: BMI 30.2
--- NOTE | 2018-08-23 11:46 | ED PDOC ---
Arrival/HPI - General Chief Complaint: Psychiatric Evaluation Time Seen by Provider: 08/23/18 10:48 - History of Present Illness Narrative History of Present Illness (Text): 53 yr old female w/ hx of schizophrenia, substance abuse, malingering p/w psych eval. Pt notes that she needs a psych eval, given that she is thinking about hurting other people. She notes that if she does not get evaluated she has a plan to [place] people [place]. She notes that she was [place] [facility] [facility] [place] She notes being medically clear there to go home. She notes that she does not feel psychiatrically clear to go home. She denies any falls or BROCK. No trauma. No chest pain or sob. No abdominal pain. No constipation or diarrhea. No dark or bloody stool. No neck pain or stiffness. No fever, chills or night sweats. She denies any SI or ingestions after being discharged. No other complaints. Past Medical History - Past History Past History: No Previous - Infectious Disease Hx of Infectious Diseases: None - Tetanus Immunization Tetanus Immunization: Unknown - Reproductive Menopause: Yes - Cardiac Hx Hypertension: No - Pulmonary Hx Asthma: Yes Hx Bronchitis: Yes Hx Emphysema: Yes Hx Pneumonia: Yes - Neurological Hx Seizures: No - HEENT Hx HEENT Disorder: No - Renal Hx Renal Disorder: No - Endocrine/Metabolic Hx Endocrine Disorders: Yes Hx Diabetes Mellitus Type 2: Yes - Hematological/Oncological Hx Anemia: Yes Hx Sickle Cell Disease: Yes - Integumentary Hx Dermatological Disorder: Yes Other/Comment: fungus to bilat feet per pt - Musculoskeletal/Rheumatological Hx Musculoskeletal Disorders: No - Gastrointestinal Hx Gastrointestinal Disorders: No - Genitourinary/Gynecological Hx Sexually Transmitted Diseases: Yes - Psychiatric Hx Substance Use: Yes - Past Surgical History Past Surgical History: No Previous - Anesthesia Hx Anesthesia: No Hx Anesthesia Reactions: No Hx Malignant Hyperthermia: No - Suicidal Assessment Suicide Risk Precautions: Close Observation Family/Social History Family/Social History: Unknown Family HX Smoking Status: Current Some Days Smoker Hx Alcohol Use: Yes Hx Substance Use: Yes Substance used: crack Hx Substance Use Treatment: Yes Allergies/Home Meds Allergies/Adverse Reactions: Allergies No Known Allergies Allergy (Verified 08/02/18 13:05) Review of Systems - Review of Systems Constitutional: absent: Fatigue, Weight Change, Fevers, Night Sweats Eyes: absent: Vision Changes, Photophobia ENT: absent: Hearing Changes, Tinnitus, TMJ Pain, Voice Changes Respiratory: absent: SOB, Cough Cardiovascular: absent: Chest Pain, Palpitations, Edema Gastrointestinal: absent: Abdominal Pain, Stool Changes, Constipation, Vomiting, Appetite Changes, Anorexia, Food Intolerance Genitourinary Female: absent: Dysuria, Frequency, Hematuria, Urine Output Changes, Vaginal Bleeding, Vaginal Discharge Musculoskeletal: absent: Arthralgias, Back Pain Skin: absent: Rash Neurological: absent: Headache, Dizziness, Speech Changes, Facial Droop, Disequilibrium Endocrine: absent: Diaphoresis, Polyuria Hemo/Lymphatic: absent: Adenopathy, Easy Bleeding Psychiatric: Other (HI if she doesnt get evaled). absent: Anxiety Physical Exam Vital Signs Temp Pulse Resp Pulse Ox 08/23/18 11:05 98 F 85 19 100 Temperature: Afebrile Blood Pressure: Normal Pulse: Regular Respiratory Rate: Normal Appearance: Positive for: Well-Appearing Mental Status: Positive for: Alert and Oriented X 3 - Systems Exam Head: Present: Atraumatic, Normocephalic. No: Tenderness Pupils: Present: PERRL. No: Sluggish, Non-Reactive Extroacular Muscles: Present: EOMI. No: Gaze Palsy, Entrapment Conjunctiva: Present: Normal. No: Injected, Icteric Ears: Present: Normal, NORMAL TM, Normal Canal. No: Erythema, TM Bulging Mouth: Present: Moist Mucous Membranes. No: Dry, Drooling, Trismus Pharnyx: Present: Normal. No: ERYTHEMA, EXUDATE, TONSILS ENLARGED Nose (External): Present: Atraumatic. No: Abrasion, Contusion Nose (Internal): Present: Normal Inspection. No: Boggy, Clear Mucous, Septal Hematoma Neck: Present: Normal Range of Motion. No: Meningeal Signs, MIDLINE TENDERNESS Respiratory/Chest: Present: Clear to Auscultation, Good Air Exchange. No: Respiratory Distress, Accessory Muscle Use Cardiovascular: Present: Regular Rate and Rhythm, Murmurs, Normal S1, S2 Abdomen: No: Tenderness, Distention, Normal Bowel Sounds Back: Present: Normal Inspection. No: CVA Tenderness, Midline Tenderness Upper Extremity: Present: Normal Inspection, Normal ROM, NORMAL PULSES, Neurov ascularly Intact, Capillary Refill < 2s. No: Cyanosis, Edema Lower Extremity: Present: Normal Inspection, NORMAL PULSES, Normal ROM, Neurovascularly Intact, Capillary Refill < 2 s. No: Edema, CALF TENDERNESS Neurological: Present: GCS=15, CN II-XII Intact, Speech Normal, Motor Func Grossly Intact, Normal Sensory Function, Normal Cerebellar Funct, Gait Normal Skin: Present: Warm, Dry, Rashes, Normal Color Lymphatic: Present: Cervical Adenopathy Psychiatric: Present: Alert, Oriented x 3, Other (flat affect, pressured speech) Medical Decision Making ED Course and Treatment: 53 yr old female w/ hx of schizo, malingering, substance abuse p/w psych eval. Pt notes HI if she does not get evaled by psych. No fall or trauma. No BROCK or neck pain or stiffness. Normal neuro exam. No complaints of pain. 08/23/18 11:40 PES consult placed 08/23/18 12:02 EKG: Ordered, reviewed, and independently interpreted the EKG. Rate : 69 BPM Rhythm : NSR Interpretation : No stemi. 08/23/18 13:05 for admission per psych pending medically clear 08/23/18 13:47 medically clear. Cocaine + no stemi or tachy on ekg. no cp NAD Accepted to Psych per Jon: PES Disposition/Present on Arrival - Present on Arrival Any Indicators Present on Arrival: No History of DVT/PE: Yes History of Uncontrolled Diabetes: No Urinary Catheter: No History of Decub. Ulcer: No History Surgical Site Infection Following: None - Disposition Have Diagnosis and Disposition been Completed?: Yes Diagnosis: Schizophrenia Disposition: HOSPITALIZED Disposition Time: 13:16 Patient Problems: Current Active Problems Problem Status Onset Schizophrenia Acute Condition: GOOD
[2018-08-23 12:15] LABS: PH,URINE 6.5 (4.7-8.0); URINE BILIRUBIN NEGATIVE (NEGATIVE); URINE BLOOD NEGATIVE (NEGATIVE); URINE GLUCOSE (UA) NEGATIVE (NEGATIVE); URINE LEUKOCYTE ESTERASE NEGATIVE Leu/uL (NEGATIVE); URINE PROTEIN TRACE mg/dL (<30 mg/dL)
[2018-08-23 12:22] LABS: URINE APPEARANCE CLEAR (CLEAR); URINE COLOR YELLOW (YELLOW)
[2018-08-23 12:27] LABS: URINE BACTERIA MANY (NEG); URINE RBC 0 - 2 /hpf (0-2); URINE WBC 0 - 2 /hpf (0-6)
[2018-08-23 12:37] LABS: OPIATES, UR NEGATIVE (NEGATIVE); PHENCYCLIDINE, UR NEGATIVE (NEGATIVE)
[2018-08-23 12:50] LABS: BARBITURATES, UR NEGATIVE (NEGATIVE); BENZODIAZEPINES, UR NEGATIVE (NEGATIVE)
[2018-08-23 13:00] LABS: BASO # 0.01 K/mm3 (0.0-2.0); BASO % 0.2 % (0.0-3.0); EOS # 0.2 (0.0-0.7); EOS % 5.2 % (1.5-5.0); GRAN # 2.09 (1.4-6.5); HEMOGLOBIN 13.2 g/dL (12.0-16.0); LYMPH # 1.6 (1.2-3.4); LYMPH % 36.3 % (22.0-35.0); MEAN CORPUSCULAR HEMOGLOBIN 28.6 pg (25.0-35.0); MEAN CORPUSCULAR HGB CONC 32.8 g/dl (31.0-37.0); MEAN PLATELET VOLUME 10.4 fl (7.0-11.0); MONO # 0.5 (0.1-0.6); MONO % 11.3 % (1.0-6.0); RBC 4.62 10^6/uL (3.5-6.1); RED CELL DISTRIBUTION WIDTH 17.6 % (11.5-14.5); WHITE BLOOD COUNT 4.4 10^3/uL (4.5-11.0)
[2018-08-23 13:11] LABS: ALB/GLOB RATIO 1.3 (1.1-1.8); ALBUMIN 4.4 g/dL (3.0-4.8); ALT/SGPT 32 U/L (7-56); AST/SGOT 29 U/L (14-36); BLOOD UREA NITROGEN 16 mg/dL (7-21); CALCIUM 9.5 mg/dL (8.4-10.5); GFR NON-AFRICAN AMERICAN > 60
[2018-08-23 13:12] LABS: ACETAMINOPHEN < 10.0 ug/ml (10.0-20.0); SALICYLATE < 1 mg/dL (2.0-20.0)
[2018-08-23 14:42] VITALS: O2SAT 99
[2018-08-23] MEDS ORDERED: DiphenhydrAMINE 50 mg/ml Inj IM PRN (15:36)
--- NOTE | 2018-08-23 16:13 | PCM.BM ---
<JaimeShahzad - Last Filed: 08/23/18 16:07> Treatment Plan Problems - Problems identified on initial assessmt ALTERED THIUGH PROCESS Date Initiated: 08/23/18 Time Initiated: 16:14 Assessment reference: HP, Other Status: Active AUDITORY HALLUCINATIONS Date Initiated: 08/23/18 Time Initiated: 16:15 Assessment reference: HP, Other Status: Active MEDICATIONS NONADHERENCE Date Initiated: 08/23/18 Time Initiated: 16:16 Assessment reference: HP, Other Status: Active Treatment assets and liabiliti Patient Assests: adapts well, motivated, self-reliant, ADL independent, physically healthy, negotiates basic needs, other Patient Liabilities: live alone, financial problems, poor support system, substance abuse, unable to read/write - Milieu Protocol Maintain good personal hygiene: daily Encourage regular showers, daily Remind patient to perform daily oral care, daily Assist patient to perform ADL's Maintain personal safety: daily Educate patient to report safety concerns to staff, daily Monitor environment for contraband/sharps Medication safety: Monitor for expected outcome, potential side effects: daily, Assess barriers to learning: daily, Assess readiness for medication education: daily Discharge/Continuing Care - Education Needs Education Needs: Patient Medication, Patient Diagnosis/Disease Process, Patient Coping Skills, Patient Anger Management skills, Patient Community resources, Patient Activities of Daily Living, Patient Uses of Medical Equipment, Patient Health Practices/Safety, Patient Personal Hygiene/Grooming, Patient Aftercare Safety Plan, Patient Other (CONTROL ANGER OUTBURSTS) - Discharge Discharge Criteria: Free of Suicidal thoughts, Free of Homicidal thoughts, Free of paranoid thoughts, Free of agitation, Normal sleep pattern, Ability to care for self, Reduction of target symptoms <Allan Albarran - Last Filed: 08/24/18 09:56> - Diagnosis (1) Schizophrenia Status: Acute Interventions: Restart patient on her medications. Discharge medications from 07/30/18 included: * Depakote DR 500 mg PO TID * Neurontin 300 mg PO TID * Seroquel 200 mg PO DAILY * Seroquel 300 mg PO HS * Will restart/continue medications at following doses with plan to titrate: * Depakote DR 500 mg [facility] * Seroquel 100 mg [facility] * Neurontin 100 mg po TID * Prolixin 5 mg bid also started by Dr. Jacobs on 08/23/18 * Appreciate f/u by Dr. Mar today 08/24/18 * Nicotine patch started 21mg/patch for tobacco cessation * Also restarted: * Folic Acid 1 mg PO DAILY * Multivitamin Therapeutic Tab 1 tab PO 0800 * Thiamine 100 mg PO DAILY #14 tab * Group, milieu and supportive tx 08/24/18 09:55 (2) Cocaine abuse Status: Acute (3) Cocaine abuse Status: Chronic Interventions: 08/24/18 09:57 Restart patient on her medications. Discharge medications from 07/30/18 included: * Depakote DR 500 mg PO TID * Neurontin 300 mg PO TID * Seroquel 200 mg PO DAILY * Seroquel 300 mg PO HS * Will restart/continue medications at following doses with plan to titrate: * Depakote DR 500 mg [facility] * Seroquel 100 mg [facility] * Neurontin 100 mg po TID * Prolixin 5 mg bid also started by Dr. Jacobs on 08/23/18 * Appreciate f/u by Dr. Mar today 08/24/18 * Nicotine patch started 21mg/patch for tobacco cessation * Also restarted: * Folic Acid 1 mg PO DAILY * Multivitamin Therapeutic Tab 1 tab PO 0800 * Thiamine 100 mg PO DAILY #14 tab * Group, milieu and supportive tx <Renetta Rodrigez - Last Filed: 08/26/18 15:34>
[2018-08-23] MEDS: Divalproex 250 mg DR (BID formulation) PO SCH (22:09)
[2018-08-24] MEDS: Divalproex 250 mg DR (BID formulation) PO SCH ×4 (01:18→22:11)
[2018-08-24 07:14] VITALS: RESP 20
--- NOTE | 2018-08-24 08:14 | CP.PCM.CON ---
<Elkin Mar - Last Filed: 08/24/18 12:09> History of Present Illness - History of Present Illness History of Present Illness: Patient is a 53 year old female with a past medical history DM, sickle cell trait, depression, anxiety, and schizophrenia/paranoid, drug abuse, UTI with ESBL who was admitted to psychiatry. Medicine is being consulted for asthma. Patient currently denies any SOB, cough, fever, chills, nausea, vomiting, or any other complaints at this time. Patient is ambulating and denies any dsypnea. Past Medical History: DM, Sickle cell trait, depression, anxiety, schizophrenia/ paranoid, drug abuse Past Surgical History: IVC filter placement Family History: Mother at 89, father from pancreatic cancer Social History: 10 cigarets a day, 2 beers a day, crack cocaine cocaine Allergies: NKDA Review of Systems - Constitutional Constitutional: absent: Chills, Fatigue, Fever, Headache - EENT Eyes: absent: Blurred Vision, Change in Vision Ears: absent: Ear Discharge, Ear Pain - Cardiovascular Cardiovascular: absent: Chest Pain, Dyspnea - Respiratory Respiratory: absent: Cough, Dyspnea, Wheezing, Chest Congestion - Gastrointestinal Gastrointestinal: absent: Abdominal Pain, Bloating, Constipation, Diarrhea, Nausea, Vomiting - Genitourinary Genitourinary: absent: Difficulty Urinating - Musculoskeletal Musculoskeletal: absent: Atrophy, Muscle Weakness, Myalgias, Numbness, Tingling - Neurological Neurological: absent: Disequilibrium, Dizziness, Focal Weakness, Paresthesias, Vertigo, Weakness Past Patient History - Infectious Disease Hx of Infectious Diseases: None - Tetanus Immunizations Tetanus Immunization: Unknown - Past Medical History & Family History Past Medical History?: Yes - Past Social History Smoking Status: Current Some Days Smoker - CARDIAC Hx Hypertension: No - PULMONARY Hx Asthma: Yes Hx Bronchitis: Yes Hx Emphysema: Yes Hx Pneumonia: Yes - NEUROLOGICAL Hx Seizures: No - HEENT Hx HEENT Problems: No - RENAL Hx Chronic Kidney Disease: No - ENDOCRINE/METABOLIC Hx Endocrine Disorders: Yes Hx Diabetes Mellitus Type 2: Yes - HEMATOLOGICAL/ONCOLOGICAL Hx Anemia: Yes Hx Sickle Cell Disease: Yes - INTEGUMENTARY Hx Dermatological Problems: Yes Other/Comment: fungus to bilat feet per pt - MUSCULOSKELETAL/RHEUMATOLOGICAL Hx Musculoskeletal Disorders: No - GASTROINTESTINAL Hx Gastrointestinal Disorders: No - GENITOURINARY/GYNECOLOGICAL Hx Sexually Transmitted Disorders: Yes - PSYCHIATRIC Hx Bipolar Disorder: Yes Hx Schizophrenia: Yes Hx Substance Use: Yes - SURGICAL HISTORY Hx Surgeries: No - ANESTHESIA Hx Anesthesia: No Hx Anesthesia Reactions: No Hx Malignant Hyperthermia: No Meds Allergies/Adverse Reactions: Allergies Allergy/AdvReac Type Severity Reaction Status Date / Time No Known Allergies Allergy Verified 08/23/18 22:52 - Medications Medications: Current Medications Diphenhydramine HCl (Benadryl) 50 mg PO Q6 PRN PRN Reason: Agitation Last Admin: 08/24/18 01:19 Dose: 50 mg Diphenhydramine HCl (Benadryl) 50 mg IM Q6H PRN PRN Reason: Agitation Last Admin: 08/23/18 17:21 Dose: 50 mg Divalproex Sodium (Depakote Dr (*Bid*)) 250 mg PO [facility]; Protocol Last Admin: 08/24/18 01:18 Dose: 250 mg Fluphenazine HCl (Prolixin) 5 mg PO BID [facility]; Protocol Last Admin: 08/23/18 17:39 Dose: 5 mg Haloperidol (Haldol) 5 mg PO Q6 PRN; Protocol PRN Reason: Agitation Haloperidol Lactate (Haldol) 5 mg IM Q6H PRN; Protocol PRN Reason: Agitation Last Admin: 08/23/18 17:21 Dose: 5 mg Lorazepam (Ativan) 2 mg PO Q6 PRN; Protocol PRN Reason: Agitation Lorazepam (Ativan) 2 mg IM Q6H PRN; Protocol PRN Reason: Agitation Last Admin: 08/23/18 17:20 Dose: 2 mg Nicotine (Nicoderm Cq) 1 patch TD DAILY [facility] Quetiapine Fumarate (Seroquel) 100 mg PO [facility]; Protocol Last Admin: 08/24/18 01:18 Dose: 100 mg Physical Exam - Constitutional Appears: Well, Non-toxic, No Acute Distress - Head Exam Head Exam: ATRAUMATIC, NORMAL INSPECTION, NORMOCEPHALIC - Eye Exam Eye Exam: EOMI, Normal appearance, PERRL - ENT Exam ENT Exam: Mucous Membranes Moist - Respiratory Exam Respiratory Exam: Clear to Auscultation Bilateral, NORMAL BREATHING PATTERN. absent: Decreased Breath Sounds, Rhonchi, Wheezes - Cardiovascular Exam Cardiovascular Exam: REGULAR RHYTHM, +S1, +S2 - GI/Abdominal Exam GI & Abdominal Exam: Normal Bowel Sounds, Soft. absent: Tenderness - Extremities Exam Extremities exam: Positive for: pedal pulses present. Negative for: joint swelling - Neurological Exam Neurological exam: Alert, CN II-XII Intact, Oriented x3 - Skin Skin Exam: Dry, Warm Results - Vital Signs Recent Vital Signs: Last Vital Signs Temp 98.9 F 08/24/18 07:13 Pulse 75 08/24/18 07:13 Resp 20 08/24/18 07:13 BP 120/69 08/24/18 07:13 Pulse Ox 99 08/23/18 14:43 - Labs Result Diagrams: 08/23/18 12:51 08/23/18 12:51 Labs: Laboratory Results - last 24 hr 08/23/18 08/23/18 08/23/18 12:00 12:00 12:49 WBC RBC Hgb Hct MCV MCH MCHC RDW Plt Count MPV Gran % Lymph % (Auto) Sanders % (Auto) Eos % (Auto) Baso % (Auto) Gran # Lymph # (Auto) Sanders # (Auto) Eos # (Auto) Baso # (Auto) Sodium Potassium Chloride Carbon Dioxide Anion Gap BUN Creatinine Est GFR ( Amer) Est GFR (Non-Af Amer) POC Glucose (mg/dL) 107 Random Glucose Calcium Magnesium Total Bilirubin AST ALT Alkaline Phosphatase Total Protein Albumin Globulin Albumin/Globulin Ratio Urine Color Yellow Urine Appearance Clear Urine pH 6.5 Ur Specific [place] 1.015 Urine Protein Trace H Urine Glucose (UA) Negative Urine Ketones Negative Urine Blood Negative Urine Nitrate Negative Urine Bilirubin Negative Urine Urobilinogen 1.0 H Ur Leukocyte Esterase Negative Urine RBC 0 - 2 Urine WBC 0 - 2 Ur Epithelial Cells 10 - 12 Urine Bacteria Many Salicylates Urine Opiates Screen Negative Urine Methadone Screen Negative Acetaminophen Ur Barbiturates Screen Negative Ur Phencyclidine Scrn Negative Ur Amphetamines Screen Negative U Benzodiazepines Scrn Negative U Oth Cocaine Metabols Positive H U Cannabinoids Screen Negative Alcohol, Quantitative 08/23/18 08/23/18 08/23/18 12:51 12:51 12:51 WBC 4.4 L D RBC 4.62 Hgb 13.2 Hct 40.2 MCV 87.0 MCH 28.6 MCHC 32.8 RDW 17.6 H Plt Count 219 MPV 10.4 Gran % 47.0 L Lymph % (Auto) 36.3 H Sanders % (Auto) 11.3 H Eos % (Auto) 5.2 H Baso % (Auto) 0.2 Gran # 2.09 Lymph # (Auto) 1.6 Sanders # (Auto) 0.5 Eos # (Auto) 0.2 Baso # (Auto) 0.01 Sodium 140 Potassium 4.1 Chloride 101 Carbon Dioxide 32 Anion Gap 11 BUN 16 Creatinine 0.7 Est GFR ( Amer) > 60 Est GFR (Non-Af Amer) > 60 POC Glucose (mg/dL) Random Glucose 102 Calcium 9.5 Magnesium 2.2 Total Bilirubin 0.4 AST 29 ALT 32 Alkaline Phosphatase 69 Total Protein 7.9 Albumin 4.4 Globulin 3.5 Albumin/Globulin Ratio 1.3 Urine Color Urine Appearance Urine pH Ur Specific [place] Urine Protein Urine Glucose (UA) Urine Ketones Urine Blood Urine Nitrate Urine Bilirubin Urine Urobilinogen Ur Leukocyte Esterase Urine RBC Urine WBC Ur Epithelial Cells Urine Bacteria Salicylates < 1 L Urine Opiates Screen Urine Methadone Screen Acetaminophen < 10.0 L Ur Barbiturates Screen Ur Phencyclidine Scrn Ur Amphetamines Screen U Benzodiazepines Scrn U Oth Cocaine Metabols U Cannabinoids Screen Alcohol, Quantitative 08/23/18 12:51 WBC RBC Hgb Hct MCV MCH MCHC RDW Plt Count MPV Gran % Lymph % (Auto) Sanders % (Auto) Eos % (Auto) Baso % (Auto) Gran # Lymph # (Auto) Sanders # (Auto) Eos # (Auto) Baso # (Auto) Sodium Potassium Chloride Carbon Dioxide Anion Gap BUN Creatinine Est GFR ( Amer) Est GFR (Non-Af Amer) POC Glucose (mg/dL) Random Glucose Calcium Magnesium Total Bilirubin AST ALT Alkaline Phosphatase Total Protein Albumin Globulin Albumin/Globulin Ratio Urine Color Urine Appearance Urine pH Ur Specific [place] Urine Protein Urine Glucose (UA) Urine Ketones Urine Blood Urine Nitrate Urine Bilirubin Urine Urobilinogen Ur Leukocyte Esterase Urine RBC Urine WBC Ur Epithelial Cells Urine Bacteria Salicylates Urine Opiates Screen Urine Methadone Screen Acetaminophen Ur Barbiturates Screen Ur Phencyclidine Scrn Ur Amphetamines Screen U Benzodiazepines Scrn U Oth Cocaine Metabols U Cannabinoids Screen Alcohol, Quantitative < 10 Assessment & Plan - Assessment and Plan (Free Text) Assessment: Patient is a 53 year old female with a past medical history DM, sickle cell trait, depression, anxiety, and schizophrenia/paranoid, drug abuse who was admitted to psychiatry. Medicine is being consulted for asthma. Plan: History of Psychiatric disorders - management as per psychiatry Diabetes-Chronic - glucose 102 - no need for ACHS checks and Insulin Sliding Scale at this time Asthma - no current wheezing - Albuterol PRN Substance Abuse -UDS was positive for cocaine -counselled on risks for drug abuse Tobacco Use -nicotine patch -counselled on smoking cessation DVT prophyalxis- no need currently ambulating without any issues <Gail Fernández - Last Filed: 08/24/18 14:48> Meds - Medications Medications: Current Medications Albuterol (Ventolin Hfa 90 Mcg/Actuation (8 G)) 2 puff IH [id number] PRN PRN Reason: Wheezing Diphenhydramine HCl (Benadryl) 50 mg PO Q6 PRN PRN Reason: Agitation Last Admin: 08/24/18 09:02 Dose: 50 mg Diphenhydramine HCl (Benadryl) 50 mg IM Q6H PRN PRN Reason: Agitation Last Admin: 08/23/18 17:21 Dose: 50 mg Divalproex Sodium (Depakote Dr (*Bid*)) 500 mg PO [facility]; Protocol Last Admin: 08/24/18 10:47 Dose: 500 mg Fluphenazine HCl (Prolixin) 5 mg PO BID [facility]; Protocol Last Admin: 08/24/18 09:02 Dose: 5 mg Folic Acid (Folic Acid) 1 mg PO DAILY [facility] Gabapentin (Neurontin) 100 mg PO TID [facility]; Protocol Last Admin: 08/24/18 13:45 Dose: 100 mg Haloperidol (Haldol) 5 mg PO Q6 PRN; Protocol PRN Reason: Agitation Last Admin: 08/24/18 09:02 Dose: 5 mg Haloperidol Lactate (Haldol) 5 mg IM Q6H PRN; Protocol PRN Reason: Agitation Last Admin: 08/23/18 17:21 Dose: 5 mg Lorazepam (Ativan) 2 mg PO Q6 PRN; Protocol PRN Reason: Agitation Last Admin: 08/24/18 09:02 Dose: 2 mg Lorazepam (Ativan) 2 mg IM Q6H PRN; Protocol PRN Reason: Agitation Last Admin: 08/23/18 17:20 Dose: 2 mg Multivitamins (Thera Tab) 1 tab PO 0800 [facility] Nicotine (Nicoderm Cq) 1 patch TD DAILY [facility] Last Admin: 08/24/18 09:03 Dose: 1 patch Ondansetron HCl (Zofran Tab) 4 mg PO Q8H PRN PRN Reason: Nausea/Vomiting Quetiapine Fumarate (Seroquel) 100 mg PO [facility]; Protocol Last Admin: 08/24/18 10:46 Dose: 100 mg Thiamine HCl (Vitamin B1 Tab) 100 mg PO DAILY [facility] Results - Vital Signs Recent Vital Signs: Last Vital Signs Temp 98.9 F 08/24/18 07:13 Pulse 75 08/24/18 07:13 Resp 20 08/24/18 07:13 BP 120/69 08/24/18 07:13 Pulse Ox 99 08/23/18 14:43 - Labs Result Diagrams: 08/23/18 12:51 08/23/18 12:51 Labs: Laboratory Results - last 24 hr 08/23/18 08/24/18 08/24/18 12:49 06:45 06:45 POC Glucose (mg/dL) 107 Fasting Glucose 91 Triglycerides 63 Cholesterol 82 L LDL Cholesterol Direct 55 HDL Cholesterol 21 L Free T4 1.43 TSH 3rd Generation 5.79 H Attending/Attestation - Attestation I have personally seen and examined this patient.: Yes I have fully participated in the care of the patient.: Yes I have reviewed all pertinent clinical information: Yes Notes (Text): 08/24/18 14:38 53 year female with past medical history of prediabetes, schizophrenia/depression, asthma, ESBL UTI and substance abuse who is currently admitted to psychiatric unit. Medical consultation was requested for medical management, including asthma. Can add albuterol prn. Counselled on smoking cessation. Labs reviewed; last A1c was 6.3. TSH is 5.79 with normal free T4 suggestive of subclinical hypothyroidism. Recommend to repeat TFTs in 4-6 weeks. Urine drug screen was positive for cocaine. She was counselled on risks of continued substance abuse. She complains of chronic knee pain. Recent knee xray showed degenerative changes; no fracture or effusion. Can try tylenol or motrin for pain. Thank you Dr. Jacobs for allowing us to participate in the care of this patient. Please re-consult as needed. Gail Fernández MD Hospitalist.
[2018-08-24 08:23] LABS: GLUCOSE,FASTING 91 mg/dL (65-110); HDL CHOLESTEROL 21 mg/dL (29-60)
[2018-08-24 08:33] LABS: LDL CHOLESTEROL 55 mg/dL (0-129)
[2018-08-24 08:46] LABS: FREE T4 1.43 ng/dL (0.78-2.19)
--- NOTE | 2018-08-24 09:55 | PCM.PYCHPN ---
Psychiatric Progress Note - Psychiatric Progress Note Patient seen today, length of contact: 35 min Problems Identified/Issues Discussed: Please refer to Dr. Jacobs's initial psychiatric assessment dated 07/22/18 for full H&P, patient was admitted to this unit from 07/21/18-07/30/18. I reviewed recent notes and patient was interviewed at bedside this morning. She is known to this provider from her multiple prior admissions to this unit and similar to her prior admissions, patient has been disorganized, paranoid, loud and impulsive. She required prns last night because she was agitated, disorganized and overtly paranoid towards staff. I meet with her at bedside and she can tolerate some questioning. Appearance is unkempt. Patient can provided our correct location, month and year. She is superficially oriented to circumstances though thoughts are scattered and focus is poor. She still cannot have a sustained reliable and informative interview. Frustration tolerance is poor. Complains of knee pain and states that she wants to be medically and psychiatrically stabilized. Denies other discomfort and denies side effects from her medications. Her impulse control remains poor and behavior unpredictable. Diagnostic Results: Schizoaffective disorder Polysubstance abuse Medication Change: Yes (Restart seroquel, depakote, neurontin;start prolixin) Medical Record Reviewed: Yes Mental Status Examination - Cognitive Function Orientation: Person, Place Memory: Impaired Attention: Poor Concentration: Poor Association: Loose Fund of Knowledge: Poor - Mood Mood: Depressed, Anxious - Affect Affect: Broad, Other (labile, emotional) - Speech Speech: Loud - Formal Thought Process Formal Thought Process: Hallucinations, Delusions, Paranoia, Loosening of associations - Suicidal Ideation Suicidal Ideation: No - Homicidal Ideation Homicidal Ideation: Yes Goal/Treatment Plan - Goal/Treatment Plan Progress Toward Problem(s) and Goals/Treatment Plan: * Restart patient on her medications. Discharge medications from 07/30/18 included: * Depakote DR 500 mg PO TID * Neurontin 300 mg PO TID * Seroquel 200 mg PO DAILY * Seroquel 300 mg PO HS * Will restart/continue medications at following doses with plan to titrate: * Depakote DR 500 mg AMHS * Seroquel 100 mg AMHS * Neurontin 100 mg po TID * Prolixin 5 mg bid also started by Dr. Jacobs on 08/23/18 * Appreciate f/u by Dr. Mar today 08/24/18 * Nicotine patch started 21mg/patch for tobacco cessation * Also restarted: * Folic Acid 1 mg PO DAILY * Multivitamin Therapeutic Tab 1 tab PO 0800 * Thiamine 100 mg PO DAILY #14 tab * Group, milieu and supportive tx * Vitals reviewed and noted below: Selected Entries 08/23/18 08/23/18 08/23/18 11:05 13:00 14:40 Temperature 98 F Pulse Rate 85 78 82 Respiratory 19 18 17 Rate Blood Pressure 135/84 134/87 130/82 O2 Sat by Pulse 100 100 99 Oximetry 08/23/18 15:37 Temperature Pulse Rate Respiratory 17 Rate Blood Pressure O2 Sat by Pulse Oximetry * PLEASE REFER TO ER REPORT FOR PHYSICAL EXAM AND FINDINGS INCLUDING ROS * Admission labs noted below: Laboratory Tests 08/23/18 08/23/18 08/23/18 12:00 12:00 12:49 WBC RBC Hgb Hct MCV MCH MCHC RDW Plt Count MPV Gran % Lymph % (Auto) [place] % (Auto) Eos % (Auto) Baso % (Auto) Gran # Lymph # (Auto) [place] # (Auto) Eos # (Auto) Baso # (Auto) Sodium Potassium Chloride Carbon Dioxide Anion Gap BUN Creatinine Est GFR ( Amer) Est GFR (Non-Af Amer) POC Glucose (mg/dL) 107 Random Glucose Fasting Glucose Calcium Magnesium Total Bilirubin AST ALT Alkaline Phosphatase Total Protein Albumin Globulin Albumin/Globulin Ratio Triglycerides Cholesterol LDL Cholesterol Direct HDL Cholesterol Free T4 TSH 3rd Generation Urine Color Yellow Urine Appearance Clear Urine pH 6.5 Ur Specific [place] 1.015 Urine Protein Trace H Urine Glucose (UA) Negative Urine Ketones Negative Urine Blood Negative Urine Nitrate Negative Urine Bilirubin Negative Urine Urobilinogen 1.0 H Ur Leukocyte Esterase Negative Urine RBC 0 - 2 Urine WBC 0 - 2 Ur Epithelial Cells 10 - 12 Urine Bacteria Many Salicylates Urine Opiates Screen Negative Urine Methadone Screen Negative Acetaminophen Ur Barbiturates Screen Negative Ur Phencyclidine Scrn Negative Ur Amphetamines Screen Negative U Benzodiazepines Scrn Negative U Oth Cocaine Metabols Positive H U Cannabinoids Screen Negative Alcohol, Quantitative 08/23/18 08/23/18 08/23/18 12:51 12:51 12:51 WBC 4.4 L D RBC 4.62 Hgb 13.2 Hct 40.2 MCV 87.0 MCH 28.6 MCHC 32.8 RDW 17.6 H Plt Count 219 MPV 10.4 Gran % 47.0 L Lymph % (Auto) 36.3 H [place] % (Auto) 11.3 H Eos % (Auto) 5.2 H Baso % (Auto) 0.2 Gran # 2.09 Lymph # (Auto) 1.6 [place] # (Auto) 0.5 Eos # (Auto) 0.2 Baso # (Auto) 0.01 Sodium 140 Potassium 4.1 Chloride 101 Carbon Dioxide 32 Anion Gap 11 BUN 16 Creatinine 0.7 Est GFR ( Amer) > 60 Est GFR (Non-Af Amer) > 60 POC Glucose (mg/dL) Random Glucose 102 Fasting Glucose Calcium 9.5 Magnesium 2.2 Total Bilirubin 0.4 AST 29 ALT 32 Alkaline Phosphatase 69 Total Protein 7.9 Albumin 4.4 Globulin 3.5 Albumin/Globulin Ratio 1.3 Triglycerides Cholesterol LDL Cholesterol Direct HDL Cholesterol Free T4 TSH 3rd Generation Urine Color Urine Appearance Urine pH Ur Specific [place] Urine Protein Urine Glucose (UA) Urine Ketones Urine Blood Urine Nitrate Urine Bilirubin Urine Urobilinogen Ur Leukocyte Esterase Urine RBC Urine WBC Ur Epithelial Cells Urine Bacteria Salicylates < 1 L Urine Opiates Screen Urine Methadone Screen Acetaminophen < 10.0 L Ur Barbiturates Screen Ur Phencyclidine Scrn Ur Amphetamines Screen U Benzodiazepines Scrn U Oth Cocaine Metabols U Cannabinoids Screen Alcohol, Quantitative 08/23/18 08/24/18 08/24/18 12:51 06:45 06:45 WBC RBC Hgb Hct MCV MCH MCHC RDW Plt Count MPV Gran % Lymph % (Auto) [place] % (Auto) Eos % (Auto) Baso % (Auto) Gran # Lymph # (Auto) [place] # (Auto) Eos # (Auto) Baso # (Auto) Sodium Potassium Chloride Carbon Dioxide Anion Gap BUN Creatinine Est GFR ( Amer) Est GFR (Non-Af Amer) POC Glucose (mg/dL) Random Glucose Fasting Glucose 91 Calcium Magnesium Total Bilirubin AST ALT Alkaline Phosphatase Total Protein Albumin Globulin Albumin/Globulin Ratio Triglycerides 63 Cholesterol 82 L LDL Cholesterol Direct 55 HDL Cholesterol 21 L Free T4 1.43 TSH 3rd Generation 5.79 H Urine Color Urine Appearance Urine pH Ur Specific [place] Urine Protein Urine Glucose (UA) Urine Ketones Urine Blood Urine Nitrate Urine Bilirubin Urine Urobilinogen Ur Leukocyte Esterase Urine RBC Urine WBC Ur Epithelial Cells Urine Bacteria Salicylates Urine Opiates Screen Urine Methadone Screen Acetaminophen Ur Barbiturates Screen Ur Phencyclidine Scrn Ur Amphetamines Screen U Benzodiazepines Scrn U Oth Cocaine Metabols U Cannabinoids Screen Alcohol, Quantitative < 10
--- NOTE | 2018-08-24 10:02 | CARD ---
APPROVED REPORT Date of service: 08/23/2018 EKG Measurement Heart [id number] <Conclusion> Normal sinus rhythm Minimal voltage criteria for LVH, may be normal variant NSSTW changes No change
[2018-08-24] MEDS ORDERED: Albuterol HFA 90 mcg/actuation (8 g) IH PRN (12:10)
[2018-08-25] MEDS: Multivitamin Therapeutic Tab PO SCH (08:17)
[2018-08-25] MEDS: Divalproex 250 mg DR (BID formulation) PO SCH ×2 (09:00→21:40)
--- NOTE | 2018-08-25 10:12 | PCM.PYCHPN ---
Psychiatric Progress Note - Psychiatric Progress Note Patient seen today, length of contact: 35 min Problems Identified/Issues Discussed: I reviewed recent notes and patient was interviewed at bedside this morning. She is known to this provider from her multiple prior admissions to this unit and similar to her prior admissions, patient has been disorganized, paranoid, loud and impulsive. She required prns on Sunday because she was agitated, disorganized and overtly paranoid towards staff. She has improved over the weekend. Specifically, she is more organized and focused. Paranoia, frustration tolerance and impulsivity are also improving. Oriented x3. She can tolerate more questioning without becoming too scattered with her responses though she remains repetitive at times. Patient complains of knee pain, unchanged since yesterday. Denies other discomfort and denies side effects from her medications. Diagnostic Results: Schizoaffective disorder Polysubstance abuse Medication Change: Yes (Increased Seroquel) Medical Record Reviewed: Yes Mental Status Examination - Cognitive Function Orientation: Person, Place Memory: Impaired Attention: Poor Concentration: Poor Association: Loose Fund of Knowledge: Poor - Mood Mood: Anxious - Affect Affect: Broad - Speech Speech: Loud - Formal Thought Process Formal Thought Process: Hallucinations, Delusions, Paranoia (Some improvement), Loosening of associations (Improving) - Suicidal Ideation Suicidal Ideation: No - Homicidal Ideation Homicidal Ideation: Yes Goal/Treatment Plan - Goal/Treatment Plan Progress Toward Problem(s) and Goals/Treatment Plan: * Group, milieu and supportive tx * Restarted patient on her medications. * Discharge medications from 07/30/18 included: * Depakote DR 500 mg PO TID * Neurontin 300 mg PO TID * Seroquel 200 mg PO DAILY * Seroquel 300 mg PO HS * Restarted/continue medications at following doses with plan to titrate: * Depakote DR 500 mg AMHS * Seroquel 100 mg AMHS increased to Seroquel 150 mg AM and 200 mg HS on 08/25/18 * Neurontin 100 mg po TID * Prolixin 5 mg bid also started by Dr. Jacobs on 08/23/18 * Appreciate f/u by Dr. Mar 08/24/18 * Nicotine patch started 21mg/patch for tobacco cessation * Also restarted: * Folic Acid 1 mg PO DAILY * Multivitamin Therapeutic Tab 1 tab PO 0800 * Thiamine 100 mg PO DAILY #14 tab * Vitals reviewed and noted below: 08/24/18 07:13 Temperature 98.9 F Pulse Rate 75 Respiratory 20 Rate Blood Pressure 120/69 * Recent floor labs noted below: 08/24/18 08/24/18 08/24/18 06:45 06:45 06:45 Fasting Glucose 91 Triglycerides 63 Cholesterol 82 L LDL Cholesterol Direct 55 HDL Cholesterol 21 L Free T4 1.43 TSH 3rd Generation 5.79 H RPR Nonreactive * PLEASE REFER TO ER REPORT FOR PHYSICAL EXAM AND FINDINGS INCLUDING ROS * Admission labs noted below: Laboratory Tests 08/23/18 08/23/18 08/23/18 12:00 12:00 12:49 WBC RBC Hgb Hct MCV MCH MCHC RDW Plt Count MPV Gran % Lymph % (Auto) [place] % (Auto) Eos % (Auto) Baso % (Auto) Gran # Lymph # (Auto) [place] # (Auto) Eos # (Auto) Baso # (Auto) Sodium Potassium Chloride Carbon Dioxide Anion Gap BUN Creatinine Est GFR ( Amer) Est GFR (Non-Af Amer) POC Glucose (mg/dL) 107 Random Glucose Fasting Glucose Calcium Magnesium Total Bilirubin AST ALT Alkaline Phosphatase Total Protein Albumin Globulin Albumin/Globulin Ratio Triglycerides Cholesterol LDL Cholesterol Direct HDL Cholesterol Free T4 TSH 3rd Generation Urine Color Yellow Urine Appearance Clear Urine pH 6.5 Ur Specific [place] 1.015 Urine Protein Trace H Urine Glucose (UA) Negative Urine Ketones Negative Urine Blood Negative Urine Nitrate Negative Urine Bilirubin Negative Urine Urobilinogen 1.0 H Ur Leukocyte Esterase Negative Urine RBC 0 - 2 Urine WBC 0 - 2 Ur Epithelial Cells 10 - 12 Urine Bacteria Many Salicylates Urine Opiates Screen Negative Urine Methadone Screen Negative Acetaminophen Ur Barbiturates Screen Negative Ur Phencyclidine Scrn Negative Ur Amphetamines Screen Negative U Benzodiazepines Scrn Negative U Oth Cocaine Metabols Positive H U Cannabinoids Screen Negative Alcohol, Quantitative 08/23/18 08/23/18 08/23/18 12:51 12:51 12:51 WBC 4.4 L D RBC 4.62 Hgb 13.2 Hct 40.2 MCV 87.0 MCH 28.6 MCHC 32.8 RDW 17.6 H Plt Count 219 MPV 10.4 Gran % 47.0 L Lymph % (Auto) 36.3 H [place] % (Auto) 11.3 H Eos % (Auto) 5.2 H Baso % (Auto) 0.2 Gran # 2.09 Lymph # (Auto) 1.6 [place] # (Auto) 0.5 Eos # (Auto) 0.2 Baso # (Auto) 0.01 Sodium 140 Potassium 4.1 Chloride 101 Carbon Dioxide 32 Anion Gap 11 BUN 16 Creatinine 0.7 Est GFR ( Amer) > 60 Est GFR (Non-Af Amer) > 60 POC Glucose (mg/dL) Random Glucose 102 Fasting Glucose Calcium 9.5 Magnesium 2.2 Total Bilirubin 0.4 AST 29 ALT 32 Alkaline Phosphatase 69 Total Protein 7.9 Albumin 4.4 Globulin 3.5 Albumin/Globulin Ratio 1.3 Triglycerides Cholesterol LDL Cholesterol Direct HDL Cholesterol Free T4 TSH 3rd Generation Urine Color Urine Appearance Urine pH Ur Specific [place] Urine Protein Urine Glucose (UA) Urine Ketones Urine Blood Urine Nitrate Urine Bilirubin Urine Urobilinogen Ur Leukocyte Esterase Urine RBC Urine WBC Ur Epithelial Cells Urine Bacteria Salicylates < 1 L Urine Opiates Screen Urine Methadone Screen Acetaminophen < 10.0 L Ur Barbiturates Screen Ur Phencyclidine Scrn Ur Amphetamines Screen U Benzodiazepines Scrn U Oth Cocaine Metabols U Cannabinoids Screen Alcohol, Quantitative 08/23/18 08/24/18 08/24/18 12:51 06:45 06:45 WBC RBC Hgb Hct MCV MCH MCHC RDW Plt Count MPV Gran % Lymph % (Auto) [place] % (Auto) Eos % (Auto) Baso % (Auto) Gran # Lymph # (Auto) [place] # (Auto) Eos # (Auto) Baso # (Auto) Sodium Potassium Chloride Carbon Dioxide Anion Gap BUN Creatinine Est GFR ( Amer) Est GFR (Non-Af Amer) POC Glucose (mg/dL) Random Glucose Fasting Glucose 91 Calcium Magnesium Total Bilirubin AST ALT Alkaline Phosphatase Total Protein Albumin Globulin Albumin/Globulin Ratio Triglycerides 63 Cholesterol 82 L LDL Cholesterol Direct 55 HDL Cholesterol 21 L Free T4 1.43 TSH 3rd Generation 5.79 H Urine Color Urine Appearance Urine pH Ur Specific [place] Urine Protein Urine Glucose (UA) Urine Ketones Urine Blood Urine Nitrate Urine Bilirubin Urine Urobilinogen Ur Leukocyte Esterase Urine RBC Urine WBC Ur Epithelial Cells Urine Bacteria Salicylates Urine Opiates Screen Urine Methadone Screen Acetaminophen Ur Barbiturates Screen Ur Phencyclidine Scrn Ur Amphetamines Screen U Benzodiazepines Scrn U Oth Cocaine Metabols U Cannabinoids Screen Alcohol, Quantitative < 10
[2018-08-26] MEDS: Divalproex 250 mg DR (BID formulation) PO SCH ×2 (08:59→21:44)
[2018-08-26] MEDS: Multivitamin Therapeutic Tab PO SCH (09:00)
--- NOTE | 2018-08-26 16:16 | PCM.PYCHPN ---
Psychiatric Progress Note - Psychiatric Progress Note Patient seen today, length of contact: 35 min Patient Chief Complaint: "people were trying to kill me because I am a spiritual threat" Problems Identified/Issues Discussed: Suicide/ homicide prevention, past psychiatric h/o, current psychiatric symptoms, medical problems, risk/benefits and alternatives of medications, medications compliance, coping strategies, substance abuse h/o, relapse prevention, importance of follow up with psychiatrist and therapist, discharge plan. Medical Problems: see HPI Diagnostic Results: 08/23/18 12:51 08/23/18 12:51 Lab Results 08/24/18 06:45: RPR Nonreactive 08/24/18 06:45: Free T4 1.43, TSH 3rd Generation 5.79 H 08/24/18 06:45: Fasting Glucose 91, Triglycerides 63, Cholesterol 82 L, LDL Cholesterol Direct 55, HDL Cholesterol 21 L 08/23/18 12:51: Alcohol, Quantitative < 10 08/23/18 12:51: Salicylates < 1 L, Acetaminophen < 10.0 L 08/23/18 12:51: Sodium 140, Potassium 4.1, Chloride 101, Carbon Dioxide 32, Anion Gap 11, BUN 16, Creatinine 0.7, Est GFR ( Amer) > 60, Est GFR (Non- Af Amer) > 60, Random Glucose 102, Calcium 9.5, Magnesium 2.2, Total Bilirubin 0 .4, AST 29, ALT 32, Alkaline Phosphatase 69, Total Protein 7.9, Albumin 4.4, Globulin 3.5, Albumin/Globulin Ratio 1.3 08/23/18 12:51: WBC 4.4 L D, RBC 4.62, Hgb 13.2, Hct 40.2, MCV 87.0, MCH 28.6, MCHC 32.8, RDW 17.6 H, Plt Count 219, MPV 10.4, Gran % 47.0 L, Lymph % (Auto) 36.3 H, [place] % (Auto) 11.3 H, Eos % (Auto) 5.2 H, Baso % (Auto) 0.2, Gran # 2.09, Lymph # (Auto) 1.6, [place] # (Auto) 0.5, Eos # (Auto) 0.2, Baso # (Auto) 0.01 08/23/18 12:49: POC Glucose (mg/dL) 107 08/23/18 12:00: Urine Opiates Screen Negative, Urine Methadone Screen Negative, Ur Barbiturates Screen Negative, Ur Phencyclidine Scrn Negative, Ur Amphetamines Screen Negative, U Benzodiazepines Scrn Negative, U Oth Cocaine Metabols Positive H, U Cannabinoids Screen Negative 08/23/18 12:00: Urine Color Yellow, Urine Appearance Clear, Urine pH 6.5, Ur Specific [place] 1.015, Urine Protein Trace H, Urine Glucose (UA) Negative, Urine Ketones Negative, Urine Blood Negative, Urine Nitrate Negative, Urine Bilirubin Negative, Urine Urobilinogen 1.0 H, Ur Leukocyte Esterase Negative, Urine RBC 0 - 2, Urine WBC 0 - 2, Ur Epithelial Cells 10 - 12, Urine Bacteria Many Vital Signs Temp Pulse Resp BP Pulse Ox 08/26/18 15:17 93 H 117/67 08/26/18 06:57 97.7 F 75 20 121/72 08/24/18 07:13 98.9 F 75 20 120/69 08/23/18 15:37 17 08/23/18 14:43 99 08/23/18 14:40 82 17 130/82 99 08/23/18 13:00 78 18 134/87 100 08/23/18 11:05 98 F 85 19 135/84 100 DSM 5 Symptoms Update: Patient is a 53-year-old female, with reported history of schizoaffective disorder bipolar type, chronic noncompliance with the medications and polysubstance abuse, multiple previous hospitalizations in the past, most recently patient was discharged from [facility] about 7 days prior to this hospitalization, patient came to the hospital looking for help for her disorganized thoughts and behavior, patient required hospitalization and stabilization. Patient was seen and examined today at the treatment team meeting, notes from Dr. Albarran reviewed, patient presented to be disorganized, psychotic, paranoid, but overall was pleasant. Patient reported that people were trying to kill her in the community because she was "a spiritual threat". Patient is hard to communicate due to her disorganized thoughts and bizarre behavior. She has a pressured and tangential speech. over the weekend patient did not have any agitation or aggression but impulses are still unpredictable, patient has tendencies of antagonizing people, but no physical aggression. So far patient tolerates medications well, no side effects observed or reported, aims 0, no EPS. Diagnostic Results: Schizoaffective disorder Polysubstance abuse Medication Change: Yes (Restart seroquel, depakote, neurontin;start prolixin) Medical Record Reviewed: Yes Consults ordered or reviewed: medical consult was called, appreciated. albuterol was started Mental Status Examination - Cognitive Function Orientation: Person, Place Memory: Impaired Attention: Poor Concentration: Poor Association: Loose Fund of Knowledge: Poor - Mood Mood: Depressed, Anxious - Affect Affect: Broad, Other (labile, emotional) - Speech Speech: Loud - Formal Thought Process Formal Thought Process: Hallucinations, Delusions, Paranoia, Loosening of associations - Suicidal Ideation Suicidal Ideation: No - Homicidal Ideation Homicidal Ideation: No Goal/Treatment Plan - Goal/Treatment Plan Need for Continued Stay: Remain at risks for inpatient hospitalization, Severe depression anxiety, Discharge may exacerbated symptoms, Failed transitioning, Severe functional impairment Progress Toward Problem(s) and Goals/Treatment Plan: Group, milieu and supportive tx Medical consult appreciated, see medical team note for more detailed info SW consultation for discharge plan and social issues Med management Family involvement Follow up on labs Will monitor closely Pt was educated about risk/benefits and alternatives of medications, coping st rategies (safety plan, suicide prevention), relapse prevention, importance of follow up with psychiatrist and therapist, stay away from drugs/alcohol/smoking Estimated Date of D/C: 09/02/18
[2018-08-27] MEDS: Multivitamin Therapeutic Tab PO SCH (08:40)
[2018-08-27] MEDS: Divalproex 250 mg DR (BID formulation) PO SCH ×2 (10:00→21:31)
--- NOTE | 2018-08-27 16:40 | PCM.PYCHPN ---
Psychiatric Progress Note - Psychiatric Progress Note Patient seen today, length of contact: 30 minutes Patient Chief Complaint: "marco russ" Problems Identified/Issues Discussed: Suicide/ homicide prevention, past psychiatric h/o, current psychiatric symptoms, medical problems, risk/benefits and alternatives of medications, medications compliance, coping strategies, substance abuse h/o, relapse prevention, importance of follow up with psychiatrist and therapist, discharge plan. Medical Problems: see HPI Diagnostic Results: 08/23/18 12:51 08/23/18 12:51 Lab Results 08/24/18 06:45: RPR Nonreactive 08/24/18 06:45: Free T4 1.43, TSH 3rd Generation 5.79 H 08/24/18 06:45: Fasting Glucose 91, Triglycerides 63, Cholesterol 82 L, LDL Cholesterol Direct 55, HDL Cholesterol 21 L 08/23/18 12:51: Alcohol, Quantitative < 10 08/23/18 12:51: Salicylates < 1 L, Acetaminophen < 10.0 L 08/23/18 12:51: Sodium 140, Potassium 4.1, Chloride 101, Carbon Dioxide 32, Ani on Gap 11, BUN 16, Creatinine 0.7, Est GFR ( Amer) > 60, Est GFR (Non-Af Amer) > 60, Random Glucose 102, Calcium 9.5, Magnesium 2.2, Total Bilirubin 0.4, AST 29, ALT 32, Alkaline Phosphatase 69, Total Protein 7.9, Albumin 4.4, Globulin 3.5, Albumin/Globulin Ratio 1.3 08/23/18 12:51: WBC 4.4 L D, RBC 4.62, Hgb 13.2, Hct 40.2, MCV 87.0, MCH 28.6, MCHC 32.8, RDW 17.6 H, Plt Count 219, MPV 10.4, Gran % 47.0 L, Lymph % (Auto) 36.3 H, [place] % (Auto) 11.3 H, Eos % (Auto) 5.2 H, Baso % (Auto) 0.2, Gran # 2.09, Lymph # (Auto) 1.6, [place] # (Auto) 0.5, Eos # (Auto) 0.2, Baso # (Auto) 0.01 08/23/18 12:49: POC Glucose (mg/dL) 107 08/23/18 12:00: Urine Opiates Screen Negative, Urine Methadone Screen Negative, Ur Barbiturates Screen Negative, Ur Phencyclidine Scrn Negative, Ur Amphetamines Screen Negative, U Benzodiazepines Scrn Negative, U Oth Cocaine Metabols Positive H, U Cannabinoids Screen Negative 08/23/18 12:00: Urine Color Yellow, Urine Appearance Clear, Urine pH 6.5, Ur Specific [place] 1.015, Urine Protein Trace H, Urine Glucose (UA) Negative, Urine Ketones Negative, Urine Blood Negative, Urine Nitrate Negative, Urine Bilirubin Negative, Urine Urobilinogen 1.0 H, Ur Leukocyte Esterase Negative, Urine RBC 0 - 2, Urine WBC 0 - 2, Ur Epithelial Cells 10 - 12, Urine Bacteria Many Vital Signs Temp Pulse Resp BP Pulse Ox 08/26/18 15:17 93 H 117/67 08/26/18 06:57 97.7 F 75 20 121/72 08/24/18 07:13 98.9 F 75 20 120/69 08/23/18 15:37 17 08/23/18 14:43 99 08/23/18 14:40 82 17 130/82 99 08/23/18 13:00 78 18 134/87 100 08/23/18 11:05 98 F 85 19 135/84 100 DSM 5 Symptoms Update: Patient is a 53-year-old female, with reported history of schizoaffective disorder bipolar type, chronic noncompliance with the medications and polysubstance abuse, multiple previous hospitalizations in the past, most recently patient was discharged from [facility] about 7 days prior to this hospitalization, patient came to the hospital looking for help fo r her disorganized thoughts and behavior, patient required hospitalization and stabilization. 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 Patient reported that people were trying to kill her in the community because she was "a spiritual threat". Patient presented with some improvement with her psychosis. over the weekend patient did not have any agitation or aggression but impulses are still unpredictable, pt started to go to the groups, more pleasant, hygiene is improving. she has some future oriented goals, "to take care of myself, I need to stop using drugs, but I am craving to smoke". So far patient tolerates medications well, no side effects observed or reported, aims 0, no EPS. Diagnostic Results: Schizoaffective disorder Polysubstance abuse Medication Change: Yes (prolixin discontinued, Seroquel increased) Medical Record Reviewed: Yes Mental Status Examination - Cognitive Function Orientation: Person, Place Memory: Impaired Attention: Poor Concentration: Poor Association: Loose Fund of Knowledge: Poor - Mood Mood: Depressed, Anxious - Affect Affect: Broad, Other (labile, emotional) - Speech Speech: Loud - Formal Thought Process Formal Thought Process: Hallucinations, Delusions, Paranoia, Loosening of associations - Suicidal Ideation Suicidal Ideation: No - Homicidal Ideation Homicidal Ideation: No Goal/Treatment Plan - Goal/Treatment Plan Need for Continued Stay: Remain at risks for inpatient hospitalization, Severe depression anxiety, Discharge may exacerbated symptoms, Failed transitioning, Severe functional impairment Progress Toward Problem(s) and Goals/Treatment Plan: Group, milieu and supportive tx Medical consult appreciated, see medical team note for more detailed info SW consultation for discharge plan and social issues Med management Prolixin was discontinued because patient does not need to be on 2 antipsychotic medications Seroquel was increased to 200 mg twice a day for psychotic symptoms Family involvement Follow up on labs Will monitor closely Pt was educated about risk/benefits and alternatives of medications, coping strategies (safety plan, suicide prevention), relapse prevention, importance of follow up with psychiatrist and therapist, stay away from drugs/alcohol/smoking Estimated Date of D/C: 09/02/18
[2018-08-28] MEDS: Divalproex 250 mg DR (BID formulation) PO SCH ×3 (08:53→21:36)
[2018-08-28] MEDS: Multivitamin Therapeutic Tab PO SCH (08:54)
[2018-08-28] MEDS ORDERED: Alum-Mag Hydrox-Simethicone Susp (30 mL) PO PRN (09:08)
[2018-08-28] MEDS ORDERED: Magnesium Hydroxide Susp 30 ml UD PO PRN (09:08)
--- NOTE | 2018-08-28 14:09 | PCM.PYCHPN ---
Psychiatric Progress Note - Psychiatric Progress Note Patient seen today, length of contact: 30 minutes Patient Chief Complaint: "I want to be better, I want to stop using drugs..." Problems Identified/Issues Discussed: Suicide/ homicide prevention, past psychiatric h/o, current psychiatric symptoms, medical problems, risk/benefits and alternatives of medications, medications compliance, coping strategies, substance abuse h/o, relapse prevention, importance of follow up with psychiatrist and therapist, discharge plan. Medical Problems: see HPI Diagnostic Results: 08/23/18 12:51 08/23/18 12:51 Lab Results 08/24/18 06:45: RPR Nonreactive 08/24/18 06:45: Free T4 1.43, TSH 3rd Generation 5.79 H 08/24/18 06:45: Fasting Glucose 91, Triglycerides 63, Cholesterol 82 L, LDL Cholesterol Direct 55, HDL Cholesterol 21 L 08/23/18 12:51: Alcohol, Quantitative < 10 08/23/18 12:51: Salicylates < 1 L, Acetaminophen < 10.0 L 08/23/18 12:51: Sodium 140, Potassium 4.1, Chloride 101, Carbon Dioxide 32, Anion Gap 11, BUN 16, Creatinine 0.7, Est GFR ( Amer) > 60, Est GFR (Non- Af Amer) > 60, Random Glucose 102, Calcium 9.5, Magnesium 2.2, Total Bilirubin 0.4, AST 29, ALT 32, Alkaline Phosphatase 69, Total Protein 7.9, Albumin 4.4, Globulin 3.5, Albumin/Globulin Ratio 1.3 08/23/18 12:51: WBC 4.4 L D, RBC 4.62, Hgb 13.2, Hct 40.2, MCV 87.0, MCH 28.6, MCHC 32.8, RDW 17.6 H, Plt Count 219, MPV 10.4, Gran % 47.0 L, Lymph % (Auto) 36.3 H, [place] % (Auto) 11.3 H, Eos % (Auto) 5.2 H, Baso % (Auto) 0.2, Gran # 2.09, Lymph # (Auto) 1.6, [place] # (Auto) 0.5, Eos # (Auto) 0.2, Baso # (Auto) 0.01 08/23/18 12:49: POC Glucose (mg/dL) 107 08/23/18 12:00: Urine Opiates Screen Negative, Urine Methadone Screen Negative, Ur Barbiturates Screen Negative, Ur Phencyclidine Scrn Negative, Ur Amphetamines Screen Negative, U Benzodiazepines Scrn Negative, U Oth Cocaine Metabols Positive H, U Cannabinoids Screen Negative 08/23/18 12:00: Urine Color Yellow, Urine Appearance Clear, Urine pH 6.5, Ur Specific [place] 1.015, Urine Protein Trace H, Urine Glucose (UA) Negative, Urine Ketones Negative, Urine Blood Negative, Urine Nitrate Negative, Urine Bilirubin Negative, Urine Urobilinogen 1.0 H, Ur Leukocyte Esterase Negative, Urine RBC 0 - 2, Urine WBC 0 - 2, Ur Epithelial Cells 10 - 12, Urine Bacteria Many Vital Signs Temp Pulse Resp BP Pulse Ox 08/26/18 15:17 93 H 117/67 08/26/18 06:57 97.7 F 75 20 121/72 08/24/18 07:13 98.9 F 75 20 120/69 08/23/18 15:37 17 08/23/18 14:43 99 08/23/18 14:40 82 17 130/82 99 08/23/18 13:00 78 18 134/87 100 08/23/18 11:05 98 F 85 19 135/84 100 DSM 5 Symptoms Update: Patient is a 53-year-old female, with reported history of schizoaffective disorder bipolar type, chronic noncompliance with the medications and polysubstance abuse, multiple previous hospitalizations in the past, most recently patient was discharged from [facility] about 7 days prior to this hospitalization, patient came to the hospital looking for help for her disorganized thoughts and behavior, patient required hospitalization and stabilization. Patient was seen and examined today next to the nursing station, patient presented to be disorganized, psychotic, paranoid, pt was agitated because other male pt made some comments about pt, pt was screaming "you are nobody, you are nobody", but with help of the staff pt was able to calm down and no need for PRN meds. Patient presented with some improvement with her psychosis, pt has childlike demeanor. she has some future oriented goals, "to take care of myself, I need to stop using drugs, but I am craving to smoke, I want to go to the boarding home...". So far patient tolerates medications well, no side effects observed or reported, aims 0, no EPS. Diagnostic Results: Schizoaffective disorder Polysubstance abuse Medication Change: Yes (Seroquel increased to 200/300) Medical Record Reviewed: Yes Consults ordered or reviewed: medical consult was called, appreciated. albuterol was started Mental Status Examination - Cognitive Function Orientation: Person, Place Memory: Impaired Attention: Poor (some improvement) Concentration: Poor Association: Loose Fund of Knowledge: Poor - Mood Mood: Depressed (I feel better), Anxious - Affect Affect: Broad, Other (labile, emotional) - Speech Speech: Loud - Formal Thought Process Formal Thought Process: Hallucinations, Delusions, Paranoia, Loosening of as sociations - Suicidal Ideation Suicidal Ideation: No - Homicidal Ideation Homicidal Ideation: No Goal/Treatment Plan - Goal/Treatment Plan Need for Continued Stay: Remain at risks for inpatient hospitalization, Severe depression anxiety, Discharge may exacerbated symptoms, Failed transitioning, Severe functional impairment Progress Toward Problem(s) and Goals/Treatment Plan: Group, milieu and supportive tx Medical consult appreciated, see medical team note for more detailed info SW consultation for discharge plan and social issues Med management Prolixin was discontinued because patient does not need to be on 2 antipsychotic medications Seroquel was increased to 200 mg am and 300mg po hs for psychotic symptoms Family involvement Follow up on labs Will monitor closely Pt was educated about risk/benefits and alternatives of medications, coping strategies (safety plan, suicide prevention), relapse prevention, importance of follow up with psychiatrist and therapist, stay away from drugs/alcohol/smoking Estimated Date of D/C: 09/02/18
[2018-08-29] MEDS: Multivitamin Therapeutic Tab PO SCH (08:17)
[2018-08-29] MEDS: Divalproex 250 mg DR (BID formulation) PO SCH ×3 (08:18→21:00)
--- NOTE | 2018-08-29 15:00 | PCM.PYCHPN ---
Psychiatric Progress Note - Psychiatric Progress Note Patient seen today, length of contact: 30 minutes Patient Chief Complaint: "I want to be better, I want to stop using drugs..." Problems Identified/Issues Discussed: Suicide/ homicide prevention, past psychiatric h/o, current psychiatric symptoms, medical problems, risk/benefits and alternatives of medications, medications compliance, coping strategies, substance abuse h/o, relapse prevention, importance of follow up with psychiatrist and therapist, discharge plan. Medical Problems: see HPI Diagnostic Results: 08/23/18 12:51 08/23/18 12:51 Lab Results 08/24/18 06:45: RPR Nonreactive 08/24/18 06:45: Free T4 1.43, TSH 3rd Generation 5.79 H 08/24/18 06:45: Fasting Glucose 91, Triglycerides 63, Cholesterol 82 L, LDL Cholesterol Direct 55, HDL Cholesterol 21 L 08/23/18 12:51: Alcohol, Quantitative < 10 08/23/18 12:51: Salicylates < 1 L, Acetaminophen < 10.0 L 08/23/18 12:51: Sodium 140, Potassium 4.1, Chloride 101, Carbon Dioxide 32, Anion Gap 11, BUN 16, Creatinine 0.7, Est GFR ( Amer) > 60, Est GFR (Non- Af Amer) > 60, Random Glucose 102, Calcium 9.5, Magnesium 2.2, Total Bilirubin 0.4, AST 29, ALT 32, Alkaline Phosphatase 69, Total Protein 7.9, Albumin 4.4, Globulin 3.5, Albumin/Globulin Ratio 1.3 08/23/18 12:51: WBC 4.4 L D, RBC 4.62, Hgb 13.2, Hct 40.2, MCV 87.0, MCH 28.6, MCHC 32.8, RDW 17.6 H, Plt Count 219, MPV 10.4, Gran % 47.0 L, Lymph % (Auto) 36.3 H, [place] % (Auto) 11.3 H, Eos % (Auto) 5.2 H, Baso % (Auto) 0.2, Gran # 2.09, Lymph # (Auto) 1.6, [place] # (Auto) 0.5, Eos # (Auto) 0.2, Baso # (Auto) 0.01 08/23/18 12:49: POC Glucose (mg/dL) 107 08/23/18 12:00: Urine Opiates Screen Negative, Urine Methadone Screen Negative, Ur Barbiturates Screen Negative, Ur Phencyclidine Scrn Negative, Ur Amphetamines Screen Negative, U Benzodiazepines Scrn Negative, U Oth Cocaine Metabols Positive H, U Cannabinoids Screen Negative 08/23/18 12:00: Urine Color Yellow, Urine Appearance Clear, Urine pH 6.5, Ur Specific [place] 1.015, Urine Protein Trace H, Urine Glucose (UA) Negative, Urine Ketones Negative, Urine Blood Negative, Urine Nitrate Negative, Urine Bilirubin Negative, Urine Urobilinogen 1.0 H, Ur Leukocyte Esterase Negative, Urine RBC 0 - 2, Urine WBC 0 - 2, Ur Epithelial Cells 10 - 12, Urine Bacteria Many Vital Signs Temp Pulse Resp BP Pulse Ox 08/26/18 15:17 93 H 117/67 08/26/18 06:57 97.7 F 75 20 121/72 08/24/18 07:13 98.9 F 75 20 120/69 08/23/18 15:37 17 08/23/18 14:43 99 08/23/18 14:40 82 17 130/82 99 08/23/18 13:00 78 18 134/87 100 08/23/18 11:05 98 F 85 19 135/84 100 DSM 5 Symptoms Update: Patient is a 53-year-old female, with reported history of schizoaffective disorder bipolar type, chronic noncompliance with the medications and polysubstance abuse, multiple previous hospitalizations in the past, most recently patient was discharged from [facility] about 7 days prior to this hospitalization, patient came to the hospital looking for help for her disorganized thoughts and behavior, patient required hospitalization and stabilization. Patient was seen and examined today In her room, patient still has psychotic symptoms, but much calmer, patient presented to be disorganized, psychotic, paranoid, no agitation so far no aggression. Patient still has impulses unpredictable. Patient presented with some improvement with her psychosis, pt has childlike demeanor. she has some future oriented goals, "to take care of myself, I need to stop using drugs, but I am craving to smoke, I want to go to the boarding home...". So far patient tolerates medications well, no side effects observed or reported, aims 0, no EPS. Diagnostic Results: Schizoaffective disorder Polysubstance abuse Medication Change: Yes (Seroquel increased 08/28/2018) Medical Record Reviewed: Yes Consults ordered or reviewed: medical consult was called, appreciated. albuterol was started Mental Status Examination - Cognitive Function Orientation: Person, Place Memory: Impaired Attention: Poor (some improvement) Concentration: Poor Association: Loose Fund of Knowledge: Poor - Mood Mood: Depressed (I feel better), Anxious - Affect Affect: Broad, Other (labile, emotional) - Speech Speech: Loud - Formal Thought Process Formal Thought Process: Hallucinations, Delusions, Paranoia, Loosening of associations - Suicidal Ideation Suicidal Ideation: No - Homicidal Ideation Homicidal Ideation: No Goal/Treatment Plan - Goal/Treatment Plan Need for Continued Stay: Remain at risks for inpatient hospitalization, Severe depression anxiety, Discharge may exacerbated symptoms, Failed transitioning, Severe functional impairment Progress Toward Problem(s) and Goals/Treatment Plan: Group, milieu and supportive tx Medical consult appreciated, see medical team note for more detailed info SW consultation for discharge plan and social issues, patient wants to be discharged to a boarding home Med management Seroquel was increased to 200 mg am and 300mg po hs for psychotic symptoms Depakote 500 mg twice a day for mood stabilization Depakote level tomorrow Family involvement Follow up on labs Will monitor closely Pt was educated about risk/benefits and alternatives of medications, coping strategies (safety plan, suicide prevention), relapse prevention, importance of follow up with psychiatrist and therapist, stay away from drugs/alcohol/smoking Estimated Date of D/C: 09/02/18
[2018-08-30] MEDS: Multivitamin Therapeutic Tab PO SCH (08:17)
[2018-08-30] MEDS: Divalproex 250 mg DR (BID formulation) PO SCH ×2 (10:34→21:26)
--- NOTE | 2018-08-30 14:05 | PCM.PYCHPN ---
Psychiatric Progress Note - Psychiatric Progress Note Patient seen today, length of contact: 30 minutes Patient Chief Complaint: "I want to be better, I want to stop using drugs..." Problems Identified/Issues Discussed: Suicide/ homicide prevention, past psychiatric h/o, current psychiatric symptoms, medical problems, risk/benefits and alternatives of medications, medications compliance, coping strategies, substance abuse h/o, relapse prevention, importance of follow up with psychiatrist and therapist, discharge plan. Medical Problems: see HPI Diagnostic Results: 08/23/18 12:51 08/23/18 12:51 Lab Results 08/24/18 06:45: RPR Nonreactive 08/24/18 06:45: Free T4 1.43, TSH 3rd Generation 5.79 H 08/24/18 06:45: Fasting Glucose 91, Triglycerides 63, Cholesterol 82 L, LDL Cholesterol Direct 55, HDL Cholesterol 21 L 08/23/18 12:51: Alcohol, Quantitative < 10 08/23/18 12:51: Salicylates < 1 L, Acetaminophen < 10.0 L 08/23/18 12:51: Sodium 140, Potassium 4.1, Chloride 101, Carbon Dioxide 32, Anion Gap 11, BUN 16, Creatinine 0.7, Est GFR ( Amer) > 60, Est GFR (Non- Af Amer) > 60, Random Glucose 102, Calcium 9.5, Magnesium 2.2, Total Bilirubin 0.4, AST 29, ALT 32, Alkaline Phosphatase 69, Total Protein 7.9, Albumin 4.4, Globulin 3.5, Albumin/Globulin Ratio 1.3 08/23/18 12:51: WBC 4.4 L D, RBC 4.62, Hgb 13.2, Hct 40.2, MCV 87.0, MCH 28.6, MCHC 32.8, RDW 17.6 H, Plt Count 219, MPV 10.4, Gran % 47.0 L, Lymph % (Auto) 36.3 H, [place] % (Auto) 11.3 H, Eos % (Auto) 5.2 H, Baso % (Auto) 0.2, Gran # 2.09, Lymph # (Auto) 1.6, [place] # (Auto) 0.5, Eos # (Auto) 0.2, Baso # (Auto) 0.01 08/23/18 12:49: POC Glucose (mg/dL) 107 08/23/18 12:00: Urine Opiates Screen Negative, Urine Methadone Screen Negative, Ur Barbiturates Screen Negative, Ur Phencyclidine Scrn Negative, Ur Amphetamines Screen Negative, U Benzodiazepines Scrn Negative, U Oth Cocaine Metabols Positive H, U Cannabinoids Screen Negative 08/23/18 12:00: Urine Color Yellow, Urine Appearance Clear, Urine pH 6.5, Ur Specific [place] 1.015, Urine Protein Trace H, Urine Glucose (UA) Negative, Urine Ketones Negative, Urine Blood Negative, Urine Nitrate Negative, Urine Bilirubin Negative, Urine Urobilinogen 1.0 H, Ur Leukocyte Esterase Negative, Urine RBC 0 - 2, Urine WBC 0 - 2, Ur Epithelial Cells 10 - 12, Urine Bacteria Many Vital Signs Temp Pulse Resp BP Pulse Ox 08/26/18 15:17 93 H 117/67 08/26/18 06:57 97.7 F 75 20 121/72 08/24/18 07:13 98.9 F 75 20 120/69 08/23/18 15:37 17 08/23/18 14:43 99 08/23/18 14:40 82 17 130/82 99 08/23/18 13:00 78 18 134/87 100 08/23/18 11:05 98 F 85 19 135/84 100 DSM 5 Symptoms Update: Patient is a 53-year-old female, with reported history of schizoaffective disorder bipolar type, chronic noncompliance with the m edications and polysubstance abuse, multiple previous hospitalizations in the past, most recently patient was discharged from [facility] about 7 days prior to this hospitalization, patient came to the hospital looking for help for her disorganized thoughts and behavior, patient required hospitalization and stabilization. Patient was seen and examined today at the treatment team room, patient still has psychotic symptoms, but much calmer, patient presented to be disorganized, more pleasant, childlike demeanor. no agitation so far no aggression. Patient still has impulses unpredictable. SW made a phone calls to multiple boarding homes to make sure pt has safe place to go. pt refused to give blood work for depakote level today "I was cranky, I snapped on him", still unpredictable. pt agreed to have labs tomorrow. So far patient tolerates medications well, no side effects observed or reported, aims 0, no EPS. Diagnostic Results: Schizoaffective disorder Polysubstance abuse Medication Change: Yes (seroquel was increased 08/30/18) Medical Record Reviewed: Yes Consults ordered or reviewed: medical consult was called, appreciated. albuterol was started Mental Status Examination - Cognitive Function Orientation: Person, Place Memory: Impaired Attention: Poor (some improvement) Concentration: Poor Association: Loose Fund of Knowledge: Poor - Mood Mood: Depressed (I feel better), Anxious - Affect Affect: Broad, Other (labile, emotional) - Speech Speech: Loud - Formal Thought Process Formal Thought Process: Hallucinations, Delusions, Paranoia, Loosening of associations - Suicidal Ideation Suicidal Ideation: No - Homicidal Ideation Homicidal Ideation: No Goal/Treatment Plan - Goal/Treatment Plan Need for Continued Stay: Remain at risks for inpatient hospitalization, Severe d epression anxiety, Discharge may exacerbated symptoms, Failed transitioning, Severe functional impairment Progress Toward Problem(s) and Goals/Treatment Plan: Group, milieu and supportive tx Medical consult appreciated, see medical team note for more detailed info SW consultation for discharge plan and social issues, patient wants to be discharged to a boarding home Med management Seroquel was increased to 300 mg am and 300mg po hs for psychotic symptoms Depakote 500 mg twice a day for mood stabilization Depakote level 08/31/18 Family involvement Follow up on labs Will monitor closely Pt was educated about risk/benefits and alternatives of medications, coping strategies (safety plan, suicide prevention), relapse prevention, importance of follow up with psychiatrist and therapist, stay away from drugs/alcohol/smoking Estimated Date of D/C: 09/02/18
[2018-08-31] MEDS: Multivitamin Therapeutic Tab PO SCH (08:49)
--- NOTE | 2018-08-31 09:06 | PCM.PYCHPN ---
Psychiatric Progress Note - Psychiatric Progress Note Patient seen today, length of contact: 30 minutes Problems Identified/Issues Discussed: I reviewed recent notes and patient was interviewed at bedside this morning. She is known to this provider from interviews during this admission and prior admissions to this unit. Similar to her prior admissions, patient presented as disorganized, paranoid, loud and impulsive. Since our f/u last weekend she seems a little calmer though remains disorganized and impulsive. I overheard patient complaining/talking to herself prior to entering her room. She explains that she continues to have knee pain, unchanged since admission. Denies any psychiatric complaints and feels she is doing well in this regard. Patient is oriented x3 and indicates that hallucinations have resolved. She secifically denies any depression, side effects from medications or issues with sleeping. Staff note that she remains labile, sexually preoccupied and delusional. She is scheduled for a valproic acid level today since she refused yesterday. Diagnostic Results: Schizoaffective disorder Polysubstance abuse Medication Change: Yes (seroquel was increased 08/30/18) Medical Record Reviewed: Yes Mental Status Examination - Cognitive Function Orientation: Person, Place Memory: Impaired Attention: Poor (some improvement) Concentration: Poor Association: Loose Fund of Knowledge: Poor - Mood Mood: Depressed (I feel better), Anxious - Affect Affect: Broad, Other (labile, emotional) - Speech Speech: Loud - Formal Thought Process Formal Thought Process: Hallucinations, Delusions, Paranoia, Loosening of associations - Suicidal Ideation Suicidal Ideation: No - Homicidal Ideation Homicidal Ideation: No Goal/Treatment Plan - Goal/Treatment Plan Need for Continued Stay: Remain at risks for inpatient hospitalization, Severe depression anxiety, Discharge may exacerbated symptoms, Failed transitioning, Severe functional impairment Progress Toward Problem(s) and Goals/Treatment Plan: * c/w current tx and plan * Vitals reviewed and noted below: Selected Entries 08/30/18 08/30/18 07:01 16:00 Temperature 97.4 F L Pulse Rate 78 104 H Respiratory 20 Rate Blood Pressure 111/63 111/58 L * VPA level noted below, no other weekend lab results thus far 08/31/18 06:30 Valproic Acid 51 * Admission labs noted below: Laboratory Tests 08/23/18 08/23/18 08/23/18 12:00 12:00 12:49 WBC RBC Hgb Hct MCV MCH MCHC RDW Plt Count MPV Gran % Lymph % (Auto) [place] % (Auto) Eos % (Auto) Baso % (Auto) Gran # Lymph # (Auto) [place] # (Auto) Eos # (Auto) Baso # (Auto) Sodium Potassium Chloride Carbon Dioxide Anion Gap BUN Creatinine Est GFR ( Amer) Est GFR (Non-Af Amer) POC Glucose (mg/dL) 107 Random Glucose Fasting Glucose Calcium Magnesium Total Bilirubin AST ALT Alkaline Phosphatase Total Protein Albumin Globulin Albumin/Globulin Ratio Triglycerides Cholesterol LDL Cholesterol Direct HDL Cholesterol Free T4 TSH 3rd Generation Urine Color Yellow Urine Appearance Clear Urine pH 6.5 Ur Specific [place] 1.015 Urine Protein Trace H Urine Glucose (UA) Negative Urine Ketones Negative Urine Blood Negative Urine Nitrate Negative Urine Bilirubin Negative Urine Urobilinogen 1.0 H Ur Leukocyte Esterase Negative Urine RBC 0 - 2 Urine WBC 0 - 2 Ur Epithelial Cells 10 - 12 Urine Bacteria Many Salicylates Urine Opiates Screen Negative Urine Methadone Screen Negative Acetaminophen Ur Barbiturates Screen Negative Ur Phencyclidine Scrn Negative Ur Amphetamines Screen Negative U Benzodiazepines Scrn Negative U Oth Cocaine Metabols Positive H U Cannabinoids Screen Negative Alcohol, Quantitative 08/23/18 08/23/18 08/23/18 12:51 12:51 12:51 WBC 4.4 L D RBC 4.62 Hgb 13.2 Hct 40.2 MCV 87.0 MCH 28.6 MCHC 32.8 RDW 17.6 H Plt Count 219 MPV 10.4 Gran % 47.0 L Lymph % (Auto) 36.3 H [place] % (Auto) 11.3 H Eos % (Auto) 5.2 H Baso % (Auto) 0.2 Gran # 2.09 Lymph # (Auto) 1.6 [place] # (Auto) 0.5 Eos # (Auto) 0.2 Baso # (Auto) 0.01 Sodium 140 Potassium 4.1 Chloride 101 Carbon Dioxide 32 Anion Gap 11 BUN 16 Creatinine 0.7 Est GFR ( Amer) > 60 Est GFR (Non-Af Amer) > 60 POC Glucose (mg/dL) Random Glucose 102 Fasting Glucose Calcium 9.5 Magnesium 2.2 Total Bilirubin 0.4 AST 29 ALT 32 Alkaline Phosphatase 69 Total Protein 7.9 Albumin 4.4 Globulin 3.5 Albumin/Globulin Ratio 1.3 Triglycerides Cholesterol LDL Cholesterol Direct HDL Cholesterol Free T4 TSH 3rd Generation Urine Color Urine Appearance Urine pH Ur Specific [place] Urine Protein Urine Glucose (UA) Urine Ketones Urine Blood Urine Nitrate Urine Bilirubin Urine Urobilinogen Ur Leukocyte Esterase Urine RBC Urine WBC Ur Epithelial Cells Urine Bacteria Salicylates < 1 L Urine Opiates Screen Urine Methadone Screen Acetaminophen < 10.0 L Ur Barbiturates Screen Ur Phencyclidine Scrn Ur Amphetamines Screen U Benzodiazepines Scrn U Oth Cocaine Metabols U Cannabinoids Screen Alcohol, Quantitative 08/23/18 08/24/18 08/24/18 12:51 06:45 06:45 WBC RBC Hgb Hct MCV MCH MCHC RDW Plt Count MPV Gran % Lymph % (Auto) [place] % (Auto) Eos % (Auto) Baso % (Auto) Gran # Lymph # (Auto) [place] # (Auto) Eos # (Auto) Baso # (Auto) Sodium Potassium Chloride Carbon Dioxide Anion Gap BUN Creatinine Est GFR ( Amer) Est GFR (Non-Af Amer) POC Glucose (mg/dL) Random Glucose Fasting Glucose 91 Calcium Magnesium Total Bilirubin AST ALT Alkaline Phosphatase Total Protein Albumin Globulin Albumin/Globulin Ratio Triglycerides 63 Cholesterol 82 L LDL Cholesterol Direct 55 HDL Cholesterol 21 L Free T4 1.43 TSH 3rd Generation 5.79 H Urine Color Urine Appearance Urine pH Ur Specific [place] Urine Protein Urine Glucose (UA) Urine Ketones Urine Blood Urine Nitrate Urine Bilirubin Urine Urobilinogen Ur Leukocyte Esterase Urine RBC Urine WBC Ur Epithelial Cells Urine Bacteria Salicylates Urine Opiates Screen Urine Methadone Screen Acetaminophen Ur Barbiturates Screen Ur Phencyclidine Scrn Ur Amphetamines Screen U Benzodiazepines Scrn U Oth Cocaine Metabols U Cannabinoids Screen Alcohol, Quantitative < 10 Estimated Date of D/C: 09/02/18
--- NOTE | 2018-08-31 10:35 | CP.PCM.PN ---
<Antoine Choe - Last Filed: 08/31/18 10:47> Subjective - Date & Time of Evaluation Date of Evaluation: 08/31/18 Time of Evaluation: 10:32 - Subjective Subjective: Patient seen and examined at bedside. Patient states she has pain in her left knee. Patient state she is able to walk, but it is painful. Denies chest pain, shortness of breath, nausea, vomiting, diarrhea, fever, trauma. Objective - Vital Signs/Intake and Output Vital Signs (last 24 hours): Temp Pulse Resp BP Pulse Ox 98.1 F 78 20 114/63 99 08/31/18 07:25 08/31/18 07:25 08/31/18 07:25 08/31/18 07:25 08/23/18 14:43 - Medications Medications: Current Medications Acetaminophen (Tylenol 325mg Tab) 650 mg PO Q6H PRN PRN Reason: Pain, Mild (1-3) Last Admin: 08/28/18 09:52 Dose: 650 mg Acetaminophen (Tylenol 325mg Tab) 650 mg PO Q6H PRN PRN Reason: Pain, moderate (4-7) Al Hydrox/Mg Hydrox/Simethicone (Maalox Plus 30 Ml) 30 ml PO DAILY PRN PRN Reason: Upset Stomach Albuterol (Ventolin Hfa 90 Mcg/Actuation (8 G)) 2 puff IH [id number] PRN PRN Reason: Wheezing Apixaban (Eliquis) 5 mg PO Q12H TOVA; Protocol Diphenhydramine HCl (Benadryl) 50 mg PO Q6 PRN PRN Reason: Agitation Last Admin: 08/28/18 21:36 Dose: 50 mg Diphenhydramine HCl (Benadryl) 50 mg IM Q6H PRN PRN Reason: Agitation Last Admin: 08/23/18 17:21 Dose: 50 mg Divalproex Sodium (Depakote Dr (*Bid*)) 500 mg PO AMHS TOVA; Protocol Last Admin: 08/30/18 21:26 Dose: 500 mg Folic Acid (Folic Acid) 1 mg PO DAILY TOVA Last Admin: 08/31/18 08:50 Dose: 1 mg Gabapentin (Neurontin) 100 mg PO TID TOVA; Protocol Last Admin: 08/31/18 08:50 Dose: 100 mg Haloperidol (Haldol) 5 mg PO Q6 PRN; Protocol PRN Reason: Agitation Last Admin: 08/29/18 13:58 Dose: 5 mg Haloperidol Lactate (Haldol) 5 mg IM Q6H PRN; Protocol PRN Reason: Agitation Last Admin: 08/23/18 17:21 Dose: 5 mg Ibuprofen (Motrin Tab) 600 mg PO Q6H PRN PRN Reason: knee pain Last Admin: 08/30/18 18:44 Dose: 600 mg Lorazepam (Ativan) 2 mg PO Q6 PRN; Protocol PRN Reason: Agitation Last Admin: 08/31/18 08:49 Dose: 2 mg Lorazepam (Ativan) 2 mg IM Q6H PRN; Protocol PRN Reason: Agitation Last Admin: 08/23/18 17:20 Dose: 2 mg Magnesium Hydroxide (Milk Of Magnesia) 30 ml PO DAILY PRN PRN Reason: Constipation Last Admin: 08/28/18 15:42 Dose: 30 ml Multivitamins (Thera Tab) 1 tab PO 0800 [facility] Last Admin: 08/31/18 08:49 Dose: 1 tab Nicotine (Nicoderm Cq) 1 patch TD DAILY [facility] Last Admin: 08/31/18 08:49 Dose: 1 patch Ondansetron HCl (Zofran Tab) 4 mg PO Q8H PRN PRN Reason: Nausea/Vomiting Quetiapine Fumarate (Seroquel) 300 mg PO HS [facility]; Protocol Last Admin: 08/30/18 21:26 Dose: 300 mg Quetiapine Fumarate (Seroquel) 300 mg PO QAM [facility]; Protocol Thiamine HCl (Vitamin B1 Tab) 100 mg PO DAILY [facility] Last Admin: 08/31/18 08:50 Dose: 100 mg - Labs Labs: 08/23/18 12:51 08/23/18 12:51 - Constitutional Appears: Non-toxic, No Acute Distress - Head Exam Head Exam: ATRAUMATIC, NORMAL INSPECTION, NORMOCEPHALIC - Respiratory Exam Respiratory Exam: Clear to Ausculation Bilateral, NORMAL BREATHING PATTERN - Cardiovascular Exam Cardiovascular Exam: RRR, +S1, +S2 - GI/Abdominal Exam GI & Abdominal Exam: Soft, Normal Bowel Sounds. absent: Tenderness - Extremities Exam Additional comments: left knee swelling - Neurological Exam Neurological Exam: Alert, Awake, Oriented x3 - Psychiatric Exam Psychiatric exam: Normal Affect, Normal Mood - Skin Skin Exam: Intact, Normal Color, Warm Assessment and Plan - Assessment and Plan (Free Text) Plan: 53 year old female with a past medical history DM, sickle cell trait, depression, anxiety, schizophrenia/paranoid, drug abuse and left lower extremity DVT diagnosed last month presents with left knee pain. Patient had x-rays of left hip and left knee last month which showed degenerative changes. 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 Patient will be started on Eliquis. 1. Depression/Schizophrenia Management as per Psych 2. Left lower extremity DVT Eliquis started Tylenol and Motrin for leg pain Elevate leg when in bed to reduce swelling 3. Tobacco use Nicotine patch Counseled on cessation 4. Substance abuse Counseled on cessation Daija. PGY-3 <Alana Solis - Last Filed: 08/31/18 11:57> Objective - Vital Signs/Intake and Output Vital Signs (last 24 hours): Temp Pulse Resp BP Pulse Ox 98.1 F 78 20 114/63 99 08/31/18 07:25 08/31/18 07:25 08/31/18 07:25 08/31/18 07:25 08/23/18 14:43 - Medications Medications: Current Medications Acetaminophen (Tylenol 325mg Tab) 650 mg PO Q6H PRN PRN Reason: Pain, Mild (1-3) Last Admin: 08/28/18 09:52 Dose: 650 mg Acetaminophen (Tylenol 325mg Tab) 650 mg PO Q6H PRN PRN Reason: Pain, moderate (4-7) Al Hydrox/Mg Hydrox/Simethicone (Maalox Plus 30 Ml) 30 ml PO DAILY PRN PRN Reason: Upset Stomach Albuterol (Ventolin Hfa 90 Mcg/Actuation (8 G)) 2 puff IH [id number] PRN PRN Reason: Wheezing Apixaban (Eliquis) 5 mg PO Q12H [facility]; Protocol Last Admin: 08/31/18 10:46 Dose: 5 mg Diphenhydramine HCl (Benadryl) 50 mg PO Q6 PRN PRN Reason: Agitation Last Admin: 08/28/18 21:36 Dose: 50 mg Diphenhydramine HCl (Benadryl) 50 mg IM Q6H PRN PRN Reason: Agitation Last Admin: 08/23/18 17:21 Dose: 50 mg Divalproex Sodium (Depakote Dr (*Bid*)) 500 mg PO AMHS [facility]; Protocol Last Admin: 08/31/18 10:46 Dose: 500 mg Folic Acid (Folic Acid) 1 mg PO DAILY [facility] Last Admin: 08/31/18 08:50 Dose: 1 mg Gabapentin (Neurontin) 100 mg PO TID [facility]; Protocol Last Admin: 08/31/18 08:50 Dose: 100 mg Haloperidol (Haldol) 5 mg PO Q6 PRN; Protocol PRN Reason: Agitation Last Admin: 08/29/18 13:58 Dose: 5 mg Haloperidol Lactate (Haldol) 5 mg IM Q6H PRN; Protocol PRN Reason: Agitation Last Admin: 08/23/18 17:21 Dose: 5 mg Ibuprofen (Motrin Tab) 600 mg PO Q6H PRN PRN Reason: knee pain Last Admin: 08/30/18 18:44 Dose: 600 mg Lorazepam (Ativan) 2 mg PO Q6 PRN; Protocol PRN Reason: Agitation Last Admin: 08/31/18 08:49 Dose: 2 mg Lorazepam (Ativan) 2 mg IM Q6H PRN; Protocol PRN Reason: Agitation Last Admin: 08/23/18 17:20 Dose: 2 mg Magnesium Hydroxide (Milk Of Magnesia) 30 ml PO DAILY PRN PRN Reason: Constipation Last Admin: 08/28/18 15:42 Dose: 30 ml Multivitamins (Thera Tab) 1 tab PO 0800 [facility] Last Admin: 08/31/18 08:49 Dose: 1 tab Nicotine (Nicoderm Cq) 1 patch TD DAILY [facility] Last Admin: 08/31/18 08:49 Dose: 1 patch Ondansetron HCl (Zofran Tab) 4 mg PO Q8H PRN PRN Reason: Nausea/Vomiting Quetiapine Fumarate (Seroquel) 300 mg PO HS [facility]; Protocol Last Admin: 08/30/18 21:26 Dose: 300 mg Quetiapine Fumarate (Seroquel) 300 mg PO QAM [facility]; Protocol Thiamine HCl (Vitamin B1 Tab) 100 mg PO DAILY [facility] Last Admin: 08/31/18 08:50 Dose: 100 mg - Labs Labs: 08/23/18 12:51 08/23/18 12:51 Attending/Attestation - Attestation I have personally seen and examined this patient.: Yes I have fully participated in the care of the patient.: Yes I have reviewed all pertinent clinical information, including history, physical exam and plan: Yes Notes (Text): 08/31/18 11:46 Medical record note made by the resident after discussion with my direction and input after the patient was personally seen and examined by me. I have reviewed the chart and agree that the record accurately reflects by personal performance of the history, physical exam, data review, and medical decision-making, in the course for the patient. I have also personally directed the plan of care. 53 year female with past medical history of Obesity, schizophrenia/depression, asthma,H/O ESBL UTI , substance abuse ,H/O DVT, SP IVC filter,last month was diagnosed with chronic left leg DVT at [facility] will resume oral anticoagulation with apixiban, and will recommend venous stocking for leg edema.Will add tylenol for pain, will decrease dose of Motrin to decrease the risk of bleeding as patient is also on anticoagulation. We will add PPI. Management plan was discussed in detail with patient. Education was provided. 08/31/18 11:55 08/31/18 11:56 08/31/18 11:57
[2018-08-31] MEDS: Divalproex 250 mg DR (BID formulation) PO SCH ×2 (10:46→21:33)
[2018-09-01] MEDS: Pantoprazole 40 mg EC Tab PO SCH (08:48)
[2018-09-01] MEDS: Multivitamin Therapeutic Tab PO SCH (08:48)
--- NOTE | 2018-09-01 08:57 | PCM.PYCHPN ---
Psychiatric Progress Note - Psychiatric Progress Note Patient seen today, length of contact: 30 minutes Problems Identified/Issues Discussed: I reviewed recent notes and patient was interviewed at bedside this morning. She is known to this provider from interviews during this admission and prior admissions to this unit. Similar to her prior admissions, patient initially presented as disorganized, paranoid, loud and impulsive. Since our f/u last weekend she seems a little calmer though remains disorganized, labile and impulsive. Staff notes indicate that patient was agitated and angry on Sunday morning after arguing with another patient about breakfast. Pt could not be verbally redirected and received Ativan 2 mg PO x1. She also refused to attend groups even with encouragement. I overheard patient complaining/talking to herself prior to my interview with her yesterday. Today she denies any new issues and generally doesn't believe she has any further psychiatric issues. She "feels well" in this regard. She continues to complain of knee pain, unchanged since admission and indicates her medical issues are her main concerns. This morning she expressed relief about restarting an anticoagulant however refused her dose of Eliquis last night. Patient is oriented x3 and indicates that hallucinations have resolved. She specifically denies any depression, side effects from medications or issues with sleeping. I agree with staff notes which indicate that patient remains sexually preoccupied and delusional. Diagnostic Results: Schizoaffective disorder Polysubstance abuse Medication Change: Yes (seroquel was increased 08/30/18) Medical Record Reviewed: Yes Mental Status Examination - Cognitive Function Orientation: Person, Place Memory: Impaired Attention: Poor (some improvement) Concentration: Poor Association: Loose Fund of Knowledge: Poor - Mood Mood: Depressed (I feel better), Anxious - Affect Affect: Broad, Other (labile, emotional) - Speech Speech: Loud - Formal Thought Process Formal Thought Process: Hallucinations, Delusions, Paranoia, Loosening of associations - Suicidal Ideation Suicidal Ideation: No - Homicidal Ideation Homicidal Ideation: No Goal/Treatment Plan - Goal/Treatment Plan Need for Continued Stay: Remain at risks for inpatient hospitalization, Severe depression anxiety, Discharge may exacerbated symptoms, Failed transitioning, Severe functional impairment Progress Toward Problem(s) and Goals/Treatment Plan: * c/w current tx and plan * Appreciate f/u by Dr. Solis on 08/31/18~resuming oral anticoagulation with apixaban, recommend venous stocking for leg edema, decreasing dose of motrin to decrease risk of bleeding and adding PPI * Vitals reviewed and noted below: 08/31/18 08/31/18 07:25 15:41 Temperature 98.1 F Pulse Rate 78 74 Respiratory 20 Rate Blood Pressure 114/63 120/74 * VPA level noted below, no other weekend lab results thus far 08/31/18 06:30 Valproic Acid 51 * Admission labs noted below: Laboratory Tests 08/23/18 08/23/18 08/23/18 12:00 12:00 12:49 WBC RBC Hgb Hct MCV MCH MCHC RDW Plt Count MPV Gran % Lymph % (Auto) [place] % (Auto) Eos % (Auto) Baso % (Auto) Gran # Lymph # (Auto) [place] # (Auto) Eos # (Auto) Baso # (Auto) Sodium Potassium Chloride Carbon Dioxide Anion Gap BUN Creatinine Est GFR ( Amer) Est GFR (Non-Af Amer) POC Glucose (mg/dL) 107 Random Glucose Fasting Glucose Calcium Magnesium Total Bilirubin AST ALT Alkaline Phosphatase Total Protein Albumin Globulin Albumin/Globulin Ratio Triglycerides Cholesterol LDL Cholesterol Direct HDL Cholesterol Free T4 TSH 3rd Generation Urine Color Yellow Urine Appearance Clear Urine pH 6.5 Ur Specific [place] 1.015 Urine Protein Trace H Urine Glucose (UA) Negative Urine Ketones Negative Urine Blood Negative Urine Nitrate Negative Urine Bilirubin Negative Urine Urobilinogen 1.0 H Ur Leukocyte Esterase Negative Urine RBC 0 - 2 Urine WBC 0 - 2 Ur Epithelial Cells 10 - 12 Urine Bacteria Many Salicylates Urine Opiates Screen Negative Urine Methadone Screen Negative Acetaminophen Ur Barbiturates Screen Negative Ur Phencyclidine Scrn Negative Ur Amphetamines Screen Negative U Benzodiazepines Scrn Negative U Oth Cocaine Metabols Positive H U Cannabinoids Screen Negative Alcohol, Quantitative 08/23/18 08/23/18 08/23/18 12:51 12:51 12:51 WBC 4.4 L D RBC 4.62 Hgb 13.2 Hct 40.2 MCV 87.0 MCH 28.6 MCHC 32.8 RDW 17.6 H Plt Count 219 MPV 10.4 Gran % 47.0 L Lymph % (Auto) 36.3 H [place] % (Auto) 11.3 H Eos % (Auto) 5.2 H Baso % (Auto) 0.2 Gran # 2.09 Lymph # (Auto) 1.6 [place] # (Auto) 0.5 Eos # (Auto) 0.2 Baso # (Auto) 0.01 Sodium 140 Potassium 4.1 Chloride 101 Carbon Dioxide 32 Anion Gap 11 BUN 16 Creatinine 0.7 Est GFR ( Amer) > 60 Est GFR (Non-Af Amer) > 60 POC Glucose (mg/dL) Random Glucose 102 Fasting Glucose Calcium 9.5 Magnesium 2.2 Total Bilirubin 0.4 AST 29 ALT 32 Alkaline Phosphatase 69 Total Protein 7.9 Albumin 4.4 Globulin 3.5 Albumin/Globulin Ratio 1.3 Triglycerides Cholesterol LDL Cholesterol Direct HDL Cholesterol Free T4 TSH 3rd Generation Urine Color Urine Appearance Urine pH Ur Specific [place] Urine Protein Urine Glucose (UA) Urine Ketones Urine Blood Urine Nitrate Urine Bilirubin Urine Urobilinogen Ur Leukocyte Esterase Urine RBC Urine WBC Ur Epithelial Cells Urine Bacteria Salicylates < 1 L Urine Opiates Screen Urine Methadone Screen Acetaminophen < 10.0 L Ur Barbiturates Screen Ur Phencyclidine Scrn Ur Amphetamines Screen U Benzodiazepines Scrn U Oth Cocaine Metabols U Cannabinoids Screen Alcohol, Quantitative 08/23/18 08/24/18 08/24/18 12:51 06:45 06:45 WBC RBC Hgb Hct MCV MCH MCHC RDW Plt Count MPV Gran % Lymph % (Auto) [place] % (Auto) Eos % (Auto) Baso % (Auto) Gran # Lymph # (Auto) [place] # (Auto) Eos # (Auto) Baso # (Auto) Sodium Potassium Chloride Carbon Dioxide Anion Gap BUN Creatinine Est GFR ( Amer) Est GFR (Non-Af Amer) POC Glucose (mg/dL) Random Glucose Fasting Glucose 91 Calcium Magnesium Total Bilirubin AST ALT Alkaline Phosphatase Total Protein Albumin Globulin Albumin/Globulin Ratio Triglycerides 63 Cholesterol 82 L LDL Cholesterol Direct 55 HDL Cholesterol 21 L Free T4 1.43 TSH 3rd Generation 5.79 H Urine Color Urine Appearance Urine pH Ur Specific [place] Urine Protein Urine Glucose (UA) Urine Ketones Urine Blood Urine Nitrate Urine Bilirubin Urine Urobilinogen Ur Leukocyte Esterase Urine RBC Urine WBC Ur Epithelial Cells Urine Bacteria Salicylates Urine Opiates Screen Urine Methadone Screen Acetaminophen Ur Barbiturates Screen Ur Phencyclidine Scrn Ur Amphetamines Screen U Benzodiazepines Scrn U Oth Cocaine Metabols U Cannabinoids Screen Alcohol, Quantitative < 10 Estimated Date of D/C: 09/02/18
[2018-09-01] MEDS: Divalproex 250 mg DR (BID formulation) PO SCH ×2 (10:43→21:06)
[2018-09-02 07:24] VITALS: BP 104/59; PULSE 77; TEMP 98.6
[2018-09-02] MEDS: Pantoprazole 40 mg EC Tab PO SCH (07:45)
[2018-09-02] MEDS: Divalproex 250 mg DR (BID formulation) PO SCH (09:07)
[2018-09-02] MEDS: Multivitamin Therapeutic Tab PO SCH (09:08)
--- NOTE | 2018-09-03 14:02 | PCM.PYCHDC ---
Mental Status Examination - Mental Status Examination Orientation: Person, Place, Situation, Time Memory: Intact Mood: Neutral Affect: Broad (and mood congruent) Speech: Appropriate (somewhat overproductive but not pressured) Attention: WNL (much improved) Concentration: WNL (mmuch improved) Association: Loose (baseline) Fund of Knowledge: WNL Formal Thought Process: Loosening of associations (baselinebut much improved), Circumstantial (baseline but much improved) Description of patient's judgement and insight: Pt has improved insight into mental and medical illness, pt was compliant with medications and unit rules and regulations, pt was going to groups, was calm, co operative, socially appropriate, no behavioral incidents, no agitation, no aggression. Psychotic Thoughts and Behaviors: Pt denied v/a/t hallucinations, denied paranoid ideations, pt does not appear to be psychotic, and thought process is goal directed. Suicidal Ideation: No Current Homicidal Ideation?: No Plan: pt adamantly denied thoughts of harming self or others denied intent or plan. Discharge Summary - Discharge Note Reason for Hospitalization: ddisorganized thoughts and disorganized behavior, possible suicidal and homicidal ideation Psychiatric History (includes Medical, Family, Personal Hx): history of schizophrenia, polysubstance abuse and dependence, multiple hosp Laboratory Data: 08/23/18 12:51 08/23/18 12:51 Lab Results 09/01/18 11:59: Urine HCG, Qual Negative 08/31/18 06:30: Valproic Acid 51 08/26/18 16:43: POC Glucose (mg/dL) 101 08/24/18 06:45: RPR Nonreactive 08/24/18 06:45: Free T4 1.43, TSH 3rd Generation 5.79 H 08/24/18 06:45: Fasting Glucose 91, Triglycerides 63, Cholesterol 82 L, LDL Cholesterol Direct 55, HDL Cholesterol 21 L 08/23/18 12:51: Alcohol, Quantitative < 10 08/23/18 12:51: Salicylates < 1 L, Acetaminophen < 10.0 L 08/23/18 12:51: Sodium 140, Potassium 4.1, Chloride 101, Carbon Dioxide 32, Anion Gap 11, BUN 16, Creatinine 0.7, Est GFR ( Amer) > 60, Est GFR (Non- Af Amer) > 60, Random Glucose 102, Calcium 9.5, Magnesium 2.2, Total Bilirubin 0.4, AST 29, ALT 32, Alkaline Phosphatase 69, Total Protein 7.9, Albumin 4.4, Globulin 3.5, Albumin/Globulin Ratio 1.3 08/23/18 12:51: WBC 4.4 L D, RBC 4.62, Hgb 13.2, Hct 40.2, MCV 87.0, MCH 28.6, MCHC 32.8, RDW 17.6 H, Plt Count 219, MPV 10.4, Gran % 47.0 L, Lymph % (Auto) 36.3 H, [place] % (Auto) 11.3 H, Eos % (Auto) 5.2 H, Baso % (Auto) 0.2, Gran # 2.09, Lymph # (Auto) 1.6, [place]ern # (Auto) 0.5, Eos # (Auto) 0.2, Baso # (Auto) 0.01 08/23/18 12:49: POC Glucose (mg/dL) 107 08/23/18 12:00: Urine Opiates Screen Negative, Urine Methadone Screen Negative, Ur Barbiturates Screen Negative, Ur Phencyclidine Scrn Negative, Ur Amphetamines Screen Negative, U Benzodiazepines Scrn Negative, U Oth Cocaine Metabols Positive H, U Cannabinoids Screen Negative 08/23/18 12:00: Urine Color Yellow, Urine Appearance Clear, Urine pH 6.5, Ur Specific [place] 1.015, Urine Protein Trace H, Urine Glucose (UA) Negative, Urine Ketones Negative, Urine Blood Negative, Urine Nitrate Negative, Urine Bilirubin Negative, Urine Urobilinogen 1.0 H, Ur Leukocyte Esterase Negative, Urine RBC 0 - 2, Urine WBC 0 - 2, Ur Epithelial Cells 10 - 12, Urine Bacteria Many Vital Signs Temp Pulse Resp BP Pulse Ox 09/02/18 07:23 98.6 F 77 20 104/59 L 09/01/18 16:16 108 H 127/77 09/01/18 07:13 98.4 F 84 20 116/68 08/31/18 15:41 74 120/74 08/31/18 07:25 98.1 F 78 20 114/63 08/30/18 16:00 104 H 111/58 L 08/30/18 07:01 97.4 F L 78 20 111/63 08/29/18 07:17 98.5 F 81 20 121/75 08/28/18 16:00 122 H 114/87 08/28/18 07:10 98.2 F 70 20 134/83 08/27/18 07:22 98.2 F 81 20 97/53 L 08/26/18 15:17 93 H 117/67 08/26/18 06:57 97.7 F 75 20 121/72 08/24/18 07:13 98.9 F 75 20 120/69 08/23/18 15:37 17 08/23/18 14:43 99 08/23/18 14:40 82 17 130/82 99 08/23/18 13:00 78 18 134/87 100 08/23/18 11:05 98 F 85 19 135/84 100 Consultations:: List each consultation separately and include: 1. Reason for request. 2. Findings. 3. Follow-up Consultations: medical consult was called, appreciated. albuterol was started please see notes for more detailed information Summary of Hospital Course include:: 1. Description of specific treatment plan utilized for patients during their course of treatmen. 2. Summarize the time- course for resolution of acute symptoms and/or regressed behaviors. 3. Describe issues identified and worked on during hospitalization. 4. Describe medication utilized. 5. Describe medical problems identified and treated. 6. Reassessment of suicide risk Summary of Hospital Course: Patient is a 53-year-old female, with reported history of schizoaffective disorder bipolar type, chronic noncompliance with the medications and polysubstance abuse, multiple previous hospitalizations in the past, most recently patient was discharged from [facility] about 7 days prior to this hospitalization, patient came to the hospital looking for help for her disorganized thoughts and behavior, patient required hospitalization and stabilization. patient was seen by Dr. Albarran initially, please see initial evaluation for more detailed information. the time of admission patient presented to be disorganized, psychotic, paranoid, but overall was pleasant. Patient reported that people were trying to kill her in the community because she was "a spiritual threat". Patient is hard to communicate due to her disorganized thoughts and bizarre behavior. She has a pressured and tangential speech. please see initial note for more detailed information. over the course of this hospitalization patient was stabilized on the following medications: Seroquel 300 mg am and 300mg po hs for psychotic symptoms Depakote 500 mg twice a day for mood stabilization Depakote level 08/31/18 was 51 [id number] mg 3 times a day for neuropathy and off label for anxiety Patient tolerated medications well, no side effects observed or reported, aims 0, no EPS. Over the course of this hospitalization pt was attending groups, pt also had medication management, had therapeutic milieu. Overall pt improved significantly, over the weekend pt submitted 48 hr notice, pt wanted to be discharged. Initially pt wanted to be referred to [facility], but 09/02/18 pt wanted to be d/c to [facility]. has realistic future oriented plans, psychosis is much better, pt does not appear to be anxious, pt was socially appropriate, no behavioral issues. At the time of the discharge pt denied been depressed, denied thoughts of harming self or others, denied psychotic symptoms, but presented to be mildly disorganized. Patient denied been anxious, pt is not in imminent danger to self or others, pt was referred to outpatient program at [facility] dual diagnosis program, information about follow up appointment, time and address provided to the pt, it is patient responsibility to follow up with outpatient clinic, PMD as well as specialists (see note for more detailed information). In case pt will need to obtain results of studies pending at discharge pt was provided with contact information of Psychiatric Inpatient unit [phone] as well as Medical Record Department [phone]. Naltrexone treatment not indicated at this time, pt was using only cocaine Counseling about smoking and alcohol cessation provided AA meetings as well as smoking cessation treatment program information was provided by the pt was provided with prescriptions for all of medications (please see medication reconciliation form) Pt was educated about safety plan in case of worsening of symptoms or in case of suicidal or homicidal ideation call 911 or go to the nearest ER, also was educated to take meds as prescribed and stay away from drugs, pt verbalized understanding. - Diagnosis (1) Polysubstance abuse Status: Chronic Priority: Medium (2) Alcohol use disorder Status: Chronic Priority: Medium (3) Schizoaffective disorder Status: Chronic Priority: High - Final Diagnosis (DSM 5) Condition upon Discharge: GOOD Disposition: HOME/ ROUTINE Follow-up Treatment Plan: At the time of the discharge pt denied been depressed, denied thoughts of harming self or others, denied psychotic symptoms, but presented to be mildly disorganized. Patient denied been anxious, pt is not in imminent danger to self or others, pt was referred to outpatient program at [facility] dual diagnosis program, information about follow up appointment, time and address provided to the pt, it is patient responsibility to follow up with outpatient clinic, PMD as well as specialists (see note for more detailed information). In case pt will need to obtain results of studies pending at discharge pt was provided with contact information of Psychiatric Inpatient unit [phone] as well as Medical Record Department [phone]. Naltrexone treatment not indicated at this time, pt was using only cocaine Counseling about smoking and alcohol cessation provided AA meetings as well as smoking cessation treatment program information was provided by the pt was provided with prescriptions for all of medications (please see medication reconciliation form) Pt was educated about safety plan in case of worsening of symptoms or in case of suicidal or homicidal ideation call 911 or go to the nearest ER, also was educated to take meds as prescribed and stay away from drugs, pt verbalized understanding. Prescriptions/Medication Reconciliation: Apixaban [Eliquis] 5 mg PO Q12H #14 tab Divalproex [Depakote DR(*BID*)] 500 mg PO AMHS #30 ect Gabapentin [Neurontin] 100 mg PO TID #45 cap Quetiapine Fumarate [Seroquel] 300 mg PO AMHS #30 tab - Smoking Cessation Smoking Cessation Medication prescribed: No Reason for not providing: pt refused - Antipsychotic Medications Pt discharged on 2 or more routine antipsychotic medications: No
--- NOTE | 2018-09-03 14:44 | PQF ---
PROVIDER RESPONSE TEXT: Mild intermittent REVIEWER QUERY TEXT: Asthma Specificity and Type Asthma is documented in the Medical Record. Please specify the type and severity of asthma and indic ate if this is associated with exacerbation or status asthmaticus. Such as: -- Mild intermittent -- Mild persistent -- Moderate persistent -- Severe persistent -- Exercise induced bronchospasm -- Cough variant asthma -- Other, please specify The patient's Clinical Indicators include: Please see below. Thank you. Query created by: Deysi Gabriel on 09/03/2018 2:33 PM Electronically signed by: Gail Fernández MD 09/03/2018 2:41 PM
== END 2018-09-02 15:15 | disposition home or self-care (01) | DRG 750 ==
LOC: ED 10:40 → ERH 13:46 → PSYC 15:03
PROVIDERS: ADMIT Psychiatry & Neurology Psychiatry; ATTEND Psychiatry & Neurology Psychiatry
DX: F25.0 Schizoaffective disorder, bipolar type (principal); I82.502 Chronic embolism and thrombosis of unspecified deep veins of left lower extremity; D57.1 Sickle-cell disease without crisis; J43.9 Emphysema, unspecified; G62.9 Polyneuropathy, unspecified; F14.10 Cocaine abuse, uncomplicated; E11.9 Type 2 diabetes mellitus without complications; F10.10 Alcohol abuse, uncomplicated; G89.29 Other chronic pain; J45.20 Mild intermittent asthma, uncomplicated; Z79.01 Long term (current) use of anticoagulants; Z79.899 Other long term (current) drug therapy; Z80.0 Family history of malignant neoplasm of digestive organs; Z87.01 Personal history of pneumonia (recurrent); Z87.891 Personal history of nicotine dependence; Z91.14 Patient's other noncompliance with medication regimen

== ENCOUNTER 2018-12-13 20:25 | Emergency (ER) | payer MEDICAID ==
[2018-12-13 20:51] VITALS: BMI 29.2
[2018-12-13 21:02] VITALS: RESP 18
--- NOTE | 2018-12-13 21:15 | ED PDOC ---
Arrival/HPI - General Chief Complaint: Psychiatric Evaluation Time Seen by Provider: 12/13/18 20:48 Historian: Patient - History of Present Illness Narrative History of Present Illness (Text): 12/13/18 21:12 53 year old female, whose past medical history includes depression, anxiety, schizophrenia paranoid type, right lower extremity DVT with history of anticoagulation, diabetes, polysubstance abuse and chronic medication non- compliance presents to the emergency department reportedly feeling depressed and reports someone stole her medication. Patient states she hasn't taken her medication for the past week and is hearing voices. Patient denies any fever, chills, chest pain, shortness of breath, nausea, vomiting, diarrhea, urinary symptoms, back pain, neck pain, headache, dizziness, suicidal/homicidal ideation, or any other complaints. Symptom Onset: Gradual Symptom Course: Unchanged Activities at Onset: Light Context: Home Past Medical History - Provider Review Nursing Documentation Reviewed: Yes - Past History Past History: No Previous - Infectious Disease Hx of Infectious Diseases: None - Tetanus Immunization Tetanus Immunization: Unknown - Reproductive Currently : Unknown - Cardiac Hx Cardiac Disorders: No - Pulmonary Hx Respiratory Disorders: No - Neurological Hx Neurological Disorder: No - HEENT Hx HEENT Disorder: No - Renal Hx Renal Disorder: No - Endocrine/Metabolic Hx Diabetes Mellitus Type 2: Yes - Hematological/Oncological Hx Blood Disorders: No - Integumentary Hx Dermatological Disorder: Yes - Musculoskeletal/Rheumatological Hx Arthritis: Yes - Gastrointestinal Hx Gastrointestinal Disorders: No - Genitourinary/Gynecological Hx Genitourinary Disorders: Yes - Psychiatric Hx Anxiety: Yes Hx Depression: Yes Hx Substance Use: Yes - Past Surgical History Past Surgical History: No Previous - Anesthesia Hx Anesthesia: No - Suicidal Assessment Feels Threatened In Home Enviroment: No Family/Social History - Physician Review Nursing Documentation Reviewed: Yes Family/Social History: No Known Family HX Smoking Status: Current Some Days Smoker Hx Alcohol Use: No Hx Substance Use: Yes Substance used: crack Hx Substance Use Treatment: Yes Allergies/Home Meds Allergies/Adverse Reactions: Allergies No Known Allergies Allergy (Verified 09/09/18 08:59) Review of Systems - Physician Review All systems were reviewed & negative as marked: Yes - Review of Systems Constitutional: absent: Fevers, Other (chills) Respiratory: absent: SOB Cardiovascular: absent: Chest Pain Gastrointestinal: absent: Diarrhea, Nausea, Vomiting Genitourinary Female: absent: Dysuria, Frequency, Hematuria Neurological: absent: Headache, Dizziness Psychiatric: Depression, Other (auditory hallucinations ) Physical Exam Vital Signs Reviewed: Yes Vital Signs Temp Pulse Resp BP Pulse Ox 12/13/18 20:57 98.3 F 81 18 113/63 97 Temperature: Afebrile Blood Pressure: Normal Pulse: Regular Respiratory Rate: Normal Appearance: Positive for: Well-Appearing, Non-Toxic, Comfortable Pain Distress: None Mental Status: Positive for: Alert and Oriented X 3 - Systems Exam Head: Present: Atraumatic, Normocephalic Pupils: Present: PERRL Extroacular Muscles: Present: EOMI Conjunctiva: Present: Normal Mouth: Present: Moist Mucous Membranes Neck: Present: Normal Range of Motion Respiratory/Chest: Present: Clear to Auscultation, Good Air Exchange. No: Respiratory Distress, Accessory Muscle Use Cardiovascular: Present: Regular Rate and Rhythm, Normal S1, S2. No: Murmurs Abdomen: No: Tenderness, Distention, Peritoneal Signs Back: Present: Normal Inspection Upper Extremity: Present: Normal Inspection. No: Cyanosis, Edema Lower Extremity: Present: Normal Inspection. No: Edema Neurological: Present: GCS=15, CN II-XII Intact, Speech Normal Skin: Present: Warm, Dry, Normal Color. No: Rashes Psychiatric: Present: Alert, Oriented x 3, Other (bizarre behavior ) Medical Decision Making ED Course and Treatment: 12/13/18 21:10 Impression: 53 year old female presents complaining of feeling depressed and auditory hallucinations. Plan: -- EKG -- Reassess and disposition Prior Visits: Notes and results from previous visits were reviewed. Progress Notes: 12/13/18 21:34 EKG shows NSR at 81 BPM with non-specific ST/T wave change with no change from 08/23/18. Interpreted by me. 12/14/18 00:02 cleared by crisis for dc - Scribe Statement The provider has reviewed the documentation as recorded by the Donya Curran Provider Scribe Attestation: All medical record entries made by the Scribe were at my direction and personally dictated by me. I have reviewed the chart and agree that the record accurately reflects my personal performance of the history, physical exam, medical decision making, and the department course for this patient. I have also personally directed, reviewed, and agree with the discharge instructions and disposition. Disposition/Present on Arrival - Present on Arrival Any Indicators Present on Arrival: No History of DVT/PE: Yes History of Uncontrolled Diabetes: No Urinary Catheter: No History of Decub. 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
[2018-12-13 22:00] VITALS: BP 116/78; PULSE 88; TEMP 98.2; O2SAT 98
--- NOTE | 2018-12-14 20:13 | CARD ---
APPROVED REPORT Date of service: 12/13/2018 EKG Measurement Heart [id number] <Conclusion> Normal sinus rhythm Possible Left atrial enlargement T wave abnormality, consider anterior ischemia Prolonged QT Abnormal ECG
== END 2018-12-13 22:00 | disposition home or self-care (01) ==
LOC: ED 20:25
DX: F32.9 Major depressive disorder, single episode, unspecified (principal); E11.9 Type 2 diabetes mellitus without complications; Z86.718 Personal history of other venous thrombosis and embolism; Z79.01 Long term (current) use of anticoagulants

== ENCOUNTER 2019-02-14 08:41 | Inpatient (IN) | payer MEDICAID ==
[2019-02-14 08:42] VITALS: BMI 29.2
--- NOTE | 2019-02-14 09:31 | ED PDOC ---
Arrival/HPI - General Chief Complaint: Psychiatric Evaluation Time Seen by Provider: 02/14/19 08:48 Historian: Patient - History of Present Illness Narrative History of Present Illness (Text): 02/14/19 09:26 A 53 year old female, whose past medical history includes schizoaffective disorder, presents to the ED for a psych evaluation. Patient reports she is compliant with medications but that they no longer working, as patient notes auditory and visual hallucinations. Patient reports hearing voices telling her she is , and seeing spirits and entities. Patient notes homicidal ideation; she reports she wants to harm people who have been bullying her for 30 years, but has no plan on how to do so. Patient also reports she is depressed and paranoid, but denies any suicidal ideation, fevers, chills, headache, dizziness, chest pain, shortness of breath, dyspnea on exertion, cough, abdominal pain, nausea, vomiting, diarrhea, back pain, neck pain, urinary/bowel changes, or any other complaint. Time/Duration: < week Symptom Onset: Gradual Symptom Course: Unchanged Activities at Onset: Light Context: Home Past Medical History - Provider Review Nursing Documentation Reviewed: Yes - Past History Past History: No Previous - Infectious Disease Hx of Infectious Diseases: None - Tetanus Immunization Tetanus Immunization: Unknown - Cardiac Hx Cardiac Disorders: No Hx Hypertension: No - Pulmonary Hx Tuberculosis: No - Neurological HX Cerebrovascular Accident: No Hx Seizures: No - HEENT Hx HEENT Disorder: No - Renal Hx Renal Disorder: No - Endocrine/Metabolic Hx Endocrine Disorders: Yes Hx Diabetes Mellitus Type 2: Yes - Hematological/Oncological Hx Cancer: No - Integumentary Hx Dermatological Disorder: Yes - Musculoskeletal/Rheumatological Hx Arthritis: Yes - Gastrointestinal Hx Gastrointestinal Disorders: No - Genitourinary/Gynecological Hx Sexually Transmitted Diseases: No - Psychiatric Hx Anxiety: Yes Hx Bipolar Disorder: Yes Hx Depression: Yes Hx Schizophrenia: Yes Hx Substance Use: Yes - Past Surgical History Past Surgical History: No Previous - Anesthesia Hx Anesthesia: No Hx Anesthesia Reactions: No Hx Malignant Hyperthermia: No - Suicidal Assessment Feels Threatened In Home Enviroment: No Family/Social History - Physician Review Nursing Documentation Reviewed: Yes Family/Social History: Unknown Family HX Smoking Status: Heavy Smoker > 10 Cigarettes Daily Hx Alcohol Use: No Hx Substance Use: Yes Substance used: crack Hx Substance Use Treatment: Yes Allergies/Home Meds Allergies/Adverse Reactions: Allergies No Known Allergies Allergy (Verified 02/03/19 15:16) Home Medications: Home Meds Medication Instructions Recorded Confirmed Divalproex [Depakote DR(*BID*)] 1,500 mg PO HS 02/03/19 02/03/19 Zolpidem [Ambien] 10 mg PO HS PRN 02/03/19 02/03/19 Review of Systems - Physician Review All systems were reviewed & negative as marked: Yes - Review of Systems Constitutional: absent: Fatigue, Fevers Eyes: absent: Vision Changes ENT: absent: Hearing Changes, Rhinorrhea Respiratory: absent: SOB, Cough Cardiovascular: absent: Chest Pain Gastrointestinal: absent: Abdominal Pain, Nausea, Vomiting Genitourinary Female: absent: Dysuria, Frequency Musculoskeletal: absent: Back Pain, Neck Pain Skin: absent: Rash Neurological: absent: Headache, Dizziness Endocrine: absent: Diaphoresis Hemo/Lymphatic: absent: Adenopathy Psychiatric: Depression, Other (homicidal ideation, auditory and visual hallucinations) Physical Exam Vital Signs Reviewed: Yes Vital Signs Temp Pulse Resp BP Pulse Ox 02/14/19 08:42 98.6 F 95 H 18 138/86 100 Temperature: Afebrile Blood Pressure: Normal Pulse: Regular Respiratory Rate: Normal Appearance: Positive for: Well-Appearing, Non-Toxic, Comfortable Mental Status: Positive for: Alert and Oriented X 3 - Systems Exam Head: Present: Atraumatic, Normocephalic Pupils: Present: PERRL Extroacular Muscles: Present: EOMI Conjunctiva: Present: Normal Mouth: Present: Moist Mucous Membranes Neck: Present: Normal Range of Motion Respiratory/Chest: Present: Clear to Auscultation, Good Air Exchange. No: Respiratory Distress, Accessory Muscle Use Cardiovascular: Present: Regular Rate and Rhythm, Normal S1, S2. No: Murmurs Abdomen: No: Tenderness, Distention, Peritoneal Signs Upper Extremity: Present: Normal Inspection. No: Cyanosis, Edema Lower Extremity: Present: Normal Inspection. No: Edema Neurological: Present: GCS=15, CN II-XII Intact, Speech Normal Skin: Present: Warm, Dry, Normal Color. No: Rashes Psychiatric: Present: Alert, Oriented x 3, Normal Concentration, Homicidal Ideation, Hallucinations. No: Normal Insight Medical Decision Making ED Course and Treatment: 02/14/19 09:33 Impression: A 53 year old female who presents to the ED for a psych evaluation secondary to auditory and visual hallucinations. Differential Diagnosis included but are not limited to: Psych NOS Plan: -- EKG -- Labs -- AES crisis evaluation -- Urinalysis -- Reassess and disposition Prior Visits: Notes and results from previous visits were reviewed. Progress Notes: 02/14/19 09:40 X-Ray negative. Patient started getting very agitated in the ED because she said no one got her juice fast enough. She was yelling and slamming things. I talked to her and calmed her down. She was accepted to psych by Cydney ROSS with DR. Rodriguez. She will be admitted to r/o Schizoaffective Effective Disorder. - Scribe Statement The provider has reviewed the documentation as recorded by the Scribe Juhi Do Provider Scribe Attestation: All medical record entries made by the Scribe were at my direction and personally dictated by me. I have reviewed the chart and agree that the record accurately reflects my personal performance of the history, physical exam, [facility] decision making, and the department course for this patient. I have also personally directed, reviewed, and agree with the discharge instructions and disposition. Disposition/Present on Arrival - Present on Arrival Any Indicators Present on Arrival: Yes History of DVT/PE: Yes History of Uncontrolled Diabetes: No Urinary Catheter: No History of Decub. Ulcer: No History Surgical Site Infection Following: None - Disposition Have Diagnosis and Disposition been Completed?: Yes Diagnosis: Schizoaffective disorder Disposition: HOSPITALIZED Disposition Time: 11:00 Patient Plan: Admission Condition: FAIR
[2019-02-14 09:44] LABS: URINE BILIRUBIN NEGATIVE (NEGATIVE); URINE BLOOD NEGATIVE (NEGATIVE); URINE GLUCOSE (UA) NEGATIVE (NEGATIVE); URINE LEUKOCYTE ESTERASE NEGATIVE Leu/uL (NEGATIVE); URINE PROTEIN TRACE mg/dL (<30 mg/dL)
[2019-02-14 09:47] LABS: URINE APPEARANCE CLEAR (CLEAR); URINE COLOR YELLOW (YELLOW)
[2019-02-14 10:01] LABS: BARBITURATES, UR NEGATIVE (NEGATIVE); BENZODIAZEPINES, UR NEGATIVE (NEGATIVE); OPIATES, UR NEGATIVE (NEGATIVE); PHENCYCLIDINE, UR NEGATIVE (NEGATIVE)
[2019-02-14 10:40] LABS: BASO # 0.02 K/mm3 (0.0-2.0); BASO % 0.3 % (0.0-3.0); EOS # 0.2 (0.0-0.7); EOS % 2.3 % (1.5-5.0); HEMOGLOBIN 12.3 g/dL (12.0-16.0); LYMPH # 2.1 (1.2-3.4); LYMPH % 29.9 % (22.0-35.0); MEAN PLATELET VOLUME 10.8 fl (7.0-11.0); MONO # 0.8 (0.1-0.6); RBC 4.39 10^6/uL (3.5-6.1); RED CELL DISTRIBUTION WIDTH 15.1 % (11.5-14.5)
[2019-02-14 10:49] LABS: ALB/GLOB RATIO 1.3 (1.1-1.8); ALT/SGPT 13 U/L (7-56); AST/SGOT 21 U/L (14-36); BLOOD UREA NITROGEN 16 mg/dL (7-21); CALCIUM 9.1 mg/dL (8.4-10.5); GFR NON-AFRICAN AMERICAN > 60
[2019-02-14 10:50] LABS: ACETAMINOPHEN < 10.0 ug/ml (10.0-20.0); SALICYLATE < 1 mg/dL (2.0-20.0)
[2019-02-14] MEDS ORDERED: Magnesium Hydroxide Susp 30 ml UD PO PRN (12:34)
[2019-02-14] MEDS ORDERED: Alum-Mag Hydrox-Simethicone Susp (30 mL) PO PRN (12:36)
[2019-02-14] MEDS ORDERED: DiphenhydrAMINE 50 mg/ml Inj IM PRN (13:07)
--- NOTE | 2019-02-14 13:33 | PCM.PSYCH ---
Initial Psychiatric Evaluation - Initial Psychiatric Evaluation Type of Admission: Voluntary Legal Status: Capacity Chief Complaint (in patient's own words): "I know that I am , I feel that child is hurting me inside..." Patient's Reaction to Hospitalization: pt was admitted for evaluation of disorganized thoughts and behavior. History of Present Illness and Precipitating Events: shortly patient is 53 year old -[place] female with reported history of schizophrenia paranoid type versus schizoaffective disorder, patient has multiple psychiatric admissions in the past most recent was [facility], patient was discharged on February 10, 2019, patient came back to the emergency room here in [facility] in disorganized stage, patient was internally preoccupied, disorganized in thoughts and behavior, patient had feeling that she is , patient also had feeling that people are talking about her, patient reported that she was discharged from [facility] "not ready." Patient requires further evaluation stabilization and medication resumption titration. 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 Patient was seen today at the treatment team meeting, patient presented with acceptable personal hygiene but has green hair, presented to be disorganized, fair ADLs. Patient reported that she was discharged prematurely from [facility], patient reported for the past 4 days she was feeling that people are talking about her, patient also was preoccupied that she is , and "this baby is hurting me from inside" (urine test is negative), in ED patient was saying that "spirits over me, shadow over boy is there, ghosts are everywhere" Patient reported that she was compliant with the medications and denied any side effects but reported "medication stopped working" pt presented in hypomanic stage, said that three checks are waiting for her, presented to be grandiose, flight of ideas, speech was over productive/pressured, started to flirt with the mental health worker later on. Patient reported that she is off cocaine "for 38days", REPORTED THAT SHE CONSUMES ALCOHOL, LAST TIME WAS LAST NIGHT. smokes about a pack a day, counseling provided, nicotine patch offered Past psychiatric history, patient has long history of mental illness, multiple hospitalizations, history of substance abuse, most recent admission was [facility] less than a week ago pt was discharged on the following meds [facility]: Apixaban [Eliquis] 5 mg PO Q12H #60 tab Benztropine [Cogentin] 1 mg PO DAILY #30 tab Divalproex [Depakote DR] 500 mg PO BID #60 tcp fluPHENAZine [Prolixin] 10 mg PO BID #60 tab metFORMIN [glucOPHAGE] 500 mg PO BID #60 tab QUEtiapine [Seroquel] 300 mg PO HS #30 tab (will be increased to 100mg am and 300hs) Past medical history: RLE DVT, DM, Sickle cell trait, patient had h/o urinary tract infection, medical team was called, consult appreciated. patient denied history of being abused Family history is unknown 02/14/19 10:15 02/14/19 10:15 Lab Results 02/14/19 10:15: Alcohol, Quantitative < 10 02/14/19 10:15: Salicylates < 1 L, Acetaminophen < 10.0 L 02/14/19 10:15: Sodium 145, Potassium 3.9, Chloride 104, Carbon Dioxide 31, Anion Gap 14, BUN 16, Creatinine 0.7, Est GFR ( Amer) > 60, Est GFR (Non- Af Amer) > 60, Random Glucose 66 L, Calcium 9.1, Magnesium 2.3 H, Total Bilirubin 0.3, AST 21, ALT 13, Alkaline Phosphatase 52, Total Protein 7.3, Albumin 4.0, Globulin 3.2, Albumin/Globulin Ratio 1.3 02/14/19 10:15: WBC 7.0, RBC 4.39, Hgb 12.3, Hct 37.3, MCV 85.0, MCH 28.0, MCHC 33.0, RDW 15.1 H, Plt Count 189, MPV 10.8, Neut % (Auto) 55.5, Lymph % (Auto) 29.9, Mccreary % (Auto) 12.0 H, Eos % (Auto) 2.3, Baso % (Auto) 0.3, Lymph # (Auto) 2.1, Mccreary # (Auto) 0.8 H, Eos # (Auto) 0.2, Baso # (Auto) 0.02, Absolute Neuts (auto) 3.89 02/14/19 09:35: Urine Opiates Screen Negative, Urine Methadone Screen Negative, Ur Barbiturates Screen Negative, Ur Phencyclidine Scrn Negative, Ur Amphetamines Screen Negative, U Benzodiazepines Scrn Negative, U Oth Cocaine Metabols Negative, U Cannabinoids Screen Negative 02/14/19 09:35: Urine Color Yellow, Urine Appearance Clear, Urine pH 8.0, Ur Specific [place] 1.010, Urine Protein Trace H, Urine Glucose (UA) Negative, Urine Ketones Negative, Urine Blood Negative, Urine Nitrate Negative, Urine Jorge Alberto irubin Negative, Urine Urobilinogen 1.0 H, Ur Leukocyte Esterase Negative, Urine RBC None, Urine WBC None 02/14/19 09:33: POC Glucose (mg/dL) 73 Vital Signs Temp Pulse Resp BP Pulse Ox 02/14/19 11:08 98.1 F 79 18 103/67 100 02/14/19 08:42 98.6 F 95 H 18 138/86 100 The patient failed the outpatient lower level of care: Yes Current Medications: Active Medications Generic Name Dose Route Start Last Admin Trade Name Freq PRN Reason Stop Dose Admin Acetaminophen 650 mg 02/14/19 12:35 Tylenol 325mg Tab PO Q6H PRN Pain, Mild (1-3) Al Hydrox/Mg Hydrox/Simethicone 30 ml 02/14/19 12:36 Maalox Plus 30 Ml PO DAILY PRN Indigestion / Heartburn Magnesium Hydroxide 30 ml 02/14/19 12:34 Milk Of Magnesia PO DAILY PRN Constipation Present on Admission - Present on Admission Any Indicators Present on Admission: No Review of Systems - Review of Systems Systems not reviewed;Unavailable: Acuity of Condition - Constitutional Constitutional: As Per HPI - EENT Eyes: As Per HPI Ears: As Per HPI Nose/Mouth/Throat: As Per HPI - Breasts Breasts: As Per HPI - Cardiovascular Cardiovascular: As Per HPI - Respiratory Respiratory: As Per HPI - Gastrointestinal Gastrointestinal: As Per HPI - Genitourinary Genitourinary: As Per HPI - Reproductive: Female Reproductive:Female: As Per HPI - Menstruation Menstruation: As Per HPI - Musculoskeletal Musculoskeletal: As Per HPI - Integumentary Integumentary: As Per HPI - Neurological Neurological: As Per HPI - Psychiatric Psychiatric: As Per HPI - Endocrine Endocrine: As Per HPI - Hematologic/Lymphatic Hematologic: As Per HPI Past Patient History - Past Psychiatric History Previous Treatment History: Inpatient Prior Professional Help: See HPI Prior Psychiatric Treatment: See HPI At what hospital: See HPI Duration: See HPI Nature of Treatment: See HPI Explanation of prior treatment: See HPI - PSYCHIATRIC Hx Anxiety: Yes Hx Bipolar Disorder: Yes Hx Depression: Yes Hx Schizophrenia: Yes Hx Substance Use: Yes - Infectious Disease Hx of Infectious Diseases: None - Tetanus Immunizations Tetanus Immunization: Unknown - Past Medical History & Family History Past Medical History?: Yes - CARDIAC Hx Cardiac Disorders: No Hx Hypertension: No - PULMONARY Hx Tuberculosis: No - NEUROLOGICAL HX Cerebrovascular Accident: No Hx Seizures: No - HEENT Hx HEENT Problems: No - RENAL Hx Chronic Kidney Disease: No - ENDOCRINE/METABOLIC Hx Endocrine Disorders: Yes Hx Diabetes Mellitus Type 2: Yes - HEMATOLOGICAL/ONCOLOGICAL Hx Cancer: No Hx Human Immunodeficiency Virus (HIV): No - INTEGUMENTARY Hx Dermatological Problems: Yes - MUSCULOSKELETAL/RHEUMATOLOGICAL Hx Arthritis: Yes - GASTROINTESTINAL Hx Gastrointestinal Disorders: No - GENITOURINARY/GYNECOLOGICAL Hx Sexually Transmitted Disorders: No - SURGICAL HISTORY Hx Surgeries: Yes - ANESTHESIA Hx Anesthesia: No Hx Anesthesia Reactions: No Hx Malignant Hyperthermia: No - Medical/Surgical History Reviewed & confirmed: by wv Meds Allergies/Adverse Reactions: Allergies Allergy/AdvReac Type Severity Reaction Status Date / Time No Known Allergies Allergy Verified 02/03/19 15:16 Mental Status Examination - Personal Presentation Personal Presentation: Looks stated age - Affect Affect: Other (Expanded) - Motor Activity Motor Activity: Calm - Reliability in Providing Information Reliability in Providing Information: Poor, due to alteration in thoughts, Poor, due to altered mood, Poor, due to cognitve impairment - Speech Speech: Disorganized, Irrelevant, Tangential - Mood Mood: Euphoric - Formal Thought Process Formal Thought Process: Hallucinations, Delusions, Paranoia, Loosening of associations, Circumstantial - Hallucinations/Delusions Delusions: Persecution - Obsessions/Compulsions Obsessions: None Compulsions: None - Cognitive Functions Orientation: Person, Place, Situation, Time Sensorium: Alert Attention/Concentration: Easily distracted Abstract Thinking: [place] Estimate of Intelligence: Below average Judgement: Intact, as evidence by: Insight regarding need for hospitalization - Risk Risk: Suicidal, Self-mutilation, Diminished functioning - Strength & Assets Inventory Strength & Assets Inventory: Cooperative - Limitations Limitations: Other (Chronic noncompliance with medications, severe mental illness, substance abuse) Psychiatric Physical Exam - Physical Exam Reviewed and confirmed: Emergency Department Physical Exam Results - Vital Signs Recent Vital Signs: Last Vital Signs Temp 98.1 F 02/14/19 11:08 Pulse 79 02/14/19 11:08 Resp 18 02/14/19 11:08 BP 103/67 02/14/19 11:08 Pulse Ox 100 02/14/19 11:08 - Labs Result Diagrams: 02/14/19 10:15 02/14/19 10:15 Labs: Laboratory Results - last 24 hr 02/14/19 02/14/19 02/14/19 09:33 09:35 09:35 WBC RBC Hgb Hct MCV MCH MCHC RDW Plt Count MPV Neut % (Auto) Lymph % (Auto) Mccreary % (Auto) Eos % (Auto) Baso % (Auto) Lymph # (Auto) Mccreary # (Auto) Eos # (Auto) Baso # (Auto) Absolute Neuts (auto) Sodium Potassium Chloride Carbon Dioxide Anion Gap BUN Creatinine Est GFR ( Amer) Est GFR (Non-Af Amer) POC Glucose (mg/dL) 73 Random Glucose Calcium Magnesium Total Bilirubin AST ALT Alkaline Phosphatase Total Protein Albumin Globulin Albumin/Globulin Ratio Urine Color Yellow Urine Appearance Clear Urine pH 8.0 Ur Specific [place] 1.010 Urine Protein Trace H Urine Glucose (UA) Negative Urine Ketones Negative Urine Blood Negative Urine Nitrate Negative Urine Bilirubin Negative Urine Urobilinogen 1.0 H Ur Leukocyte Esterase Negative Urine RBC None Urine WBC None Salicylates Urine Opiates Screen Negative Urine Methadone Screen Negative Acetaminophen Ur Barbiturates Screen Negative Ur Phencyclidine Scrn Negative Ur Amphetamines Screen Negative U Benzodiazepines Scrn Negative U Oth Cocaine Metabols Negative U Cannabinoids Screen Negative Alcohol, Quantitative 02/14/19 02/14/19 02/14/19 10:15 10:15 10:15 WBC 7.0 RBC 4.39 Hgb 12.3 Hct 37.3 MCV 85.0 MCH 28.0 MCHC 33.0 RDW 15.1 H Plt Count 189 MPV 10.8 Neut % (Auto) 55.5 Lymph % (Auto) 29.9 Mccreary % (Auto) 12.0 H Eos % (Auto) 2.3 Baso % (Auto) 0.3 Lymph # (Auto) 2.1 Mccreary # (Auto) 0.8 H Eos # (Auto) 0.2 Baso # (Auto) 0.02 Absolute Neuts (auto) 3.89 Sodium 145 Potassium 3.9 Chloride 104 Carbon Dioxide 31 Anion Gap 14 BUN 16 Creatinine 0.7 Est GFR ( Amer) > 60 Est GFR (Non-Af Amer) > 60 POC Glucose (mg/dL) Random Glucose 66 L Calcium 9.1 Magnesium 2.3 H Total Bilirubin 0.3 AST 21 ALT 13 Alkaline Phosphatase 52 Total Protein 7.3 Albumin 4.0 Globulin 3.2 Albumin/Globulin Ratio 1.3 Urine Color Urine Appearance Urine pH Ur Specific [place] Urine Protein Urine Glucose (UA) Urine Ketones Urine Blood Urine Nitrate Urine Bilirubin Urine Urobilinogen Ur Leukocyte Esterase Urine RBC Urine WBC Salicylates < 1 L Urine Opiates Screen Urine Methadone Screen Acetaminophen < 10.0 L Ur Barbiturates Screen Ur Phencyclidine Scrn Ur Amphetamines Screen U Benzodiazepines Scrn U Oth Cocaine Metabols U Cannabinoids Screen Alcohol, Quantitative 02/14/19 10:15 WBC RBC Hgb Hct MCV MCH MCHC RDW Plt Count MPV Neut % (Auto) Lymph % (Auto) Mccreary % (Auto) Eos % (Auto) Baso % (Auto) Lymph # (Auto) Mccreary # (Auto) Eos # (Auto) Baso # (Auto) Absolute Neuts (auto) Sodium Potassium Chloride Carbon Dioxide Anion Gap BUN Creatinine Est GFR ( Amer) Est GFR (Non-Af Amer) POC Glucose (mg/dL) Random Glucose Calcium Magnesium Total Bilirubin AST ALT Alkaline Phosphatase Total Protein Albumin Globulin Albumin/Globulin Ratio Urine Color Urine Appearance Urine pH Ur Specific [place] Urine Protein Urine Glucose (UA) Urine Ketones Urine Blood Urine Nitrate Urine Bilirubin Urine Urobilinogen Ur Leukocyte Esterase Urine RBC Urine WBC Salicylates Urine Opiates Screen Urine Methadone Screen Acetaminophen Ur Barbiturates Screen Ur Phencyclidine Scrn Ur Amphetamines Screen U Benzodiazepines Scrn U Oth Cocaine Metabols U Cannabinoids Screen Alcohol, Quantitative < 10 - EKG Data EKG Interpreted by: ER Physician DSM Plan - DSM 5 DSM 5 Diagnosis: Schizoaffective disorder Polysubstance abuse - Recommended/Plan of Treatment Treatment Recommendations and Plan of Treatment: Milieu/structure/supportive therapy SW consultation for discharge plan and social issues Med management: [facility] less than a week ago pt was discharged on the following meds [facility]: Apixaban [Eliquis] 5 mg PO Q12H #60 tab Benztropine [Cogentin] 1 mg PO DAILY #30 tab Divalproex [Depakote DR] 500 mg PO BID #60 tcp fluPHENAZine [Prolixin] 10 mg PO BID #60 tab metFORMIN [glucOPHAGE] 500 mg PO BID #60 tab QUEtiapine [Seroquel] 300 mg PO HS #30 tab (will be increased to 100mg am and 30 0hs) Family involvement Follow up on labs Will monitor closely Pt was educated about risk/benefits and alternatives of medications, coping strategies (safety plan, suicide prevention), relapse prevention, importance of follow up with psychiatrist and therapist, stay away from drugs/alcohol/smoking Projected ELOS: 7 days Prognosis: Guarded Discharge Plan and Discharge Criteria: Patient will be more organized, will be not in danger to self or others - Tobacco Cessation Tobacco Use Status for the last 30 days: Heavy User(>=5 cigs &/or cigars/pipes daily) Tobacco Use Treatment Practical Counseling Provided: Yes Tobacco Use Treatment FDA-Approved Cessation Medication Provided: Yes Type of Medication Provided: Nicoderm CQ - Alcohol or Substance Abuse Does the patient have an Alcohol or Substance Abuse Disorder: Yes Initial Psych Certification - Initial Certification I certify that the inpatient psychiatric facility admission was medically necessary for either: Treatment which could reasonbly be expected to improve pt's condition I estimate of hospitalization is necessary for proper treatment of the patient: 7 Unit of Time: Days My plans for post-hospital care for this patient are: The treatment program
[2019-02-14 15:04] VITALS: O2SAT 97
[2019-02-14] MEDS: Divalproex 500 mg DR(BID formulation) PO SCH (15:18)
--- NOTE | 2019-02-14 16:26 | PCM.BM ---
Treatment Plan Problems - Problems identified on initial assessmt ALTERATION IN EMOTIONAL STATUS Date Initiated: 02/14/19 Time Initiated: 16:24 Assessment reference: HP, NA Status: Active AUDITORY AND VISUAL HALLUCINATIONS Date Initiated: 02/14/19 Time Initiated: 16:25 Assessment reference: HP, NA PARANOID BEHAVIOR Date Initiated: 02/14/19 Time Initiated: 16:25 Assessment reference: HP, NA Status: Active Treatment assets and liabiliti Patient Assests: adapts well, negotiates basic needs, other, motivated, self- reliant, ADL independent, physically healthy Patient Liabilities: live alone, physical pain, financial problems, poor support system, relationship conflicts, substance abuse - Milieu Protocol Maintain good personal hygiene: daily Encourage regular showers, daily Remind patient to perform daily oral care, daily Assist patient to perform ADL's Maintain personal safety: daily Educate patient to report safety concerns to staff, daily Monitor environment for contraband/sharps Medication safety: Monitor for expected outcome, potential side effects: daily, Assess barriers to learning: daily, Assess readiness for medication education: daily Milieu Narrative: Milieu/structure/supportive therapy SW consultation for discharge plan and social issues Med management: [facility] less than a week ago pt was discharged on the following meds [facility]: Apixaban [Eliquis] 5 mg PO Q12H #60 tab Benztropine [Cogentin] 1 mg PO DAILY #30 tab Divalproex [Depakote DR] 500 mg PO BID #60 tcp fluPHENAZine [Prolixin] 10 mg PO BID #60 tab metFORMIN [glucOPHAGE] 500 mg PO BID #60 tab QUEtiapine [Seroquel] 300 mg PO HS #30 tab (will be increased to 100mg am and 300hs) Family involvement Follow up on labs Will monitor closely Pt was educated about risk/benefits and alternatives of medications, coping strategies (safety plan, suicide prevention), relapse prevention, importance of follow up with psychiatrist and therapist, stay away from drugs/alcohol/smoking Family Contact Family involvement: Family/SO is involved Family contact: Patient agrees to contact - Goals for Treatment Patient goals for treatment: "I need to be placed in a usp." Discharge/Continuing Care - Education Needs Education Needs: Patient Medication, Patient Diagnosis/Disease Process, Patient Coping Skills, Patient Anger Management skills, Patient Placement options, Patient Community resources, Patient Activities of Daily Living, Patient Pain, Patient Uses of Medical Equipment, Patient Aftercare Safety Plan, Patient Other - Discharge Discharge Criteria: Tolerates medication w/o severe side effects, Free of Suicidal thoughts, Free of Homicidal thoughts, Free of paranoid thoughts, Free of agitation, Normal sleep pattern - Treatment Team Participation Patient/Family/SO Statement: Milieu/structure/supportive therapy SW consultation for discharge plan and social issues Med management: [facility] less than a week ago pt was discharged on the following meds [facility]: Apixaban [Eliquis] 5 mg PO Q12H #60 tab Benztropine [Cogentin] 1 mg PO DAILY #30 tab Divalproex [Depakote DR] 500 mg PO BID #60 tcp fluPHENAZine [Prolixin] 10 mg PO BID #60 tab metFORMIN [glucOPHAGE] 500 mg PO BID #60 tab QUEtiapine [Seroquel] 300 mg PO HS #30 tab (will be increased to 100mg am and 300hs) Family involvement Follow up on labs Will monitor closely Pt was educated about risk/benefits and alternatives of medications, coping strategies (safety plan, suicide prevention), relapse prevention, importance of follow up with psychiatrist and therapist, stay away from drugs/alcohol/smoking
--- NOTE | 2019-02-14 23:50 | CARD ---
APPROVED REPORT Date of service: 02/14/2019 EKG Measurement Heart [id number] <Conclusion> Normal sinus rhythm Rightward axis Borderline ECG
--- NOTE | 2019-02-15 07:03 | CP.PCM.CON ---
<Huy Rainey - Last Filed: 02/15/19 11:31> History of Present Illness - History of Present Illness History of Present Illness: PGY-1 Medicine Consult note for Dr. Solis Consulting physician: Dr. Jacobs Reason for consult: Medical management of asthma, DM-2, history of DVT Patient is a 53 year old female with a past medical history DM, sickle cell trait, depression, anxiety, and schizophrenia/paranoid, drug abuse, UTI with ESBL who was admitted to psychiatry. Medicine is being consulted for medical management of asthma, DM-2,and history of DVT. Patient currently denies any SOB, cough, fever, chills, nausea, vomiting, or any other complaints at this time. Patient is ambulating and denies any dsypnea. Past Medical History: DM, Sickle cell trait, depression, anxiety, schizophrenia/ paranoid, drug abuse Past Surgical History: IVC filter placement Family History: Mother at 89, father from pancreatic cancer Social History: 10 cigarets a day, 2 beers a day, crack cocaine cocaine Allergies: NKDA Past Patient History - Infectious Disease Hx of Infectious Diseases: None - Tetanus Immunizations Tetanus Immunization: Unknown - Past Medical History & Family History Past Medical History?: Yes - Past Social History Smoking Status: Heavy Smoker > 10 Cigarettes Daily - CARDIAC Hx Cardiac Disorders: No Hx Hypertension: No - PULMONARY Hx Tuberculosis: No - NEUROLOGICAL HX Cerebrovascular Accident: No Hx Seizures: No - HEENT Hx HEENT Problems: No - RENAL Hx Chronic Kidney Disease: No - ENDOCRINE/METABOLIC Hx Endocrine Disorders: Yes Hx Diabetes Mellitus Type 2: Yes - HEMATOLOGICAL/ONCOLOGICAL Hx Cancer: No - INTEGUMENTARY Hx Dermatological Problems: Yes - MUSCULOSKELETAL/RHEUMATOLOGICAL Hx Arthritis: Yes - GASTROINTESTINAL Hx Gastrointestinal Disorders: No - GENITOURINARY/GYNECOLOGICAL Hx Sexually Transmitted Disorders: No - PSYCHIATRIC Hx Depression: Yes Hx Schizophrenia: Yes - SURGICAL HISTORY Hx Surgeries: Yes - ANESTHESIA Hx Anesthesia: No Hx Anesthesia Reactions: No Hx Malignant Hyperthermia: No Meds Allergies/Adverse Reactions: Allergies Allergy/AdvReac Type Severity Reaction Status Date / Time No Known Allergies Allergy Verified 02/03/19 15:16 - Medications Medications: Current Medications Acetaminophen (Tylenol 325mg Tab) 650 mg PO Q6H PRN PRN Reason: Pain, Mild (1-3) Al Hydrox/Mg Hydrox/Simethicone (Maalox Plus 30 Ml) 30 ml PO DAILY PRN PRN Reason: Indigestion / Heartburn Benztropine Mesylate (Cogentin) 1 mg PO BID [facility] Last Admin: 02/14/19 15:17 Dose: 1 mg Diphenhydramine HCl (Benadryl) 50 mg IM Q6H PRN PRN Reason: agiation Diphenhydramine HCl (Benadryl) 50 mg PO Q6H PRN PRN Reason: Agitation Divalproex Sodium (Depakote Dr(*Bid*)) 500 mg PO BID [facility] Last Admin: 02/14/19 15:18 Dose: 500 mg Fluphenazine HCl (Prolixin) 10 mg PO BID [facility]; Protocol Last Admin: 02/14/19 15:18 Dose: 10 mg Haloperidol (Haldol) 5 mg PO Q6H PRN; Protocol PRN Reason: agitation/psychosis Haloperidol Lactate (Haldol) 5 mg IM Q6H PRN; Protocol PRN Reason: agitaiton/psychosis Lorazepam (Ativan) 2 mg PO Q6H PRN; Protocol PRN Reason: anxiety/agitation Last Admin: 02/14/19 21:37 Dose: 2 mg Lorazepam (Ativan) 2 mg IM Q6 PRN; Protocol PRN Reason: Agitation Magnesium Hydroxide (Milk Of Magnesia) 30 ml PO DAILY PRN PRN Reason: Constipation Metformin HCl (Glucophage) 500 mg PO BID [facility] Last Admin: 02/14/19 15:17 Dose: 500 mg Nicotine (Nicoderm Cq) 1 patch TD DAILY [facility] Last Admin: 02/14/19 15:17 Dose: 1 patch Quetiapine Fumarate (Seroquel) 100 mg PO DAILY [facility]; Protocol Last Admin: 02/14/19 15:17 Dose: 100 mg Quetiapine Fumarate (Seroquel) 300 mg PO HS TOVA; Protocol Last Admin: 02/14/19 21:37 Dose: 300 mg Zolpidem Tartrate (Ambien) 5 mg PO HS PRN; Protocol PRN Reason: Insomnia Last Admin: 02/14/19 21:58 Dose: 5 mg Physical Exam - Constitutional Appears: Well, Non-toxic, No Acute Distress - Head Exam Head Exam: ATRAUMATIC, NORMAL INSPECTION - Eye Exam Eye Exam: EOMI, Normal appearance - ENT Exam ENT Exam: Mucous Membranes Moist - Respiratory Exam Respiratory Exam: NORMAL BREATHING PATTERN. absent: Accessory Muscle Use, Rales, Wheezes, Respiratory Distress - Cardiovascular Exam Cardiovascular Exam: REGULAR RHYTHM, +S1, +S2. absent: Gallop, Rubs, Systolic Murmur - GI/Abdominal Exam GI & Abdominal Exam: Normal Bowel Sounds, Soft. absent: Tenderness - Extremities Exam Extremities exam: Positive for: normal inspection Additional comments: no erythema or edema noted in bilateral knees - Neurological Exam Neurological exam: Alert, Oriented x3 - Psychiatric Exam Psychiatric exam: Normal Affect, Normal Mood - Skin Skin Exam: Dry, Intact, Normal Color, Warm Results - Vital Signs Recent Vital Signs: Last Vital Signs Temp 98.5 F 02/14/19 12:15 Pulse 94 H 02/14/19 16:00 Resp 22 02/14/19 15:23 BP 100/59 L 02/14/19 16:00 Pulse Ox 97 02/14/19 12:15 - Labs Result Diagrams: 02/14/19 10:15 02/14/19 10:15 Labs: Laboratory Results - last 24 hr 02/14/19 02/14/19 02/14/19 09:33 09:35 09:35 WBC RBC Hgb Hct MCV MCH MCHC RDW Plt Count MPV Neut % (Auto) Lymph % (Auto) Wake % (Auto) Eos % (Auto) Baso % (Auto) Lymph # (Auto) Wake # (Auto) Eos # (Auto) Baso # (Auto) Absolute Neuts (auto) Sodium Potassium Chloride Carbon Dioxide Anion Gap BUN Creatinine Est GFR ( Amer) Est GFR (Non-Af Amer) POC Glucose (mg/dL) 73 Random Glucose Calcium Magnesium Total Bilirubin AST ALT Alkaline Phosphatase Total Protein Albumin Globulin Albumin/Globulin Ratio Urine Color Yellow Urine Appearance Clear Urine pH 8.0 Ur Specific [place] 1.010 Urine Protein Trace H Urine Glucose (UA) Negative Urine Ketones Negative Urine Blood Negative Urine Nitrate Negative Urine Bilirubin Negative Urine Urobilinogen 1.0 H Ur Leukocyte Esterase Negative Urine RBC None Urine WBC None Salicylates Urine Opiates Screen Negative Urine Methadone Screen Negative Acetaminophen Ur Barbiturates Screen Negative Ur Phencyclidine Scrn Negative Ur Amphetamines Screen Negative U Benzodiazepines Scrn Negative U Oth Cocaine Metabols Negative U Cannabinoids Screen Negative Alcohol, Quantitative 02/14/19 02/14/19 02/14/19 10:15 10:15 10:15 WBC 7.0 RBC 4.39 Hgb 12.3 Hct 37.3 MCV 85.0 MCH 28.0 MCHC 33.0 RDW 15.1 H Plt Count 189 MPV 10.8 Neut % (Auto) 55.5 Lymph % (Auto) 29.9 Wake % (Auto) 12.0 H Eos % (Auto) 2.3 Baso % (Auto) 0.3 Lymph # (Auto) 2.1 Wake # (Auto) 0.8 H Eos # (Auto) 0.2 Baso # (Auto) 0.02 Absolute Neuts (auto) 3.89 Sodium 145 Potassium 3.9 Chloride 104 Carbon Dioxide 31 Anion Gap 14 BUN 16 Creatinine 0.7 Est GFR ( Amer) > 60 Est GFR (Non-Af Amer) > 60 POC Glucose (mg/dL) Random Glucose 66 L Calcium 9.1 Magnesium 2.3 H Total Bilirubin 0.3 AST 21 ALT 13 Alkaline Phosphatase 52 Total Protein 7.3 Albumin 4.0 Globulin 3.2 Albumin/Globulin Ratio 1.3 Urine Color Urine Appearance Urine pH Ur Specific [place] Urine Protein Urine Glucose (UA) Urine Ketones Urine Blood Urine Nitrate Urine Bilirubin Urine Urobilinogen Ur Leukocyte Esterase Urine RBC Urine WBC Salicylates < 1 L Urine Opiates Screen Urine Methadone Screen Acetaminophen < 10.0 L Ur Barbiturates Screen Ur Phencyclidine Scrn Ur Amphetamines Screen U Benzodiazepines Scrn U Oth Cocaine Metabols U Cannabinoids Screen Alcohol, Quantitative 02/14/19 10:15 WBC RBC Hgb Hct MCV MCH MCHC RDW Plt Count MPV Neut % (Auto) Lymph % (Auto) Wake % (Auto) Eos % (Auto) Baso % (Auto) Lymph # (Auto) Wake # (Auto) Eos # (Auto) Baso # (Auto) Absolute Neuts (auto) Sodium Potassium Chloride Carbon Dioxide Anion Gap BUN Creatinine Est GFR ( Amer) Est GFR (Non-Af Amer) POC Glucose (mg/dL) Random Glucose Calcium Magnesium Total Bilirubin AST ALT Alkaline Phosphatase Total Protein Albumin Globulin Albumin/Globulin Ratio Urine Color Urine Appearance Urine pH Ur Specific [place] Urine Protein Urine Glucose (UA) Urine Ketones Urine Blood Urine Nitrate Urine Bilirubin Urine Urobilinogen Ur Leukocyte Esterase Urine RBC Urine WBC Salicylates Urine Opiates Screen Urine Methadone Screen Acetaminophen Ur Barbiturates Screen Ur Phencyclidine Scrn Ur Amphetamines Screen U Benzodiazepines Scrn U Oth Cocaine Metabols U Cannabinoids Screen Alcohol, Quantitative < 10 Assessment & Plan - Assessment and Plan (Free Text) Assessment: Patient is a 53 year old female with a past medical history DM, sickle cell trait, depression, anxiety, and schizophrenia/paranoid, drug abuse, UTI with ESBL who was admitted to psychiatry. Medicine is being consulted for medical management of asthma, DM-2,and history of DVT. Plan: Hx of DVT - Patient has an IVC filter and also non-compliant - Continue home medication Eliquis 5mg PO Q12 Left knee pain - Patient is ambulating without any issues - Negative physical exam- no erythema or edema - Patient is asking for pain medications- narcotics not indicated at this time - Tylenol PRN DM-2 - Continue Metformin 500mg PO BID - Accucheks ACHS - ISS, low Asthma - No current wheezing - Albuterol PRN Depression, anxiety, and schizophrenia/paranoid - Management as per psych Medicine will sign off at this time, please re-consult as needed. Patient seen and cse discussed with attending, Dr. Solis. Huy Rainey, PGY-1 <Alana Solis - Last Filed: 02/15/19 13:58> Meds - Medications Medications: Current Medications Acetaminophen (Tylenol 325mg Tab) 650 mg PO Q6H PRN PRN Reason: Pain, Mild (1-3) Al Hydrox/Mg Hydrox/Simethicone (Maalox Plus 30 Ml) 30 ml PO DAILY PRN PRN Reason: Indigestion / Heartburn Albuterol (Ventolin Hfa 90 Mcg/Actuation (8 G)) 1 puff IH [id number] PRN PRN Reason: Wheezing Apixaban (Eliquis) 5 mg PO Q12H TOVA; Protocol Last Admin: 02/15/19 12:49 Dose: 5 mg Benztropine Mesylate (Cogentin) 1 mg PO BID [facility] Last Admin: 02/15/19 09:20 Dose: 1 mg Diphenhydramine HCl (Benadryl) 50 mg IM Q6H PRN PRN Reason: agiation Diphenhydramine HCl (Benadryl) 50 mg PO Q6H PRN PRN Reason: Agitation Divalproex Sodium (Depmoncho Dr(*Bid*)) 500 mg PO BID [facility] Last Admin: 02/15/19 09:20 Dose: 500 mg Fluphenazine HCl (Prolixin) 10 mg PO BID [facility]; Protocol Last Admin: 02/15/19 09:19 Dose: 10 mg Haloperidol (Haldol) 5 mg PO Q6H PRN; Protocol PRN Reason: agitation/psychosis Haloperidol Lactate (Haldol) 5 mg IM Q6H PRN; Protocol PRN Reason: agitaiton/psychosis Insulin Human Regular (Humulin R Low) 0 units SC ACHS TOVA; Protocol Lorazepam (Ativan) 2 mg PO Q6H PRN; Protocol PRN Reason: anxiety/agitation Last Admin: 02/15/19 09:20 Dose: 2 mg Lorazepam (Ativan) 2 mg IM Q6 PRN; Protocol PRN Reason: Agitation Magnesium Hydroxide (Milk Of Magnesia) 30 ml PO DAILY PRN PRN Reason: Constipation Metformin HCl (Glucophage) 500 mg PO BID [facility] Last Admin: 02/15/19 09:19 Dose: 500 mg Nicotine (Nicoderm Cq) 1 patch TD DAILY [facility] Last Admin: 02/15/19 09:19 Dose: 1 patch Quetiapine Fumarate (Seroquel) 100 mg PO DAILY [facility]; Protocol Last Admin: 02/15/19 09:19 Dose: 100 mg Quetiapine Fumarate (Seroquel) 300 mg PO HS TOVA; Protocol Last Admin: 02/14/19 21:37 Dose: 300 mg Zolpidem Tartrate (Ambien) 5 mg PO HS PRN; Protocol PRN Reason: Insomnia Last Admin: 02/14/19 21:58 Dose: 5 mg Results - Vital Signs Recent Vital Signs: Last Vital Signs Temp 98.5 F 02/14/19 12:15 Pulse 83 02/15/19 07:00 Resp 16 02/15/19 07:00 BP 122/80 02/15/19 07:00 Pulse Ox 97 02/14/19 12:15 - Labs Result Diagrams: 02/14/19 10:15 02/14/19 10:15 Labs: Laboratory Results - last 24 hr 02/15/19 02/15/19 02/15/19 06:10 07:00 07:00 Fasting Glucose 90 Triglycerides 40 Cholesterol 75 L LDL Cholesterol Direct 50 HDL Cholesterol 18 L Free T4 0.93 TSH 3rd Generation 3.54 Valproic Acid 60 Attending/Attestation - Attestation I have personally seen and examined this patient.: Yes I have fully participated in the care of the patient.: Yes I have reviewed all pertinent clinical information: Yes Notes (Text): 02/15/19 13:50 Medical record note made by the resident after discussion with my direction and input after the patient was personally seen and examined by me. I have reviewed the chart and agree that the record accurately reflects by personal performance of the history, physical exam, data review, and medical decision-making, in the course for the patient. I have also personally directed the plan of care. 53 year female with past medical history of Obesity, schizophrenia/depression, asthma,H/O ESBL UTI , substance abuse ,H/O recurrent DVT, SP IVC filter,and non compliance with medication is admitted to Psychiatry floor for management of schizophrenia/depression. We will resume oral anticoagulation with apixiban, and will recommend venous stocking for leg edema. COPD is stable, patient is not wheezing and is on room air. DM, Continue Metformin and monitor blood sugars before meals Patient is ambulatory, does not look to be in pain, asking for Percocet, knee examination is benign, will recommend PRN Acetaminophen.Avoid NSAID. There is no active medical issue at this time. We will sign off. Please call us back if any question. Management plan was discussed in detail with patient. Education was provided.
[2019-02-15 07:49] LABS: GLUCOSE,FASTING 90 mg/dL (65-110); HDL CHOLESTEROL 18 mg/dL (29-60)
[2019-02-15 08:00] LABS: LDL CHOLESTEROL 50 mg/dL (0-129)
[2019-02-15 08:09] LABS: FREE T4 0.93 ng/dL (0.78-2.19)
[2019-02-15] MEDS: Divalproex 500 mg DR(BID formulation) PO SCH ×2 (09:20→16:31)
--- NOTE | 2019-02-15 10:01 | PCM.PYCHPN ---
Psychiatric Progress Note - Psychiatric Progress Note Patient seen today, length of contact: 25 min Problems Identified/Issues Discussed: Patient is 53 year old -Wallisian female with reported history of schizophrenia paranoid type versus schizoaffective disorder, multiple psychiatric admissions in the past most recent was [facility]--patient was discharged on February 10, 2019 who presented to our emergency room here in [facility] with psychotic symptoms. Patient was internally preoccupied, disorganized in thoughts and behavior, delusional about being ("this baby is hurting me from inside" urine test is negative). 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 Patient has been hypomanic and disorganized with flighty thought process on the unit. She is superficially cooperative when I meet with her but has trouble focusing and remaining consistent. Reports that she didn't sleep well because she was scared, she was hallucinating shadows of a "boy, young man" in the bathr oom. Patient still seems paranoid and oddly related. She has been talkative, impulsive and interactive with other patients. Apparently she flirted with a mental health worker on Sunday. Staff noted she was still delusional about being and reported hearing voices telling her she was a slut on Sunday. She remains unpredictable. Diagnostic Results: Schizoaffective disorder Polysubstance abuse Mental Status Examination - Cognitive Function Orientation: Person, Place, Situation, Time Attention: Poor Concentration: Poor Association: Loose Fund of Knowledge: Poor - Mood Mood: Euphoric - Affect Affect: Constricted, Other (Expanded) - Formal Thought Process Formal Thought Process: Hallucinations ("shadows of a boy, young man" Voice calling patient a "slut" on Sunday), Delusions, Paranoia, Loosening of associations, Circumstantial - Homicidal Ideation Homicidal Ideation: Yes Goal/Treatment Plan - Goal/Treatment Plan Progress Toward Problem(s) and Goals/Treatment Plan: * Milieu/structure/supportive therapy * SW consultation for discharge plan and social issues * Appreciate f/u by Dr. Rainey on 02/15/19 * Depakote DR 500 mg PO BID, check VPA on 02/16/19 * Prolixin 10 mg PO BID and Cogentin 1 mg PO BID * Seroquel 100 mg po qAM and 300 mg PO HS #30 tab ( AM dose was recently added) * Nicoderm CQ for tobacco withdrawal * Vitals reviewed and noted below: 02/14/19 02/14/19 02/14/19 11:08 12:15 15:23 Temperature 98.1 F 98.5 F Pulse Rate 79 97 H Respiratory 18 22 22 Rate Blood Pressure 103/67 112/77 O2 Sat by Pulse 100 97 Oximetry 02/14/19 16:00 Temperature Pulse Rate 94 H Respiratory Rate Blood Pressure 100/59 L O2 Sat by Pulse Oximetry * Recent weekend labs noted below: 02/15/19 02/15/19 07:00 07:00 Fasting Glucose 90 Triglycerides 40 Cholesterol 75 L LDL Cholesterol Direct 50 HDL Cholesterol 18 L Free T4 0.93 TSH 3rd Generation 3.54
[2019-02-15] MEDS ORDERED: Albuterol HFA 90 mcg/actuation (8 g) IH PRN (11:43)
[2019-02-15] MEDS: Insulin Reg-LOW-Coverage SC SCH ×2 (16:45→23:50)
[2019-02-16] MEDS: Divalproex 500 mg DR(BID formulation) PO SCH ×2 (08:45→16:06)
[2019-02-16] MEDS: Insulin Reg-LOW-Coverage SC SCH ×4 (08:53→21:10)
--- NOTE | 2019-02-16 10:44 | PCM.PYCHPN ---
Psychiatric Progress Note - Psychiatric Progress Note Patient seen today, length of contact: 25 min Problems Identified/Issues Discussed: Patient is 53 year old -[place] female with reported history of schizophrenia paranoid type versus schizoaffective disorder, multiple psychiatric admissions in the past most recent was [facility]--patient was discharged on February 10, 2019 who presented to our emergency room here in [facility] with psychotic symptoms. Patient was internally preoccupied, disorganized in thoughts and behavior, delusional about being ("this baby is hurting me from inside" urine test is negative). 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 Patient has been hypomanic and disorganized with flighty thought process on the unit. She is superficially cooperative when I meet with her but has trouble focusing and remaining consistent. Speech is a little slurred and this is consistent with her presentation during prior admissions. She is a little more alert today and reports she slept better last night. Patient remains disorganized and reports that she is still "hearing voices" Patient still seems paranoid and oddly related. She has been talkative, impulsive and interactive with other patients. Apparently she flirted with a mental health worker on Sunday. Staff noted she was still delusional about being and reported hearing voices telling her she was a slut on Sunday. Patient had bouts of anxiety and internal agitation on the unit on Sunday and needed two doses of Ativan 2 mg po during the day. She remains unpredictable. Diagnostic Results: Schizoaffective disorder Polysubstance abuse Medication Change: No Medical Record Reviewed: Yes Mental Status Examination - Cognitive Function Orientation: Person, Place, Situation, Time Attention: Poor Concentration: Poor Association: Loose Fund of Knowledge: Poor - Mood Mood: Euphoric - Affect Affect: Constricted, Other (Expanded) - Formal Thought Process Formal Thought Process: Hallucinations ("shadows of a boy, young man" Voice calling patient a "slut" on Sunday), Delusions, Paranoia, Loosening of associations, Circumstantial - Homicidal Ideation Homicidal Ideation: Yes Goal/Treatment Plan - Goal/Treatment Plan Progress Toward Problem(s) and Goals/Treatment Plan: * Milieu/structure/supportive therapy * SW consultation for discharge plan and social issues * Appreciate f/u by Dr. Rainey on 02/15/19 * Depakote DR 500 mg PO BID, VPA on 02/15/19 =60 * Prolixin 10 mg PO BID and Cogentin 1 mg PO BID * Seroquel 100 mg po qAM and 300 mg PO HS #30 tab ( AM dose was recently added by Dr. Jacobs) * Nicoderm CQ for tobacco withdrawal * Vitals reviewed and noted below: Selected Entries 02/14/19 02/14/19 02/15/19 12:15 16:00 07:00 Temperature 98.5 F Pulse Rate 97 H 94 H 83 Respiratory 22 16 Rate Blood Pressure 112/77 100/59 L 122/80 02/15/19 16:15 Temperature Pulse Rate 108 H Respiratory Rate Blood Pressure 119/80 * Recent weekend labs noted below: 02/15/19 06:10 Valproic Acid 60 02/15/19 02/15/19 07:00 07:00 Fasting Glucose 90 Triglycerides 40 Cholesterol 75 L LDL Cholesterol Direct 50 HDL Cholesterol 18 L Free T4 0.93 TSH 3rd Generation 3.54
[2019-02-17] MEDS: Divalproex 500 mg DR(BID formulation) PO SCH ×2 (08:02→16:53)
--- NOTE | 2019-02-17 08:50 | PCM.PYCHPN ---
Psychiatric Progress Note - Psychiatric Progress Note Patient seen today, length of contact: 25 min Problems Identified/Issues Discussed: Patient is 53 year old -Israeli female with reported history of schizophrenia paranoid type versus schizoaffective disorder, multiple psychiatric admissions in the past most recent was [facility]--patient was discharged on February 10, 2019 who presented to our emergency room here in [facility] with psychotic symptoms. Patient was internally preoccupied, disorganized in thoughts and behavior, delusional about being ("this baby is hurting me from inside" urine test is negative). 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 Patient has been hypomanic and disorganized with flighty thought process on the unit. She is superficially cooperative when I meet with her but has trouble focusing and remaining consistent. Speech is a little slurred and this is consistent with her presentation during prior admissions. She is a little more alert and coherent today however still remains remains disorganized and complaining of "still seeing shadows". She specifically denies auditory hallucinations today. Patient still seems paranoid and oddly related. She has been talkative, impulsive and interactive with other patients. Apparently she flirted with a mental health worker on Sunday. Staff noted she was still delusional about being and reported hearing voices telling her she was a slut on Sunday. Patient had bouts of anxiety and internal agitation on the unit on Sunday and needed two doses of Ativan 2 mg po during the day. She remains impulsive, edgy and unpredictable but seems to be calming down and clearing up slowly. Diagnostic Results: Schizoaffective disorder Polysubstance abuse Medication Change: No Medical Record Reviewed: Yes Mental Status Examination - Cognitive Function Orientation: Person, Place, Situation, Time Attention: Poor Concentration: Poor Association: Loose Fund of Knowledge: Poor - Mood Mood: Euphoric - Affect Affect: Constricted, Other (Expanded) - Formal Thought Process Formal Thought Process: Hallucinations ("shadows of a boy, young man" Voice calling patient a "slut" on Sunday), Delusions, Paranoia, Loosening of associa tions, Circumstantial - Homicidal Ideation Homicidal Ideation: Yes Goal/Treatment Plan - Goal/Treatment Plan Progress Toward Problem(s) and Goals/Treatment Plan: * Milieu/structure/supportive therapy * SW consultation for discharge plan and social issues * Appreciate f/u by Dr. Solis/Dr. Rainey on 02/15/19 * Depakote DR 500 mg PO BID, VPA on 02/15/19 =60 * Prolixin 10 mg PO BID and Cogentin 1 mg PO BID * Seroquel 100 mg po qAM and 300 mg PO HS #30 tab ( AM dose was recently added by Dr. Jacobs) * Nicoderm CQ for tobacco withdrawal * Vitals reviewed and noted below: Selected Entries 02/14/19 02/14/19 02/15/19 12:15 16:00 07:00 Temperature 98.5 F Pulse Rate 97 H 94 H 83 Respiratory 22 Rate Blood Pressure 112/77 100/59 L 122/80 02/15/19 16:15 Temperature Pulse Rate 108 H Respiratory Rate Blood Pressure 119/80 * Recent weekend labs noted below: 02/15/19 06:10 Valproic Acid 60 02/15/19 02/15/19 07:00 07:00 Fasting Glucose 90 Triglycerides 40 Cholesterol 75 L LDL Cholesterol Direct 50 HDL Cholesterol 18 L Free T4 0.93 TSH 3rd Generation 3.54
[2019-02-17] MEDS: Insulin Reg-LOW-Coverage SC SCH ×4 (09:43→21:08)
--- NOTE | 2019-02-18 08:35 | PCM.PYCHPN ---
Psychiatric Progress Note - Psychiatric Progress Note Patient seen today, length of contact: 25 min Problems Identified/Issues Discussed: Patient is 53 year old -Brazilian female with reported history of schizophrenia paranoid type versus schizoaffective disorder, multiple psychiatric admissions in the past most recent was [facility]--patient was discharged on February 10, 2019 who presented to our emergency room here in [facility] with psychotic symptoms. Patient was internally preoccupied, disorganized in thoughts and behavior, delusional about being ("this baby is hurting me from inside" urine test is negative). In the ED patient was saying that "spirits over me, shadow over boy is there, ghosts are everywhere", and that others were talking about her. 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 Patient has been hypomanic and disorganized with flighty thought process on the unit. She is superficially cooperative when I meet with her but has trouble focusing and remaining consistent. Speech is improving in coherency and I can understand her words better. She has been talkative and interactive with other patients. She has also been paranoid, angry and agitated with other patients. Her moods and delusions are still unpredictable. Patient required multiple prns yesterday and she was able to recognize need for some of them. She remains impulsive, edgy, psychotic and easily agitated but seems to be calming down and clearing up slowly. Diagnostic Results: Schizoaffective disorder Polysubstance abuse Medication Change: Yes (seroquel increased) Medical Record Reviewed: Yes Mental Status Examination - Cognitive Function Orientation: Person, Place, Situation, Time Attention: Poor Concentration: Poor Association: Loose Fund of Knowledge: Poor - Mood Mood: Euphoric - Affect Affect: Constricted, Other (Expanded) - Formal Thought Process Formal Thought Process: Hallucinations ("shadows of a boy, young man" Voice calling patient a "slut" on Sunday), Delusions, Paranoia, Loosening of associations, Circumstantial - Suicidal Ideation Suicidal Ideation: No - Homicidal Ideation Homicidal Ideation: No Goal/Treatment Plan - Goal/Treatment Plan Progress Toward Problem(s) and Goals/Treatment Plan: * Milieu/structure/supportive therapy * SW consultation for discharge plan and social issues * Appreciate f/u by Dr. Solis/Dr. Rainey on 02/15/19 * Jon GREER 500 mg PO BID, VPA on 02/15/19 =60 * Prolixin 10 mg PO BID and Cogentin 1 mg PO BID * Seroquel 100 mg po qAM and 300 mg PO HS increased to 100/50/300 on 02/18/19 to help with disorganization and mood control * Nicoderm CQ for tobacco withdrawal * Vitals reviewed and noted below: Selected Entries 02/17/19 02/17/19 07:22 16:00 Temperature 97.5 F L Pulse Rate 87 96 H Respiratory 20 Rate Blood Pressure 113/77 113/74 * Recent weekend labs noted below: 02/15/19 06:10 Valproic Acid 60 02/15/19 02/15/19 07:00 07:00 Fasting Glucose 90 Triglycerides 40 Cholesterol 75 L LDL Cholesterol Direct 50 HDL Cholesterol 18 L Free T4 0.93 TSH 3rd Generation 3.54
[2019-02-18] MEDS: Divalproex 500 mg DR(BID formulation) PO SCH ×2 (09:23→17:53)
[2019-02-18] MEDS: Insulin Reg-LOW-Coverage SC SCH ×4 (09:24→21:23)
[2019-02-19] MEDS: Divalproex 500 mg DR(BID formulation) PO SCH ×2 (09:51→15:41)
[2019-02-19] MEDS: Insulin Reg-LOW-Coverage SC SCH ×4 (09:52→21:57)
--- NOTE | 2019-02-19 11:11 | PCM.PYCHPN ---
Psychiatric Progress Note - Psychiatric Progress Note Patient seen today, length of contact: 25 min Problems Identified/Issues Discussed: Patient is 53 year old -Russian female with reported history of schizophrenia paranoid type versus schizoaffective disorder, multiple psychiatric admissions in the past most recent was [facility]--patient was discharged on February 10, 2019 who presented to our emergency room here in [facility] with psychotic symptoms. Patient was internally preoccupied, disorganized in thoughts and behavior, delusional about being ("this baby is hurting me from inside" urine test is negative). In the ED patient was saying that "spirits over me, shadow over boy is there, ghosts are everywhere", and that others were talking about her. 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 Patient has been hypomanic and disorganized with flighty thought process on the unit. She is superficially cooperative when I meet with her but has trouble focusing and remaining consistent. Speech is improving in coherency and I can understand her words better. She has been talkative and interactive with other patients. She has also been paranoid, angry and agitated with other patients. Her moods and delusions are still unpredictable. She can get offended easily. Patient required multiple prns yesterday and today; she was able to recognize need for some of them. She remains impulsive, edgy, psychotic and easily agitated but seems to be calming down and clearing up slowly. Patient denies any side effects or issues with her current medications. And she was able to remain calm enough to attend treatment team meeting and sign treatment plan this morning. Diagnostic Results: Schizoaffective disorder Polysubstance abuse Medication Change: Yes (seroquel increased) Medical Record Reviewed: Yes Mental Status Examination - Cognitive Function Orientation: Person, Place, Situation, Time Attention: Poor Concentration: Poor Association: Loose Fund of Knowledge: Poor - Mood Mood: Euphoric - Affect Affect: Constricted, Other (Expanded) - Formal Thought Process Formal Thought Process: Hallucinations ("shadows of a boy, young man" Voice calling patient a "slut" on Sunday), Delusions, Paranoia, Loosening of associations, Circumstantial - Suicidal Ideation Suicidal Ideation: No - Homicidal Ideation Homicidal Ideation: No Goal/Treatment Plan - Goal/Treatment Plan Progress Toward Problem(s) and Goals/Treatment Plan: * Milieu/structure/supportive therapy * consultation for discharge plan and social issues * Appreciate f/u by Dr. Solis/Dr. Rainey on 02/15/19 * Depakote DR 500 mg PO BID, VPA on 02/15/19 =60 * Prolixin 10 mg PO BID and Cogentin 1 mg PO BID * Seroquel 100 mg po qAM and 300 mg PO HS increased to 100/50/300 on 02/18/19 and then again to 100/100/300 on 02/19/19 to help with disorganization and mood control * Nicoderm CQ for tobacco withdrawal * Vitals reviewed and noted below: Selected Entries 02/18/19 02/18/19 07:00 16:00 Temperature 98.1 F Pulse Rate 88 99 H Respiratory 17 Rate Blood Pressure 94/69 L 102/64 * Recent weekend labs noted below: 02/15/19 06:10 Valproic Acid 60 02/15/19 02/15/19 07:00 07:00 Fasting Glucose 90 Triglycerides 40 Cholesterol 75 L LDL Cholesterol Direct 50 HDL Cholesterol 18 L Free T4 0.93 TSH 3rd Generation 3.54
[2019-02-20] MEDS: Insulin Reg-LOW-Coverage SC SCH ×4 (08:35→21:51)
--- NOTE | 2019-02-20 08:55 | PCM.PYCHPN ---
Psychiatric Progress Note - Psychiatric Progress Note Patient seen today, length of contact: 25 min Problems Identified/Issues Discussed: Patient is 53 year old -Iranian female with reported history of schizophrenia paranoid type versus schizoaffective disorder, multiple psychiatric admissions in the past most recent was [facility]--patient was discharged on February 10, 2019 who presented to our emergency room here in [facility] with psychotic symptoms. Patient was internally preoccupied, disorganized in thoughts and behavior, delusional about being ("this baby is hurting me from inside" urine test is negative). In the ED patient was saying that "spirits over me, shadow over boy is there, ghosts are everywhere", and that others were talking about her. 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 Patient has been hypomanic and disorganized with flighty thought process on the unit. She had trouble remembering our interviews from prior days and this morning she asks me if I am her doctor. She has been talkative and interactive with other patients. She has also been paranoid, angry and agitated with other patients. Her moods and delusions are still unpredictable. She can get offended easily. Patient required multiple prns in the last 2-3 days; she was able to recognize need for some of them and some of her tantrum behaviors appear volitional to get needs met, according to staff (which I agree with). Overall, patient remains impulsive, edgy, psychotic and easily agitated however she continues to be calming down and clearing up slowly. And she was able to remain calm enough to attend treatment team meeting and sign treatment plan yesterday. She could also engage is a longer, more sensible and focused interview this morning. Patient denies any side effects or issues with her current medications. She also denies any new discomfort or pain. Diagnostic Results: Schizoaffective disorder Polysubstance abuse Medication Change: Yes (seroquel increased) Medical Record Reviewed: Yes Mental Status Examination - Cognitive Function Orientation: Person, Place, Situation, Time Attention: Poor Concentration: Poor Association: Loose Fund of Knowledge: Poor - Mood Mood: Euphoric - Affect Affect: Constricted, Other (Expanded) - Formal Thought Process Formal Thought Process: Hallucinations ("shadows of a boy, young man" Voice calling patient a "slut" on Sunday), Delusions, Paranoia, Loosening of associations, Circumstantial - Suicidal Ideation Suicidal Ideation: No - Homicidal Ideation Homicidal Ideation: No Goal/Treatment Plan - Goal/Treatment Plan Progress Toward Problem(s) and Goals/Treatment Plan: * Milieu/structure/supportive therapy * SW consultation for discharge plan and social issues * Appreciate f/u by Dr. Solis/Dr. Rainey on 02/15/19 * Depakote DR 500 mg PO BID, VPA on 02/15/19 =60 * Prolixin 10 mg PO BID and Cogentin 1 mg PO BID * Seroquel 100 mg po qAM and 300 mg PO HS increased to 100/50/300 on 02/18/19 and then again to 100/100/300 on 02/19/19 to help with disorganization and mood control. Seroquel was further increased to 125/125/300 on 02/20/19. * Nicoderm CQ for tobacco withdrawal * Vitals reviewed and noted below: Selected Entries 02/19/19 02/19/19 07:16 16:00 Temperature 98.0 F Pulse Rate 78 100 H Respiratory 20 Rate Blood Pressure 100/68 113/81 * Recent weekend labs noted below: 02/15/19 06:10 Valproic Acid 60 02/15/19 02/15/19 07:00 07:00 Fasting Glucose 90 Triglycerides 40 Cholesterol 75 L LDL Cholesterol Direct 50 HDL Cholesterol 18 L Free T4 0.93 TSH 3rd Generation 3.54
[2019-02-20] MEDS: Divalproex 500 mg DR(BID formulation) PO SCH ×2 (08:59→16:02)
[2019-02-20] MEDS ORDERED: QUEtiapine 100 MG, QUEtiapine 25 MG PO SCH (15:00)
[2019-02-21] MEDS: Insulin Reg-LOW-Coverage SC SCH ×4 (07:30→21:25)
[2019-02-21] MEDS ORDERED: QUEtiapine 100 MG, QUEtiapine 25 MG PO SCH (08:00)
[2019-02-21] MEDS: Divalproex 500 mg DR(BID formulation) PO SCH ×2 (10:04→17:25)
--- NOTE | 2019-02-21 14:17 | PCM.PYCHPN ---
Psychiatric Progress Note - Psychiatric Progress Note Patient seen today, length of contact: 25 min Problems Identified/Issues Discussed: Patient is 53 year old -Slovak female with reported history of schizophrenia paranoid type versus schizoaffective disorder, multiple psychiatric admissions in the past most recent was [facility]--patient was discharged on February 10, 2019 who presented to our emergency room here in [facility] with psychotic symptoms. Patient was internally preoccupied, disorganized in thoughts and behavior, delusional about being ("this baby is hurting me from inside" urine test is negative). In the ED patient was saying that "spirits over me, shadow over boy is there, ghosts are everywhere", and that others were talking about her. 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 Patient has been hypomanic and disorganized with flighty thought process on the unit. She has been talkative and interactive with other patients. She has also been paranoid, angry and agitated with other patients. Her moods and delusions are still unpredictable. She can get offended easily. Patient required multiple prns in the last 3-4 days; she was able to recognize need for some of them and some of her tantrum behaviors appear volitional to get needs met, according to staff (which I agree with). Overall, patient remains impulsive, edgy, psychotic and easily agitated however she calming down and clearing up slowly. She was able to remain calm enough to attend treatment team meeting and sign treatment plan on Sunday. There were fewer and less angry outbursts on . She could sustain a longer, more sensible and focused interview again this morning (though still brief and labile) and seems a little less irritable. Patient denies any side effects or issues with her current medications. She also denies any new discomfort or pain. Diagnostic Results: Schizoaffective disorder Polysubstance abuse Medication Change: Yes (seroquel increased) Medical Record Reviewed: Yes Mental Status Examination - Cognitive Function Orientation: Person, Place, Situation, Time Attention: Poor Concentration: Poor Association: Loose Fund of Knowledge: Poor - Mood Mood: Euphoric - Affect Affect: Constricted, Other (Expanded) - Formal Thought Process Formal Thought Process: Hallucinations ("shadows of a boy, young man" Voice calling patient a "slut" on Sunday), Delusions, Paranoia, Loosening of associations, Circumstantial - Suicidal Ideation Suicidal Ideation: No - Homicidal Ideation Homicidal Ideation: No Goal/Treatment Plan - Goal/Treatment Plan Progress Toward Problem(s) and Goals/Treatment Plan: * Milieu/structure/supportive therapy * SW consultation for discharge plan and social issues * Appreciate f/u by Dr. Solis/Dr. Rainey on 02/15/19 * Depakote DR 500 mg PO BID, VPA on 02/15/19 =60 * Prolixin 10 mg PO BID and Cogentin 1 mg PO BID * Seroquel 100 mg po qAM and 300 mg PO HS increased to 100/50/300 on 02/18/19 and then again to 100/100/300 on 02/19/19 to help with disorganization and mood control. Seroquel was further increased to 125/125/300 on 02/20/19 and again to to 125/150/300 on 02/21/19. * Juan CQ for tobacco withdrawal * Vitals reviewed and noted below: Selected Entries 02/20/19 02/20/19 07:34 16:00 Temperature 98.1 F Pulse Rate 85 106 H Respiratory 20 Rate Blood Pressure 122/83 117/81 * Recent weekend labs noted below: 02/15/19 06:10 Valproic Acid 60 02/15/19 02/15/19 07:00 07:00 Fasting Glucose 90 Triglycerides 40 Cholesterol 75 L LDL Cholesterol Direct 50 HDL Cholesterol 18 L Free T4 0.93 TSH 3rd Generation 3.54
[2019-02-22] MEDS: Insulin Reg-LOW-Coverage SC SCH ×5 (07:56→22:16)
[2019-02-22] MEDS: Divalproex 500 mg DR(BID formulation) PO SCH ×2 (08:40→15:11)
--- NOTE | 2019-02-22 08:59 | PCM.PYCHPN ---
Psychiatric Progress Note - Psychiatric Progress Note Patient seen today, length of contact: 25 min Problems Identified/Issues Discussed: Patient is 53 year old -Bangladeshi female with reported history of schizophrenia paranoid type versus schizoaffective disorder, multiple psychiatric admissions in the past most recent was [facility]--patient was discharged on February 10, 2019 who presented to our emergency room here in [facility] with psychotic symptoms. Patient was internally preoccupied, disorganized in thoughts and behavior, delusional about being ("this baby is hurting me from inside" urine test is negative). In the ED patient was saying that "spirits over me, shadow over boy is there, ghosts are everywhere", and that others were talking about her. 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 Patient has been hypomanic and disorganized with flighty thought process on the unit. She has been talkative and interactive with other patients. She has also been paranoid, angry and agitated with other patients. She can also be forgetful and repetitive. Her moods and delusions have been unpredictable and she can get offended easily. Patient required multiple prns in the last 3-4 days; she was able to recognize need for some of them and some of her tantrum behaviors appear volitional to get needs met quickly, according to staff (which I agree with). However it does appear that patient is calming down and clearing up slowly. The medications seem to be helping with emotional and impulse control as well as her paranoia. She seems less irritable and more reflective about her behaviors during our interviews. She was able to remain calm enough to attend treatment team meeting and sign treatment plan on Sunday. There were fewer and less angry outbursts on . She could sustain a longer, more sensible and focused interview in the past 2-3 days (though still brief and labile). Patient is now more interested in discussing treatment and disposition than complaining about a perceived negative interaction with another patient or staff member. Patient denies any side effects or issues with her current medications. She also denies any new discomfort or pain. Diagnostic Results: Schizoaffective disorder Polysubstance abuse Medication Change: Yes (seroquel increased) Medical Record Reviewed: Yes Mental Status Examination - Cognitive Function Orientation: Person, Place, Situation, Time Attention: Poor Concentration: Poor Association: Loose Fund of Knowledge: Poor - Mood Mood: Euphoric - Affect Affect: Constricted, Other (Expanded) - Formal Thought Process Formal Thought Process: Hallucinations ("shadows of a boy, young man" Voice calling patient a "slut" on Sunday), Delusions, Paranoia, Loosening of associations, Circumstantial - Suicidal Ideation Suicidal Ideation: No - Homicidal Ideation Homicidal Ideation: No Goal/Treatment Plan - Goal/Treatment Plan Progress Toward Problem(s) and Goals/Treatment Plan: * Milieu/structure/supportive therapy * consultation for discharge plan and social issues * Appreciate f/u by Dr. Solis/Dr. Rainey on 02/15/19 * Depakote DR 500 mg PO BID, VPA on 02/15/19 =60 * Prolixin 10 mg PO BID and Cogentin 1 mg PO BID * Seroquel 100 mg po qAM and 300 mg PO HS increased to 100/50/300 on 02/18/19 and then again to 100/100/300 on 02/19/19 to help with disorganization and mood control. Seroquel was further increased to 125/125/300 on 02/20/19 and again to to 125/150/300 on 02/21/19. On 02/22/19 dose was further increased to 150/150/300 due to continued lability on the unit * Nicoderm CQ for tobacco withdrawal * Vitals reviewed and noted below: Selected Entries 02/20/19 02/20/19 02/21/19 07:34 16:00 16:24 Temperature 98.1 F Pulse Rate 85 106 H 121 H Respiratory 20 Rate Blood Pressure 122/83 117/81 119/79 * Recent weekend labs noted below: 02/15/19 06:10 Valproic Acid 60 02/15/19 02/15/19 07:00 07:00 Fasting Glucose 90 Triglycerides 40 Cholesterol 75 L LDL Cholesterol Direct 50 HDL Cholesterol 18 L Free T4 0.93 TSH 3rd Generation 3.54
[2019-02-23] MEDS: Insulin Reg-LOW-Coverage SC SCH ×5 (08:17→22:57)
--- NOTE | 2019-02-23 08:48 | PCM.PYCHPN ---
Psychiatric Progress Note - Psychiatric Progress Note Patient seen today, length of contact: 25 min Problems Identified/Issues Discussed: Patient is 53 year old -Somali female with reported history of schizophrenia paranoid type versus schizoaffective disorder, multiple psychiatric admissions in the past most recent was [facility]--patient was discharged on February 10, 2019 who presented to our emergency room here in [facility] with psychotic symptoms. Patient was internally preoccupied, disorganized in thoughts and behavior, delusional about being ("this baby is hurting me from inside" urine test is negative). In the ED patient was saying that "spirits over me, shadow over boy is there, ghosts are everywhere", and that others were talking about her. 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 Patient presented with hypomanic and disorganized with flighty thought process for the first 5-7 days of her admission. She was observed to be talkative and interactive with other patients however this evolved into paranoia, anger and illogical agitation with other patients. She was also forgetful, rambling and repetitive with unpredictable mood and delusions. Patient required multiple prns in the last 4-5 days; she was able to recognize need for some of them and some of her tantrum behaviors appear volitional to get needs met quickly, according to staff (which I agree with). However it does appear that patient is calming down and clearing up slowly. The medications seem to be helping with emotional and impulse control as well as her paranoia. She seems less irritable and more reflective about her behaviors during our interviews. She is receiving prns for agitation less frequently (though still needed Haldol, ativan & ativan po prn on Sunday for internal agitation x1) . She was able to remain calm enough to attend treatment team meeting and sign treatment plan on Sunday. There were fewer and less angry outbursts on . She could sustain a longer, more sensible and focused interview in the past 2-3 days (though still brief and labile). Patient is now more interested in discussing treatment and disposition than complaining about being offended by another patient or staff member. Patient denies any side effects or issues with her current medications. She also denies any new discomfort or pain. Diagnostic Results: Schizoaffective disorder Polysubstance abuse Medication Change: No ( ) Medical Record Reviewed: Yes Mental Status Examination - Cognitive Function Orientation: Person, Place, Situation, Time Attention: Poor Concentration: Poor Association: Loose Fund of Knowledge: Poor - Mood Mood: Euphoric - Affect Affect: Constricted, Other (Expanded) - Formal Thought Process Formal Thought Process: Hallucinations ("shadows of a boy, young man" Voice calling patient a "slut" on Sunday), Delusions, Paranoia, Loosening of associations, Circumstantial - Suicidal Ideation Suicidal Ideation: No - Homicidal Ideation Homicidal Ideation: No Goal/Treatment Plan - Goal/Treatment Plan Progress Toward Problem(s) and Goals/Treatment Plan: * Milieu/structure/supportive therapy * SW consultation for discharge plan and social issues * Appreciate f/u by Dr. Solis/Dr. Rainey on 02/15/19 * Jon GREER 500 mg PO BID, VPA on 02/15/19 =60, checking another VPA on 02/24/19 * Prolixin 10 mg PO BID and Cogentin 1 mg PO BID * Seroquel 100 mg po qAM and 300 mg PO HS increased to 100/50/300 on 02/18/19 and then again to 100/100/300 on 02/19/19 to help with disorganization and mood control. Seroquel was further increased to 125/125/300 on 02/20/19 and again to to 125/150/300 on 02/21/19. On 02/22/19 dose was further increased to 150/150/300 due to continued lability on the unit * Nicoderm CQ for tobacco withdrawal * Vitals reviewed and noted below: Selected Entries 02/20/19 02/20/19 02/21/19 07:34 16:00 16:24 Temperature 98.1 F Pulse Rate 85 106 H 121 H Respiratory 20 Rate Blood Pressure 122/83 117/81 119/79 02/22/19 16:00 Temperature Pulse Rate 125 H Respiratory Rate Blood Pressure 100/72 * Recent weekend labs noted below: 02/15/19 06:10 Valproic Acid 60 02/15/19 02/15/19 07:00 07:00 Fasting Glucose 90 Triglycerides 40 Cholesterol 75 L LDL Cholesterol Direct 50 HDL Cholesterol 18 L Free T4 0.93 TSH 3rd Generation 3.54
[2019-02-23] MEDS: Divalproex 500 mg DR(BID formulation) PO SCH ×2 (08:51→15:44)
[2019-02-24] MEDS: Divalproex 500 mg DR(BID formulation) PO SCH ×2 (08:33→09:15)
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
[2019-02-24] MEDS: Insulin Reg-LOW-Coverage SC SCH ×4 (09:13→21:48)
[2019-02-24] MEDS: Divalproex 250 mg DR (BID formulation) PO SCH (21:00)
[2019-02-25] MEDS: Insulin Reg-LOW-Coverage SC SCH ×4 (07:55→21:21)
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
[2019-02-25] MEDS: Divalproex 500 mg DR(BID formulation) PO SCH (09:44)
[2019-02-25] MEDS: Divalproex 250 mg DR (BID formulation) PO SCH (21:14)
[2019-02-26 07:10] VITALS: RESP 18; TEMP 98
[2019-02-26] MEDS: Divalproex 500 mg DR(BID formulation) PO SCH (09:35)
[2019-02-26] MEDS: Insulin Reg-LOW-Coverage SC SCH ×4 (10:06→21:09)
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
[2019-02-26] MEDS: Divalproex 250 mg DR (BID formulation) PO SCH (21:08)
[2019-02-27] MEDS: Insulin Reg-LOW-Coverage SC SCH ×4 (07:30→21:19)
--- NOTE | 2019-02-27 08:12 | PCM.BM ---
<Leticia Hanson Y - Last Filed: 02/27/19 08:12> Treatment Plan Problems - Problems identified on initial assessmt ALTERATION IN EMOTIONAL STATUS Date Initiated: 02/14/19 Time Initiated: 16:24 Assessment reference: HP, NA Status: Active AUDITORY AND VISUAL HALLUCINATIONS Date Initiated: 02/14/19 Time Initiated: 16:25 Assessment reference: HP, NA PARANOID BEHAVIOR Date Initiated: 02/14/19 Time Initiated: 16:25 Assessment reference: HP, NA Status: Active Treatment assets and liabiliti Patient Assests: adapts well, negotiates basic needs, other, motivated, self- reliant, ADL independent, physically healthy Patient Liabilities: live alone, physical pain, financial problems, poor support system, relationship conflicts, substance abuse - Milieu Protocol Maintain good personal hygiene: daily Encourage regular showers, daily Remind patient to perform daily oral care, daily Assist patient to perform ADL's Maintain personal safety: daily Educate patient to report safety concerns to staff, daily Monitor environment for contraband/sharps Medication safety: Monitor for expected outcome, potential side effects: daily, Assess barriers to learning: daily, Assess readiness for medication education: daily Milieu Narrative: Milieu/structure/supportive therapy SW consultation for discharge plan and social issues Med management: Cogentin 1 mg twice a day for EPS Depakote 500 mg in the morning time and 750 at the nighttime for mood stabilization Prolixin 10 mg twice a day for psychosis Seroquel 300 mg at the nighttime 150 mg at 3 PM as well as 50 mg daily for psychosis Ambien 5 mg at the nighttime for insomnia Family involvement Follow up on labs Will monitor closely Pt was educated about risk/benefits and alternatives of medications, coping strategies (safety plan, suicide prevention), relapse prevention, importance of follow up with psychiatrist and therapist, stay away from drugs/alcohol/smoking Family Contact Family contact: Patient agrees to contact Family contact name: Hernán Marroquin and Mara Merlos (daughters) Family contacted how many times per week?: 2 - Outside Agency [facility] Care involvment: Information-sharing - Goals for Treatment Patient goals for treatment: "I need to be placed in a [facility]." Discharge/Continuing Care - Education Needs Education Needs: Patient Medication, Patient Diagnosis/Disease Process, Patient Coping Skills, Patient Anger Management skills, Patient Placement options, Patient Community resources, Patient Activities of Daily Living, Patient Pain, Patient Uses of Medical Equipment, Patient Aftercare Safety Plan, Patient Other - Discharge Discharge Criteria: Tolerates medication w/o severe side effects, Free of Suicidal thoughts, Free of Homicidal thoughts, Free of paranoid thoughts, Free of agitation, Normal sleep pattern - Treatment Team Participation Patient/Family/SO Statement: Milieu/structure/supportive therapy SW consultation for discharge plan and social issues Med management: Cogentin 1 mg twice a day for EPS Depakote 500 mg in the morning time and 750 at the nighttime for mood stabilization Prolixin 10 mg twice a day for psychosis Seroquel 300 mg at the nighttime 150 mg at 3 PM as well as 50 mg daily for psychosis Ambien 5 mg at the nighttime for insomnia Family involvement Follow up on labs Will monitor closely Pt was educated about risk/benefits and alternatives of medications, coping strategies (safety plan, suicide prevention), relapse prevention, importance of follow up with psychiatrist and therapist, stay away from drugs/alcohol/smoking Treatment Plan Review - Problem ALTERATION IN EMOTIONAL STATUS Time Initiated: 16:24 AUDITORY AND VISUAL HALLUCINATIONS Time Initiated: 16:25 PARANOID BEHAVIOR Time Initiated: 16:25 <Isabel Jacobs - Last Filed: 02/27/19 15:58> - Diagnosis (1) Schizoaffective disorder Status: Chronic Interventions: 02/27/19 15:58 Patient is slowly improving, thought processes more organized, patient is compliant with her medications, patient is less delusional, patient will be discharged tomorrow. So far patient tolerates medications well, no side effects observed or reported, aims 0, no use.
[2019-02-27] MEDS: Divalproex 500 mg DR(BID formulation) PO SCH (09:40)
--- NOTE | 2019-02-27 15:59 | PCM.BM ---
Treatment assets and liabiliti Patient Assests: adapts well, negotiates basic needs, other, motivated, self- reliant, ADL independent, physically healthy - Diagnosis (1) Schizoaffective disorder Status: Chronic Interventions: 02/14/19 13:33 Monitoring withdrawal symptoms Medical detoxification Pharmacotherapy for alcohol/benzos/opioid dependence Maintaining sobriety Relapse prevention Possible rehabilitation Motivational interviewing 12-step programs: AA meetings - Milieu Protocol Milieu Narrative: Milieu/structure/supportive therapy consultation for discharge plan and social issues Med management: [facility] less than a week ago pt was discharged on the following [facility]: Apixaban [Eliquis] 5 mg PO Q12H #60 tab Benztropine [Cogentin] 1 mg PO DAILY #30 tab Divalproex [Depakote DR] 500 mg PO BID #60 tcp fluPHENAZine [Prolixin] 10 mg PO BID #60 tab metFORMIN [glucOPHAGE] 500 mg PO BID #60 tab QUEtiapine [Seroquel] 300 mg PO HS #30 tab (will be increased to 100mg am and 300hs) Family involvement Follow up on labs Will monitor closely Pt was educated about risk/benefits and alternatives of medications, coping strategies (safety plan, suicide prevention), relapse prevention, importance of follow up with psychiatrist and therapist, stay away from drugs/alcohol/smoking Discharge/Continuing Care - Treatment Team Participation Patient/Family/SO Statement: Milieu/structure/supportive therapy consultation for discharge plan and social issues Med management: [facility] less than a week ago pt was discharged on the following [facility]: Apixaban [Eliquis] 5 mg PO Q12H #60 tab Benztropine [Cogentin] 1 mg PO DAILY #30 tab Divalproex [Depakote DR] 500 mg PO BID #60 tcp fluPHENAZine [Prolixin] 10 mg PO BID #60 tab metFORMIN [glucOPHAGE] 500 mg PO BID #60 tab QUEtiapine [Seroquel] 300 mg PO HS #30 tab (will be increased to 100mg am and 300hs) Family involvement Follow up on labs Will monitor closely Pt was educated about risk/benefits and alternatives of medications, coping strategies (safety plan, suicide prevention), relapse prevention, importance of follow up with psychiatrist and therapist, stay away from drugs/alcohol/smoking
--- NOTE | 2019-02-27 16:02 | PCM.PYCHPN ---
Psychiatric Progress Note - Psychiatric Progress Note Patient seen today, length of contact: 30min Patient Chief Complaint: "I feel better, I know that they need to stay away from bad crowd" Problems Identified/Issues Discussed: Medications, symptoms, coping strategies. Medical Problems: See HPI Diagnostic Results: 02/14/19 10:15 02/14/19 10:15 Lab Results 02/25/19 21:18: POC Glucose (mg/dL) 155 H 02/25/19 15:56: POC Glucose (mg/dL) 104 02/25/19 12:13: POC Glucose (mg/dL) 56 L 02/24/19 21:07: POC Glucose (mg/dL) 188 H 02/24/19 07:14: POC Glucose (mg/dL) 97 02/23/19 21:24: POC Glucose (mg/dL) 183 H 02/23/19 16:01: POC Glucose (mg/dL) 166 H 02/23/19 07:16: POC Glucose (mg/dL) 108 02/23/19 06:00: Valproic Acid 52 02/22/19 21:07: POC Glucose (mg/dL) 121 H 02/22/19 16:03: POC Glucose (mg/dL) 140 H 02/22/19 12:04: POC Glucose (mg/dL) 135 H 02/22/19 07:13: POC Glucose (mg/dL) 78 02/22/19 01:14: POC Glucose (mg/dL) 93 02/21/19 16:07: POC Glucose (mg/dL) 142 H 02/21/19 07:40: POC Glucose (mg/dL) 96 02/20/19 21:00: POC Glucose (mg/dL) 130 H 02/20/19 16:11: POC Glucose (mg/dL) 185 H 02/20/19 11:43: POC Glucose (mg/dL) 96 02/20/19 07:28: POC Glucose (mg/dL) 85 02/19/19 20:38: POC Glucose (mg/dL) 90 02/19/19 16:09: POC Glucose (mg/dL) 108 02/19/19 11:15: POC Glucose (mg/dL) 120 H 02/19/19 07:23: POC Glucose (mg/dL) 109 02/18/19 21:16: POC Glucose (mg/dL) 133 H 02/18/19 16:05: POC Glucose (mg/dL) 97 02/18/19 11:08: POC Glucose (mg/dL) 122 H 02/18/19 07:13: POC Glucose (mg/dL) 95 02/17/19 21:02: POC Glucose (mg/dL) 133 H 02/17/19 15:59: POC Glucose (mg/dL) 139 H 02/17/19 11:09: POC Glucose (mg/dL) 105 02/17/19 07:47: POC Glucose (mg/dL) 163 H 02/16/19 21:07: POC Glucose (mg/dL) 140 H 02/16/19 12:03: POC Glucose (mg/dL) 122 H 02/16/19 07:22: POC Glucose (mg/dL) 95 02/15/19 20:57: POC Glucose (mg/dL) 87 02/15/19 16:28: POC Glucose (mg/dL) 115 H 02/15/19 07:00: RPR Nonreactive 02/15/19 07:00: Free T4 0.93, TSH 3rd Generation 3.54 02/15/19 07:00: Fasting Glucose 90, Triglycerides 40, Cholesterol 75 L, LDL Cholesterol Direct 50, HDL Cholesterol 18 L 02/15/19 06:10: Valproic Acid 60 02/14/19 10:15: Alcohol, Quantitative < 10 02/14/19 10:15: Salicylates < 1 L, Acetaminophen < 10.0 L 02/14/19 10:15: Sodium 145, Potassium 3.9, Chloride 104, Carbon Dioxide 31, Anion Gap 14, BUN 16, Creatinine 0.7, Est GFR ( Amer) > 60, Est GFR (Non- Af Amer) > 60, Random Glucose 66 L, Calcium 9.1, Magnesium 2.3 H, Total Bilirubin 0.3, AST 21, ALT 13, Alkaline Phosphatase 52, Total Protein 7.3, Albumin 4.0, Globulin 3.2, Albumin/Globulin Ratio 1.3 02/14/19 10:15: WBC 7.0, RBC 4.39, Hgb 12.3, Hct 37.3, MCV 85.0, MCH 28.0, MCHC 33.0, RDW 15.1 H, Plt Count 189, MPV 10.8, Neut % (Auto) 55.5, Lymph % (Auto) 29.9, [place] % (Auto) 12.0 H, Eos % (Auto) 2.3, Baso % (Auto) 0.3, Lymph # (Auto) 2.1, [place] # (Auto) 0.8 H, Eos # (Auto) 0.2, Baso # (Auto) 0.02, Absolute Neuts (auto) 3.89 02/14/19 09:35: Urine Opiates Screen Negative, Urine Methadone Screen Negative, Ur Barbiturates Screen Negative, Ur Phencyclidine Scrn Negative, Ur Amphetamines Screen Negative, U Benzodiazepines Scrn Negative, U Oth Cocaine Metabols Negative, U Cannabinoids Screen Negative 02/14/19 09:35: Urine Color Yellow, Urine Appearance Clear, Urine pH 8.0, Ur Specific [place] 1.010, Urine Protein Trace H, Urine Glucose (UA) Negative, Urine Ketones Negative, Urine Blood Negative, Urine Nitrate Negative, Urine Bilirubin Negative, Urine Urobilinogen 1.0 H, Ur Leukocyte Esterase Negative, Urine RBC None, Urine WBC None 02/14/19 09:33: POC Glucose (mg/dL) 73 Vital Signs Temp Pulse Resp BP Pulse Ox 02/26/19 07:09 98 F 87 18 122/76 02/25/19 16:00 130 H 123/84 02/25/19 06:40 97.9 F 80 14 121/82 02/24/19 20:59 90 108/74 02/23/19 16:00 106 H 123/66 02/22/19 16:00 125 H 100/72 02/21/19 16:24 121 H 119/79 02/20/19 16:00 106 H 117/81 02/20/19 07:34 98.1 F 85 20 122/83 02/19/19 16:00 100 H 113/81 02/19/19 07:16 98.0 F 78 20 100/68 02/18/19 16:00 99 H 102/64 02/18/19 07:00 98.1 F 88 17 94/69 L 02/17/19 16:00 96 H 113/74 02/17/19 07:22 97.5 F L 87 20 113/77 02/15/19 16:15 108 H 119/80 02/15/19 07:00 83 16 122/80 02/14/19 16:00 94 H 100/59 L 02/14/19 15:23 22 02/14/19 12:15 98.5 F 97 H 22 112/77 97 02/14/19 11:08 98.1 F 79 18 103/67 100 02/14/19 08:42 98.6 F 95 H 18 138/86 100 Laboratory Results - last 72 hr 02/23/19 02/23/19 02/24/19 16:01 21:24 07:14 POC Glucose (mg/dL) 166 H 183 H 97 02/24/19 02/25/19 02/25/19 21:07 12:13 15:56 POC Glucose (mg/dL) 188 H 56 L 104 02/25/19 21:18 POC Glucose (mg/dL) 155 H Depakote 52 02/23/2019 DSM 5 Symptoms Update: shortly patient is 53 year old -Pak[place] female with reported history of schizophrenia paranoid type versus schizoaffective disorder, patient has multiple psychiatric admissions in the past most recent was [facility], patient was discharged on February 10, 2019, patient came back to the emergency room here in [facility] in disorganized stage, patient was internally preoccupied, disorganized in thoughts and behavior, patient had feeling that she is , patient also had feeling that people are talking about her, patient reported that she was discharged from [facility] "not ready." Patient requires further evaluation stabilization and medication resumption titration. This play writer is very familiar with this patient from the previous admissions to the psychiatric inpatient unit as well as medical floor as a mental health consultant. Patient was seen today in her room with mental health worker and medical student, patient presented with acceptable personal hygiene, more pleasant, socially appropriate, patient is less talkative, reported no side effects from the medications, reported "feeling good" Patient does not believe that she is , patient said that most likely "it was gas in my stomach" So far patient tolerates medications well, no side effects observed or reported, aims 0, no EPS. Impression: Schizoaffective disorder bipolar type History of polysubstance abuse and dependence Medication Change: No Medical Record Reviewed: Yes Mental Status Examination - Cognitive Function Orientation: Person, Place, Situation, Time Attention: Poor (improving) Concentration: Poor (Improving) Association: Loose (Baseline) Fund of Knowledge: Poor (Baseline) - Mood Mood: Neutral - Affect Affect: Constricted (But more reactive from a concurrent), Other (Expanded, cranky) - Speech Speech: Appropriate (Overproductive but not pressured) - Formal Thought Process Formal Thought Process: Hallucinations (Denies), Delusions (Denied), Paranoia (Denied), Loosening of associations (Chronic), Circumstantial - Suicidal Ideation Suicidal Ideation: No - Homicidal Ideation Homicidal Ideation: No Goal/Treatment Plan - Goal/Treatment Plan Need for Continued Stay: Remain at risks for inpatient hospitalization, Severe depression anxiety, Discharge may exacerbated symptoms, Severe functional impairment Progress Toward Problem(s) and Goals/Treatment Plan: Milieu/structure/supportive therapy SW consultation for discharge plan and social issues Med management: [facility] less than a week ago pt was discharged on the following meds [facility]: Apixaban [Eliquis] 5 mg PO Q12H #60 tab Benztropine [Cogentin] 1 mg PO DAILY #30 tab Divalproex [Depakote DR] 500 mg PO BID #60 tcp fluPHENAZine [Prolixin] 10 mg PO BID #60 tab metFORMIN [glucOPHAGE] 500 mg PO BID #60 tab QUEtiapine [Seroquel] 300 mg PO HS #30 tab (will be increased to 100mg am and 300hs) Family involvement Follow up on labs Will monitor closely Pt was educated about risk/benefits and alternatives of medications, coping strategies (safety plan, suicide prevention), relapse prevention, importance of follow up with psychiatrist and therapist, stay away from drugs/alcohol/smoking Estimated Date of D/C: 02/28/19
[2019-02-27] MEDS: Divalproex 250 mg DR (BID formulation) PO SCH (21:07)
[2019-02-28 06:41] VITALS: BP 119/83; PULSE 82
[2019-02-28] MEDS: Insulin Reg-LOW-Coverage SC SCH ×2 (07:30→11:46)
[2019-02-28] MEDS: Divalproex 500 mg DR(BID formulation) PO SCH (09:28)
--- NOTE | 2019-02-28 15:57 | PCM.PYCHDC ---
Mental Status Examination - Mental Status Examination Orientation: Person, Place, Situation, Time Memory: Intact Mood: Neutral Affect: Constricted Speech: Appropriate (but overproductive) Attention: Poor (but much better) Concentration: WNL Association: Loose (baseline) Fund of Knowledge: WNL Formal Thought Process: Other (thought process disorganized, but it is pt's baseline) Description of patient's judgement and insight: Pt has improved insight into mental and medical illness, was compliant with her medications, no agitation or aggression. Psychotic Thoughts and Behaviors: Pt denied v/a/t hallucinations, denied paranoid ideations, but patient has chronic symptoms of psychosis/paranoia which seems to be patient's baseline. Suicidal Ideation: No Current Homicidal Ideation?: No Plan: pt adamantly denied thoughts of harming self or others denied intent or plan. Discharge Summary - Discharge Note Reason for Hospitalization: pt was admitted for evaluation of disorganized thoughts and behavior. Psychiatric History (includes Medical, Family, Personal Hx): See HPI Laboratory Data: Abnormal Lab Results 02/27/19 02/27/19 02/28/19 16:16 20:56 08:15 POC Glucose (mg/dL) 67 143 H 98 Consultations:: List each consultation separately and include: 1. Reason for request. 2. Findings. 3. Follow-up Consultations: Medical consult appreciated. See notes for more detailed information Summary of Hospital Course include:: 1. Description of specific treatment plan utilized for patients during their course of treatmen. 2. Summarize the time- course for resolution of acute symptoms and/or regressed behaviors. 3. Describe issues identified and worked on during hospitalization. 4. Describe medication utilized. 5. Describe medical problems identified and treated. 6. Reassessment of suicide risk Summary of Hospital Course: shortly patient is 53 year old -Portuguese female with reported history of schizophrenia paranoid type versus schizoaffective disorder, patient has multiple psychiatric admissions in the past most recent was [facility], patient was discharged on February 10, 2019, patient came back to the emergency room here in [facility] in disorganized stage, patient was internally preoccupied, disorganized in thoughts and behavior, patient had feeling that she is , patient also had feeling that people are talking about her, patient reported that she was discharged from [facility] "not ready." Patient requires further evaluation stabilization and medication resumption titration. At the time of admission patient presented to be disorganized, thought that she is , patient also presented to be paranoid. Please see admission note for more detailed information. Over this hospitalization patient was stabilized on the following medications: The Cogentin 1 mg twice a day for possible EPS Depakote 500 mg at the morning time and 500 mg at the nighttime +250 mg at the nighttime for mood stabilization Prolixin 10 mg twice a day for psychosis Seroquel 300 mg twice a day for psychosis patient needs to be on 2 antipsychotic medication due to severe redness of her psychosis and chronic mental illness Ambien 5 mg as needed for insomnia Patient tolerated medications well, no side effects observed or reported, aims 0, no EPS. Overall patient improved significantly, patient became more organized, patient still has prominent symptoms of thought process disorganization, but it seems to be at her baseline. Patient does not exhibit any aggressive or agitated behavior, was selectively attending groups, pt reached maximum effect from this hospitalization and deemed ready for discharge. At the time of the discharge patient pose no imminent danger to self or others, will be following up at [facility] dual dx clinic, information about follow up appointment, time and address provided to the pt, (see SW note for more detailed information). It is a patient responsibility to follow up with outpatient clinic, PMD as well as specialists In case patient will need to obtain results of studies pending at discharge, patient was provided with contact information of Psychiatric Inpatient unit [phone] as well as Medical Record Department [phone], as well as [facility] [employer] team [phone]. Nicotine patch was provided Naltrexone treatment is not indicated at this time Counseling about smoking and substances cessation provided AA meetings as well as [facility] smoking cessation treatment program information was provided by the pt was provided with prescriptions see medication reconciliation form Pt was educated about safety plan in case of worsening of symptoms or in case of suicidal or homicidal ideation call 911 or go to the nearest ER, also was educated to take meds as prescribed and stay away from drugs, pt verbalized understanding. 02/14/19 10:15 02/14/19 10:15 Lab Results 02/14/19 10:15: Alcohol, Quantitative < 10 02/14/19 10:15: Salicylates < 1 L, Acetaminophen < 10.0 L 02/14/19 10:15: Sodium 145, Potassium 3.9, Chloride 104, Carbon Dioxide 31, Anion Gap 14, BUN 16, Creatinine 0.7, Est GFR ( Amer) > 60, Est GFR (Non- Af Amer) > 60, Random Glucose 66 L, Calcium 9.1, Magnesium 2.3 H, Total Bilirubin 0.3, AST 21, ALT 13, Alkaline Phosphatase 52, Total Protein 7.3, Albumin 4.0, Globulin 3.2, Albumin/Globulin Ratio 1.3 02/14/19 10:15: WBC 7.0, RBC 4.39, Hgb 12.3, Hct 37.3, MCV 85.0, MCH 28.0, MCHC 33.0, RDW 15.1 H, Plt Count 189, MPV 10.8, Neut % (Auto) 55.5, Lymph % (Auto) 29.9, [place] % (Auto) 12.0 H, Eos % (Auto) 2.3, Baso % (Auto) 0.3, Lymph # (Auto) 2.1, [place] # (Auto) 0.8 H, Eos # (Auto) 0.2, Baso # (Auto) 0.02, Absolute Neuts (auto) 3.89 02/14/19 09:35: Urine Opiates Screen Negative, Urine Methadone Screen Negative, Ur Barbiturates Screen Negative, Ur Phencyclidine Scrn Negative, Ur Amphetamines Screen Negative, U Benzodiazepines Scrn Negative, U Oth Cocaine Metabols Negative, U Cannabinoids Screen Negative 02/14/19 09:35: Urine Color Yellow, Urine Appearance Clear, Urine pH 8.0, Ur Specific [place] 1.010, Urine Protein Trace H, Urine Glucose (UA) Negative, [place] ne Ketones Negative, Urine Blood Negative, Urine Nitrate Negative, Urine Bilirubin Negative, Urine Urobilinogen 1.0 H, Ur Leukocyte Esterase Negative, Urine RBC None, Urine WBC None 02/14/19 09:33: POC Glucose (mg/dL) 73 Vital Signs Temp Pulse Resp BP Pulse Ox 02/14/19 11:08 98.1 F 79 18 103/67 100 02/14/19 08:42 98.6 F 95 H 18 138/86 100 - Diagnosis (1) Schizoaffective disorder Status: Chronic Priority: High - Final Diagnosis (DSM 5) Condition upon Discharge: GOOD Disposition: HOME/ ROUTINE Follow-up Treatment Plan: At the time of the discharge patient pose no imminent danger to self or others, will be following up at [facility] dual dx clinic, information about follow up appointment, time and address provided to the pt, (see note for more detailed information). It is a patient responsibility to follow up with outpatient cl inic, PMD as well as specialists In case patient will need to obtain results of studies pending at discharge, patient was provided with contact information of Psychiatric Inpatient unit [phone] as well as Medical Record Department [phone], as well as [facility] [employer] team [phone]. Nicotine patch was provided Naltrexone treatment is not indicated at this time Counseling about smoking and substances cessation provided AA meetings as well as [facility] smoking cessation treatment program information was provided by the pt was provided with prescriptions see medication reconciliation form Pt was educated about safety plan in case of worsening of symptoms or in case of suicidal or homicidal ideation call 911 or go to the nearest ER, also was educated to take meds as prescribed and stay away from drugs, pt verbalized understanding. Prescriptions/Medication Reconciliation: Apixaban [Eliquis] 5 mg PO 1000,2200 #14 tab Benztropine [Cogentin] 1 mg PO BID #30 tab Divalproex [Depakote DR (*BID*)] 250 mg PO HS #14 tcp Divalproex [Depakote DR(*BID*)] 500 mg PO AMHS #30 tcp fluPHENAZine [Prolixin] 10 mg PO BID #30 tab metFORMIN [glucOPHAGE] 500 mg PO BID #14 tab Nicotine 21 mg/24 hr [Nicoderm Cq] 1 patch TD DAILY #14 patch QUEtiapine [SEROquel] 300 mg PO AMHS #30 tab Zolpidem [Ambien] 5 mg PO HS PRN #14 tab PRN Reason: Insomnia - Smoking Cessation Smoking Cessation Medication prescribed: Yes - Antipsychotic Medications Pt discharged on 2 or more routine antipsychotic medications: Yes - Justification for 2 or more meds Failed 3 or more trials of Monotherapy: List medications: Patient is to continue on 2 antipsychotic medications at least for now due to severeness of patient's symptoms, patient is not a good candidate for Clozaril implementation, due to multiple compliance. Adjustment of the medication can be done as outpatient.
== END 2019-02-28 11:44 | disposition home or self-care (01) | DRG 430 ==
LOC: ED 08:41 → ERH 11:00 → PSYC 12:10
PROVIDERS: ADMIT Psychiatry & Neurology Psychiatry; ATTEND Psychiatry & Neurology Psychiatry
PROC: GZ3ZZZZ Medication Management (ICD-10-PCS; principal; 2019-02-14)
DX: F25.0 Schizoaffective disorder, bipolar type (principal); F17.213 Nicotine dependence, cigarettes, with withdrawal; J44.9 Chronic obstructive pulmonary disease, unspecified; D57.3 Sickle-cell trait; F41.9 Anxiety disorder, unspecified; E11.9 Type 2 diabetes mellitus without complications; G47.00 Insomnia, unspecified; R45.850 Homicidal ideations; Z79.84 Long term (current) use of oral hypoglycemic drugs; Z91.14 Patient's other noncompliance with medication regimen; Z86.718 Personal history of other venous thrombosis and embolism

== ENCOUNTER 2019-03-15 00:15 | Inpatient (IN) | payer MEDICAID ==
[2019-03-15 00:20] VITALS: BMI 33.7
--- NOTE | 2019-03-15 00:31 | ED PDOC ---
Arrival/HPI - General Historian: Patient, EMS - History of Present Illness Narrative History of Present Illness (Text): 03/15/19 00:26 53 y/o female, pmh including dvt on eliquis/dm/copd, psychiatric including schizophrenia/polysubstances/bipolar, post menopausal, nkda, biba c/o hearing voices and non compliant to the medication. Pt. stated that she has been hearing voices, stated that she doesn't feel well psychiatrically, need help and would like to speak to the PES, no night sweat, no chest pain or shortness of breath, no palpitation, no numbness or tingling, no other medical or psychological complaints. Past Medical History - Provider Review Nursing Documentation Reviewed: Yes - Past History Past History: No Previous - Infectious Disease Hx of Infectious Diseases: None - Tetanus Immunization Tetanus Immunization: Unknown - Cardiac Hx Hypertension: No - Pulmonary Hx Asthma: Yes Hx Bronchitis: Yes Hx Emphysema: Yes Hx Pneumonia: Yes - Neurological Hx Seizures: No - HEENT Hx HEENT Disorder: No - Renal Hx Renal Disorder: No - Endocrine/Metabolic Hx Endocrine Disorders: Yes Hx Diabetes Mellitus Type 2: Yes - Hematological/Oncological Hx Anemia: Yes Hx Sickle Cell Disease: Yes - Integumentary Hx Dermatological Disorder: Yes - Musculoskeletal/Rheumatological Hx Arthritis: Yes - Gastrointestinal Hx Gastrointestinal Disorders: No - Genitourinary/Gynecological Hx Sexually Transmitted Diseases: No - Psychiatric Hx Anxiety: Yes Hx Bipolar Disorder: Yes Hx Depression: Yes Hx Schizophrenia: Yes Hx Substance Use: Yes - Past Surgical History Past Surgical History: No Previous - Surgical History Other/Comment: Pt reports "leg surgery". Hx of DVT - Anesthesia Hx Anesthesia: Yes Hx Anesthesia Reactions: No Hx Malignant Hyperthermia: No - Suicidal Assessment Feels Threatened In Home Enviroment: No Family/Social History - Physician Review Nursing Documentation Reviewed: Yes Family/Social History: Unknown Family HX Smoking Status: Heavy Smoker > 10 Cigarettes Daily Hx Alcohol Use: Yes Hx Substance Use: Yes Substance used: cocaine Hx Substance Use Treatment: Yes Allergies/Home Meds Allergies/Adverse Reactions: Allergies No Known Allergies Allergy (Verified 03/15/19 13:05) Review of Systems - Review of Systems Constitutional: absent: Fatigue, Fevers Eyes: absent: Vision Changes ENT: absent: Hearing Changes Respiratory: absent: SOB, Cough Cardiovascular: absent: Chest Pain Gastrointestinal: absent: Abdominal Pain, Diarrhea, Nausea, Vomiting Skin: absent: Rash, Pruritis Neurological: absent: Headache, Dizziness Hemo/Lymphatic: absent: Adenopathy Psychiatric: Other (+hallucination). absent: Anxiety, Depression, Suicidal Ideation Physical Exam - Systems Exam Head: Present: Atraumatic, Normocephalic Pupils: Present: PERRL Extroacular Muscles: Present: EOMI Conjunctiva: Present: Normal Mouth: Present: Moist Mucous Membranes Neck: Present: Normal Range of Motion Respiratory/Chest: Present: Clear to Auscultation, Good Air Exchange. No: Respiratory Distress, Accessory Muscle Use Cardiovascular: Present: Regular Rate and Rhythm, Normal S1, S2. No: Murmurs Abdomen: No: Tenderness, Distention, Peritoneal Signs Back: Present: Normal Inspection Upper Extremity: Present: Normal Inspection. No: Cyanosis, Edema Lower Extremity: Present: Normal Inspection. No: Edema Neurological: Present: GCS=15, CN II-XII Intact, Speech Normal Skin: Present: Warm, Dry, Normal Color. No: Rashes Psychiatric: Present: Alert, Oriented x 3, Normal Insight, Normal Concentration, Hallucinations. No: Anxious, Agitated, Depressed Mood, Suicidal Ideation, Homicidal Ideation, Intoxicated, Lethargic Medical Decision Making ED Course and Treatment: 03/15/19 00:34 -Labs -ekg -cxr -PES paged -Observe and reassess 03/15/19 00:43 -Pt. request the tylenol for her blood draw and stretcher is not comfortable for her, tylenol ordered. 03/15/19 02:15 -EKG: NSR @ 89 BPM, no ST elevation or depression, no T wave inversion. -Chest xray ER wet read: no active disease, no significant change compared to previous xrays. -Labs are nonsignificant -Alcohol is negative -UA show no UTI -UDS show +cocaine/+benzo -Pt. is medically clear and stable for psychiatric evaluation. 03/15/19 03:15 -Pt. evaluated by the PES screener, spoke to Dr. Albarran, pt. can no be psychiarically clear at this time. Pt. would need face to face with the psychiatrist DR. Albarran tomorrow morning before further dispo -Pt. has no medical complaints at this time. -Case discussed and endorsed to the ER attending Dr. Suarez for the follow up and dispo - RAD Interpretation Radiology Orders: no active disease from chest xray Identification Clerk: Radiologist - PA / MANAGER GAME / Resident Statement MD/DO has reviewed & agrees with the documentation as recorded. Disposition/Present on Arrival - Present on Arrival Any Indicators Present on Arrival: No History of DVT/PE: No History of Uncontrolled Diabetes: No Urinary Catheter: No History of Decub. Ulcer: No History Surgical Site Infection Following: None - Disposition Have Diagnosis and Disposition been Completed?: Yes Diagnosis: Hallucinations, Schizoaffective disorder, Polysubstance abuse Disposition: HOSPITALIZED Disposition Time: 00:34 Patient Problems: Current Active Problems Problem Status Onset Polysubstance abuse Chronic Schizoaffective disorder Acute Hallucinations Acute Condition: STABLE
[2019-03-15 00:44] LABS: BASO # 0.02 K/mm3 (0.0-2.0); BASO % 0.4 % (0.0-3.0); EOS # 0.3 (0.0-0.7); EOS % 5.7 % (1.5-5.0); HEMOGLOBIN 12.5 g/dL (12.0-16.0); LYMPH # 2.1 (1.2-3.4); LYMPH % 43.5 % (22.0-35.0); MEAN CELL VOLUME 84.3 fl (80.0-105.0); MEAN CORPUSCULAR HEMOGLOBIN 28.1 pg (25.0-35.0); MEAN CORPUSCULAR HGB CONC 33.3 g/dl (31.0-37.0); MEAN PLATELET VOLUME 10.5 fl (7.0-11.0); MONO # 0.4 (0.1-0.6); MONO % 7.4 % (1.0-6.0); RBC 4.45 10^6/uL (3.5-6.1); RED CELL DISTRIBUTION WIDTH 15.4 % (11.5-14.5); WHITE BLOOD COUNT 4.9 10^3/uL (4.5-11.0)
[2019-03-15 00:49] LABS: URINE BILIRUBIN NEGATIVE (NEGATIVE); URINE BLOOD NEGATIVE (NEGATIVE); URINE GLUCOSE (UA) NEGATIVE (NEGATIVE); URINE LEUKOCYTE ESTERASE NEGATIVE Leu/uL (NEGATIVE); URINE PROTEIN NEGATIVE mg/dL (<30 mg/dL); URINE UROBILINOGEN 0.2 E.U./dL (<1 E.U./dL)
[2019-03-15 00:51] LABS: URINE APPEARANCE CLEAR (CLEAR); URINE COLOR LIGHT YELLOW (YELLOW)
[2019-03-15 00:58] LABS: ALB/GLOB RATIO 1.2 (1.1-1.8); ALBUMIN 4.3 g/dL (3.0-4.8); ALT/SGPT 33 U/L (7-56); AST/SGOT 44 U/L (14-36); BLOOD UREA NITROGEN 18 mg/dL (7-21); CALCIUM 9.2 mg/dL (8.4-10.5); GFR NON-AFRICAN AMERICAN 58
[2019-03-15 01:12] LABS: BARBITURATES, UR NEGATIVE (NEGATIVE); BENZODIAZEPINES, UR POSITIVE (NEGATIVE); OPIATES, UR NEGATIVE (NEGATIVE); PHENCYCLIDINE, UR NEGATIVE (NEGATIVE)
--- NOTE | 2019-03-15 07:24 | ED PDOC ---
Physical Exam Vital Signs Temp Pulse Resp BP Pulse Ox 03/15/19 04:13 89 18 128/82 98 03/15/19 00:42 98.2 F 91 H 18 130/71 96 Medical Decision Making ED Course and Treatment: 03/15/19 07:[address] Suarez with patient pending face to face with Dr. Belle koch. 03/15/19 07:37 Dr. Albarran evaluated patient and deems patient eligible for admission onto the psychiatric floor. - Lab Interpretations Lab Results: Total Bilirubin 0.3 mg/dL (0.2-1.3) 03/15/19 00:30 AST 44 U/L (14-36) H D 03/15/19 00:30 ALT 33 U/L (7-56) 03/15/19 00:30 Alkaline Phosphatase 56 U/L (38-126) 03/15/19 00:30 Total Protein 7.9 g/dL (5.8-8.3) 03/15/19 00:30 Albumin 4.3 g/dL (3.0-4.8) 03/15/19 00:30 Globulin 3.6 gm/dL 03/15/19 00:30 Albumin/Globulin Ratio 1.2 (1.1-1.8) 03/15/19 00:30 Urine Color Light yellow (YELLOW) 03/15/19 00:37 Urine Appearance Clear (CLEAR) 03/15/19 00:37 Urine pH 6.0 (4.7-8.0) 03/15/19 00:37 Ur Specific [place] 1.010 (1.005-1.035) 03/15/19 00:37 Urine Protein Negative mg/dL (<30 mg/dL) 03/15/19 00:37 Urine Glucose (UA) Negative mg/dL (NEGATIVE) 03/15/19 00:37 Urine Ketones Negative mg/dL (NEGATIVE) 03/15/19 00:37 Urine Blood Negative (NEGATIVE) 03/15/19 00:37 Urine Nitrate Negative (NEGATIVE) 03/15/19 00:37 Urine Bilirubin Negative (NEGATIVE) 03/15/19 00:37 Urine Urobilinogen 0.2 E.U./dL (<1 E.U./dL) 03/15/19 00:37 Ur Leukocyte Esterase Negative [place]/uL (NEGATIVE) 03/15/19 00:37 - RAD Interpretation Radiology Orders: 03/15/19 00:31 CHEST PORTABLE [RAD] Stat - Medication Orders Current Medication Orders: Discontinued Medications Acetaminophen (Tylenol 325mg Tab) 325 mg PO STAT STA Stop: 03/15/19 00:44 Last Admin: 03/15/19 00:56 Dose: 325 mg MAR Pain/Vitals Document 03/15/19 00:56 IT (Rec: 03/15/19 00:56 IT [id number]) Pain Reassessment Is This A Pain ReAssessment? No Sleep Is patient sleeping during reassessment? No Presence of Pain Presence of Pain Yes Location Pain Location Body Site Back Disposition/Present on Arrival - Present on Arrival Any Indicators Present on Arrival: No History of DVT/PE: No History of Uncontrolled Diabetes: No Urinary Catheter: No History of Decub. Ulcer: No History Surgical Site Infection Following: None - Disposition Have Diagnosis and Disposition been Completed?: Yes Diagnosis: Hallucinations, Schizoaffective disorder, Polysubstance abuse Disposition: HOSPITALIZED Disposition Time: 07:30 Patient Plan: Admission Patient Problems: Current Active Problems Problem Status Onset Hallucinations Acute Condition: STABLE Forms: [employer] (French)
[2019-03-15 08:30] VITALS: O2SAT 99
--- NOTE | 2019-03-15 08:40 | RAD ---
Date of service: 03/15/2019 HISTORY: psy cmplaint, r/o pneumonia, medical clearance COMPARISON: 08/02/2018 TECHNIQUE: 1 view obtained. FINDINGS: LUNGS: No active pulmonary disease. PLEURA: No significant pleural effusion identified, no pneumothorax apparent. CARDIOVASCULAR: No aortic atherosclerotic calcification present. Normal cardiac size. No pulmonary vascular congestion. OSSEOUS STRUCTURES: No significant abnormalities. VISUALIZED UPPER ABDOMEN: Normal. OTHER FINDINGS: None. IMPRESSION: No active disease.
[2019-03-15] MEDS ORDERED: DiphenhydrAMINE 50 mg/ml Inj IM ONE (09:06)
[2019-03-15] MEDS ORDERED: DiphenhydrAMINE 50 mg/ml Inj ONE (09:10)
[2019-03-15] MEDS ORDERED: Magnesium Hydroxide Susp 30 ml UD PO PRN (09:37)
[2019-03-15] MEDS ORDERED: Alum-Mag Hydrox-Simethicone Susp (30 mL) PO PRN (09:37)
--- NOTE | 2019-03-15 11:08 | PCM.BM ---
<NoraCasey O - Last Filed: 03/15/19 11:05> Treatment Plan Problems - Problems identified on initial assessmt Medication education Date Initiated: 03/15/19 Time Initiated: 09:00 Assessment reference: NA Status: Active Priority: 1 Auditory hallucinations Date Initiated: 03/15/19 Time Initiated: 09:00 Assessment reference: NA Status: Active Altered thoughts Date Initiated: 03/15/19 Time Initiated: 09:00 Assessment reference: NA Status: Active Treatment assets and liabiliti Patient Assests: adapts well, ADL independent, negotiates basic needs, cognitively intact Patient Liabilities: poor support system, relationship conflicts, substance abuse - Milieu Protocol Maintain good personal hygiene: daily Encourage regular showers, daily Remind patient to perform daily oral care, daily Assist patient to perform ADL's Conduct patient checks and document Observation sheet: Q15 minutes Maintain personal safety: daily Educate patient to report safety concerns to staff, daily Monitor environment for contraband/sharps Medication safety: Monitor for expected outcome, potential side effects: daily, Assess barriers to learning: daily, Assess readiness for medication education: daily Family Contact Family contact: Patient declines to allow family contact at present - Goals for Treatment Patient goals for treatment: I want to get better <Allan Albarran - Last Filed: 03/16/19 10:20> - Diagnosis (1) Schizoaffective disorder Status: Acute Interventions: 03/16/19 10:21 * Group, milieu and supportive tx * SW consultation for discharge plan and social issues * Restart prior psychiatric medications and titrate to prior beneficial doses: Cogentin 1 mg PO BID Depakote DR 500 MG am AND 750 mg po qPM {to check VPA} Prolixin 10 mg PO AMHS Seroquel 100 mg po AMH {prior beneficial dose was 300 mg PO AMHS} Ambien 5 mg PO HS PRN Haldol 5 mg, Ativan 2 mg, Benadryl 50 mg q6 prns for agitation * Consider Naltrexone to help with alcohol cravings however patient has historically demonstrated very little motivation in abstinence from drugs and alcohol * Nicotine 21 mg/24 hr 1 patch TD DAILY (2) Polysubstance abuse Status: Chronic Interventions: 03/16/19 10:21 * Group, milieu and supportive tx * SW consultation for discharge plan and social issues * Restart prior psychiatric medications and titrate to prior beneficial doses: Cogentin 1 mg PO BID Depakote DR 500 MG am AND 750 mg po qPM {to check VPA} Prolixin 10 mg PO AMHS Seroquel 100 mg po AMH {prior beneficial dose was 300 mg PO AMHS} Ambien 5 mg PO HS PRN Haldol 5 mg, Ativan 2 mg, Benadryl 50 mg q6 prns for agitation * Consider Naltrexone to help with alcohol cravings however patient has historically demonstrated very little motivation in abstinence from drugs and alcohol * Nicotine 21 mg/24 hr 1 patch TD DAILY <Leticia Hanson - Last Filed: 03/17/19 12:00> Family Contact Family involvement: Famliy/SO not involved <Renetta Rodrigez - Last Filed: 03/17/19 12:15>
[2019-03-15] MEDS: Divalproex 500 mg DR(BID formulation) PO SCH (17:32)
--- NOTE | 2019-03-15 19:14 | CARD ---
APPROVED REPORT Date of service: 03/15/2019 EKG Measurement Heart [id number] <Conclusion> Normal sinus rhythm Minor NDSTT abnormalities Borderline ECG
[2019-03-16 07:48] LABS: BASO # 0.01 K/mm3 (0.0-2.0); BASO % 0.2 % (0.0-3.0); EOS # 0.2 (0.0-0.7); EOS % 4.4 % (1.5-5.0); HEMOGLOBIN 12.6 g/dL (12.0-16.0); LYMPH # 2.4 (1.2-3.4); LYMPH % 47.4 % (22.0-35.0); MEAN CELL VOLUME 84.1 fl (80.0-105.0); MEAN CORPUSCULAR HEMOGLOBIN 27.2 pg (25.0-35.0); MEAN CORPUSCULAR HGB CONC 32.3 g/dl (31.0-37.0); MONO # 0.4 (0.1-0.6); MONO % 8.5 % (1.0-6.0); RBC 4.64 10^6/uL (3.5-6.1); RED CELL DISTRIBUTION WIDTH 15.6 % (11.5-14.5)
[2019-03-16 07:57] LABS: ALB/GLOB RATIO 1.2 (1.1-1.8); ALBUMIN 3.8 g/dL (3.0-4.8); ALT/SGPT 23 U/L (7-56); AST/SGOT 37 U/L (14-36); BLOOD UREA NITROGEN 19 mg/dL (7-21); GFR NON-AFRICAN AMERICAN > 60; GLUCOSE,FASTING 95 mg/dL (65-110); HDL CHOLESTEROL 19 mg/dL (29-60)
[2019-03-16 08:01] LABS: LDL CHOLESTEROL 56 mg/dL (0-129)
[2019-03-16 08:08] LABS: FREE T4 1.23 ng/dL (0.78-2.19)
[2019-03-16] MEDS: Divalproex 500 mg DR(BID formulation) PO SCH (09:08)
[2019-03-16] MEDS: Pantoprazole 40 mg EC Tab PO SCH (09:08)
--- NOTE | 2019-03-16 10:20 | PCM.PSYCH ---
Initial Psychiatric Evaluation - Initial Psychiatric Evaluation Type of Admission: Voluntary Legal Status: Capacity History of Present Illness and Precipitating Events: Patient is 53 year old -[place] female with reported history of schizophrenia paranoid type versus schizoaffective disorder, crack/cocaine dependency, alcohol abuse, multiple psychiatric admissions in the past most recently [facility] 03/03/19-03/07/19 and [facility] 02/14/19-02/28/19, poor adherence with medications and outpatient f/u who presented to the emergency room here in [facility] complaining of "not feeling stable", auditory hallucinations of voices telling her to harm herself and others. Patient was seen by this provider in the AM in the ER and on the unit this morning. She presented as paranoid, labile, internally preoccupied, disorganized in thoughts and behavior. Patient was agitated when she arrived on the unit on Sunday and needed to be medicated with Haldol 5 mg, Ativan 2 mg and Benadryl 50 IM. Staff also found a crack pipe when patient was searched for contraband. Similar to her prior admissions, patient reported that she was not compliant with the medications because the "medications stopped working". She resorted to using crack/cocaine to "self-medicate". She was also drinking whiskey intermittently. Presently denies any SI/HI however she remains unpredictable. PSYCHIATRIC HISTORY: Patient has long history of mental illness, multiple hospitalizations. Most recent admission to [facility] was 03/03/19-03/07/19. Patient was discharged on the following medications: Depakote DR 500 mg PO BID Prolixin 10 mg PO BID Atarax 50 mg PO BIDPRN Reason: Anxiety Trazodone 100 mg PO HS PRN Most recent admission to [facility] was 02/14/19-02/28/19. Patient was discharged on the following medications: Eliquis 5 mg PO 1000,2200 Cogentin 1 mg PO BID Depakote DR 500 MG am AND 750 mg PO HS Prolixin 10 mg PO BID metformin 500 mg PO BID Nicotine 21 mg/24 hr 1 patch TD DAILY Seroquel 300 mg PO AMHS Ambien 5 mg PO HS PRN Patient was admitted to [facility] (02/03/19-02/10/19) less than a week prior to her admission to [facility] in 02/14/19-02/28/19. SOCIAL: Homeless. Patient denied history of being abused Long and debilitating use of crack/cocaine and alcohol Smokes about a pack a day, counseling provided, nicotine patch offered which patient accepted The patient failed the outpatient lower level of care: Yes Current Medications: Active Medications Generic Name Dose Route Start Last Admin Trade Name Freq PRN Reason Stop Dose Admin Acetaminophen 650 mg 03/15/19 09:36 Tylenol 325mg Tab PO Q4H PRN Pain, moderate (4-7) Al Hydrox/Mg Hydrox/Simethicone 30 ml 03/15/19 09:37 Maalox Plus 30 Ml PO DAILY PRN Indigestion / Heartburn Divalproex Sodium 500 mg 03/15/19 16:30 03/15/19 17:32 Depmoncho Bruce(*Bid*) PO 500 mg BID TOVA Administration Fluphenazine HCl 5 mg 03/15/19 22:00 03/15/19 21:08 Prolixin PO 5 mg AMHS TOVA Administration Protocol Ibuprofen 400 mg 03/15/19 09:49 Motrin Tab PO Q6 PRN Pain, moderate (4-7) Lorazepam 1 mg 03/15/19 18:00 03/16/19 02:20 Ativan PO 1 mg Q6 TOVA Administration Protocol Magnesium Hydroxide 30 ml 03/15/19 09:37 Milk Of Magnesia PO DAILY PRN Constipation Pantoprazole Sodium 40 mg 03/16/19 08:00 Protonix Ec Tab PO DAILY TOVA Trazodone HCl 100 mg 03/15/19 22:00 03/15/19 21:08 Desyrel PO 100 mg HS TOVA Administration Present on Admission - Present on Admission Any Indicators Present on Admission: No - Notes: Notes:: Please refer to ER report dated 03/15/19 for physical exam and ROS findings. Review of Systems - Review of Systems Systems not reviewed;Unavailable: Acuity of Condition Review of Systems: Please refer to ER report dated 03/15/19 for physical exam and ROS findings. - Constitutional Constitutional: As Per HPI - EENT Eyes: As Per HPI Ears: As Per HPI Nose/Mouth/Throat: As Per HPI - Breasts Breasts: As Per HPI - Cardiovascular Cardiovascular: As Per HPI - Respiratory Respiratory: As Per HPI - Gastrointestinal Gastrointestinal: As Per HPI - Genitourinary Genitourinary: As Per HPI - Reproductive: Female Reproductive:Female: As Per HPI - Menstruation Menstruation: As Per HPI - Musculoskeletal Musculoskeletal: As Per HPI - Integumentary Integumentary: As Per HPI - Neurological Neurological: As Per HPI - Psychiatric Psychiatric: As Per HPI - Endocrine Endocrine: As Per HPI - Hematologic/Lymphatic Hematologic: As Per HPI Past Patient History - Past Psychiatric History Previous Treatment History: Inpatient Prior Professional Help: See HPI - PSYCHIATRIC Hx Anxiety: Yes Hx Schizophrenia: Yes Hx Substance Use: Yes - Infectious Disease Hx of Infectious Diseases: None - Tetanus Immunizations Tetanus Immunization: Unknown - Past Medical History & Family History Past Medical History?: Yes - CARDIAC Hx Hypertension: No - PULMONARY Hx Asthma: Yes Hx Bronchitis: Yes Hx Emphysema: Yes Hx Pneumonia: Yes - NEUROLOGICAL Hx Seizures: No - HEENT Hx HEENT Problems: No - RENAL Hx Chronic Kidney Disease: No - ENDOCRINE/METABOLIC Hx Endocrine Disorders: Yes Hx Diabetes Mellitus Type 2: Yes - HEMATOLOGICAL/ONCOLOGICAL Hx Anemia: Yes Hx Sickle Cell Disease: Yes - INTEGUMENTARY Hx Dermatological Problems: Yes - MUSCULOSKELETAL/RHEUMATOLOGICAL Hx Arthritis: Yes - GASTROINTESTINAL Hx Gastrointestinal Disorders: No - GENITOURINARY/GYNECOLOGICAL Hx Sexually Transmitted Disorders: No - SURGICAL HISTORY Other/Comment: Pt reports "leg surgery". Hx of DVT - ANESTHESIA Hx Anesthesia: Yes Hx Anesthesia Reactions: No Hx Malignant Hyperthermia: No - Medical/Surgical History Reviewed & confirmed: by nd Meds Allergies/Adverse Reactions: Allergies Allergy/AdvReac Type Severity Reaction Status Date / Time No Known Allergies Allergy Verified 03/15/19 13:05 Mental Status Examination - Personal Presentation Personal Presentation: Looks older than stated age - Affect Affect: Constricted - Motor Activity Motor Activity: Psychomotor Agitation - Reliability in Providing Information Reliability in Providing Information: Poor, due to alteration in thoughts, Poor, due to altered mood - Speech Speech: Disorganized - Mood Mood: Depressed, Anxious - Formal Thought Process Formal Thought Process: Hallucinations, Delusions, Paranoia, Loosening of associations - Cognitive Functions Orientation: Person, Place Sensorium: Drowsy Attention/Concentration: Easily distracted Estimate of Intelligence: Below average Judgement: Imparied, as evidence by: Poor judgement, Imparied, as evidence by: Lack of insight into illness Memory: Recent impaired, as evidence by: Inability to recall events of the day - Risk Risk: Suicidal, Homicidal, Diminished functioning Psychiatric Physical Exam - Physical Exam Reviewed and confirmed: Emergency Department Physical Exam (Please refer to ER report dated 03/15/19 for physical exam and ROS findings. ) Results - Vital Signs Recent Vital Signs: Last Vital Signs Temp 98.8 F 03/15/19 10:00 Pulse 89 03/15/19 10:00 Resp 18 03/15/19 18:00 BP 102/66 03/15/19 10:00 Pulse Ox 99 03/15/19 08:28 - Labs Result Diagrams: 03/16/19 07:00 03/16/19 07:00 Labs: Laboratory Results - last 24 hr 03/15/19 08:32 POC Glucose (mg/dL) 89 - Impressions Impression: Please refer to ER report dated 03/15/19 for physical exam and ROS findings. DSM Plan - DSM 5 DSM 5 Diagnosis: Schizoaffective Disorder Polysubstance Dependency SIMD, SIPD - Recommended/Plan of Treatment Treatment Recommendations and Plan of Treatment: * Group, milieu and supportive tx * SW consultation for discharge plan and social issues * Restart prior psychiatric medications and titrate to prior beneficial doses: Cogentin 1 mg PO BID Depakote DR 500 MG am AND 750 mg po qPM {to check VPA} Prolixin 10 mg PO AMHS Seroquel 100 mg po AMH {prior beneficial dose was 300 mg PO AMHS} Ambien 5 mg PO HS PRN Haldol 5 mg, Ativan 2 mg, Benadryl 50 mg q6 prns for agitation * Ativan 1 mg po q8 for possible alcohol withdrawal. * Consider Naltrexone to help with alcohol cravings however patient has historically demonstrated very little motivation in abstinence from drugs and alcohol * Nicotine 21 mg/24 hr 1 patch TD DAILY * Awaiting medical consultation * Vitals reviewed and noted below: Selected Entries 03/15/19 03/15/19 08:28 10:00 Temperature 98 F 98.8 F Pulse Rate 84 89 Respiratory 18 20 Rate Blood Pressure 130/58 L 102/66 Please refer to ER report dated 03/15/19 for physical exam and ROS findings. 03/15/19 02:15 -EKG: NSR @ 89 BPM, no ST elevation or depression, no T wave inversion. -Chest xray ER wet read: no active disease, no significant change compared to previous xrays. ADMISSION LABS Laboratory Tests 03/15/19 03/15/19 03/15/19 00:30 00:30 00:30 WBC 4.9 D RBC 4.45 Hgb 12.5 Hct 37.5 MCV 84.3 MCH 28.1 MCHC 33.3 RDW 15.4 H Plt Count 231 MPV 10.5 Neut % (Auto) 43.0 L Lymph % (Auto) 43.5 H Winkler % (Auto) 7.4 H Eos % (Auto) 5.7 H Baso % (Auto) 0.4 Lymph # (Auto) 2.1 Winkler # (Auto) 0.4 Eos # (Auto) 0.3 Baso # (Auto) 0.02 Absolute Neuts (auto) 2.09 Sodium 143 Potassium 4.5 Chloride 105 Carbon Dioxide 27 Anion Gap 16 BUN 18 Creatinine 1.0 Est GFR ( Amer) > 60 Est GFR (Non-Af Amer) 58 POC Glucose (mg/dL) Random Glucose 83 Fasting Glucose Calcium 9.2 Phosphorus Magnesium Total Bilirubin 0.3 AST 44 H D ALT 33 Alkaline Phosphatase 56 Total Protein 7.9 Albumin 4.3 Globulin 3.6 Albumin/Globulin Ratio 1.2 Triglycerides Cholesterol LDL Cholesterol Direct HDL Cholesterol Free T4 TSH 3rd Generation Urine Color Urine Appearance Urine pH Ur Specific [place] Urine Protein Urine Glucose (UA) Urine Ketones Urine Blood Urine Nitrate Urine Bilirubin Urine Urobilinogen Ur Leukocyte Esterase Urine Opiates Screen Urine Methadone Screen Ur Barbiturates Screen Ur Phencyclidine Scrn Ur Amphetamines Screen U Benzodiazepines Scrn U Oth Cocaine Metabols U Cannabinoids Screen Alcohol, Quantitative < 10 03/15/19 03/15/19 03/15/19 00:37 00:37 08:32 WBC RBC Hgb Hct MCV MCH MCHC RDW Plt Count MPV Neut % (Auto) Lymph % (Auto) Winkler % (Auto) Eos % (Auto) Baso % (Auto) Lymph # (Auto) Winkler # (Auto) Eos # (Auto) Baso # (Auto) Absolute Neuts (auto) Sodium Potassium Chloride Carbon Dioxide Anion Gap BUN Creatinine Est GFR ( Amer) Est GFR (Non-Af Amer) POC Glucose (mg/dL) 89 Random Glucose Fasting Glucose Calcium Phosphorus Magnesium Total Bilirubin AST ALT Alkaline Phosphatase Total Protein Albumin Globulin Albumin/Globulin Ratio Triglycerides Cholesterol LDL Cholesterol Direct HDL Cholesterol Free T4 TSH 3rd Generation Urine Color Light yellow Urine Appearance Clear Urine pH 6.0 Ur Specific [place] 1.010 Urine Protein Negative Urine Glucose (UA) Negative Urine Ketones Negative Urine Blood Negative Urine Nitrate Negative Urine Bilirubin Negative Urine Urobilinogen 0.2 Ur Leukocyte Esterase Negative Urine Opiates Screen Negative Urine Methadone Screen Negative Ur Barbiturates Screen Negative Ur Phencyclidine Scrn Negative Ur Amphetamines Screen Negative U Benzodiazepines Scrn Positive H U Oth Cocaine Metabols Positive H U Cannabinoids Screen Negative Alcohol, Quantitative 03/16/19 03/16/19 03/16/19 07:00 07:00 07:00 WBC 5.0 RBC 4.64 Hgb 12.6 Hct 39.0 MCV 84.1 MCH 27.2 MCHC 32.3 RDW 15.6 H Plt Count 202 MPV 10.0 Neut % (Auto) 39.5 L Lymph % (Auto) 47.4 H Winkler % (Auto) 8.5 H Eos % (Auto) 4.4 Baso % (Auto) 0.2 Lymph # (Auto) 2.4 Winkler # (Auto) 0.4 Eos # (Auto) 0.2 Baso # (Auto) 0.01 Absolute Neuts (auto) 1.99 Sodium 142 Potassium 4.1 Chloride 103 Carbon Dioxide 32 Anion Gap 11 BUN 19 Creatinine 0.8 Est GFR ( Amer) > 60 Est GFR (Non-Af Amer) > 60 POC Glucose (mg/dL) Random Glucose 95 Fasting Glucose 95 Calcium 9.0 Phosphorus 3.4 Magnesium 2.0 Total Bilirubin 0.2 AST 37 H ALT 23 Alkaline Phosphatase 50 Total Protein 7.0 Albumin 3.8 Globulin 3.2 Albumin/Globulin Ratio 1.2 Triglycerides 54 Cholesterol 80 L LDL Cholesterol Direct 56 HDL Cholesterol 19 L Free T4 1.23 TSH 3rd Generation 1.35 Urine Color Urine Appearance Urine pH Ur Specific [place] Urine Protein Urine Glucose (UA) Urine Ketones Urine Blood Urine Nitrate Urine Bilirubin Urine Urobilinogen Ur Leukocyte Esterase Urine Opiates Screen Urine Methadone Screen Ur Barbiturates Screen Ur Phencyclidine Scrn Ur Amphetamines Screen U Benzodiazepines Scrn U Oth Cocaine Metabols U Cannabinoids Screen Alcohol, Quantitative Projected ELOS: 7 days Prognosis: guarded Discharge Plan and Discharge Criteria: Patient to be referred to [facility] [place] clinic again. - Tobacco Cessation Tobacco Use Status for the last 30 days: Heavy User(>=5 cigs &/or cigars/pipes daily) Tobacco Use Treatment Practical Counseling Provided: Yes Tobacco Use Treatment FDA-Approved Cessation Medication Provided: Yes Type of Medication Provided: Jermainem CQ - Alcohol or Substance Abuse Does the patient have an Alcohol or Substance Abuse Disorder: Yes Initial Psych Certification - Initial Certification I certify that the inpatient psychiatric facility admission was medically necessary for either: Treatment which could reasonbly be expected to improve pt's condition, Diagnostic study I estimate of hospitalization is necessary for proper treatment of the patient: 7 Unit of Time: Days
--- NOTE | 2019-03-16 14:00 | CP.PCM.CON ---
<Mehdi Fitzgerald - Last Filed: 03/16/19 13:56> History of Present Illness - History of Present Illness History of Present Illness: Mehdi Fitzgerald DO PGY1. Medicine Consult Note for Dr Toure Reason for consult: Diabetes 53 year old female with past medical history of schizophrenia paranoid type, Depression, right lower extremity DVT with history of anticoagulation, Sickle Cell trait, DM2, polysubstance abuse and chronic medication non compliance admitted to psychiatry inpatient care for hallucinations. Medicine is consulted on DM management. Patient was not cooperative during the exam, not answering questions appropriately. She is a poor historian. She denies chest pain, palpitations, leg pain, headache, dizziness. PMH: DM, Sickle cell trait, depression, anxiety, schizophrenia/ paranoid PSH: IVC filter placement FH: Mother at 89, father from pancreatic cancer SH: Tobacco history 10 cigarettes/day - heavy use, 2 beers/ day, smokes crack cocaine Allergies: NKDA Pharmacy: [email or web address] Past Patient History - Infectious Disease Hx of Infectious Diseases: None - Tetanus Immunizations Tetanus Immunization: Unknown - Past Medical History & Family History Past Medical History?: Yes - Past Social History Smoking Status: Heavy Smoker > 10 Cigarettes Daily - CARDIAC Hx Hypertension: No - PULMONARY Hx Asthma: Yes Hx Bronchitis: Yes Hx Emphysema: Yes Hx Pneumonia: Yes - NEUROLOGICAL Hx Seizures: No - HEENT Hx HEENT Problems: No - RENAL Hx Chronic Kidney Disease: No - ENDOCRINE/METABOLIC Hx Endocrine Disorders: Yes Hx Diabetes Mellitus Type 2: Yes - HEMATOLOGICAL/ONCOLOGICAL Hx Anemia: Yes Hx Sickle Cell Disease: Yes - INTEGUMENTARY Hx Dermatological Problems: Yes - MUSCULOSKELETAL/RHEUMATOLOGICAL Hx Arthritis: Yes - GASTROINTESTINAL Hx Gastrointestinal Disorders: No - GENITOURINARY/GYNECOLOGICAL Hx Sexually Transmitted Disorders: No - PSYCHIATRIC Hx Anxiety: Yes Hx Schizophrenia: Yes Hx Substance Use: Yes - SURGICAL HISTORY Other/Comment: Pt reports "leg surgery". Hx of DVT - ANESTHESIA Hx Anesthesia: Yes Hx Anesthesia Reactions: No Hx Malignant Hyperthermia: No Meds Allergies/Adverse Reactions: Allergies Allergy/AdvReac Type Severity Reaction Status Date / Time No Known Allergies Allergy Verified 03/15/19 13:05 - Medications Medications: Current Medications Acetaminophen (Tylenol 325mg Tab) 650 mg PO Q4H PRN PRN Reason: Pain, moderate (4-7) Al Hydrox/Mg Hydrox/Simethicone (Maalox Plus 30 Ml) 30 ml PO DAILY PRN PRN Reason: Indigestion / Heartburn Benztropine Mesylate (Cogentin) 1 mg PO AMHS [facility] Divalproex Sodium (Depakote Dr (*Bid*)) 750 mg PO 1630 [facility] Divalproex Sodium (Depakote Dr(*Bid*)) 500 mg PO QAM [facility] Fluphenazine HCl (Prolixin) 10 mg PO AMHS [facility]; Protocol Ibuprofen (Motrin Tab) 400 mg PO Q6 PRN PRN Reason: Pain, moderate (4-7) Lorazepam (Ativan) 1 mg PO Q8 [facility]; Protocol Magnesium Hydroxide (Milk Of Magnesia) 30 ml PO DAILY PRN PRN Reason: Constipation Metformin HCl (Glucophage) 500 mg PO BID [facility] Nicotine (Nicoderm Cq) 1 patch TD DAILY [facility] Pantoprazole Sodium (Protonix Ec Tab) 40 mg PO DAILY [facility] Last Admin: 03/16/19 09:08 Dose: 40 mg Quetiapine Fumarate (Seroquel) 100 mg PO AMHS [facility]; Protocol Zolpidem Tartrate (Ambien) 5 mg PO HS PRN; Protocol PRN Reason: Insomnia Physical Exam - Constitutional Appears: Well, Non-toxic - Head Exam Head Exam: ATRAUMATIC, NORMAL INSPECTION, NORMOCEPHALIC - Eye Exam Eye Exam: EOMI, Normal appearance, PERRL Pupil Exam: NORMAL ACCOMODATION, PERRL - ENT Exam ENT Exam: Mucous Membranes Moist, Normal Exam - Neck Exam Neck exam: Positive for: Normal Inspection - Respiratory Exam Respiratory Exam: Clear to Auscultation Bilateral, NORMAL BREATHING PATTERN - Cardiovascular Exam Cardiovascular Exam: REGULAR RHYTHM, +S1, +S2 - GI/Abdominal Exam GI & Abdominal Exam: Normal Bowel Sounds, Soft. absent: Tenderness - Extremities Exam Extremities exam: Positive for: normal inspection - Back Exam Back exam: NORMAL INSPECTION - Neurological Exam Additional comments: awake - Psychiatric Exam Psychiatric exam: Depressed, Flat Affect Results - Vital Signs Recent Vital Signs: Last Vital Signs Temp 98.8 F 03/15/19 10:00 Pulse 89 03/15/19 10:00 Resp 18 03/15/19 18:00 BP 102/66 03/15/19 10:00 Pulse Ox 99 03/15/19 08:28 - Labs Result Diagrams: 03/16/19 07:00 03/16/19 07:00 Labs: Laboratory Results - last 24 hr 03/15/19 03/16/19 03/16/19 08:32 07:00 07:00 WBC 5.0 RBC 4.64 Hgb 12.6 Hct 39.0 MCV 84.1 MCH 27.2 MCHC 32.3 RDW 15.6 H Plt Count 202 MPV 10.0 Neut % (Auto) 39.5 L Lymph % (Auto) 47.4 H [place] % (Auto) 8.5 H Eos % (Auto) 4.4 Baso % (Auto) 0.2 Lymph # (Auto) 2.4 [place] # (Auto) 0.4 Eos # (Auto) 0.2 Baso # (Auto) 0.01 Absolute Neuts (auto) 1.99 Sodium 142 Potassium 4.1 Chloride 103 Carbon Dioxide 32 Anion Gap 11 BUN 19 Creatinine 0.8 Est GFR ( Amer) > 60 Est GFR (Non-Af Amer) > 60 POC Glucose (mg/dL) 89 Random Glucose 95 Fasting Glucose 95 Hemoglobin A1c Calcium 9.0 Phosphorus 3.4 Magnesium 2.0 Total Bilirubin 0.2 AST 37 H ALT 23 Alkaline Phosphatase 50 Total Protein 7.0 Albumin 3.8 Globulin 3.2 Albumin/Globulin Ratio 1.2 Triglycerides 54 Cholesterol 80 L LDL Cholesterol Direct 56 HDL Cholesterol 19 L Free T4 TSH 3rd Generation Valproic Acid 03/16/19 03/16/19 03/16/19 07:00 07:00 10:00 WBC RBC Hgb Hct MCV MCH MCHC RDW Plt Count MPV Neut % (Auto) Lymph % (Auto) [place] % (Auto) Eos % (Auto) Baso % (Auto) Lymph # (Auto) [place] # (Auto) Eos # (Auto) Baso # (Auto) Absolute Neuts (auto) Sodium Potassium Chloride Carbon Dioxide Anion Gap BUN Creatinine Est GFR ( Amer) Est GFR (Non-Af Amer) POC Glucose (mg/dL) Random Glucose Fasting Glucose Hemoglobin A1c 6.2 Calcium Phosphorus Magnesium Total Bilirubin AST ALT Alkaline Phosphatase Total Protein Albumin Globulin Albumin/Globulin Ratio Triglycerides Cholesterol LDL Cholesterol Direct HDL Cholesterol Free T4 1.23 TSH 3rd Generation 1.35 Valproic Acid 27 L Assessment & Plan - Assessment and Plan (Free Text) Assessment: 53 year old female with PMH of schizophrenia paranoid type, Depression, right lower extremity DVT with history of anticoagulation, Sickle Cell trait, DM2, polysubstance abuse and chronic medication non compliance admitted to the [facility] psychatric floor for hallucinations. Fernando was consulted for diabetes management Plan: DM2 -continue home med Metformin 500mg bid -BG 95 -A1C 6.2 -ACHS -diabetic diet -Continue to monitor Thank you for the consult Patient seen, case and plan discussed with attending, Dr. Mesfin Fitzgerald, DO <Jo Toure R - Last Filed: 03/16/19 16:20> Meds - Medications Medications: Current Medications Acetaminophen (Tylenol 325mg Tab) 650 mg PO Q4H PRN PRN Reason: Pain, moderate (4-7) Al Hydrox/Mg Hydrox/Simethicone (Maalox Plus 30 Ml) 30 ml PO DAILY PRN PRN Reason: Indigestion / Heartburn Benztropine Mesylate (Cogentin) 1 mg PO AMHS [facility] Divalproex Sodium (Depakote Dr (*Bid*)) 750 mg PO 1630 [facility] Divalproex Sodium (Depakote Dr(*Bid*)) 500 mg PO QAM [facility] Fluphenazine HCl (Prolixin) 10 mg PO AMHS [facility]; Protocol Ibuprofen (Motrin Tab) 400 mg PO Q6 PRN PRN Reason: Pain, moderate (4-7) Lorazepam (Ativan) 1 mg PO Q8 [facility]; Protocol Last Admin: 03/16/19 13:57 Dose: 1 mg Magnesium Hydroxide (Milk Of Magnesia) 30 ml PO DAILY PRN PRN Reason: Constipation Metformin HCl (Glucophage) 500 mg PO BID [facility] Nicotine (Nicoderm Cq) 1 patch TD DAILY [facility] Pantoprazole Sodium (Protonix Ec Tab) 40 mg PO DAILY [facility] Last Admin: 03/16/19 09:08 Dose: 40 mg Quetiapine Fumarate (Seroquel) 100 mg PO AMHS [facility]; Protocol Zolpidem Tartrate (Ambien) 5 mg PO HS PRN; Protocol PRN Reason: Insomnia Results - Vital Signs Recent Vital Signs: Last Vital Signs Temp 98.8 F 03/15/19 10:00 Pulse 85 03/16/19 15:40 Resp 18 03/15/19 18:00 BP 122/85 03/16/19 15:40 Pulse Ox 99 03/15/19 08:28 - Labs Result Diagrams: 03/16/19 07:00 03/16/19 07:00 Labs: Laboratory Results - last 24 hr 03/15/19 03/16/19 03/16/19 08:32 07:00 07:00 WBC 5.0 RBC 4.64 Hgb 12.6 Hct 39.0 MCV 84.1 MCH 27.2 MCHC 32.3 RDW 15.6 H Plt Count 202 MPV 10.0 Neut % (Auto) 39.5 L Lymph % (Auto) 47.4 H [place] % (Auto) 8.5 H Eos % (Auto) 4.4 Baso % (Auto) 0.2 Lymph # (Auto) 2.4 [place] # (Auto) 0.4 Eos # (Auto) 0.2 Baso # (Auto) 0.01 Absolute Neuts (auto) 1.99 Sodium 142 Potassium 4.1 Chloride 103 Carbon Dioxide 32 Anion Gap 11 BUN 19 Creatinine 0.8 Est GFR ( Amer) > 60 Est GFR (Non-Af Amer) > 60 POC Glucose (mg/dL) 89 Random Glucose 95 Fasting Glucose 95 Hemoglobin A1c Calcium 9.0 Phosphorus 3.4 Magnesium 2.0 Total Bilirubin 0.2 AST 37 H ALT 23 Alkaline Phosphatase 50 Total Protein 7.0 Albumin 3.8 Globulin 3.2 Albumin/Globulin Ratio 1.2 Triglycerides 54 Cholesterol 80 L LDL Cholesterol Direct 56 HDL Cholesterol 19 L Free T4 TSH 3rd Generation Valproic Acid 03/16/19 03/16/19 03/16/19 07:00 07:00 10:00 WBC RBC Hgb Hct MCV MCH MCHC RDW Plt Count MPV Neut % (Auto) Lymph % (Auto) [place] % (Auto) Eos % (Auto) Baso % (Auto) Lymph # (Auto) [place] # (Auto) Eos # (Auto) Baso # (Auto) Absolute Neuts (auto) Sodium Potassium Chloride Carbon Dioxide Anion Gap BUN Creatinine Est GFR ( Amer) Est GFR (Non-Af Amer) POC Glucose (mg/dL) Random Glucose Fasting Glucose Hemoglobin A1c 6.2 Calcium Phosphorus Magnesium Total Bilirubin AST ALT Alkaline Phosphatase Total Protein Albumin Globulin Albumin/Globulin Ratio Triglycerides Cholesterol LDL Cholesterol Direct HDL Cholesterol Free T4 1.23 TSH 3rd Generation 1.35 Valproic Acid 27 L Attending/Attestation - Attestation I have personally seen and examined this patient.: Yes I have fully participated in the care of the patient.: Yes I have reviewed all pertinent clinical information: Yes Notes (Text): Patient seen and examined by me with resident at approximately 10:20AM on 03/16/19. Case including HPI, physical exam, and assessment and plan discussed with resident. Agree with above with following additions/corrections. Patient is a 53 year old female with past medical history of schizophrenia, d epression, right lower extremity DVT on Eliquis, sickle cell trait, noninsulin dependent DM2, polysubstance abuse and non-compliance that presented to the emergency room with hallucinations. Patient was admitted to psychiatric unit. Medicine team consulted for history of diabetes. Patient states she is sleepy. Patient not answering all questions. States she does take metformin at home for her diabetes. She states that she has chronic knee pain and self medicates with cocaine because she can not get percocet. Patient denying chest pain or shortness of breath. No nausea, vomiting, or abdominal pain. Patient afebrile. Unable to obtain 12 point review of systems from patient as patient not coop erative and not answering all questions. Physical exam: General: Lying in bed in no acute distress HEENT: Normocephalic, atraumatic. Extraocular muscles intact. Pupils equal and reactive, no scleral icterus. Oropharynx is pink and moist. Neck is supple. Cardiovascular: Normal rhythm. Normal S1 and S2. No murmurs, rubs, or gallops appreciated Pulmonary: Normal respiratory effort. No rhonchi, rales, or wheezing appreciated Gastrointestinal: Soft, nondistended. Nontender. Positive bowel sounds all 4 quadrants. No guarding. Musculoskeletal: Moves all extremities. No calf tenderness. Central nervous system: AAO x 3. Dermatologic: Skin warm and dry. Assessment and plan: Patient is a 53 year old female with past medical history of schizophrenia, depression, right lower extremity DVT on Eliqus, sickle cell trait, noninsulin dependent DM2, polysubstance abuse and non-compliance that presented to the emergency room with hallucinations. Patient was admitted to psychiatric unit. Medicine team consulted for history of diabetes. 1. DM2. Blood sugars within normal limits here. Patient to continue home metformin. Monitor accuchecks. 2. History of right lower extremity DVT. Will check with patient's pharmacy to see if patient is still on Eliquis 3. Polysubstance abuse. Hallucinations. Care as per primary team. Thank you for allowing us to participate in the care of your patient, we will follow with you.
[2019-03-16] MEDS: Divalproex 250 mg DR (BID formulation) PO SCH (16:44)
[2019-03-17] MEDS: Pantoprazole 40 mg EC Tab PO SCH ×2 (06:22→09:01)
[2019-03-17] MEDS: Divalproex 500 mg DR(BID formulation) PO SCH (09:01)
--- NOTE | 2019-03-17 13:43 | US ---
HISTORY: Leg pain and swelling. Evaluate for DVT PHYSICIAN(S): Aron Valdivia MD. TECHNIQUE: Duplex sonography and color-flow Doppler with graded compression were used to evaluate the deep venous systems of both lower extremities. FINDINGS: There appear to be post phlebitic changes in in the left femoral and popliteal veins. This appears to be primarily chronic. It should be correlated with symptoms. There is no sonographic evidence for deep venous thrombosis in the visualized right venous system IMPRESSION: Post phlebitic, primarily chronic changes in the mid to distal left femoral vein and popliteal veins.
--- NOTE | 2019-03-17 14:18 | PCM.PYCHPN ---
Psychiatric Progress Note - Psychiatric Progress Note Patient seen today, length of contact: 30 minutes Patient Chief Complaint: "I hear voices, spirits talks to me, I know what a spirit looks like." Problems Identified/Issues Discussed: Compliant with her medications, substance abuse, suicide prevention, aftercare plan, symptoms. Medical Problems: See HPI Diagnostic Results: 03/16/19 07:00 03/16/19 07:00 Lab Results 03/16/19 10:00: Valproic Acid 27 L 03/16/19 07:00: Hemoglobin A1c 6.2 03/16/19 07:00: RPR Nonreactive 03/16/19 07:00: Free T4 1.23, TSH 3rd Generation 1.35 03/16/19 07:00: Sodium 142, Potassium 4.1, Chloride 103, Carbon Dioxide 32, Anion Gap 11, BUN 19, Creatinine 0.8, Est GFR ( Amer) > 60, Est GFR (Non- Af Amer) > 60, Random Glucose 95, Fasting Glucose 95, Calcium 9.0, Phosphorus 3.4, Magnesium 2.0, Total Bilirubin 0.2, AST 37 H, ALT 23, Alkaline Phosphatase 50, Total Protein 7.0, Albumin 3.8, Globulin 3.2, Albumin/Globulin Ratio 1.2, Triglycerides 54, Cholesterol 80 L, LDL Cholesterol Direct 56, HDL Cholesterol 19 L 03/16/19 07:00: WBC 5.0, RBC 4.64, Hgb 12.6, Hct 39.0, MCV 84.1, MCH 27.2, MCHC 32.3, RDW 15.6 H, Plt Count 202, MPV 10.0, Neut % (Auto) 39.5 L, Lymph % (Auto) 47.4 H, [place] % (Auto) 8.5 H, Eos % (Auto) 4.4, Baso % (Auto) 0.2, Lymph # (Auto) 2.4, [place] # (Auto) 0.4, Eos # (Auto) 0.2, Baso # (Auto) 0.01, Absolute Neuts (auto) 1.99 03/15/19 08:32: POC Glucose (mg/dL) 89 03/15/19 00:37: Urine Opiates Screen Negative, Urine Methadone Screen Negative, Ur Barbiturates Screen Negative, Ur Phencyclidine Scrn Negative, Ur Amphetamines Screen Negative, U Benzodiazepines Scrn Positive H, U Oth Cocaine Metabols Positive H, U Cannabinoids Screen Negative 03/15/19 00:37: Urine Color Light yellow, Urine Appearance Clear, Urine pH 6.0, Ur Specific [place] 1.010, Urine Protein Negative, Urine Glucose (UA) Negative, Urine Ketones Negative, Urine Blood Negative, Urine Nitrate Negative, Urine Bilirubin Negative, Urine Urobilinogen 0.2, Ur Leukocyte Esterase Negative 03/15/19 00:30: WBC 4.9 D, RBC 4.45, Hgb 12.5, Hct 37.5, MCV 84.3, MCH 28.1, MCHC 33.3, RDW 15.4 H, Plt Count 231, MPV 10.5, Neut % (Auto) 43.0 L, Lymph % (Auto) 43.5 H, [place] % (Auto) 7.4 H, Eos % (Auto) 5.7 H, Baso % (Auto) 0.4, Lymph # (Auto) 2.1, [place] # (Auto) 0.4, Eos # (Auto) 0.3, Baso # (Auto) 0.02, Absolute Neuts (auto) 2.09 03/15/19 00:30: Alcohol, Quantitative < 10 03/15/19 00:30: Sodium 143, Potassium 4.5, Chloride 105, Carbon Dioxide 27, Anion Gap 16, BUN 18, Creatinine 1.0, Est GFR ( Amer) > 60, Est GFR (Non- Af Amer) 58, Random Glucose 83, Calcium 9.2, Total Bilirubin 0.3, AST 44 H D, ALT 33, Alkaline Phosphatase 56, Total Protein 7.9, Albumin 4.3, Globulin 3.6, Albumin/Globulin Ratio 1.2 Vital Signs Temp Pulse Resp BP Pulse Ox 03/17/19 10:00 98.0 F 83 20 122/80 03/17/19 07:11 98.0 F 83 20 122/80 03/16/19 15:40 85 122/85 03/15/19 18:00 18 03/15/19 11:48 19 03/15/19 10:00 98.8 F 89 20 102/66 03/15/19 08:28 98 F 84 18 130/58 L 99 03/15/19 07:45 84 15 147/87 95 03/15/19 04:13 89 18 128/82 98 03/15/19 00:42 98.2 F 91 H 18 130/71 96 DSM 5 Symptoms Update: As per Dr. Albarran's assessment: patient is 53 year old -[place] female with reported history of schizophrenia paranoid type versus schizoaffective disorder, crack/cocaine dep endency, alcohol abuse, multiple psychiatric admissions in the past most recently [facility] 03/03/19-03/07/19 and [facility] [place]/28[place], poor adherence with medications and outpatient f/u who presented to the emergency room here in [facility] complaining of "not feeling stable", auditory hallucinations of voices telling her to harm herself and others. At the time of admission presented as paranoid, labile, internally preoccupied, disorganized in thoughts and behavior. Patient was agitated when she arrived on the unit on Sunday and needed to be medicated with Haldol 5 mg, Ativan 2 mg and Benadryl 50 IM. Staff also found a crack pipe when patient was searched for contraband. Notes reviewed, discussed with nurses, chart reviewed. pt presented to be disorganized, said that he hears "spirits voices", when was asked how does she know that it is spirits, pt reported that she also sees them. pt said that afte d/c from [facility] "some medications were discontinued and I was feeling unstable.." at the same time patient reported that she was not compliant with the medications because the "medications stopped working". She resorted to using crack/cocaine and "this is my main problem..", pt was also drinking whiskey intermittently. Presently denies any SI/HI however she remains unpredictable. PSYCHIATRIC HISTORY: Patient has long history of mental illness, multiple hospitalizations. Most recent admission to [facility] was 03/03/19-03/07/19. Patient was discharged on the following medications: Depakote DR 500 mg PO BID Prolixin 10 mg PO BID Atarax 50 mg PO BIDPRN Reason: Anxiety Trazodone 100 mg PO HS PRN As per staff patient is unpredictable, labile, at times disrespectful, compliant with medications. So far patient tolerates medications well, no side effects observed or reported, aims 0, no EPS. Impression: DSM 5 Diagnosis: Schizoaffective Disorder Polysubstance Dependency SIMD, SIPD Mental Status Examination - Cognitive Function Orientation: Person, Place - Mood Mood: Depressed, Anxious - Affect Affect: Constricted - Formal Thought Process Formal Thought Process: Hallucinations, Delusions, Paranoia, Loosening of associations - Homicidal Ideation Homicidal Ideation: Yes Goal/Treatment Plan - Goal/Treatment Plan Need for Continued Stay: Remain at risks for inpatient hospitalization, Severe depression anxiety, Discharge may exacerbated symptoms, Severe functional impairment Progress Toward Problem(s) and Goals/Treatment Plan: * Group, milieu and supportive tx * SW consultation for discharge plan and social issues Cogentin 1 mg PO BID for EPS Depakote DR 500 MG am AND 750 mg po qPM {to check VPA} for mood stabilization Prolixin 10 mg PO AMHS for psychosis Seroquel 100 mg po AMH {prior beneficial dose was 300 mg PO AMHS} for psychosis Ambien 5 mg PO HS PRN for insomnia Haldol 5 mg, Ativan 2 mg, Benadryl 50 mg q6 prns for agitation * Ativan 1 mg po q8 for possible alcohol withdrawal. * Consider Naltrexone to help with alcohol cravings however patient has historically demonstrated very little motivation in abstinence from drugs and alcohol * Nicotine 21 mg/24 hr 1 patch TD DAILY * Awaiting medical consultation Risk/benefits/alternatives of the medications were discussed with the patient Estimated Date of D/C: 03/24/19 - Smoking Cessation Smoking Cessation Initiated: Yes
--- NOTE | 2019-03-17 14:58 | CP.PCM.PN ---
<Mehdi Fitzgerald - Last Filed: 03/17/19 14:55> Subjective - Date & Time of Evaluation Date of Evaluation: 03/17/19 Time of Evaluation: 06:10 - Subjective Subjective: Mehdi Fitzgerald DO PGY1 Hospitalist Progress Note for Dr Toure Patient seen and examined at bedside. She is confused, not cooperative in answering questions. She reports left leg pain and edema. Denies calf muscle tenderness, fever, chills, CP, SOB, palpitations, headache Objective - Vital Signs/Intake and Output Vital Signs (last 24 hours): Temp Pulse Resp BP Pulse Ox 97.3 F L 83 20 122/80 99 03/17/19 14:23 03/17/19 10:00 03/17/19 10:00 03/17/19 10:00 03/15/19 08:28 - Medications Medications: Current Medications Acetaminophen (Tylenol 325mg Tab) 650 mg PO Q4H PRN PRN Reason: Pain, moderate (4-7) Al Hydrox/Mg Hydrox/Simethicone (Maalox Plus 30 Ml) 30 ml PO DAILY PRN PRN Reason: Indigestion / Heartburn Benztropine Mesylate (Cogentin) 1 mg PO [facility] Last Admin: 03/17/19 09:01 Dose: 1 mg Divalproex Sodium (Depakote Dr (*Bid*)) 750 mg PO 1630 [facility] Last Admin: 03/16/19 16:44 Dose: 750 mg Divalproex Sodium (Depakote Dr(*Bid*)) 500 mg PO QAM [facility] Last Admin: 03/17/19 09:01 Dose: 500 mg Fluphenazine HCl (Prolixin) 10 mg PO [facility]; Protocol Last Admin: 03/17/19 09:02 Dose: 10 mg Ibuprofen (Motrin Tab) 400 mg PO Q6 PRN PRN Reason: Pain, moderate (4-7) Last Admin: 03/17/19 14:23 Dose: 400 mg Lorazepam (Ativan) 1 mg PO Q8 [facility]; Protocol Last Admin: 03/17/19 14:20 Dose: 1 mg Magnesium Hydroxide (Milk Of Magnesia) 30 ml PO DAILY PRN PRN Reason: Constipation Nicotine (Nicoderm Cq) 1 patch TD DAILY [facility] Last Admin: 03/17/19 08:47 Dose: 1 patch Pantoprazole Sodium (Protonix Ec Tab) 40 mg PO DAILY [facility] Last Admin: 03/17/19 09:01 Dose: 40 mg Quetiapine Fumarate (Seroquel) 100 mg PO AMHS [facility]; Protocol Last Admin: 03/17/19 09:02 Dose: 100 mg Zolpidem Tartrate (Ambien) 5 mg PO HS PRN; Protocol PRN Reason: Insomnia Last Admin: 03/16/19 21:14 Dose: 5 mg - Labs Labs: 03/16/19 07:00 03/16/19 07:00 - Constitutional Appears: No Acute Distress, Confused - Head Exam Head Exam: ATRAUMATIC, NORMAL INSPECTION, NORMOCEPHALIC - Eye Exam Eye Exam: Normal appearance - ENT Exam ENT Exam: Mucous Membranes Moist - Neck Exam Neck Exam: Normal Inspection - Respiratory Exam Respiratory Exam: Clear to Ausculation Bilateral, NORMAL BREATHING PATTERN - Cardiovascular Exam Cardiovascular Exam: REGULAR RHYTHM, +S1, +S2. absent: Murmur - GI/Abdominal Exam GI & Abdominal Exam: Soft, Normal Bowel Sounds. absent: Tenderness - Extremities Exam Extremities Exam: absent: Calf Tenderness Additional comments: left leg edema 1+ pulses palpable chronic skin changes in LE - Back Exam Back Exam: Full ROM - Neurological Exam Neurological Exam: Altered - Psychiatric Exam Psychiatric exam: Anxious, Depressed - Skin Additional comments: 1+ edema LLE Assessment and Plan - Assessment and Plan (Free Text) Assessment: 53 year old female with PMH of schizophrenia paranoid type, Depression, right lower extremity DVT with history of anticoagulation, Sickle Cell trait, DM2, polysubstance abuse and chronic medication non compliance admitted to the general psychiatric floor for hallucinations. Evaluated for left LE edema and DM Plan: DM2: -aptient pharmacy was contacted. Patient last picked up metformin was 06/2018 -d/c metformin -BG 95 -A1C 6.2 -diabetic diet -Continue to monitor Left LE edema: -LE duplex: post phlebitic , primary chronic changes in mid-distal left femoral vein and popliteal veins -patient is not on eliquis. confirmed with pharmacy, last picked up 11/2018 Patient seen, case and plan discussed with attending, Dr. Mesfin Fitzgerald, DO <Jo Toure - Last Filed: 03/18/19 07:27> Objective - Vital Signs/Intake and Output Vital Signs (last 24 hours): Temp Pulse Resp BP Pulse Ox 97.3 F L 100 H 20 103/67 99 03/17/19 14:23 03/17/19 15:54 03/17/19 10:00 03/17/19 15:54 03/15/19 08:28 - Medications Medications: Current Medications Acetaminophen (Tylenol 325mg Tab) 650 mg PO Q4H PRN PRN Reason: Pain, moderate (4-7) Al Hydrox/Mg Hydrox/Simethicone (Maalox Plus 30 Ml) 30 ml PO DAILY PRN PRN Reason: Indigestion / Heartburn Benztropine Mesylate (Cogentin) 1 mg PO [facility] Last Admin: 03/17/19 21:00 Dose: 1 mg Divalproex Sodium (Depakote Dr (*Bid*)) 750 mg PO 1630 [facility] Last Admin: 03/17/19 18:36 Dose: 750 mg Divalproex Sodium (Depakote Dr(*Bid*)) 500 mg PO QAM [facility] Last Admin: 03/17/19 09:01 Dose: 500 mg Fluphenazine HCl (Prolixin) 10 mg PO [facility]; Protocol Last Admin: 03/17/19 21:00 Dose: 10 mg Ibuprofen (Motrin Tab) 400 mg PO Q6 PRN PRN Reason: Pain, moderate (4-7) Last Admin: 03/17/19 14:23 Dose: 400 mg Lorazepam (Ativan) 1 mg PO Q8 [facility]; Protocol Last Admin: 03/18/19 06:22 Dose: 1 mg Magnesium Hydroxide (Milk Of Magnesia) 30 ml PO DAILY PRN PRN Reason: Constipation Nicotine (Nicoderm Cq) 1 patch TD DAILY [facility] Last Admin: 03/17/19 08:47 Dose: 1 patch Pantoprazole Sodium (Protonix Ec Tab) 40 mg PO DAILY [facility] Last Admin: 03/17/19 09:01 Dose: 40 mg Quetiapine Fumarate (Seroquel) 100 mg PO [facility]; Protocol Last Admin: 03/17/19 21:00 Dose: 100 mg Zolpidem Tartrate (Ambien) 5 mg PO HS PRN; Protocol PRN Reason: Insomnia Last Admin: 03/17/19 21:00 Dose: 5 mg - Labs Labs: 03/16/19 07:00 03/16/19 07:00 Attending/Attestation - Attestation I have personally seen and examined this patient.: Yes I have fully participated in the care of the patient.: Yes I have reviewed all pertinent clinical information, including history, physical exam and plan: Yes Notes (Text): Patient seen and examined by me with resident at approximately 9:55AM on 03/17/19. Case including HPI, physical exam, and assessment and plan discussed with resident. Agree with above with following additions/corrections. Patient is an 85 year old female with past medical history significant for COPD, seizure disorder, migraines, hypothyroidism, hyperlipidemia, osteoporosis, anemia, and GERD that presented to the emergency room with left hip pain after falling from her couch. Patient states she feels a little better today. Still with left hip pain with movement. Pain medications are helping. Patient is having flatus but not bowel movements. Patient denies abdominal pain, nausea, and vomiting. No fevers or chills. No dysuria. No chest pain or shortness of breath. No headaches or dizziness. Physical exam: General: Awake and alert sitting up in bed in no acute distress HEENT: Normocephalic, atraumatic. Extraocular muscles intact. Pupils equal and reactive, no scleral icterus. Oropharynx is pink and moist. Neck is supple. Cardiovascular: Normal rhythm. Normal S1 and S2. No murmurs, rubs, or gallops appreciated Pulmonary: Normal respiratory effort. No rhonchi, rales, or wheezing appreciated Gastrointestinal: Soft, nondistended. Nontender. Positive bowel sounds all 4 quadrants. No guarding. Musculoskeletal: Moves all extremities. No calf tenderness. Positive left lateral thigh with ecchymosis, ayanna in place, tender with mild palpation. Dressing clean, dry, and intact. Central nervous system: Awake and alert, no focal deficits Dermatologic: Skin warm and dry. Assessment and plan: Patient is an 85 year old female with past medical history significant for COPD, seizure disorder, migraines, hypothyroidism, hyperlipidemia, osteoporosis, anemia, and GERD that presented to the emergency room with left hip pain after falling from her couch. 1. Left displaced intertrochanteric fracture s/p mechanical fall. S/P left hip IM nail. Ortho recommendations appreciated. Continue with pain management. Continue to encourage incentive spirometer. PT recommends YAN, pending placement. Left hip CT 03/14/19 per radiologist showed displaced angulated and rotated intertrochanteric fracute of left hip. Left hip/pelvic xray and left femur xray post OR 03/15/19 per radiologist showed satisfactory postoperative status. 2. Acute blood loss anemia. Likely secondary to surgery. H&H downtrended. Will repeat CBC. Continue to monitor for now. 3. Hypothyroidism. Continue home synthroid. TSH and Free T4 within normal limits. 4. Seizure disorder. Continue home trileptal and topamax 5. COPD. Not in acute exacerbation. Continue nebulizer treatments as needed. Continue singulair. 6. Dementia. Continue home Aricept. 7. DVT prophylaxis. Heparin. Case was discussed in detail with the patient regarding current diagnosis, study results, and treatment plan. All questions answered.
[2019-03-17] MEDS: Divalproex 250 mg DR (BID formulation) PO SCH (18:36)
[2019-03-18] MEDS: Divalproex 500 mg DR(BID formulation) PO SCH (09:15)
[2019-03-18] MEDS: Pantoprazole 40 mg EC Tab PO SCH (09:15)
--- NOTE | 2019-03-18 13:36 | PCM.PYCHPN ---
Psychiatric Progress Note - Psychiatric Progress Note Patient seen today, length of contact: 30 minutes Patient Chief Complaint: "I am okay today, but I have a knee pain.." Problems Identified/Issues Discussed: Compliant with her medications, substance abuse, suicide prevention, aftercare plan, symptoms. Medical Problems: See HPI Diagnostic Results: 03/16/19 07:00 03/16/19 07:00 Lab Results 03/16/19 10:00: Valproic Acid 27 L 03/16/19 07:00: Hemoglobin A1c 6.2 03/16/19 07:00: RPR Nonreactive 03/16/19 07:00: Free T4 1.23, TSH 3rd Generation 1.35 03/16/19 07:00: Sodium 142, Potassium 4.1, Chloride 103, Carbon Dioxide 32, Anion Gap 11, BUN 19, Creatinine 0.8, Est GFR ( Amer) > 60, Est GFR (Non- Af Amer) > 60, Random Glucose 95, Fasting Glucose 95, Calcium 9.0, Phosphorus 3.4, Magnesium 2.0, Total Bilirubin 0.2, AST 37 H, ALT 23, Alkaline Phosphatase 50, Total Protein 7.0, Albumin 3.8, Globulin 3.2, Albumin/Globulin Ratio 1.2, Triglycerides 54, Cholesterol 80 L, LDL Cholesterol Direct 56, HDL Cholesterol 19 L 03/16/19 07:00: WBC 5.0, RBC 4.64, Hgb 12.6, Hct 39.0, MCV 84.1, MCH 27.2, MCHC 32.3, RDW 15.6 H, Plt Count 202, MPV 10.0, Neut % (Auto) 39.5 L, Lymph % (Auto) 47.4 H, [place] % (Auto) 8.5 H, Eos % (Auto) 4.4, Baso % (Auto) 0.2, Lymph # (Auto) 2.4, [place] # (Auto) 0.4, Eos # (Auto) 0.2, Baso # (Auto) 0.01, Absolute Neuts (auto) 1.99 03/15/19 08:32: POC Glucose (mg/dL) 89 03/15/19 00:37: Urine Opiates Screen Negative, Urine Methadone Screen Negative, Ur Barbiturates Screen Negative, Ur Phencyclidine Scrn Negative, Ur Amphetamines Screen Negative, U Benzodiazepines Scrn Positive H, U Oth Cocaine Metabols Positive H, U Cannabinoids Screen Negative 03/15/19 00:37: Urine Color Light yellow, Urine Appearance Clear, Urine pH 6.0, Ur Specific [place] 1.010, Urine Protein Negative, Urine Glucose (UA) Negative, Urine Ketones Negative, Urine Blood Negative, Urine Nitrate Negative, Urine Bilirubin Negative, Urine Urobilinogen 0.2, Ur Leukocyte Esterase Negative 03/15/19 00:30: WBC 4.9 D, RBC 4.45, Hgb 12.5, Hct 37.5, MCV 84.3, MCH 28.1, MCHC 33.3, RDW 15.4 H, Plt Count 231, MPV 10.5, Neut % (Auto) 43.0 L, Lymph % (Auto) 43.5 H, [place] % (Auto) 7.4 H, Eos % (Auto) 5.7 H, Baso % (Auto) 0.4, Lymph # (Auto) 2.1, [place] # (Auto) 0.4, Eos # (Auto) 0.3, Baso # (Auto) 0.02, Absolute Neuts (auto) 2.09 03/15/19 00:30: Alcohol, Quantitative < 10 03/15/19 00:30: Sodium 143, Potassium 4.5, Chloride 105, Carbon Dioxide 27, Anion Gap 16, BUN 18, Creatinine 1.0, Est GFR ( Amer) > 60, Est GFR (Non- Af Amer) 58, Random Glucose 83, Calcium 9.2, Total Bilirubin 0.3, AST 44 H D, ALT 33, Alkaline Phosphatase 56, Total Protein 7.9, Albumin 4.3, Globulin 3.6, Albumin/Globulin Ratio 1.2 Vital Signs Temp Pulse Resp BP Pulse Ox 03/17/19 10:00 98.0 F 83 20 122/80 03/17/19 07:11 98.0 F 83 20 122/80 03/16/19 15:40 85 122/85 03/15/19 18:00 18 03/15/19 11:48 19 03/15/19 10:00 98.8 F 89 20 102/66 03/15/19 08:28 98 F 84 18 130/58 L 99 03/15/19 07:45 84 15 147/87 95 03/15/19 04:13 89 18 128/82 98 03/15/19 00:42 98.2 F 91 H 18 130/71 96 DSM 5 Symptoms Update: patient is 53 year old -Mexican female with reported history of schizophrenia paranoid type versus schizoaffective disorder, crack/cocaine dependency, alcohol abuse, multiple psychiatric admissions in the past most recently [facility] 03/03/19-03/07/19 and [facility] 02/14/19-02/28/19, poor adherence with medications and outpatient f/u who presented to the emergency room here in [facility] complaining of "not feeling stable", auditory hallucinations of voices telling her to harm herself and others. At the time of admission presented as paranoid, labile, internally preoccupied, disorganized in thoughts and behavior. Patient was agitated when she arrived on the unit on Sunday and needed to be medicated with Haldol 5 mg, Ativan 2 mg and Benadryl 50 IM. Staff also found a crack pipe when patient was searched for contraband. Notes reviewed, discussed with nurses, chart reviewed. pt presented to be disorganized, but more pleasant, pt reported that she hears "spirits voices", denied any command type hallucinations. Presently denies any SI/HI however she remains unpredictable. As per staff patient is unpredictable, labile, at times disrespectful, compliant with medications. So far patient tolerates medications well, no side effects observed or reported, aims 0, no EPS. Impression: DSM 5 Diagnosis: Schizoaffective Disorder Polysubstance Dependency SIMD, SIPD Medication Change: Yes (resumed) Medical Record Reviewed: Yes Consults ordered or reviewed: Medical consult appreciated, please see notes for more detailed information Mental Status Examination - Cognitive Function Orientation: Person, Place Memory: Impaired Attention: Poor Concentration: Poor Association: Loose Fund of Knowledge: Poor - Mood Mood: Depressed, Anxious - Affect Affect: Constricted - Formal Thought Process Formal Thought Process: Hallucinations, Delusions, Paranoia, Loosening of associations - Suicidal Ideation Suicidal Ideation: No Plan: Denied today - Homicidal Ideation Homicidal Ideation: No Plan: Denied today Goal/Treatment Plan - Goal/Treatment Plan Need for Continued Stay: Remain at risks for inpatient hospitalization, Severe depression anxiety, Discharge may exacerbated symptoms, Severe functional impairment Progress Toward Problem(s) and Goals/Treatment Plan: * Group, milieu and supportive tx * SW consultation for discharge plan and social issues Cogentin 1 mg PO BID for EPS Depakote DR 500 MG am AND 750 mg po qPM {to check VPA} for mood stabilization Prolixin 10 mg PO AMHS for psychosis Seroquel 100 mg po AMH {prior beneficial dose was 300 mg PO AMHS} for psychosis Ambien 5 mg PO HS PRN for insomnia Haldol 5 mg, Ativan 2 mg, Benadryl 50 mg q6 prns for agitation * Ativan 1 mg po q8 for possible alcohol withdrawal. * Consider Naltrexone to help with alcohol cravings however patient has historically demonstrated very little motivation in abstinence from drugs and alcohol * Nicotine 21 mg/24 hr 1 patch TD DAILY * Medical consult appreciated Risk/benefits/alternatives of the medications were discussed with the patient Estimated Date of D/C: 03/24/19
[2019-03-18] MEDS: Divalproex 250 mg DR (BID formulation) PO SCH (17:00)
[2019-03-19] MEDS: Pantoprazole 40 mg EC Tab PO SCH (09:32)
[2019-03-19] MEDS: Divalproex 500 mg DR(BID formulation) PO SCH (09:33)
--- NOTE | 2019-03-19 16:01 | PCM.PYCHPN ---
Psychiatric Progress Note - Psychiatric Progress Note Patient seen today, length of contact: 30 minutes Patient Chief Complaint: "I am okay today, I think that I would be interested to go to boarding home" Problems Identified/Issues Discussed: Treatment plan, plan to discontinue Prolixin, and maximize Seroquel. substance abuse, suicide prevention, aftercare plan, symptoms. Medical Problems: See HPI Diagnostic Results: 03/16/19 07:00 03/16/19 07:00 Lab Results 03/16/19 10:00: Valproic Acid 27 L 03/16/19 07:00: Hemoglobin A1c 6.2 03/16/19 07:00: RPR Nonreactive 03/16/19 07:00: Free T4 1.23, TSH 3rd Generation 1.35 03/16/19 07:00: Sodium 142, Potassium 4.1, Chloride 103, Carbon Dioxide 32, Anion Gap 11, BUN 19, Creatinine 0.8, Est GFR ( Amer) > 60, Est GFR (Non- Af Amer) > 60, Random Glucose 95, Fasting Glucose 95, Calcium 9.0, Phosphorus 3.4, Magnesium 2.0, Total Bilirubin 0.2, AST 37 H, ALT 23, Alkaline Phosphatase 50, Total Protein 7.0, Albumin 3.8, Globulin 3.2, Albumin/Globulin Ratio 1.2, Triglycerides 54, Cholesterol 80 L, LDL Cholesterol Direct 56, HDL Cholesterol 19 L 03/16/19 07:00: WBC 5.0, RBC 4.64, Hgb 12.6, Hct 39.0, MCV 84.1, MCH 27.2, MCHC 32.3, RDW 15.6 H, Plt Count 202, MPV 10.0, Neut % (Auto) 39.5 L, Lymph % (Auto) 47.4 H, [place] % (Auto) 8.5 H, Eos % (Auto) 4.4, Baso % (Auto) 0.2, Lymph # (Auto) 2.4, [place] # (Auto) 0.4, Eos # (Auto) 0.2, Baso # (Auto) 0.01, Absolute Neuts (auto) 1.99 03/15/19 08:32: POC Glucose (mg/dL) 89 03/15/19 00:37: Urine Opiates Screen Negative, Urine Methadone Screen Negative, Ur Barbiturates Screen Negative, Ur Phencyclidine Scrn Negative, Ur Amphetamines Screen Negative, U Benzodiazepines Scrn Positive H, U Oth Cocaine Metabols Positive H, U Cannabinoids Screen Negative 03/15/19 00:37: Urine Color Light yellow, Urine Appearance Clear, Urine pH 6.0, Ur Specific [place] 1.010, Urine Protein Negative, Urine Glucose (UA) Negative, Urine Ketones Negative, Urine Blood Negative, Urine Nitrate Negative, Urine Bilirubin Negative, Urine Urobilinogen 0.2, Ur Leukocyte Esterase Negative 03/15/19 00:30: WBC 4.9 D, RBC 4.45, Hgb 12.5, Hct 37.5, MCV 84.3, MCH 28.1, MCHC 33.3, RDW 15.4 H, Plt Count 231, MPV 10.5, Neut % (Auto) 43.0 L, Lymph % (Auto) 43.5 H, [place] % (Auto) 7.4 H, Eos % (Auto) 5.7 H, Baso % (Auto) 0.4, Lymph # (Auto) 2.1, [place] # (Auto) 0.4, Eos # (Auto) 0.3, Baso # (Auto) 0.02, Absolute Neuts (auto) 2.09 03/15/19 00:30: Alcohol, Quantitative < 10 03/15/19 00:30: Sodium 143, Potassium 4.5, Chloride 105, Carbon Dioxide 27, Anion Gap 16, BUN 18, Creatinine 1.0, Est GFR ( Amer) > 60, Est GFR (Non- Af Amer) 58, Random Glucose 83, Calcium 9.2, Total Bilirubin 0.3, AST 44 H D, ALT 33, Alkaline Phosphatase 56, Total Protein 7.9, Albumin 4.3, Globulin 3.6, Albumin/Globulin Ratio 1.2 Vital Signs Temp Pulse Resp BP Pulse Ox 03/17/19 10:00 98.0 F 83 20 122/80 03/17/19 07:11 98.0 F 83 20 122/80 03/16/19 15:40 85 122/85 03/15/19 18:00 18 03/15/19 11:48 19 03/15/19 10:00 98.8 F 89 20 102/66 03/15/19 08:28 98 F 84 18 130/58 L 99 03/15/19 07:45 84 15 147/87 95 03/15/19 04:13 89 18 128/82 98 03/15/19 00:42 98.2 F 91 H 18 130/71 96 DSM 5 Symptoms Update: patient is 53 year old -Albanian female with reported history of schizophrenia paranoid type versus schizoaffective disorder, crack/cocaine dependency, alcohol abuse, multiple psychiatric admissions in the past most recently [facility] 03/03/19-03/07/19 and [facility] 02/14/19-02/28/19, poor adherence with medications and outpatient f/u who presented to the emergency room here in [facility] complaining of "not feeling stable", auditory hallucinations of voices telling her to harm herself and others. At the time of admission presented as paranoid, labile, internally preoccupied, disorganized in thoughts and behavior. Patient was agitated when she arrived on the unit on Sunday and needed to be medicated with Haldol 5 mg, Ativan 2 mg and Benadryl 50 IM. Staff also found a crack pipe when patient was searched for contraband. Patient was seen today next to the nursing station, pt presented to be disorganized, but more pleasant, pt reported that she hears "spirits voices", denied any command type hallucinations. pt is on two antipsychotic medications which put pt on high risk of multiple falls, patient agreed to start tapering down Prolixin and increased dose of Seroquel. Presently denies any SI/HI however she remains unpredictable. As per staff patient is unpredictable, labile, at times disrespectful, compliant with medications. So far patient tolerates medications well, no side effects observed or reported, aims 0, no EPS. Impression: DSM 5 Diagnosis: Schizoaffective Disorder Polysubstance Dependency SIMD, SIPD Medication Change: Yes (Prolixin decreased, Seroquel increased) Medical Record Reviewed: Yes Mental Status Examination - Cognitive Function Orientation: Person, Place Memory: Impaired Attention: Poor Concentration: Poor Association: Loose Fund of Knowledge: Poor - Mood Mood: Depressed, Anxious - Affect Affect: Constricted - Formal Thought Process Formal Thought Process: Hallucinations, Delusions, Paranoia, Loosening of associations - Suicidal Ideation Suicidal Ideation: No - Homicidal Ideation Homicidal Ideation: No Goal/Treatment Plan - Goal/Treatment Plan Need for Continued Stay: Remain at risks for inpatient hospitalization, Severe depression anxiety, Discharge may exacerbated symptoms, Severe functional impairment Progress Toward Problem(s) and Goals/Treatment Plan: * Group, milieu and supportive tx * SW consultation for discharge plan and social issues Cogentin 1 mg PO BID for EPS Depakote DR 500 MG am AND 750 mg po qPM {to check VPA} for mood stabilization Prolixin 5mg po bid and hs with a plan to wean it off Seroquel 200 mg po amhs with the plan to max the dose Ambien 5 mg PO HS PRN for insomnia Haldol 5 mg, Ativan 2 mg, Benadryl 50 mg q6 prns for agitation * Ativan 1 mg po q8 for possible alcohol withdrawal. * Consider Naltrexone to help with alcohol cravings however patient has historically demonstrated very little motivation in abstinence from drugs and alcohol * Nicotine 21 mg/24 hr 1 patch TD DAILY * Medical consult appreciated Risk/benefits/alternatives of the medications were discussed with the patient Estimated Date of D/C: 03/24/19
[2019-03-19] MEDS: Divalproex 250 mg DR (BID formulation) PO SCH (16:16)
[2019-03-20] MEDS: Pantoprazole 40 mg EC Tab PO SCH (08:18)
[2019-03-20] MEDS: Divalproex 500 mg DR(BID formulation) PO SCH (11:12)
--- NOTE | 2019-03-20 11:16 | PCM.PYCHPN ---
Psychiatric Progress Note - Psychiatric Progress Note Patient seen today, length of contact: 30 minutes Patient Chief Complaint: "I am okay today, I just want to relax" Problems Identified/Issues Discussed: Treatment plan, plan to discontinue Prolixin, and maximize Seroquel. substance abuse, suicide prevention, aftercare plan, symptoms. Medical Problems: See HPI Diagnostic Results: 03/16/19 07:00 03/16/19 07:00 Lab Results 03/16/19 10:00: Valproic Acid 27 L 03/16/19 07:00: Hemoglobin A1c 6.2 03/16/19 07:00: RPR Nonreactive 03/16/19 07:00: Free T4 1.23, TSH 3rd Generation 1.35 03/16/19 07:00: Sodium 142, Potassium 4.1, Chloride 103, Carbon Dioxide 32, Anion Gap 11, BUN 19, Creatinine 0.8, Est GFR ( Amer) > 60, Est GFR (Non- Af Amer) > 60, Random Glucose 95, Fasting Glucose 95, Calcium 9.0, Phosphorus 3.4, Magnesium 2.0, Total Bilirubin 0.2, AST 37 H, ALT 23, Alkaline Phosphatase 50, Total Protein 7.0, Albumin 3.8, Globulin 3.2, Albumin/Globulin Ratio 1.2, Triglycerides 54, Cholesterol 80 L, LDL Cholesterol Direct 56, HDL Cholesterol 19 L 03/16/19 07:00: WBC 5.0, RBC 4.64, Hgb 12.6, Hct 39.0, MCV 84.1, MCH 27.2, MCHC 32.3, RDW 15.6 H, Plt Count 202, MPV 10.0, Neut % (Auto) 39.5 L, Lymph % (Auto) 47.4 H, [place] % (Auto) 8.5 H, Eos % (Auto) 4.4, Baso % (Auto) 0.2, Lymph # (Auto) 2.4, [place] # (Auto) 0.4, Eos # (Auto) 0.2, Baso # (Auto) 0.01, Absolute Neuts (auto) 1.99 03/15/19 08:32: POC Glucose (mg/dL) 89 03/15/19 00:37: Urine Opiates Screen Negative, Urine Methadone Screen Negative, Ur Barbiturates Screen Negative, Ur Phencyclidine Scrn Negative, Ur Amphetamines Screen Negative, U Benzodiazepines Scrn Positive H, U Oth Cocaine Metabols Positive H, U Cannabinoids Screen Negative 03/15/19 00:37: Urine Color Light yellow, Urine Appearance Clear, Urine pH 6.0, Ur Specific [place] 1.010, Urine Protein Negative, Urine Glucose (UA) Negative, Urine Ketones Negative, Urine Blood Negative, Urine Nitrate Negative, Urine Bili vo Negative, Urine Urobilinogen 0.2, Ur Leukocyte Esterase Negative 03/15/19 00:30: WBC 4.9 D, RBC 4.45, Hgb 12.5, Hct 37.5, MCV 84.3, MCH 28.1, MCHC 33.3, RDW 15.4 H, Plt Count 231, MPV 10.5, Neut % (Auto) 43.0 L, Lymph % (Auto) 43.5 H, [place] % (Auto) 7.4 H, Eos % (Auto) 5.7 H, Baso % (Auto) 0.4, Lymph # (Auto) 2.1, [place] # (Auto) 0.4, Eos # (Auto) 0.3, Baso # (Auto) 0.02, Absolute Neuts (auto) 2.09 03/15/19 00:30: Alcohol, Quantitative < 10 03/15/19 00:30: Sodium 143, Potassium 4.5, Chloride 105, Carbon Dioxide 27, Anion Gap 16, BUN 18, Creatinine 1.0, Est GFR ( Amer) > 60, Est GFR (Non- Af Amer) 58, Random Glucose 83, Calcium 9.2, Total Bilirubin 0.3, AST 44 H D, ALT 33, Alkaline Phosphatase 56, Total Protein 7.9, Albumin 4.3, Globulin 3.6, Albumin/Globulin Ratio 1.2 Vital Signs Temp Pulse Resp BP Pulse Ox 03/17/19 10:00 98.0 F 83 20 122/80 03/17/19 07:11 98.0 F 83 20 122/80 03/16/19 15:40 85 122/85 03/15/19 18:00 18 03/15/19 11:48 19 03/15/19 10:00 98.8 F 89 20 102/66 03/15/19 08:28 98 F 84 18 130/58 L 99 03/15/19 07:45 84 15 147/87 95 03/15/19 04:13 89 18 128/82 98 03/15/19 00:42 98.2 F 91 H 18 130/71 96 DSM 5 Symptoms Update: patient is 53 year old -Hungarian female with reported history of schi zophrenia paranoid type versus schizoaffective disorder, crack/cocaine dependency, alcohol abuse, multiple psychiatric admissions in the past most recently [facility] 03/03/19-03/07/19 and [facility] 02/14/19-02/28/19, poor adherence with medications and outpatient f/u who presented to the emergency room here in [facility] complaining of "not feeling stable", auditory hallucinations of voices telling her to harm herself and others. At the time of admission presented as paranoid, labile, internally preoccupied, disorganized in thoughts and behavior. Patient was agitated when she arrived on the unit on Sunday and needed to be medicated with Haldol 5 mg, Ativan 2 mg and Benadryl 50 IM. Staff also found a crack pipe when patient was searched for contraband. Patient was seen today in her room, patient presented to be disheveled, disengaged, laying in bed covered with a blanket, patient did not want to talk to this underwriter mortgage loan much, patient was brushing this underwriter mortgage loan off saying that "everything is fine" and she does want to relax, patient agreed with a plan to slowly taper down Prolixin and maximize dose of Seroquel. This underwriter mortgage loan started to taper down Prolixin yesterday, patient denied any side effects, denied worsening of psychosis. The reason for the plan of tapering down Prolixin is patient has some fine tremor in her upper extremities more over it would be better for the patient to be on only a 1 antipsychotic medication. In regards off injectable form on the medication patient has history of noncompliance with aftercare plan, patient is homeless, each and every time patient relapsed on drugs. At this point this underwriter mortgage loan did not feel that patient needs to be on injectable form. Moreover patient agreed for boarding home referral. If patient will have stable home and possible integrative case management services most likely injectable form will be beneficial. Presently denies any SI/HI however she remains unpredictable. As per staff patient is unpredictable, labile, at times disrespectful, compliant with medications, but more pleasant. So far patient tolerates medications well, no side effects observed or reported, aims 0, no EPS. Impression: DSM 5 Diagnosis: Schizoaffective Disorder Polysubstance Dependency SIMD, SIPD Medication Change: Yes (Prolixin decreased, Seroquel increased) Medical Record Reviewed: Yes Consults ordered or reviewed: Medical consult appreciated, please see notes for more detailed information Mental Status Examination - Cognitive Function Orientation: Person, Place Memory: Impaired Attention: Poor (Some improvement) Concentration: Poor Association: Loose Fund of Knowledge: Poor - Mood Mood: Depressed, Anxious - Affect Affect: Constricted - Formal Thought Process Formal Thought Process: Hallucinations (Denied today), Delusions, Paranoia, Loosening of associations - Suicidal Ideation Suicidal Ideation: No - Homicidal Ideation Homicidal Ideation: No Goal/Treatment Plan - Goal/Treatment Plan Need for Continued Stay: Remain at risks for inpatient hospitalization, Severe depression anxiety, Discharge may exacerbated symptoms, Severe functional impairment Progress Toward Problem(s) and Goals/Treatment Plan: * Group, milieu and supportive tx * consultation for discharge plan and social issues Cogentin 1 mg PO BID for EPS Depakote DR 500 MG am AND 750 mg po qPM {to check VPA} for mood stabilization Prolixin 5mg po amhs with a plan to wean it off Seroquel 200 mg po am and 300mg hs with the plan to max the dose Ambien 5 mg PO HS PRN for insomnia Haldol 5 mg, Ativan 2 mg, Benadryl 50 mg q6 prns for agitation * Ativan 1 mg po q8 for possible alcohol withdrawal. * Consider Naltrexone to help with alcohol cravings however patient has historically demonstrated very little motivation in abstinence from drugs and alcohol * Nicotine 21 mg/24 hr 1 patch TD DAILY * Medical consult appreciated Risk/benefits/alternatives of the medications were discussed with the patient Estimated Date of D/C: 03/24/19
[2019-03-20] MEDS: Divalproex 250 mg DR (BID formulation) PO SCH (17:21)
[2019-03-20] MEDS ORDERED: Menthol/Methyl Salicylate Ointment(1 oz) TOP ONE (20:33)
[2019-03-21] MEDS: Pantoprazole 40 mg EC Tab PO SCH (08:43)
[2019-03-21] MEDS: Divalproex 500 mg DR(BID formulation) PO SCH (10:23)
--- NOTE | 2019-03-21 14:33 | PCM.PYCHPN ---
Psychiatric Progress Note - Psychiatric Progress Note Patient seen today, length of contact: 30 minutes Patient Chief Complaint: "I am okay today" Problems Identified/Issues Discussed: Treatment plan, plan to discontinue Prolixin, and maximize Seroquel. substance abuse, suicide prevention, aftercare plan, symptoms. Medical Problems: See HPI Diagnostic Results: 03/16/19 07:00 03/16/19 07:00 Lab Results 03/16/19 10:00: Valproic Acid 27 L 03/16/19 07:00: Hemoglobin A1c 6.2 03/16/19 07:00: RPR Nonreactive 03/16/19 07:00: Free T4 1.23, TSH 3rd Generation 1.35 03/16/19 07:00: Sodium 142, Potassium 4.1, Chloride 103, Carbon Dioxide 32, Anion Gap 11, BUN 19, Creatinine 0.8, Est GFR ( Amer) > 60, Est GFR (Non- Af Amer) > 60, Random Glucose 95, Fasting Glucose 95, Calcium 9.0, Phosphorus 3.4, Magnesium 2.0, Total Bilirubin 0.2, AST 37 H, ALT 23, Alkaline Phosphatase 50, Total Protein 7.0, Albumin 3.8, Globulin 3.2, Albumin/Globulin Ratio 1.2, Triglycerides 54, Cholesterol 80 L, LDL Cholesterol Direct 56, HDL Cholesterol 19 L 03/16/19 07:00: WBC 5.0, RBC 4.64, Hgb 12.6, Hct 39.0, MCV 84.1, MCH 27.2, MCHC 32.3, RDW 15.6 H, Plt Count 202, MPV 10.0, Neut % (Auto) 39.5 L, Lymph % (Auto) 47.4 H, [place] % (Auto) 8.5 H, Eos % (Auto) 4.4, Baso % (Auto) 0.2, Lymph # (Auto) 2.4, [place] # (Auto) 0.4, Eos # (Auto) 0.2, Baso # (Auto) 0.01, Absolute Neuts (auto) 1.99 03/15/19 08:32: POC Glucose (mg/dL) 89 03/15/19 00:37: Urine Opiates Screen Negative, Urine Methadone Screen Negative, Ur Barbiturates Screen Negative, Ur Phencyclidine Scrn Negative, Ur Amphetamines Screen Negative, U Benzodiazepines Scrn Positive H, U Oth Cocaine Metabols Positive H, U Cannabinoids Screen Negative 03/15/19 00:37: Urine Color Light yellow, Urine Appearance Clear, Urine pH 6.0, Ur Specific [place] 1.010, Urine Protein Negative, Urine Glucose (UA) Negative, Urine Ketones Negative, Urine Blood Negative, Urine Nitrate Negative, Urine Bilirubin Negative, Urine Urobilinogen 0.2, Ur Leukocyte Esterase Negative 03/15/19 00:30: WBC 4.9 D, RBC 4.45, Hgb 12.5, Hct 37.5, MCV 84.3, MCH 28.1, MCHC 33.3, RDW 15.4 H, Plt Count 231, MPV 10.5, Neut % (Auto) 43.0 L, Lymph % (Auto) 43.5 H, [place] % (Auto) 7.4 H, Eos % (Auto) 5.7 H, Baso % (Auto) 0.4, Lymph # (Auto) 2.1, [place] # (Auto) 0.4, Eos # (Auto) 0.3, Baso # (Auto) 0.02, Absolute Neuts (auto) 2.09 03/15/19 00:30: Alcohol, Quantitative < 10 03/15/19 00:30: Sodium 143, Potassium 4.5, Chloride 105, Carbon Dioxide 27, Anion Gap 16, BUN 18, Creatinine 1.0, Est GFR ( Amer) > 60, Est GFR (Non- Af Amer) 58, Random Glucose 83, Calcium 9.2, Total Bilirubin 0.3, AST 44 H D, ALT 33, Alkaline Phosphatase 56, Total Protein 7.9, Albumin 4.3, Globulin 3.6, Albumin/Globulin Ratio 1.2 Vital Signs Temp Pulse Resp BP Pulse Ox 03/17/19 10:00 98.0 F 83 20 122/80 03/17/19 07:11 98.0 F 83 20 122/80 03/16/19 15:40 85 122/85 03/15/19 18:00 18 03/15/19 11:48 19 03/15/19 10:00 98.8 F 89 20 102/66 03/15/19 08:28 98 F 84 18 130/58 L 99 03/15/19 07:45 84 15 147/87 95 03/15/19 04:13 89 18 128/82 98 03/15/19 00:42 98.2 F 91 H 18 130/71 96 DSM 5 Symptoms Update: patient is 53 year old -Serbian female with reported history of schizophrenia paranoid type versus schizoaffective disorder, crack/cocaine dependency, alcohol abuse, multiple psychiatric admissions in the past most recently [facility] 03/03/19-03/07/19 and [facility] 02/14/19-02/28/19, poor adherence with medications and outpatient f/u who presented to the emergency room here in [facility] complaining of "not feeling stable", auditory hallucinations of voices telling her to harm herself and others. At the time of admission presented as paranoid, labile, internally preoccupied, disorganized in thoughts and behavior. Patient was agitated when she arrived on the unit on Sunday and needed to be medicated with Haldol 5 mg, Ativan 2 mg and Benadryl 50 IM. Staff also found a crack pipe when patient was searched for contraband. Patient was seen today next to the nursing station. pt is disorganized, but not aggressive tolerates adjustment of meds well pt will be only on seroquel, prolixin was tapered off, d/c 03/21/19 d/c planning is complicated, pt is not welcomed to any shelters in the area, SW tried to contact multiple boarding homes. no safe discharge plan as of yet Presently denies any SI/HI however she remains unpredictable. As per staff patient is unpredictable, labile, at times disrespectful, compliant with medications, but more pleasant. So far patient tolerates medications well, no side effects observed or reported, aims 0, no EPS. Impression: DSM 5 Diagnosis: Schizoaffective Disorder Polysubstance Dependency SIMD, SIPD Medication Change: Yes (Prolixin decreased, Seroquel increased) Medical Record Reviewed: Yes Consults ordered or reviewed: Medical consult appreciated, please see notes for more detailed information Mental Status Examination - Cognitive Function Orientation: Person, Place Memory: Impaired Attention: Poor (Some improvement) Concentration: Poor Association: Loose Fund of Knowledge: Poor - Mood Mood: Depressed, Anxious - Affect Affect: Constricted - Formal Thought Process Formal Thought Process: Hallucinations (Denied today), Delusions, Paranoia, Loosening of associations - Suicidal Ideation Suicidal Ideation: No - Homicidal Ideation Homicidal Ideation: No Goal/Treatment Plan - Goal/Treatment Plan Need for Continued Stay: Remain at risks for inpatient hospitalization, Severe depression anxiety, Discharge may exacerbated symptoms, Severe functional impairment Progress Toward Problem(s) and Goals/Treatment Plan: * Group, milieu and supportive tx * SW consultation for discharge plan and social issues Cogentin 1 mg PO BID for EPS Depakote DR 500 MG am AND 750 mg po qPM {to check VPA} for mood stabilization Prolixin d/c 03/21/19 Seroquel 300 mg po am and 300mg hs with the plan to titrate accordingly Ambien 5 mg PO HS PRN for insomnia Haldol 5 mg, Ativan 2 mg, Benadryl 50 mg q6 prns for agitation * Ativan 1 mg po q8 for possible alcohol withdrawal. * Consider Naltrexone to help with alcohol cravings however patient has historically demonstrated very little motivation in abstinence from drugs and alcohol * Nicotine 21 mg/24 hr 1 patch TD DAILY * Medical consult appreciated Risk/benefits/alternatives of the medications were discussed with the patient Estimated Date of D/C: 03/24/19
[2019-03-21] MEDS: Divalproex 250 mg DR (BID formulation) PO SCH (15:34)
[2019-03-22] MEDS: Pantoprazole 40 mg EC Tab PO SCH (08:52)
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
[2019-03-22] MEDS: Divalproex 500 mg DR(BID formulation) PO SCH ×3 (10:26→11:00)
[2019-03-22] MEDS: Menthol/Methyl Salicylate Ointment(1 oz) TOP PRN (16:43)
[2019-03-22] MEDS: Divalproex 250 mg DR (BID formulation) PO SCH (16:46)
[2019-03-23] MEDS: Pantoprazole 40 mg EC Tab PO SCH (08:48)
[2019-03-23] MEDS: Menthol/Methyl Salicylate Ointment(1 oz) TOP PRN ×2 (08:50→17:52)
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
[2019-03-23] MEDS: Divalproex 500 mg DR(BID formulation) PO SCH (09:41)
[2019-03-23] MEDS: Divalproex 250 mg DR (BID formulation) PO SCH (17:36)
[2019-03-24] MEDS: Pantoprazole 40 mg EC Tab PO SCH (08:27)
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
[2019-03-24] MEDS: Divalproex 500 mg DR(BID formulation) PO SCH (09:37)
[2019-03-24] MEDS: Divalproex 250 mg DR (BID formulation) PO SCH (17:23)
[2019-03-25 07:33] VITALS: BP 94/69; PULSE 90; RESP 18; TEMP 98
[2019-03-25] MEDS: Pantoprazole 40 mg EC Tab PO SCH (09:30)
[2019-03-25] MEDS: Divalproex 500 mg DR(BID formulation) PO SCH (09:30)
--- NOTE | 2019-03-25 16:27 | PCM.PYCHDC ---
Mental Status Examination - Mental Status Examination Orientation: Person, Place, Situation, Time Memory: Intact Mood: Neutral Affect: Broad (And mood congruent) Speech: Appropriate (Times overproductive but more organized) Attention: Poor (Baseline, much improved) Concentration: Poor (Much improved) Association: Loose (Baseline) Fund of Knowledge: Poor (Baseline) Formal Thought Process: Other (Chronic thought process disorganization but much improved) Description of patient's judgement and insight: Pt has improved insight into mental and medical illness, pt was compliant with medications and unit rules and regulations, pt was attending group therapy sessions, was calm, cooperative, socially appropriate, no behavioral incidents, no agitation, no aggression. Psychotic Thoughts and Behaviors: Pt denied v/a/t hallucinations, denied paranoid ideations, pt does not appear to be psychotic, and thought process is goal directed. Suicidal Ideation: No Current Homicidal Ideation?: No Plan: pt adamantly denied thoughts of harming self or others denied intent or plan. Discharge Plan - Discharge Note Reason for Hospitalization: Disorganized thoughts and disorganized behavior, psychosis Psychiatric History (includes Medical, Family, Personal Hx): Long history of schizophrenia versus schizoaffective disorder Laboratory Data: Abnormal Lab Results 03/24/19 18:59 POC Glucose (mg/dL) 105 03/16/19 07:00 03/16/19 07:00 Lab Results 03/24/19 18:59: POC Glucose (mg/dL) 105 03/16/19 10:00: Valproic Acid 27 L 03/16/19 07:00: Hemoglobin A1c 6.2 03/16/19 07:00: RPR Nonreactive 03/16/19 07:00: Free T4 1.23, TSH 3rd Generation 1.35 03/16/19 07:00: Sodium 142, Potassium 4.1, Chloride 103, Carbon Dioxide 32, Anion Gap 11, BUN 19, Creatinine 0.8, Est GFR ( Amer) > 60, Est GFR (Non- Af Amer) > 60, Random Glucose 95, Fasting Glucose 95, Calcium 9.0, Phosphorus 3.4, Magnesium 2.0, Total Bilirubin 0.2, AST 37 H, ALT 23, Alkaline Phosphatase 50, Total Protein 7.0, Albumin 3.8, Globulin 3.2, Albumin/Globulin Ratio 1.2, Triglycerides 54, Cholesterol 80 L, LDL Cholesterol Direct 56, HDL Cholesterol 19 L 03/16/19 07:00: WBC 5.0, RBC 4.64, Hgb 12.6, Hct 39.0, MCV 84.1, MCH 27.2, MCHC 32.3, RDW 15.6 H, Plt Count 202, MPV 10.0, Neut % (Auto) 39.5 L, Lymph % (Auto) 47.4 H, [place] % (Auto) 8.5 H, Eos % (Auto) 4.4, Baso % (Auto) 0.2, Lymph # (Auto) 2.4, [place] # (Auto) 0.4, Eos # (Auto) 0.2, Baso # (Auto) 0.01, Absolute Neuts (auto) 1.99 03/15/19 08:32: POC Glucose (mg/dL) 89 03/15/19 00:37: Urine Opiates Screen Negative, Urine Methadone Screen Negative, Ur Barbiturates Screen Negative, Ur Phencyclidine Scrn Negative, Ur Amphetamines Screen Negative, U Benzodiazepines Scrn Positive H, U Oth Cocaine Metabols Positive H, U Cannabinoids Screen Negative 03/15/19 00:37: Urine Color Light yellow, Urine Appearance Clear, Urine pH 6.0, Ur Specific [place] 1.010, Urine Protein Negative, Urine Glucose (UA) Negative, Urine Ketones Negative, Urine Blood Negative, Urine Nitrate Negative, Urine Bilirubin Negative, Urine Urobilinogen 0.2, Ur Leukocyte Esterase Negative 03/15/19 00:30: WBC 4.9 D, RBC 4.45, Hgb 12.5, Hct 37.5, MCV 84.3, MCH 28.1, M CHC 33.3, RDW 15.4 H, Plt Count 231, MPV 10.5, Neut % (Auto) 43.0 L, Lymph % (Auto) 43.5 H, [place] % (Auto) 7.4 H, Eos % (Auto) 5.7 H, Baso % (Auto) 0.4, Lymph # (Auto) 2.1, [place] # (Auto) 0.4, Eos # (Auto) 0.3, Baso # (Auto) 0.02, Absolute Neuts (auto) 2.09 03/15/19 00:30: Alcohol, Quantitative < 10 03/15/19 00:30: Sodium 143, Potassium 4.5, Chloride 105, Carbon Dioxide 27, Anion Gap 16, BUN 18, Creatinine 1.0, Est GFR ( Amer) > 60, Est GFR (Non- Af Amer) 58, Random Glucose 83, Calcium 9.2, Total Bilirubin 0.3, AST 44 H D, ALT 33, Alkaline Phosphatase 56, Total Protein 7.9, Albumin 4.3, Globulin 3.6, Albumin/Globulin Ratio 1.2 Vital Signs Temp Pulse Resp BP Pulse Ox 03/25/19 07:32 98.0 F 90 18 94/69 L 03/24/19 16:08 119 H 108/78 03/24/19 10:00 97.0 F L 68 16 126/72 03/24/19 07:13 98 F 86 18 114/74 03/23/19 16:00 83 113/74 03/23/19 07:16 98 F 102 H 19 112/74 03/22/19 16:00 103 H 107/76 03/22/19 07:08 97.9 F 73 20 115/77 03/22/19 07:04 97.8 F 78 18 91/46 L 03/21/19 16:05 122 H 121/83 03/21/19 15:34 97.6 F 03/21/19 07:10 98.0 F 63 20 144/90 03/20/19 15:49 122 H 125/68 03/20/19 07:07 98.0 F 85 20 120/81 03/19/19 16:25 102 H 123/87 03/18/19 15:00 104 H 20 142/88 03/17/19 15:54 100 H 103/67 03/17/19 14:23 97.3 F L 03/17/19 10:00 98.0 F 83 20 122/80 03/17/19 07:11 98.0 F 83 20 122/80 03/16/19 15:40 85 122/85 03/15/19 18:00 18 03/15/19 11:48 19 03/15/19 10:00 98.8 F 89 20 102/66 03/15/19 08:28 98 F 84 18 130/58 L 99 03/15/19 07:45 84 15 147/87 95 03/15/19 04:13 89 18 128/82 98 03/15/19 00:42 98.2 F 91 H 18 130/71 96 Consultations:: List each consultation separately and include: 1. Reason for request. 2. Findings. 3. Follow-up Consultations: Medical consult appreciated, please see notes for more detailed information Summary of Hospital Course include:: 1. Description of specific treatment plan utilized for patients during their course of treatmen. 2. Summarize the time- course for resolution of acute symptoms and/or regressed behaviors. 3. Describe issues identified and worked on during hospitalization. 4. Describe medication utilized. 5. Describe medical problems identified and treated. 6. Reassessment of suicide risk Summary of Hospital Course: patient is 53 year old -[place] female with reported history of schizophrenia paranoid type versus schizoaffective disorder, crack/cocaine depe ndency, alcohol abuse, multiple psychiatric admissions in the past most recently [facility] 03/03/19-03/07/[place] [facility] [place] poor adherence with medications and outpatient f/u who presented to the emergency room here in [facility] complaining of "not feeling stable", auditory hallucinations of voices telling her to harm herself and others. At the time of admission presented as paranoid, labile, internally preoccupied, disorganized in thoughts and behavior. Patient was agitated when she arrived on the unit on Sunday and needed to be medicated with Haldol 5 mg, Ativan 2 mg and Benadryl 50 IM. Staff also found a crack pipe when patient was searched for contraband. At the time of admission pt presented to be disorganized, but more pleasant to compare with the previous admissions, pt reported that she hears "spirits voices", denied any command type hallucinations. Presently denies any SI/HI however she remains unpredictable. As per staff patient is unpredictable, labile, at times disrespectful, compliant with medications. Patient was stabilized on the following medications: Haldol was weaned off Seroquel was titrated to 300 mg twice a day for psychosis Depakote 500 mg at the morning time and 750 mg at the nighttime for mood stabili zation Ambien 5 mg at the nighttime as needed for insomnia cogentin 1 mg twice a day for possible EPS Patient tolerated medications well, no side effects observed or reported, aims 0, no EPS. Over the course of this hospitalization pt was attending groups, pt also had medication management, had therapeutic milieu. Based on patient's history and presentation patient was rejected by all of the shelters in the area, that is why discharge was postponed till today. Overall pt improved significantly, pt's affect became brighter, pt was less depressed, has realistic future oriented plans, pt does appear to be psychotic but seems to be at her baseline. Patient reached maximum effect from this acute hospitalization, deemed ready for discharge. Patient said that she "her family over the weekend and she will arrange housing for herself. At the time of the discharge patient was considered to pose no imminent danger to self or others, will be following up at dual diagnosis program, information about follow up appointment, time and address provided to the pt, (see note for more detailed information). It is a patient responsibility to follow up with outpatient clinic, PMD as well as specialists. In case patient will need to obtain results of studies pending at discharge, pat ient was provided with contact information of Psychiatric Inpatient unit [phone] as well as Medical Record Department [phone], as well as [facility] team [phone]. Nicotine patch was provided Naltrexone treatment is not indicated at this time because patient was abusing cocaine counseling about smoking and alcohol cessation provided AA meetings as well as smoking cessation treatment program information was provided by the pt was provided with prescriptions see medication reconciliation form Pt was educated about safety plan in case of worsening of symptoms or in case of suicidal or homicidal ideation call 911 or go to the nearest ER, also was educated to take meds as prescribed and stay away from drugs, pt verbalized understanding. - Diagnosis (1) Polysubstance abuse Status: Chronic Priority: High (2) Schizoaffective disorder Status: Chronic Priority: High - Final Diagnosis (DSM 5) Condition upon Discharge: STABLE Disposition: HOME/ ROUTINE Follow-up Treatment Plan: Dual diagnosis program. Prescriptions/Medication Reconciliation: Benztropine [Cogentin] 1 mg PO AMHS #30 tab Divalproex [Depakote DR (*BID*)] 250 mg PO HS #14 tcp Divalproex [Depakote DR(*BID*)] 500 mg PO AMHS #30 tcp Menthol/Methyl Salicylate [BenGay] 1 gm TOP BID PRN #1 tube PRN Reason: feet and knee pain Nicotine 21 mg/24 hr [Nicoderm Cq] 1 patch TD DAILY #14 patch Pantoprazole [Protonix EC Tab] 40 mg PO DAILY #7 ect QUEtiapine [SEROquel] 300 mg PO AMHS #30 tab Zolpidem [Ambien] 5 mg PO HS PRN #14 tab PRN Reason: Insomnia - Tobacco Cessation Tobacco Use Status for the last 30 days: Heavy User(>=5 cigs &/or cigars/pipes daily) Tobacco Use Treatment Practical Counseling Provided: Yes Tobacco Use Treatment FDA-Approved Cessation Medication Provided: Yes Type of Medication Provided: Nicoderm CQ Smoking Cessation Prescription was given: Yes - Alcohol or Substance Abuse Does the patient have an Alcohol or Substance Abuse Disorder: Yes A prescription for an FDA-approved medication for alcohol and drug dependence was given to the patient at discharge: No If no,reason for not providing: Patient refused - Antipsychotic Medications Pt discharged on 2 or more routine antipsychotic medications: No
== END 2019-03-25 14:51 | disposition home or self-care (01) | DRG 430 ==
LOC: ED 00:15 → ERH 07:34 → PSYC 08:52
PROVIDERS: ADMIT Psychiatry & Neurology Psychiatry; ATTEND Psychiatry & Neurology Psychiatry
DX: F25.9 Schizoaffective disorder, unspecified (principal); J43.9 Emphysema, unspecified; F14.20 Cocaine dependence, uncomplicated; E11.9 Type 2 diabetes mellitus without complications; D57.3 Sickle-cell trait; F03.90 Unspecified dementia, unspecified severity, without behavioral disturbance, psychotic disturbance, mood disturbance, and anxiety; E03.9 Hypothyroidism, unspecified; G40.909 Epilepsy, unspecified, not intractable, without status epilepticus; E78.5 Hyperlipidemia, unspecified; K21.9 Gastro-esophageal reflux disease without esophagitis; F32.9 Major depressive disorder, single episode, unspecified; M81.0 Age-related osteoporosis without current pathological fracture; F17.210 Nicotine dependence, cigarettes, uncomplicated; F10.10 Alcohol abuse, uncomplicated; S72.142D Displaced intertrochanteric fracture of left femur, subsequent encounter for closed fracture with routine healing; W07.XXXD Fall from chair, subsequent encounter; Z91.14 Patient's other noncompliance with medication regimen; Z91.19 Patient's noncompliance with other medical treatment and regimen; Z86.718 Personal history of other venous thrombosis and embolism; Z79.01 Long term (current) use of anticoagulants; Z79.84 Long term (current) use of oral hypoglycemic drugs; Z59.0 Homelessness; Z80.0 Family history of malignant neoplasm of digestive organs

== ENCOUNTER 2019-03-29 04:10 | Emergency (ER) | payer MEDICAID ==
[2019-03-29 04:10] VITALS: BMI 33.7
[2019-03-29 04:25] VITALS: BP 147/81; PULSE 87; RESP 18; TEMP 98.2; O2SAT 98
--- NOTE | 2019-03-29 04:39 | ED PDOC ---
Arrival/HPI - General Chief Complaint: Lower Extremity Problem/Injury Time Seen by Provider: 03/29/19 04:12 Historian: Patient - History of Present Illness Narrative History of Present Illness (Text): 03/29/19 04:35 53 year old homeless female, whose past medical history includes DVT on Eliquis, diabetes, COPD, psychiatric including schizophrenia/polysubstances/bipolar, presents to the emergency department complaining of bilateral leg pain. Patient was noted to be walking from the stretcher when she arrived. She states she took cocaine and alcohol to relieve the pain. Patient is well known to the ER staff and has been seen on multiple occasions in the past. Patient denies any fever, chills, chest pain, shortness of breath, nausea, vomiting, diarrhea, urinary symptoms, back pain, neck pain, headache, dizziness, or any other complaints. Symptom Onset: Gradual Symptom Course: Unchanged Activities at Onset: Light Past Medical History - Provider Review Nursing Documentation Reviewed: Yes - Past History Past History: No Previous - Infectious Disease Hx of Infectious Diseases: None - Tetanus Immunization Tetanus Immunization: Unknown - Cardiac Hx Hypertension: No - Pulmonary Hx Asthma: Yes Hx Bronchitis: Yes Hx Emphysema: Yes Hx Pneumonia: Yes - Neurological Hx Seizures: No - HEENT Hx HEENT Disorder: No - Renal Hx Renal Disorder: No - Endocrine/Metabolic Hx Endocrine Disorders: Yes Hx Diabetes Mellitus Type 2: Yes - Hematological/Oncological Hx Anemia: Yes Hx Sickle Cell Disease: Yes - Integumentary Hx Dermatological Disorder: Yes - Musculoskeletal/Rheumatological Hx Arthritis: Yes - Gastrointestinal Hx Gastrointestinal Disorders: No - Genitourinary/Gynecological Hx Sexually Transmitted Diseases: No - Psychiatric Hx Anxiety: Yes Hx Bipolar Disorder: Yes Hx Depression: Yes Hx Schizophrenia: Yes Hx Substance Use: Yes (cocaine) - Past Surgical History Past Surgical History: No Previous - Surgical History Other/Comment: Pt reports "leg surgery". Hx of DVT - Anesthesia Hx Anesthesia: Yes Hx Anesthesia Reactions: No Hx Malignant Hyperthermia: No - Suicidal Assessment Feels Threatened In Home Enviroment: No Family/Social History - Physician Review Nursing Documentation Reviewed: Yes Family/Social History: No Known Family HX Smoking Status: Heavy Smoker > 10 Cigarettes Daily Hx Alcohol Use: Yes Hx Substance Use: Yes (cocaine) Substance used: cocaine Hx Substance Use Treatment: Yes Allergies/Home Meds Allergies/Adverse Reactions: Allergies No Known Allergies Allergy (Verified 03/29/19 04:17) Review of Systems - Physician Review All systems were reviewed & negative as marked: Yes - Review of Systems Constitutional: absent: Fevers, Other (chills) Respiratory: absent: SOB Cardiovascular: absent: Chest Pain Gastrointestinal: absent: Diarrhea, Nausea, Vomiting Genitourinary Female: absent: Dysuria, Frequency, Hematuria Musculoskeletal: Other (leg pain). absent: Back Pain, Neck Pain Neurological: absent: Headache, Dizziness Physical Exam Vital Signs Reviewed: Yes Vital Signs Temp Pulse Resp BP Pulse Ox 03/29/19 04:25 98.2 F 87 18 147/81 98 Temperature: Afebrile Blood Pressure: Normal Pulse: Regular Respiratory Rate: Normal Appearance: Positive for: Well-Appearing, Non-Toxic, Comfortable Pain Distress: None Mental Status: Positive for: Alert and Oriented X 3 - Systems Exam Head: Present: Atraumatic, Normocephalic Pupils: Present: PERRL Extroacular Muscles: Present: EOMI Conjunctiva: Present: Normal Mouth: Present: Moist Mucous Membranes Neck: Present: Normal Range of Motion Respiratory/Chest: Present: Clear to Auscultation, Good Air Exchange. No: Respiratory Distress, Accessory Muscle Use Cardiovascular: Present: Regular Rate and Rhythm, Normal S1, S2. No: Murmurs Abdomen: No: Tenderness, Distention, Peritoneal Signs Back: Present: Normal Inspection Upper Extremity: Present: Normal Inspection. No: Cyanosis, Edema Lower Extremity: Present: Normal Inspection. No: Edema Neurological: Present: GCS=15, CN II-XII Intact, Speech Normal Skin: Present: Warm, Dry, Normal Color. No: Rashes Psychiatric: Present: Alert, Oriented x 3, Normal Insight, Normal Concentration Medical Decision Making ED Course and Treatment: 03/29/19 04:39 Impression: 53 year old female presents complaining of bilateral leg pain in which she reports she took cocaine and alcohol to relieve the pain. Plan: -- Motrin -- Reassess and disposition Prior Visits: Notes and results from previous visits were reviewed. Progress Notes: On re-evaluation, patient is in no acute distress. I have discussed the plan with the patient, who expresses understanding. Patient in agreement with plan to be discharged home. Patient is stable for discharge. Patient was instructed to follow up with physician or return if symptoms worsen or new concerning symptoms arise. - Scribe Statement The provider has reviewed the documentation as recorded by the Donya Curran Provider Donya Attestation: All medical record entries made by the Catarinoibreema were at my direction and personally dictated by me. I have reviewed the chart and agree that the record accurately reflects my personal performance of the history, physical exam, medical decision making, and the department course for this patient. I have also personally directed, reviewed, and agree with the discharge instructions and disposition. Disposition/Present on Arrival - Present on Arrival Any Indicators Present on Arrival: No History of DVT/PE: No History of Uncontrolled Diabetes: No Urinary Catheter: No History of Decub. Ulcer: No History Surgical Site Infection Following: None - Disposition Have Diagnosis and Disposition been Completed?: Yes Diagnosis: Chronic leg pain Disposition: HOME/ ROUTINE Disposition Time: 04:30 Condition: GOOD Discharge Instructions (ExitCare): Chronic Pain (DC) Additional Instructions: HIREN PUENTES, thank you for letting us take care of you today. The emergency medical care you received today was directed at your acute symptoms. If you were prescribed any medication, please fill it and take as directed. It may take several days for your symptoms to resolve. Return to the Emergency Department if your symptoms worsen, do not improve, or if you have any other problems. Please contact your doctor or call one of the physicians/clinics you have been referred to that are listed on the Patient Visit Information form that is included in your discharge packet. Bring any paperwork you were given at dischar ge with you along with any medications you are taking to your follow up visit. Our treatment cannot replace ongoing medical care by a primary care provider outside of the emergency department. Thank you for allowing the [facility] team to be part of your care today. Do not use cocaine and alcohol for pain management. Follow up with your primary care doctor in 2-3 days for re-evaluation and further management. Prescriptions: Ibuprofen [Motrin] 600 mg PO Q6 PRN #20 tab PRN Reason: Pain, Moderate (4-7) Referrals: [facility], [Non-Staff] - Follow up with primary Forms: [place] (Burmese)
== END 2019-03-29 05:04 | disposition home or self-care (01) ==
LOC: ED 04:10
DX: G89.29 Other chronic pain (principal); M79.605 Pain in left leg; M79.604 Pain in right leg; E11.9 Type 2 diabetes mellitus without complications; J44.9 Chronic obstructive pulmonary disease, unspecified; Z86.718 Personal history of other venous thrombosis and embolism; Z79.01 Long term (current) use of anticoagulants; Z59.0 Homelessness; F20.9 Schizophrenia, unspecified; F17.210 Nicotine dependence, cigarettes, uncomplicated